=== PATIENT | female | born 1930 | race Caucasian/White ===

== ENCOUNTER 2018-09-14 11:27 | Inpatient (IN) | payer MEDICARE ==
[~2018-09-14] VITALS: Ht 157.5 cm; Wt 52.2 kg
[2018-09-14] MEDS ORDERED: diphenhydrAMINE 25 MG TAB (BENADRYL) PO PRN (12:00)
[2018-09-14] MEDS ORDERED: ACETAMINOPHEN 500 MG TAB (TYLENOL) PO PRN (12:00)
--- NOTE | 2018-09-14 12:55 | NUR ---
JANICE LI admitted to room 231, with an admitting diagnosis of METABOLIC ENCEPHALOPATHY, on 09/14/18 from [facility] via [facility]HICLE, accompanied by FAMILY. JANICE LI introduced to surroundings, call light, bed controls, phone, TV, temperature control, lights, meal times, smoking policy, visitor policy, side rail policy, bathrooms and showers. Patient Rights given to patient in the handbook. ADRIAJOSEPHVERONICAJANICE verbalizes understanding that [facility] is not responsible for the loss or damage to any personal effects or valuables that are kept in the patient's possession during their hospitalization. The following Patient Care Plans were discussed with the PATIENT/FAMILY: Discharge Planning, IMPAIRED MOBILITY, HIGH RISK: IMPAIRED SKIN INTEGRITY, HIGH RISK: INJURY, ANXIETY, FEAR, ALTERED CEREBRAL TISSUE PERFUSION, ALTERED HEALTH MAINTENANCE, ALTERED THOUGHT PROCESS, and KNOWLEDGE DEFICIT. ADRIAJOSEPHVERONICAJANICE verbalizes understanding of Interdisciplinary Patient Education. Patient received Patient Rights Booklet, which includes Privacy Act Statement and Data Collection Information Summary.
--- NOTE | 2018-09-14 13:50 | NUR ---
Dr. Campoverde notified Dr. Pederson of Wound Care consult.
[2018-09-14] MEDS ORDERED: CIPR-226 PO (13:52)
[2018-09-14] MEDS ORDERED: ALLO100T PO (13:52)
[2018-09-14] MEDS ORDERED: CALC1TAB94 PO (13:52)
[2018-09-14] MEDS ORDERED: METO-370 PO (13:52)
[2018-09-14] MEDS ORDERED: LACT10SO5 PO (13:52)
[2018-09-14] MEDS ORDERED: VIT1CAPS5 PO (13:52)
[2018-09-14] MEDS ORDERED: MUPI22OI2 TOP (13:52)
[2018-09-14] MEDS ORDERED: DIPH1TAB25 PO (13:52)
[2018-09-14] MEDS ORDERED: PANT40TA3 PO (13:52)
[2018-09-14] MEDS ORDERED: TORS5TAB5 PO (13:52)
[2018-09-14] MEDS ORDERED: POTA10CA43 PO (13:52)
[2018-09-14] MEDS ORDERED: AMLO10TA7 PO (13:52)
[2018-09-14] MEDS ORDERED: HYDR-3812 PO (13:52)
[2018-09-14] MEDS ORDERED: LIPA1CAP67 PO ×2 (13:52)
[2018-09-14] MEDS ORDERED: HYDR30CR71 RC (13:52)
--- NOTE | 2018-09-14 13:54 | PM&R H&P / Post Admit Assess ---
History of Present Illness HPI/Chief Complaint Chief complaint: Hepatic encephalopathy with debility. HPI: This is an 87yoWF of [address] [employer] Nelson in [place] and Dr. Hernandez Gastroenterology at [facility], and Dr. Garcia hematology at [facility] who has a PMH of liver cirrhosis, unknown source since she is a nondrinker lifetime and does not take any excess amount of Tylenol that was diagnosed with liver cirrhosis with portal hypertension two years ago, presents after altered mental status hospital stay at [facility] for confusion, stroke workup was negative and found to have elevated ammonia level at 83. Lactulose was initiated which cleared the confusion significantly, but due to the frail status and thin and chronically ill status that she is she needed inpatient rehab to maintain good Lactulose maintenance for clearance of elevated ammonia. At this current time Pt denies any pain but overall her strength is very poor and needs intensive therapy. Son is at the bedside. 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 Source: patient, family, RN/MD, old records Exam Limitations: no limitations Date Seen 09/14/18 Time Seen by a Provider: 13:40 Attending Physician Radha Oliva Benjamen H MD Referring Physician Date of Admission Sep 14, 2018 at 12:55 Home Medications & Allergies Home Medications Reviewed patient Home Medication Reconciliation performed by pharmacy medication reconciliations installation and repair technician and/or nursing. Patients Allergies have been reviewed. Allergies Allergies Coded Allergies Penicillins (Verified Allergy, Unknown, Diarrhea, 09/14/18) Sulfa (Sulfonamide Antibiotics) (Verified Allergy, Unknown, Diarrhea, 09/14/18) tobramycin (Verified Allergy, Unknown, Facial swelling, 09/14/18) Past Cguluer-Kijhey-Eklyur Hx Past Med/Social Hx: Reviewed Nursing Past Med/Soc Hx, Reviewed and Corrections made Patient Social History Marrital Status: single Employed/Student: retired Alcohol Use: Denies Use Smoking Status: Never a Smoker Recent Foreign Travel: No Contact w/other who traveled: No Recent Infectious Disease Expo: No Past Medical History Genitourinary: Renal Failure Gastrointestinal: Liver Disease/Jaundice, Cirrhosis GI bleed Musculoskeletal: Arthritis right flank post herpetic neuralgia Review of Systems Constitutional: see HPI, dizziness, malaise, weakness EENTM: no symptoms reported Respiratory: no symptoms reported Cardiovascular: no symptoms reported Gastrointestinal: diarrhea Genitourinary: no symptoms reported Musculoskeletal: joint pain Skin: no symptoms reported Psychiatric/Neurological: No Symptoms Reported All Other Systems Reviewed Negative Unless Noted: Yes Physical Exam Exam Vital Signs Vital Signs Date Time Temp Pulse Resp B/P (MAP) Pulse Ox O2 Delivery O2 Flow Rate FiO2 09/15/18 05:05 98.7 70 16 104/61 (75) 98 Room Air Capillary Refill : General Appearance: No Apparent Distress, WD/WN, Chronically ill, Cachetic, Thin HEENT: PERRL/EOMI, Normal ENT Inspection, Pharynx Normal, Moist Mucous Membranes, Other (severe HO-CHUNK) Neck: Full Range of Motion, Normal Inspection, Non Tender, Supple Respiratory: Chest Non Tender, Lungs Clear, Normal Breath Sounds, No Accessory Muscle Use, No Respiratory Distress Cardiovascular: Regular Rate, Rhythm, No Edema, No Gallop, No JVD, No Murmur Gastrointestinal: Normal Bowel Sounds, No Organomegaly, No Pulsatile Mass, Non Tender, Soft Back: Normal Inspection, No CVA Tenderness, No Vertebral Tenderness Extremity: Normal Capillary Refill, Normal Inspection, Normal Range of Motion, Non Tender, No Calf Tenderness, No Pedal Edema Neurologic/Psychiatric: Alert, Oriented x3, No Motor/Sensory Deficits ( weakness generalized), Normal 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 Assessment/Plan Assessment and Plan Assess & Plan/Chief Complaint Assessment: Hepatic encephalopathy now with normal ammonia 24 today after dosing Lactulose TID for 5 BM's per day CRI Pancytopenia Anemia of renal disease Leukopenia chronic Advanced age GI Bleed in past Fall risk DNR Right flank post herpetic neuralgia Plan: Home meds Lactulose TID to attain 5 BM's Intensive therapies to return to independent living Prognosis guarded (1) Hepatic encephalopathy (2) Cirrhosis of liver with ascites (3) Portal vein thrombosis (4) Anemia (5) Neutropenia (6) Thrombocytopenia (7) B12 deficiency (8) Post herpetic neuralgia (9) Splenic sequestration (10) Renal insufficiency (11) Increased ammonia level (12) History of GI bleed (13) Advanced age (14) DNR (do not resuscitate) (15) Frailty Post Admission Physician Asses Date seen by provider: Sep 14, 2018 Time seen by provider: 13:40 The preadmission screen agrees with the post admission assessment that the patient is a good candidate for inpatient rehabilitation. The patient will have a comprehensive program of inpatient rehabilitation with a goal of maximizing level of functional independence prior to discharge home with family. The patient will have PT/OT ninety minutes per day, each discipline, five days a week for gait, strengthening, conditioning, balance, ADLs, any patient/family/caregiver training as necessary. Speech therapy to do cognitive assessment and treat as indicated. Rehabilitation nursing to assist with bowel, bladder, skin, wound care, medication administration, pain management. Oil Lease Broker to assist with discharge planning, community reentry. SCD's for DVT prophylaxis. She appears to be well motivated to participate in three hours of therapy a day. She should be able to tolerate three hours of therapy a day from a medical standpoint. She should benefit from the three hours of therapy a day. She has a reasonable discharge plan, reasonable discharge rehabilitation goals and a supportive family. She has various comorbidities that need to be closely monitored with medications and treatments adjusted on a daily basis as needed. These include: Barriers to discharge for this patient who had been independent prior to this are for her to be modified independent to supervision for ADLs and mobility skills prior to discharge home with [family], so as to lessen the burden of the caregivers. Risks for this patient include: 1. Fall 2. Fracture 3. DVT 4. Pulmonary embolism 5. Wound infection 6. Skin breakdown 7. Contractures 8. Poorly controlled pain 9. Urinary retention 10. UTI 11. Respiratory infection 12. Aspiration Estimated Length of Stay: 7 days Prognosis: Rehab prognosis appears good for goal of discharge home with family modified independent to supervision for ADLs and mobility skills. General: Alert, Oriented X3, Cooperative, No Acute Distress HEENT: Atraumatic, PERRLA, Other (HO-CHUNK severe) Neck: Supple, No JVD, No Thyromegaly, +2 Carotid Pulse No Bruit, No LAD Lungs: Clear to Auscultation, Normal Air Movement Heart: Regular Rate, Normal S1, Normal S2, No Murmurs Abdomen: Normal Bowel Sounds, Soft, No Tenderness, No Hepatosplenomegaly, No Masses Extremities: No Clubbing, No Cyanosis, No Edema, Normal Pulses, No Tenderness/ Swelling Skin: No Rashes, No Breakdown, No Significant Lesion Neuro: Normal Gait (with walker), Normal Speech, Strength at 5/5 X4 Ext ( weakness), Normal Tone, Sensation Intact, Cranial Nerves 3-12 NL, Reflexes 2+ Psych/Mental Status: Mental Status NL, Mood NL RDAHA OLIVA DO Sep 14, 2018 13:54
--- NOTE | 2018-09-14 13:55 | NUR ---
UPDATED MED REC TO THE LIST OF MEDICATIONS ORDERED ON DISCHARGE FROM [facility]. NOTE THE FOLLOWING CHANGES WERE MADE AT [facility]: START TAKING: CIPRO LACTULOSE STOP TAKING: NITROFURANTOIN PRED FORTE I WILL UPDATE THE MED REC BACK TO THE HOME MED LIST AT A LATER DATE FOR PROPER DISCHARGE ORDERS. Addendum: 09/15/18 at 1011 by KAUSHIK PARRISH [facility] REMOVED THE TWO NEW MEDICATIONS STARTED AT [facility]: CIPRO AND LACTULOSE. ADDED THE MACROBID BACK THAT WAS DISCONTINUED. I DID NOT ADD BACK THE PREDNISOLONE DROPS THEY HAVE NOT BEEN FILLED SINCE OCTOBER ANYWAY. MED REC IS BACK TO HOME MEDS PRIOR TO ADMISSION AND DISCHARGE FROM [facility].
[2018-09-14] MEDS: LACTULOSE SYRUP 10GM/15ML (ENULOSE) 30ML UDC PO SCH ×2 (13:57→20:30)
--- NOTE | 2018-09-14 14:20 | Physical Therapy Evaluation ---
PT Evaluation-General Medical Diagnosis Admission Date Sep 14, 2018 at 12:55 Medical Diagnosis: acute metabolic encephalopathy Onset Date: Sep 14, 2018 Therapy Diagnosis Therapy Diagnosis: weakness; abnormal gait Precautions Precautions/Isolations: Standard Precautions Weight Bear Status Right Lower Extremity: Right Full Weight Bearing Left Lower Extremity: Left Full Weight Bearing Referral Physician: Nirali Reason for Referral: Evaluation/Treatment Medical History Pertinent Medical History: Diverticulitis, Fractures (pelvic), HTN, Neuropathy , OA Additional Medical History cirrhosis liver, Chronic kidney disease stage 3, mitral valve prolapse, osteopenia, osteoporosis Current History pt presented to ER at [facility] on 09/12/2018 with altered mental status and was found to have elevated ammonia level. She was treated medically and then transferred to this facility for continued medical care as well as skilled therapy services. Reviewed History: Yes Social History Home: Single Level Current Living Status: Alone (supportive family nearby) Entry Into Home: Stairs With Railing PT Steps Into Home: 4 PT Steps Inside Home: 0 Prior/Core FIM Prior Level of Function Therapy Code Descriptions/Definitions Functional [place] Measure: 0=Not Assessed/NA 4=Minimal Assistance 1=Total Assistance 5=Supervision or Setup 2=Maximal Assistance 6=Modified [place] 3=Moderate Assistance 7=Complete [place] Therapy Quality Codes: 6 Independent with activity with or without an assistive device 5 Patient requires set up or clean up by helper. Patient completes activity by themselves 4 Supervision or touching assist (CGA). [place] provide cues , steadying assist 3 The helper provides less than half the effort to complete the activity 2 The helper provides more than half the effort to complete the activity 1 Dependent. The helper does all the effort to complete an activity 7 Patient refused to complete or attempt activity 9 The patient did not perform the activity before the current illness or injury 88 Not attempted due to Medical conditions or safety concerns Functional Abilities and Goals: Independent: Patient completed the activities by him/herself, with or without an assistive device, with no assistance from a helper. Needed Some Help: Patient needed partial assistance from another person to complete activities. Dependent: A helper completed the activities for the patient. Unknown: Not Applicable: Bed Mobility: 7 Transfers (B,C,W/C) (FIM): 7 Gait: 6 Stairs: 5 (household) Indoor Mobility (Ambulation): Independent Stairs: Independent Prior Devices Use: Walker Pt does not drive but was able to ride with family to the grocery and walk around the store pushing a cart. PT Evaluation-Current Subjective Agrees to PT. Reports she is having loose stools that come frequently due to medication. Reports feeling tired post treatment. Pain Numeric Pain Scale: 0-No Pain Location: No Pain Reported Pt/Family Goals Return home with [facility] . Objective Patient Orientation: Person, Place, Time, Situation Problem Solving: Fair ROM/Strength ROM Lower Extremities WNL Strenght Lower Extremities strength is grossly 4-/5 throughout with decreased functinal activity tolerance. Integumentary/Posture Integumentary Refer to nursing notes for full assessment. Bowel Incontinence: Yes Bladder Incontinence: No Posture symmetrical; slightly rounded shoulders but normal for age. Neuromuscular (Tone, Coordination, Reflexes) intact and functional Sensory Vision: Wears Glasses (still impaired with glasses) Hearing: Hearing Aid/Aides Hand Dominance: Right Sensation Right Lower Extremit: Intact Sensation Left Lower Extremity: Intact Transfers Therapy Code Descriptions/Definitions Functional [place] Measure: 0=Not Assessed/NA 4=Minimal Assistance 1=Total Assistance 5=Supervision or Setup 2=Maximal Assistance 6=Modified [place] 3=Moderate Assistance 7=Complete [place] Therapy Quality Codes: 6 Independent with activity with or without an assistive device 5 Patient requires set up or clean up by helper. Patient completes activity by themselves 4 Supervision or touching assist (CGA). [place] provide cues , steadying assist 3 The helper provides less than half the effort to complete the activity 2 The helper provides more than half the effort to complete the activity 1 Dependent. The helper does all the effort to complete an activity 7 Patient refused to complete or attempt activity 9 The patient did not perform the activity before the current illness or injury 88 Not attempted due to Medical conditions or safety concerns Transfers (B, C, W/C) (FIM): 4 Roll Left to Right (QC): 4 Supine to/from Sit: 4 (light assist to guide legs) Sit to/from Stand: 4 (CGA with skilled cues for hand placement) Sit to Lying (QC): 4 Lying to Sitting/Side of Bed(Q: 4 Sit to Stand (QC): 4 Chair/Xia-se-Zxwen Xfer(QC): 4 Car Transfer (QC): 3 Cues for sequencing and safety provided. Tends to pull up from the walker rather than push up from the chair. Gait Does the Patient Walk?: Yes Mode of Locomotion: Walk Anticipated Mode of Locomotion: Walk Gait (FIM): 2 Distance (FIM): 0=636-89 ft Walk 10 feet (QC): 4 Walk 50 ft with 2 Turns(QC): 4 Walk 150 ft (QC): 88 Walking 10ft/uneven surface-QC: 4 Distance: 75 ft x 4 reps Gait Level of Assist: 4 (CGA with 1 LOB episode that required assist to recover ) Gait Assistive Device: FWW Comments/Gait Description slow but steady gait noted. Wheelchair Training Does the Pt Use a Wheelchair?: No Stairs Stairs (FIM): 2 #of Steps: 1 Level of Assist: 4 1 Step (curb) (QC): 4 4 Steps (QC): 88 Assistive Device: Walker 12 Steps (QC): 88 Balance Sitting Static: Good Sitting Dynamic: Good Standing Static: Fair Standing Dynamic: Fair Picking up an Object (QC): 88 (unsafe to attempt) Treatment Gait and functional transfer training paired with safety education; toilet transfer x 2 and stood at the sink to wash hands x 2. Family education on safety and expectations of ARU with pt present and participating. Assessment/Needs pt presents post acute hospital stay with a decline in functional strength and balance that impairs her ability to transfer or walk without assist and with increased fall risk. She will benefit from skilled PT to address these deficits to allow her to return home and care for herself. Rehab Potential: Good PT Short Term Goals Short Term Goals Time Frame: Sep 21, 2018 Transfers (B,C,W/C) (FIM): 5 Gait (FIM): 4 PT [facility] Goals Elevator Constructor Hydraulic Goals PT [facility] Goals Time Frame: Sep 30, 2018 Transfers (B,C,W/C) (FIM): 7 Sit to Lying (QC): 6 Lying-Sitting on Side/Bed(QC): 6 Sit to Stand (QC): 6 Roll Left to Right (QC): 6 Chair/Xfv-iy-Ihokf Xfer(QC): 6 Car Transfer (QC): 6 Does the Patient Walk: Yes Gait (FIM): 6 Gait distance (FIM): 3=150 ft Walk 10 feet (QC): 6 Walk 10ft-Uneven Surface(QC): 6 Walk 50ft with 2 Turns (QC): 6 Walk 150 ft (QC): 6 Gait Assistive Device: FWW Does the Pt use WC or Scooter?: No Stairs (FIM): 5 (household) # of Steps: 4 1 Step (curb) (QC): 6 4 Steps (QC): 6 12 Steps (QC): 88 Picking up an Object (QC): 4 PT Plan Problem List Problem List: Activity Tolerance, Functional Strength, Safety, Balance, Gait, Transfer, Bed Mobility Treatment/Plan Treatment Plan: Continue Plan of Care Treatment Plan: Bed Mobility, Education, Functional Activity Shaista, Functional Strength, Group Therapy, Gait, Safety, Therapeutic Exercise, Transfers Treatment Duration: Sep 30, 2018 Frequency: At least 5 of 7 days/Wk (IRF) Estimated Hrs Per Day: 1.5 hours per day Patient and/or Family Agrees t: Yes Safety Risks/Education Patient Education: Transfer Techniques, Safety Issues Teaching Recipient: Patient, Family Teaching Methods: Demonstration, Discussion Response to Teaching: Reinforcement Needed Discharge Recommendations Therapy D/C Recommendations: Physical Therapy Home Care Time/GCodes Time In: 1445 Time Out: 1600 Total Billed Treatment Time: 75 Total Billed Treatment visit EVM 15 FA 60 ELIZABETH CROW PT Sep 14, 2018 14:20
--- NOTE | 2018-09-14 14:55 | ST Cognitive Linguistic Eval ---
Speech Evaluation-General Medical Diagnosis acute metabolic encephalopathy Onset Date: Sep 14, 2018 Therapy Diagnosis Therapy Diagnosis: Cognitive-communication Precautions Precautions: Fall Precautions/Isolations: Standard Precautions Referral Referring Physician: Dr. Campoverde Medical History Pertinent Medical History: Diverticulitis, Fractures (pelvic), HTN, Neuropathy , OA Reviewed History: Yes Social History Current Living Status: Alone Speech PLF-Current Status Prior Level of Function Patient lived at home alone with family support. She was independent for her daily needs. Subjective Patient was very pleasant and attentive during the cognitive evaluation. Language Eval: Auditory Comprehends Simple Yes/No Ques: Functional Indent/Objects Multiple [place]: Functional Ident/Pics in Multiple Jones: Functional Follows 1-Step Commands: Functional Follows Complex Directions: Functional Follows General Conversations: Functional Language Eval: Verbal Language Completes Spontaneous Greeting: Functional Produces Auto, Serial Info: Functional Imitates Simple Words/Phrases: Functional Word Finding: Functional Requests Basic Needs: Functional States Basic Personal Info: Functional Expresses Complex Ideas: Functional Objective Cognitive Domain Attention: WNL Memory: WNL Problem Solving: Functional Executive Functions: WNL Visuospatial Skills: Mild Clock Drawing Severity Rating: WNL Objective Formal/Standardized Tests Dylan Cognitive Assessment (MOCA) Results Visuospatial/Executive: 5/5, Namin/3, Memory: Immediate 5/5, Delayed with cues 4/5, Attention: 6/6, Language: 2/2, Abstraction: 2/2, Orientation: 6/6 Oral Motor/Speech Production Within Functional Limits Impression The patient is a very pleasant 87 year old female who was admitted to the ARU for strengthening in order to return to her prior level of functioning. She was given the MOCA in her room with the patient's results WFL for all areas tested. She does not require skilled ST services at this time. Communication/Social Cognition Comprehension: 7 Expression: 7 Social Interaction: 7 Problem Solvin Memory: 7 Speech Patient Assess Expression of Ideas/Wants: Expression (4) Understanding Verbal Content: Understands (4) Brief Interview-Mental Status: Yes Repetition of Three Words: Three (3) Temporal Orientation: Year: Correct (3) Temporal Orientation: Month: Accurate within 5 days(2) Temporal Orientation: Day: Correct (1) Recall : Wear to say "Sock": Yes, no cue required (2) Recall : Color: Yes, no cue required (2) Recall : Bed: Yes,after cueing (1) Memory/Recall Ability: Current season, That he or she is in a hsp/hsp unit Speech-Plan Patient/Family Goals Patient/Family Goals: The patient plans to return home post rehab. Treatment Plan Speech Therapy Treatment Plan: Discontinue ST The patient does not require skilled ST services at this time. Treatment Duration: Sep 14, 2018 Frequency: 1 time per week Estimated Hrs Per Day: .25 hour per day Rehab Potential: Good Barriers to Learning: None identified Pt/Family Agrees to Plan: Yes Safety Risks/Education Teaching Recipient: Patient Teaching Methods: Discussion Response to Teaching: Verbalize Understanding Education Topics Provided: Safety within her room. Utilization of the call light as needed. Time Speech Therapy Time In: 14:30 Speech Therapy Time Out: 14:45 Total Billed Time: 15 Billed Treatment Time 1, CHATO Bailey Sep 14, 2018 14:55
--- NOTE | 2018-09-14 15:22 | Occupational Therapy Eval ---
OT Evaluation-General/PLF Medical Diagnosis Admission Date Sep 14, 2018 at 12:55 Medical Diagnosis: acute metabolic encephalopathy Onset Date: Sep 14, 2018 Therapy Diagnosis Therapy Diagnosis: decreased self care skills Precautions Precautions/Isolations: Standard Precautions Referral Physician: Nirali Medical History Pertinent Medical History: Diverticulitis, Fractures (pelvic), HTN, Neuropathy , OA Additional Medical History cirrhosis liver, Chronic kidney disease stage 3, mitral valve prolapse, osteopenia, osteoporosis Current History pt presented to ER at [facility] on 09/12/2018 with altered mental status and was found to have elevated ammonia level. She was treated medically and then transferred to this facility for continued medical care as well as skilled therapy services. Reviewed History: Yes Social History Home: Single Level Current Living Status: Alone Entry Into Home: Stairs With Railing Steps Into Home: 3 ADL-Prior Level of Function Therapy Code Descriptions/Definitions Functional [place] Measure: 0=Not Assessed/NA 4=Minimal Assistance 1=Total Assistance 5=Supervision or Setup 2=Maximal Assistance 6=Modified [place] 3=Moderate Assistance 7=Complete [place] Therapy Quality Codes: 6 Independent with activity with or without an assistive device 5 Patient requires set up or clean up by helper. Patient completes activity by themselves 4 Supervision or touching assist (CGA). [place] provide cues , steadying assist 3 The helper provides less than half the effort to complete the activity 2 The helper provides more than half the effort to complete the activity 1 Dependent. The helper does all the effort to complete an activity 7 Patient refused to complete or attempt activity 9 The patient did not perform the activity before the current illness or injury 88 Not attempted due to Medical conditions or safety concerns Functional Abilities and Goals: Independent: Patient completed the activities by him/herself, with or without an assistive device, with no assistance from a helper. Needed Some Help: Patient needed partial assistance from another person to complete activities. Dependent: A helper completed the activities for the patient. Unknown: Not Applicable: ADL PLOF Comments Pt reports being independent with self care and mobility. Pt does the cooking and cleaning. Uses FWW in the house. Son checks on her daily Self Care: Independent DME/Equipment: Shower Drive Self: No OT Current Status Subjective Pt arrives from outside hospital, agrees to therapy. Pt reports back and neck pain, but does not rate. Mental Status/Objective Patient Orientation: Person, Place Current Glasses/Contacts: No (Pt reports decreased vision secondary to macular degeneration. Pt also states she had a cataract removed, but feels like vision is worse since then) Hearing Aids: Yes Dentures/Partials: Yes Hand Dominance: Right Upper Extremity ROM Mildly decreased shoulder ROM Upper Extremity Coordination Intact Upper Extremity Sensation Pt reports "nerve pain" in right UE and flank secondary to previous shingles Upper Extremity Strength decreased bilateral UE ADL-Treatment ADL-Current Pt transferred to toilet x2 during session with minimal assistance for safety. Pt able to complete toileting hygiene, but requires CGA for balance during clothing management. Pt completed sponge bath while seated. Upper body bathing completed with SBA. Requires minimal assistance for lower body bathing. Pt does not have clothes here, states family will bring some. Changed gown with set up. Pt demonstrated ability to doff/don socks with SBA. Pt combed hair with set up. Meal tray arrived. Pt requires some assist to open containers, but is then able to feed herself without assist. Pt sitting in chair with needs met after session. Eating (FIM): 5 Eating (QC): 5 Grooming (FIM): 5 Bathing (FIM): 4 Shower/Bathe Self (QC): 3 On/Off Footwear (QC): 4 Toileting (FIM): 4 Toileting Hygiene (QC): 3 Toilet/Commode Transfer (FIM): 4 Toilet Transfer (QC): 3 Education OT Patient Education: Rehab process Teaching Recipient: Patient Teaching Methods: Discussion Response to Teaching: Verbalize Understanding OT Short Term Goals Short Term Goals Time Frame: Sep 21, 2018 Bathing(FIM): 5 Lower Body Dressing(FIM): 5 Toileting(FIM): 5 Toilet/Commode Transfer(FIM): 5 Additional Short Term Goals: 1-Demonstrate ADL Tasks, 2-Verbalize Understanding , 3-ImproveStrength/Shaista 1=Demonstrate adherence to instructed precautions during ADL tasks. 2=Patient will verbalize/demonstrate understanding of assistive devices/ modifications for ADL. 3=Patient will improve strength/tolerance for activity to enable patient to perform ADL's. 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 2=Patient will verbalize/demonstrate understanding of assistive devices/ modifications for ADL. 3=Patient will improve strength/tolerance for activity to enable patient to perform ADL's. Goals established to promote increased functional performance and allow safe discharge plan. OT Education/Plan Problem List/Assessment Assessment: Decreased Activ Tolerance, Decreased UE Strength, Dependent Transfers, Impaired I ADL's, Impaired Self-Care Skills Pt to benefit from skilled OT intervention for ADL training, transfers, strengthening, and safety education to increase level of performance and allow safe discharge plan Discharge Recommendations Plan/Recommendations: Continue POC Treatment Plan/Plan of Care Treatment,Training & Education: Yes Patient would benefit from OT for education, treatment and training to promote independence in ADL's, mobility, safety and/or upper extremity function for ADL' s. Plan of Care: ADL Retraining, Functional Mobility, Group Exercise/Act as Ind, UE Funct Exercise/Act Treatment Duration: Oct 05, 2018 Frequency: At least 5 of 7 days/Wk (IRF) Estimated Hrs Per Day: 1.5 hours per day Agreement: Yes Rehab Potential: Good Time/GCodes Start Time: 12:55 Stop Time: 14:30 Total Time Billed (hr/min): 95 Billed Treatment Time 1 visit, EVL(30minutes), ADLx4(65minutes) STACI GUADALUPE OT Sep 14, 2018 15:22
[2018-09-14] MEDS ORDERED: NON-FORMULARY MEDICATION 1 EA EA (Hydrocodone/Acetaminophen (Hydrocodone-Acetamin 5-325 mg PO PRN (16:45)
[2018-09-14] MEDS ORDERED: LIPASE/AMYLASE/PROTEASE (PANCRELIPASE) 5,000 UNITS CAP PO SCH (17:15)
[2018-09-14 17:45] VITALS: BP 131/72
--- NOTE | 2018-09-14 17:50 | NUR ---
Dr. Pederson here to see patient.
--- NOTE | 2018-09-14 17:56 | Wound Care Assessment ---
Wound Care Assessment Date Seen by Provider: Sep 14, 2018 Time Seen by Provider: 17:53 Chief Complaint Perianal excoriation. HPI The patient is an 87 year old female with hepatic encephalopathy on lactulose to reduce ammonia levels with a chemical dermatitis from stool to the perianal area. Barrier cream ordered. Exam Vital Signs Date Time Temp Pulse Resp B/P (MAP) Pulse Ox O2 Delivery O2 Flow Rate FiO2 09/14/18 17:45 97.4 78 18 131/72 (91) 97 Room Air Capillary Refill : MIR NEAL MD Sep 14, 2018 17:56
[2018-09-14] MEDS: CALCIUM CARB + VIT D 600 MG (CALCARB + D) TAB PO SCH (18:02)
[2018-09-14] MEDS: HYDROcodone/APAP 5 MG/325 MG (LORTAB) TAB PO PRN (18:03)
[2018-09-14] MEDS: CIPROFLOXACIN 500 MG (CIPRO) TABLET PO SCH (20:30)
[2018-09-14] MEDS ORDERED: NON-FORMULARY MEDICATION 1 EA EA (Calcium Carbonate/Vitamin D3 (Calcium 600 + Vit D 400 Ta PO SCH (21:00)
[2018-09-14] MEDS ORDERED: NON-FORMULARY MEDICATION 1 EA EA (Ciprofloxacin HCl (Cipro) 250 MG) PO SCH (21:00)
[2018-09-14] MEDS ORDERED: PRESERVISION AREDS SOFTGEL (BAUSH & LOMB) PO SCH (21:00)
[2018-09-15 05:05] VITALS: BP 104/61
[2018-09-15 05:48] LABS: BASOPHILS % (AUTO) 1 % (0-10); EOSINOPHILS # (AUTO) 0.1 10^3/uL (0.0-0.3); EOSINOPHILS % (AUTO) 6 % (0-10); HEMATOCRIT 29 % (35-52); HEMOGLOBIN 9.5 G/DL (11.5-16.0); LYMPHOCYTES # (AUTO) 0.4 X 10^3 (1.0-4.0); LYMPHOCYTES % (AUTO) 29 % (12-44); MEAN CORPUSCULAR HEMOGLOBIN 30 PG (25-34); MEAN CORPUSCULAR HGB CONC 33 G/DL (32-36); MEAN CORPUSCULAR VOLUME 93 FL (80-99); MEAN PLATELET VOLUME 10.3 FL (7.4-10.4); MONOCYTES # (AUTO) 0.1 X 10^3 (0.0-1.0); MONOCYTES % (AUTO) 8 % (0-12); NEUTROPHILS # (AUTO) 0.8 X 10^3 (1.8-7.8); NEUTROPHILS % (AUTO) 56 % (42-75); RED CELL DISTRIBUTION WIDTH 16.2 % (10.0-14.5)
[2018-09-15 06:14] LABS: ALBUMIN 3.2 GM/DL (3.2-4.5); BILIRUBIN,TOTAL 1.8 MG/DL (0.1-1.0); CALCIUM 8.5 MG/DL (8.5-10.1); CREATININE SERUM 1.47 MG/DL (0.60-1.30); POTASSIUM 2.9 MMOL/L (3.6-5.0)
[2018-09-15 06:17] LABS: PLATELET COUNT 32 10^3/uL (130-400); WHITE BLOOD COUNT 1.4 10^3/uL (4.3-11.0)
[2018-09-15] MEDS: PANTOPRAZOLE 40 MG (PROTONIX) TAB PO SCH (07:05)
[2018-09-15] MEDS: KCL 10 MEQ TAB (MICRO K) PO SCH (07:05)
[2018-09-15] MEDS: LIPASE/AMYLASE/PROTEASE (PANCRELIPASE) 5,000 UNITS CAP PO SCH ×3 (07:06→18:01)
[2018-09-15] MEDS: CALCIUM CARB + VIT D 600 MG (CALCARB + D) TAB PO SCH ×2 (07:10→19:55)
--- NOTE | 2018-09-15 08:39 | PM&R Progress Note ---
Subjective HPI/CC On Admission Date Seen by Provider: Sep 15, 2018 Time Seen by Provider: 08:45 Chief complaint: Hepatic encephalopathy with debility. HPI: This is an 87yo[address] of [address] [facility] in [place] and Dr. Hernandez Gastroenterology at [facility], and Dr. Garcia hematology at [facility] who has a PMH of liver cirrhosis, unknown source since she is a nondrinker lifetime and does not take any excess amount of Tylenol that was diagnosed with liver cirrhosis with portal hypertension two years ago, presents after altered mental status hospital stay at [facility] for confusion, stroke workup was negative and found to have elevated ammonia level at 83. Lactulose was initiated which cleared the confusion significantly, but due to the frail status and thin and chronically ill status that she is she needed inpatient rehab to maintain good Lactulose maintenance for clearance of elevated ammonia. At this current time Pt denies any pain but overall her strength is very poor and needs intensive therapy. Son is at the bedside. 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 Objective Exam Vital Signs Vital Signs Date Time Temp Pulse Resp B/P (MAP) Pulse Ox O2 Delivery O2 Flow Rate FiO2 09/15/18 09:00 Room Air 09/15/18 05:05 98.7 70 16 104/61 (75) 98 Capillary Refill : General Appearance: No Apparent Distress, WD/WN, Chronically ill, Cachetic, Thin, Other (pale, chronically ill) HEENT: PERRL/EOMI, Normal ENT Inspection, Pharynx Normal, Other (UMATILLA TRIBE) Neck: Full Range of Motion, Normal Inspection, Non Tender, Supple Respiratory: Chest Non Tender, Lungs Clear, Normal Breath Sounds, No Accessory Muscle Use, No Respiratory Distress Cardiovascular: Regular Rate, Rhythm, No Edema, No Gallop, No JVD, No Murmur, Normal Peripheral Pulses Gastrointestinal: Normal Bowel Sounds, Non Tender, Soft Back: Normal Inspection, No CVA Tenderness, No Vertebral Tenderness Extremity: Normal Capillary Refill, Normal Inspection, Normal Range of Motion, Non Tender, No Calf Tenderness Neurologic/Psychiatric: Alert, Oriented x3, No Motor/Sensory Deficits, Normal Mood/Affect, electronic integrated systems mechanic II-XII Norm as Tested Skin: Normal Color, Warm/Dry Lymphatic: No Adenopathy Results/Procedures Lab Laboratory Tests 09/15/18 05:40 Patient resulted labs reviewed. Assessment/Plan Assessment and Plan Assess & Plan/Chief Complaint Assessment: Hepatic encephalopathy now with normal ammonia 24 today after dosing Lactulose TID for 5 BM's per day CRI Pancytopenia Anemia of renal disease Leukopenia chronic Advanced age GI Bleed in past Fall risk DNR Right flank post herpetic neuralgia Plan: Home meds Lactulose TID to attain 5 BM's Intensive therapies to return to independent living Prognosis guarded Reviewed Hematology note from [facility] (1) Hepatic encephalopathy (2) Portal vein thrombosis (3) Anemia (4) Neutropenia (5) Post herpetic neuralgia (6) Renal insufficiency (7) Thrombocytopenia (8) Splenic sequestration (9) DNR (do not resuscitate) (10) Frailty (11) B12 deficiency (12) Advanced age (13) History of GI bleed (14) Increased ammonia level (15) Cirrhosis of liver with ascites Clinical Quality Measures DVT/VTE Risk/Contraindication: Risk Factor Score Per Nursin RFS Level Per Nursing on Admit: 2=Moderate YOLANDA OLIVA DO Sep 15, 2018 08:39
[2018-09-15] MEDS ORDERED: NON-FORMULARY MEDICATION 1 EA EA (Torsemide 10 MG) PO SCH (09:00)
[2018-09-15] MEDS ORDERED: NON-FORMULARY MEDICATION 1 EA EA (Allopurinol 100 MG) PO SCH (09:00)
[2018-09-15] MEDS ORDERED: NON-FORMULARY MEDICATION 1 EA EA (Potassium Chloride 10 MEQ) PO SCH (09:00)
[2018-09-15] MEDS ORDERED: NON-FORMULARY MEDICATION 1 EA EA (Amlodipine Besylate 10 MG) PO SCH (09:00)
[2018-09-15] MEDS ORDERED: NITR100C10 PO (10:08)
--- NOTE | 2018-09-15 10:13 | Physical Therapy Daily Note ---
PT Daily Note-Current Subjective Patient in recliner pre tx, agrees to PT, has 8/10 pain in legs and knees, nurse notified. Appearance Patient in recliner post tx with nurse call, phone, tray, all needs met. Mental Status Patient Orientation: Person, Place, Situation Transfers Therapy Code Descriptions/Definitions Functional [place] Measure: 0=Not Assessed/NA 4=Minimal Assistance 1=Total Assistance 5=Supervision or Setup 2=Maximal Assistance 6=Modified [place] 3=Moderate Assistance 7=Complete [place] Therapy Quality Codes: 6 Independent with activity with or without an assistive device 5 Patient requires set up or clean up by helper. Patient completes activity by themselves 4 Supervision or touching assist (CGA). [place] provide cues , steadying assist 3 The helper provides less than half the effort to complete the activity 2 The helper provides more than half the effort to complete the activity 1 Dependent. The helper does all the effort to complete an activity 7 Patient refused to complete or attempt activity 9 The patient did not perform the activity before the current illness or injury 88 Not attempted due to Medical conditions or safety concerns Transfers (B, C, W/C) (FIM): 4 Sit to/from Stand: 4 Bed to/from Chair: 4 Weight Bearing Right Lower Extremity: Right Full Weight Bearing Left Lower Extremity: Left Full Weight Bearing Gait Training Gait (FIM): 4 Distance: 100'x2 Gait Level of Assist: 4 Gait Persons Needed: 1 Gait Assistive Device: FWW CGA, slow but steady ambulation Exercises Standing: Hip Abduction, Heel/toe raises, Marching, Mini squats Standing Reps: 20 LAQ alternating for 5 min NuStep Minutes: 15 NuStep Workload: 4 Treatments transfers, ambulation, functional strengthening Assessment Current Status: Fair Progress improving endurance and ambulation PT Short Term Goals Short Term Goals Time Frame: Sep 21, 2018 Transfers (B,C,W/C) (FIM): 5 Gait (FIM): 4 PT Mcfp Goals Mcfp Goals PT Mcfp Goals Time Frame: Sep 30, 2018 Transfers (B,C,W/C) (FIM): 7 Sit to Lying (QC): 6 Lying-Sitting on Side/Bed(QC): 6 Sit to Stand (QC): 6 Roll Left to Right (QC): 6 Chair/Sia-qh-Umtiq Xfer(QC): 6 Car Transfer (QC): 6 Does the Patient Walk: Yes Gait (FIM): 6 Gait distance (FIM): 3=150 ft Walk 10 feet (QC): 6 Walk 10ft-Uneven Surface(QC): 6 Walk 50ft with 2 Turns (QC): 6 Walk 150 ft (QC): 6 Gait Assistive Device: FWW Does the Pt use WC or Scooter?: No Stairs (FIM): 5 (household) # of Steps: 4 1 Step (curb) (QC): 6 4 Steps (QC): 6 12 Steps (QC): 88 Picking up an Object (QC): 4 PT Plan Problem List Problem List: Activity Tolerance, Functional Strength, Safety, Balance, Gait, Transfer, Bed Mobility, ROM Treatment/Plan Treatment Plan: Continue Plan of Care Treatment Plan: Bed Mobility, Education, Functional Activity Shaista, Functional Strength, Group Therapy, Gait, Safety, Therapeutic Exercise, Transfers Treatment Duration: Sep 30, 2018 Frequency: At least 5 of 7 days/Wk (IRF) Estimated Hrs Per Day: 1.5 hours per day Patient and/or Family Agrees t: Yes Safety Risks/Education Patient Education: Gait Training, Transfer Techniques, Correct Positioning, Safety Issues Teaching Recipient: Patient Teaching Methods: Demonstration, Discussion Response to Teaching: Reinforcement Needed Time/GCodes Time In: 0915 Time Out: 1015 Total Billed Treatment Time: 60 Total Billed Treatment 1 visit GT 20' FA 15' EX 25' ABBEY TUCKER PT Sep 15, 2018 10:13
[2018-09-15] MEDS: CIPROFLOXACIN 500 MG (CIPRO) TABLET PO SCH ×2 (10:15→20:07)
[2018-09-15] MEDS: TORSEMIDE 20 MG (DEMADEX) TAB PO SCH (10:16)
[2018-09-15] MEDS: amLODIPine 10 MG (NORVASC) TAB PO SCH (10:17)
[2018-09-15] MEDS: LACTULOSE SYRUP 10GM/15ML (ENULOSE) 30ML UDC PO SCH ×3 (10:17→21:13)
[2018-09-15] MEDS: meTOproloL SUCCINATE 50 MG (TOPROL XL) TAB PO SCH (10:17)
[2018-09-15] MEDS: ALLOPURINOL 100 MG (ZYLOPRIM) TAB PO SCH (10:18)
--- NOTE | 2018-09-15 13:14 | Physical Therapy Daily Note ---
PT Daily Note-Current Subjective Agreeable to PT. No complaints. Transfers Therapy Code Descriptions/Definitions Functional [place] Measure: 0=Not Assessed/NA 4=Minimal Assistance 1=Total Assistance 5=Supervision or Setup 2=Maximal Assistance 6=Modified [place] 3=Moderate Assistance 7=Complete [place] Therapy Quality Codes: 6 Independent with activity with or without an assistive device 5 Patient requires set up or clean up by helper. Patient completes activity by themselves 4 Supervision or touching assist (CGA). [place] provide cues , steadying assist 3 The helper provides less than half the effort to complete the activity 2 The helper provides more than half the effort to complete the activity 1 Dependent. The helper does all the effort to complete an activity 7 Patient refused to complete or attempt activity 9 The patient did not perform the activity before the current illness or injury 88 Not attempted due to Medical conditions or safety concerns Weight Bearing Right Lower Extremity: Right Full Weight Bearing Left Lower Extremity: Left Full Weight Bearing Treatments Pt is CGA with sit to stand transfers from all surface chairs with cues for hand placement and sequencing 50% of the time; she often forgets to reach back for the chair. Toileted with SBA for toilet transfers and pt able to complete victoria care. CGA as pt stood at the sink to wash her hands. Pt practiced sit to stand transfers x 5 with focus on hand placement. Up/down 4 steps, taking the steps one at a time but able to step up with the left and right and same for going down. Seated B LE ther ex x 12 ea for AP, heel raises, LAQ, hip flex and hip abd. Pt with OT post treatment. Assessment Current Status: Good Progress Needs cues for sequencing with transfers. Pleasant and cooperative and able to learn new tasks. PT Short Term Goals Short Term Goals Time Frame: Sep 21, 2018 Transfers (B,C,W/C) (FIM): 5 Gait (FIM): 4 PT Fdc Goals Fdc Goals PT Fdc Goals Time Frame: Sep 30, 2018 Transfers (B,C,W/C) (FIM): 7 Sit to Lying (QC): 6 Lying-Sitting on Side/Bed(QC): 6 Sit to Stand (QC): 6 Roll Left to Right (QC): 6 Chair/Awl-pj-Zpqjb Xfer(QC): 6 Car Transfer (QC): 6 Does the Patient Walk: Yes Gait (FIM): 6 Gait distance (FIM): 3=150 ft Walk 10 feet (QC): 6 Walk 10ft-Uneven Surface(QC): 6 Walk 50ft with 2 Turns (QC): 6 Walk 150 ft (QC): 6 Gait Assistive Device: FWW Does the Pt use WC or Scooter?: No Stairs (FIM): 5 (household) # of Steps: 4 1 Step (curb) (QC): 6 4 Steps (QC): 6 12 Steps (QC): 88 Picking up an Object (QC): 4 PT Plan Problem List Problem List: Activity Tolerance, Functional Strength, Safety Treatment/Plan Treatment Plan: Continue Plan of Care Treatment Plan: Bed Mobility, Education, Functional Activity Shaista, Functional Strength, Group Therapy, Gait, Safety, Therapeutic Exercise, Transfers Treatment Duration: Sep 30, 2018 Frequency: At least 5 of 7 days/Wk (IRF) Estimated Hrs Per Day: 1.5 hours per day Patient and/or Family Agrees t: Yes Safety Risks/Education Patient Education: Transfer Techniques Teaching Recipient: Patient Teaching Methods: Demonstration, Discussion Response to Teaching: Reinforcement Needed Discharge Recommendations Therapy D/C Recommendations: Physical Therapy Home Care Time/GCodes Time In: 1230 Time Out: 1300 Total Billed Treatment Time: 30 Total Billed Treatment visit FA 20 EX 10 ELIZABETH CROW PT Sep 15, 2018 13:14
--- NOTE | 2018-09-15 13:21 | NUR ---
RED HAT LINUX ADMINISTRATOR met with patient and family to complete initial assessment. Patient had requested assistance with toileting; therefore, RED HAT LINUX ADMINISTRATOR located therapist to assist. Family reports patient resides alone in a single level home in [place], [place]. The home has 3 steps at the entrance with railing. Patient admitted to ARU from [facility] with debility and metabolic encephalopathy post fall. Prior to admission patient was independent with use of walker. Patient identifies son Keven of [place] as primary contact at [phone] and [id number] Kyung at [phone]. Insurance verified as Medicare and [employer] [place] with silver [employer] prescription coverage. Patient's preferred pharmacy is [facility] [place], [place]. Patient requests power of criminal attorney/ advanced directive documents. RED HAT LINUX ADMINISTRATOR provided documents and will obtain a notary following completion. RED HAT LINUX ADMINISTRATOR reviewed typical rehab length of stay and weekly team conferences with patient, she expressed no concerns. RED HAT LINUX ADMINISTRATOR will follow for appropriate discharge needs.
--- NOTE | 2018-09-15 14:45 | Occupational Ther Daily Note ---
OT Current Status-Daily Note Subjective Pt. reports pain in right shoulder whenever it is touched. No pain level reported however. Appearance Pt. ambulating with nursing to bathroom when OT entered. Agrees to work with OT. Mental Status/Objective Patient Orientation: Person, Place Therapy Code Descriptions/Definitions Functional [place] Measure: 0=Not Assessed/NA 4=Minimal Assistance 1=Total Assistance 5=Supervision or Setup 2=Maximal Assistance 6=Modified [place] 3=Moderate Assistance 7=Complete [place] ADL-Treatment Therapy Code Descriptions/Definitions Functional [place] Measure: 0=Not Assessed/NA 4=Minimal Assistance 1=Total Assistance 5=Supervision or Setup 2=Maximal Assistance 6=Modified [place] 3=Moderate Assistance 7=Complete [place] Therapy Quality Codes: 6 Independent with activity with or without an assistive device 5 Patient requires set up or clean up by helper. Patient completes activity by themselves 4 Supervision or touching assist (CGA). [place] provide cues , steadying assist 3 The helper provides less than half the effort to complete the activity 2 The helper provides more than half the effort to complete the activity 1 Dependent. The helper does all the effort to complete an activity 7 Patient refused to complete or attempt activity 9 The patient did not perform the activity before the current illness or injury 88 Not attempted due to Medical conditions or safety concerns Grooming (FIM): 4 (Min assist to brush hair.) Bathing (FIM): 4 (SBA with max cues to wash all parts. Min assist to wash hair and back. Min assist to wash and dry rear victoria area.) Shower/Bathe Self (QC): 4 Upper Body (FIM): 5 Upper Body Dressing (QC): 4 Lower Body Dressing (FIM): 4 (CGA in stance.) Lower Body Dressing (QC): 4 On/Off Footwear (QC): 4 Toileting (FIM): 5 (SBA and cues for safety.) Toileting Hygiene (QC): 4 Transfers (B, C, W/C) (FIM): 4 Toilet/Commode Transfer (FIM): 4 Toilet Transfer (QC): 4 Shower Transfer(FIM): 4 Other Treatment After ADLs, pt. ambulated to therapy gym. Began with armbike at min resistance and slow pace to increase overall endurance. Pt. states that it bothers her right shoulder, as she had shingles 2 years ago and has residual nerve pain. OT modified the treatment and pt. worked on simple peg task for fine motor strengthening. All needs met back in room. Education OT Patient Education: Correct positioning, Exercise program, Modified ADL techniques, Progress toward Goal/Update tx plan, Purpose of tx/functional activities, Reviewed precautions, Rehab process, Transfer techniques Teaching Recipient: Patient Teaching Methods: Demonstration, Discussion Response to Teaching: Verbalize Understanding, Return Demonstration OT Short Term Goals Short Term Goals Time Frame: Sep 21, 2018 Bathing(FIM): 5 Lower Body Dressing(FIM): 5 Toileting(FIM): 5 Transfers (B,C,W/C) (FIM): 5 Toilet/Commode Transfer(FIM): 5 Additional Short Term Goals: 1-Demonstrate ADL Tasks, 2-Verbalize Understanding , 3-ImproveStrength/Shaista 1=Demonstrate adherence to instructed precautions during ADL tasks. 2=Patient will verbalize/demonstrate understanding of assistive devices/ modifications for ADL. 3=Patient will improve strength/tolerance for activity to enable patient to perform ADL's. OT Group Home Goals Group Home Goals Time Frame: Oct 05, 2018 Eating (FIM): 6 Eating (QC): 6 Groomin Oral Hygiene (QC): 6 Bathing(FIM): 6 Shower/Bathe Self (QC): 6 Upper Body Dressing(FIM): 6 Upper Body Dressing (QC): 6 Lower Body Dressing(FIM): 6 Lower Body Dressing (QC): 6 On/Off Footwear (QC): 6 Toileting(FIM): 6 Toileting Hygiene (QC): 6 Toilet/Commode Transfer(FIM): 6 Toilet/Commode Transfer (QC): 6 Shower Transfer(FIM): 6 Additional Goals: 1-Demonstrate ADL Tasks, 2-Verbalize Understanding, 3- ImproveStrength/Shaista 1=Demonstrate adherence to instructed precautions during ADL tasks. 2=Patient will verbalize/demonstrate understanding of assistive devices/ modifications for ADL. 3=Patient will improve strength/tolerance for activity to enable patient to perform ADL's. OT Education/Plan Problem List/Assessment Assessment: Decreased Activ Tolerance, Decreased UE Strength, Dependent Transfers, Impaired Funct Balance, Impaired I ADL's, Impaired Self-Care Skills, Restricted Funct UE ROM Pt to benefit from skilled OT intervention for ADL training, transfers, strengthening, and safety education to increase level of performance and allow safe discharge plan Discharge Recommendations Plan/Recommendations: Continue POC Therapy D/C Recommendations: Home w/ Family Support, Occupational Therapy Home Care, Scheduled Assistance Treatment Plan/Plan of Care Treatment,Training & Education: Yes Patient would benefit from OT for education, treatment and training to promote independence in ADL's, mobility, safety and/or upper extremity function for ADL' s. Plan of Care: ADL Retraining, Functional Mobility, Group Exercise/Act as Ind, UE Funct Exercise/Act Treatment Duration: Oct 05, 2018 Frequency: At least 5 of 7 days/Wk (IRF) Estimated Hrs Per Day: 1.5 hours per day Agreement: Yes Rehab Potential: Good Time/GCodes Start Time: 08:15 Stop Time: 09:15 Total Time Billed (hr/min): 60 Billed Treatment Time 1, ADL x 4 AUSTIN NAVARRO OT Sep 15, 2018 14:45
--- NOTE | 2018-09-15 14:50 | Occupational Ther Daily Note ---
OT Current Status-Daily Note Subjective No pain reported. Appearance Pt. up in chair in therapy gym. Daughter in law with her. Very pleasant. Mental Status/Objective Patient Orientation: Person, Place Therapy Code Descriptions/Definitions Functional [place] Measure: 0=Not Assessed/NA 4=Minimal Assistance 1=Total Assistance 5=Supervision or Setup 2=Maximal Assistance 6=Modified [place] 3=Moderate Assistance 7=Complete [place] ADL-Treatment Therapy Code Descriptions/Definitions Functional [place] Measure: 0=Not Assessed/NA 4=Minimal Assistance 1=Total Assistance 5=Supervision or Setup 2=Maximal Assistance 6=Modified [place] 3=Moderate Assistance 7=Complete [place] Therapy Quality Codes: 6 Independent with activity with or without an assistive device 5 Patient requires set up or clean up by helper. Patient completes activity by themselves 4 Supervision or touching assist (CGA). [place] provide cues , steadying assist 3 The helper provides less than half the effort to complete the activity 2 The helper provides more than half the effort to complete the activity 1 Dependent. The helper does all the effort to complete an activity 7 Patient refused to complete or attempt activity 9 The patient did not perform the activity before the current illness or injury 88 Not attempted due to Medical conditions or safety concerns Transfers (B, C, W/C) (FIM): 5 (SBA to ambulate with walker.) Pt., OT, daughter in law talk in depth about kitchen safety, completing laundry , and performing daily tasks. Went to kitchen area and pt. practiced retrieving items from lower cabinets. Pt. and daughter educated about how to simplify tasks, including using items more than one time, putting items that are frequently used in easy places, and taking things more easy at first when getting home. Pt. states that she mops on her hands and knees and bends over to get items out of cabinets. Pt. shown a safer way to complete tasks, and pt. educated on the importance of not falling or getting in a hurry. Spoke about how she does laundry at home, and safer methods to complete this task. Pt. verbalizes understanding. All needs met. Education OT Patient Education: Correct positioning, Modified ADL techniques, Progress toward Goal/Update tx plan, Purpose of tx/functional activities, Reviewed precautions, Rehab process, Transfer techniques Teaching Recipient: Patient Teaching Methods: Demonstration, Discussion Response to Teaching: Verbalize Understanding, Return Demonstration OT Short Term Goals Short Term Goals Time Frame: Sep 21, 2018 Bathing(FIM): 5 Lower Body Dressing(FIM): 5 Toileting(FIM): 5 Transfers (B,C,W/C) (FIM): 5 Toilet/Commode Transfer(FIM): 5 Additional Short Term Goals: 1-Demonstrate ADL Tasks, 2-Verbalize Understanding , 3-ImproveStrength/Shaista 1=Demonstrate adherence to instructed precautions during ADL tasks. 2=Patient will verbalize/demonstrate understanding of assistive devices/ modifications for ADL. 3=Patient will improve strength/tolerance for activity to enable patient to perform ADL's. OT Custodial Goals Custodial Goals Time Frame: Oct 05, 2018 Eating (FIM): 6 Eating (QC): 6 Groomin Oral Hygiene (QC): 6 Bathing(FIM): 6 Shower/Bathe Self (QC): 6 Upper Body Dressing(FIM): 6 Upper Body Dressing (QC): 6 Lower Body Dressing(FIM): 6 Lower Body Dressing (QC): 6 On/Off Footwear (QC): 6 Toileting(FIM): 6 Toileting Hygiene (QC): 6 Toilet/Commode Transfer(FIM): 6 Toilet/Commode Transfer (QC): 6 Shower Transfer(FIM): 6 Additional Goals: 1-Demonstrate ADL Tasks, 2-Verbalize Understanding, 3- ImproveStrength/Shaista 1=Demonstrate adherence to instructed precautions during ADL tasks. 2=Patient will verbalize/demonstrate understanding of assistive devices/ modifications for ADL. 3=Patient will improve strength/tolerance for activity to enable patient to perform ADL's. OT Education/Plan Problem List/Assessment Assessment: Decreased Activ Tolerance, Impaired I ADL's, Impaired Self-Care Skills Pt to benefit from skilled OT intervention for ADL training, transfers, strengthening, and safety education to increase level of performance and allow safe discharge plan Discharge Recommendations Plan/Recommendations: Continue POC Therapy D/C Recommendations: Home w/ Family Support, Occupational Therapy Home Care Treatment Plan/Plan of Care Treatment,Training & Education: Yes Patient would benefit from OT for education, treatment and training to promote independence in ADL's, mobility, safety and/or upper extremity function for ADL' s. Plan of Care: ADL Retraining, Functional Mobility, Group Exercise/Act as Ind, UE Funct Exercise/Act Treatment Duration: Oct 05, 2018 Frequency: At least 5 of 7 days/Wk (IRF) Estimated Hrs Per Day: 1.5 hours per day Agreement: Yes Rehab Potential: Good Time/GCodes Start Time: 13:00 Stop Time: 13:30 Total Time Billed (hr/min): 30 Billed Treatment Time 1, ADL x 2 AUSTIN NAVARRO OT Sep 15, 2018 14:50
--- NOTE | 2018-09-15 15:16 | NUR ---
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 Pt shared about her mother who lived to be 102 years old and has been the pt's role model for hard work and perseverance. Pt engaged in life review and said her parents never told her they loved her. She became tearful and said, "but those are words you need to hear." Pt shared she now tells her friends and family she loves them, without reservation. Pt states she has completed advanced directives several years ago, and her documents may be available through the [facility] in [place], or her son
[2018-09-15 18:00] VITALS: BP 146/68
[2018-09-15] MEDS: CALCIUM CARBONATE 500 MG (TUMS) TAB.CHEW PO PRN ×2 (18:01→18:04)
[2018-09-15] MEDS: HYDROcodone/APAP 5 MG/325 MG (LORTAB) TAB PO PRN (20:08)
[2018-09-16 05:46] VITALS: BP 127/61
[2018-09-16] MEDS: CALCIUM CARB + VIT D 600 MG (CALCARB + D) TAB PO SCH ×2 (05:53→17:04)
[2018-09-16] MEDS: KCL 10 MEQ TAB (MICRO K) PO SCH (05:53)
[2018-09-16] MEDS: LIPASE/AMYLASE/PROTEASE (PANCRELIPASE) 5,000 UNITS CAP PO SCH ×3 (05:54→17:04)
[2018-09-16] MEDS: PANTOPRAZOLE 40 MG (PROTONIX) TAB PO SCH (05:54)
--- NOTE | 2018-09-16 08:42 | PM&R Progress Note ---
Subjective HPI/CC On Admission Date Seen by Provider: Sep 16, 2018 Time Seen by Provider: 08:45 Chief complaint: Hepatic encephalopathy with debility. HPI: This is an [id number] of [address] David Nelson in [place] and Dr. Hernandez Gastroenterology at [facility], and Dr. Garcia hematology at [facility] who has a PMH of liver cirrhosis, unknown source since she is a nondrinker lifetime and does not take any excess amount of Tylenol that was diagnosed with liver cirrhosis with portal hypertension two years ago, presents after altered mental status hospital stay at [facility] for confusion, stroke workup was negative and found to have elevated ammonia level at 83. Lactulose was initiated which cleared the confusion significantly, but due to the frail status and thin and chronically ill status that she is she needed inpatient rehab to maintain good Lactulose maintenance for clearance of elevated ammonia. At this current time Pt denies any pain but overall her strength is very poor and needs intensive therapy. Son is at the bedside. 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 Subjective/Events-last exam Patient doing well Lactulose producing 4-5 bowel movements that are loose per day to decrease ammonia level Denies any pain except for the right flank shoulder from postherpetic neuralgia Overall prognosis very poor given advanced age and end-stage liver disease Review of Systems General: Fatigue Musculoskeletal: arm pain Objective Exam Vital Signs Vital Signs Date Time Temp Pulse Resp B/P (MAP) Pulse Ox O2 Delivery O2 Flow Rate FiO2 09/16/18 09:00 Room Air 09/16/18 05:46 98.2 70 18 127/61 (83) 98 Capillary Refill : General Appearance: No Apparent Distress, WD/WN, Chronically ill, Cachetic, Thin, Other (pale, chronically ill) HEENT: PERRL/EOMI, Normal ENT Inspection, Pharynx Normal, Other ([place]) Neck: Full Range of Motion, Normal Inspection, Non Tender, Supple Respiratory: Chest Non Tender, Lungs Clear, Normal Breath Sounds, No Accessory Muscle Use, No Respiratory Distress Cardiovascular: Regular Rate, Rhythm, No Edema, No Gallop, No JVD, No Murmur, Normal Peripheral Pulses Gastrointestinal: Normal Bowel Sounds, Non Tender, Soft Back: Normal Inspection, No CVA Tenderness, No Vertebral Tenderness Extremity: Normal Capillary Refill, Normal Inspection, Normal Range of Motion, Non Tender, No Calf Tenderness Neurologic/Psychiatric: Alert, Oriented x3, No Motor/Sensory Deficits, Normal Mood/Affect, 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 Assessment/Plan Assessment and Plan Assess & Plan/Chief Complaint Assessment: Hepatic encephalopathy now with normal ammonia 24 after dosing Lactulose TID for 5 BM's per day CRI Pancytopenia Anemia of renal disease Leukopenia chronic Advanced age GI Bleed in past Fall risk DNR Right flank post herpetic neuralgia Plan: Home meds Lactulose TID to attain 5 BM's Intensive therapies to return to independent living Prognosis guarded Reviewed Hematology note from [facility] Pain management of post herpetic neuralgia (1) Hepatic encephalopathy (2) Portal vein thrombosis (3) Anemia (4) Neutropenia (5) Post herpetic neuralgia (6) Renal insufficiency (7) Thrombocytopenia (8) Splenic sequestration (9) DNR (do not resuscitate) (10) Frailty (11) B12 deficiency (12) Advanced age (13) History of GI bleed (14) Increased ammonia level (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
--- NOTE | 2018-09-16 08:42 | Individualized Plan of Care ---
Individualized Plan of Care Rehab Nursing IPOC Order Admission Date Sep 14, 2018 at 12:55 Current Orders Orders Admission Order(Inpt,Obs,Sdc) (09/14/18 11:50) Scientist/Engineer-Inpt Rehab Con (09/14/18 11:50) Rehab Nursing Orders-Ipoc (09/14/18 11:50) Physical Therapy Rehab Orders (09/14/18 11:50) Occupational Therapy Rehab Ord (09/14/18 11:50) Speech Therapy Rehab Orders (09/14/18 11:50) Intake & Output 06,14,22 (09/14/18 11:50) Precautions (Aru) (09/14/18 11:50) Weekly Weight (Lbs) WEEK (09/14/18 11:50) Rehab-Intensity Of Therapy (09/14/18 11:50) Initiate Admission Nursing Pro .admission (09/14/18 11:50) Advance Directives Consult (09/14/18 11:50) Calcium Carbonate Chew Tablet (Antacid C (09/14/18 12:00) Diphenhydramine Tablet (Benadryl Tablet) (09/14/18 12:00) Acetaminophen Tablet (Tylenol Tablet) (09/14/18 12:00) Cbc With Automated Diff (09/15/18 06:00) Comprehensive Metabolic Panel (09/15/18 06:00) Ammonia (09/15/18 05:00) Lactulose Oral Solution (Enulose Oral So (09/14/18 13:00) Admission Arrival Bed Request (09/14/18 12:58) General/Regular (09/14/18 Lunch) Follow-Up Appointment (09/14/18 13:00) Consult Wound Care Physician (09/14/18 13:48) Patient Visit (09/14/18 ) Speech Sound Lang Comp (09/14/18 ) Patient Visit (09/14/18 ) Pt Eval Moderate Complexity (09/14/18 ) Functional Activities, Ea 15 (09/14/18 ) Metoprolol Succinate (Xl) Tab (Toprol Xl (09/15/18 09:00) Pantoprazole Tablet (Protonix Tablet) (09/15/18 07:00) Vit A/C/E/Zinc/Co (Non-Form) (Preservisi (09/14/18 21:00) (Nf) Allopurinol (09/15/18 09:00) (Nf) Amlodipine Besylate (09/15/18 09:00) (Nf) Calcium Carbonate/Vitamin D3 (Calci (09/14/18 21:00) (Nf) Ciprofloxacin Hcl (Cipro) (09/14/18 21:00) (Nf) Hydrocodone/Acetaminophen (Hydrocod (09/14/18 16:45) (Nf) Lipase/Protease/Amylase (Creon Dr 3 (09/14/18 16:45) (Nf) Lipase/Protease/Amylase (Creon Dr 3 (09/15/18 06:00) (Nf) Potassium Chloride (09/15/18 09:00) (Nf) Torsemide (09/15/18 09:00) Code/Resuscitation (09/14/18 16:43) Allopurinol Tablet (Zyloprim Tablet) (09/15/18 09:00) Amlodipine Tablet (Norvasc Tablet) (09/15/18 09:00) Calcium Carbonate W/Vitamin D3 (Calcarb (09/14/18 17:00) Torsemide Tablet (Demadex Tablet) (09/15/18 09:00) Potassium Chloride (Tablet) (Klor Con Ta (09/15/18 07:00) Ciprofloxacin Tablet (Cipro Tablet) (09/14/18 21:00) Hydrocodone/Apap 5/325 Tablet (Lortab 5 (09/14/18 17:15) Lipase/Amylase/Protease Caps (Pancrelipa (09/14/18 17:15) Lipase/Amylase/Protease Caps (Pancrelipa (09/15/18 07:00) Ambulate 08,12,20 (09/14/18 17:15) Sequential Compression Device 08,20 (09/14/18 17:15) Dvt/Vte Risk - Notifiy Physici 08 (09/14/18 17:15) Advanced Wound Care Dressing O TID PRN (09/14/18 17:50) Patient Visit (09/15/18 ) Gait Training, Ea 15 Min (09/15/18 ) Functional Activities, Ea 15 (09/15/18 ) Exercise Therap, Ea 15 Min (09/15/18 ) Patient Visit (09/15/18 ) Exercise Therap, Ea 15 Min (09/15/18 ) Functional Activities, Ea 15 (09/15/18 ) Rehab Nursing Orders: Ongoing Assess. of Function Status, Bladder Management, Bladder Training, Bowel Management, Disease Management & Educaiton, Fluid/ Electrolyte/Nutrition Mgmt, Management of Risks & Complications, Patient/Family Support, Safety Management Intensity of Therapy to be met Patient to be seen: Min.3h per day/5 of 7d PT IPOC Problem List: Activity Tolerance, Functional Strength, Safety Treatment Plan: Continue Plan of Care Bed Mobility, Education, Functional Activity Shaista, Functional Strength, Group Therapy, Gait, Safety, Therapeutic Exercise, Transfers Treatment Duration: Sep 30, 2018 Frequency: At least 5 of 7 days/Wk (IRF) Estimated Hrs Per Day: 1.5 hours per day OT IPOC Problems: Decreased Activ Tolerance, Impaired I ADL's, Impaired Self-Care Skills OT Treatment, Training and Edu: Yes OT Problems Pt to benefit from skilled OT intervention for ADL training, transfers, strengthening, and safety education to increase level of performance and allow safe discharge plan Plan of Care: ADL Retraining, Functional Mobility, Group Exercise/Act as Ind, UE Funct Exercise/Act Treatment Duration: Oct 05, 2018 Frequency: At least 5 of 7 days/Wk (IRF) Estimated Hrs Per Day: 1.[address] IPOC Speech Therapy Treatment Plan: Discontinue ST Treatment Duration: Sep 14, 2018 Frequency: 1 time per week Estimated Hrs Per Day: .25 hour per day Scientist/Engineer/Case Mgmt Scientist/Engineer/Case Managemen: Discharge Planning Dietitian/Lozenge Maker Helper Dietitian/Lozenge Maker Helper to monitor nutritional status and make changes and/or recommendations as needed and work with speech pathology on dietary upgrades as the occur. Physician IPOC Medical Issues being managed closely and that require the 24 hour availability of a physician: Monitoring for recurrent hepatic encephalopathy and dosing of lactulose to prevent elevated ammonia level Medical Issues: Bowel/Bladder Function (Need 5 loose bowel movements per day), Falls Precautions, Fluid/Electrolyte/Nutrition Balance, Pain Management ( Postherpetic neuralgia) Brief Synthesis of Preadmission Screen, Post-Admission Evaluation, and Therapy Evaluations: Physical therapy and occupational therapy will work to return patient independently thing with ADLs and fall prevention Medical Prognosis: Good Anticipated Length of Stay: 7 days YOLANDA OLIVA DO Sep 16, 2018 08:42
[2018-09-16] MEDS: CIPROFLOXACIN 500 MG (CIPRO) TABLET PO SCH ×2 (09:13→20:23)
[2018-09-16] MEDS: meTOproloL SUCCINATE 50 MG (TOPROL XL) TAB PO SCH (09:13)
[2018-09-16] MEDS: LACTULOSE SYRUP 10GM/15ML (ENULOSE) 30ML UDC PO SCH ×3 (09:13→20:23)
[2018-09-16] MEDS: ALLOPURINOL 100 MG (ZYLOPRIM) TAB PO SCH (09:13)
[2018-09-16] MEDS: amLODIPine 10 MG (NORVASC) TAB PO SCH (09:13)
[2018-09-16] MEDS: TORSEMIDE 20 MG (DEMADEX) TAB PO SCH (09:13)
--- NOTE | 2018-09-16 09:52 | Occupational Ther Daily Note ---
OT Current Status-Daily Note Subjective Pt sitting in chair, agrees to therapy. Mental Status/Objective Therapy Code Descriptions/Definitions Functional [place] Measure: 0=Not Assessed/NA 4=Minimal Assistance 1=Total Assistance 5=Supervision or Setup 2=Maximal Assistance 6=Modified [place] 3=Moderate Assistance 7=Complete [place] ADL-Treatment Pt sit to stand with supervision. Gait to restroom with FWW. Transfer to toilet with SBA. Pt able to complete toileting hygiene and clothing management with SBA. Pt declined shower, but would like to sponge bathe and dress. Sponge bath completed seated in chair. Upper body bathing completed with SBA. Pt able to wash lower body with SBA. Stood with supervision while washing buttocks. Pt donned shirt with set up. Don Depends and pants with SBA for balance during pant hike. Pt donned socks with set up. Stood at sink to complete grooming tasks. Pt completed oral care and combed hair with set up. Therapy Code Descriptions/Definitions Functional [place] Measure: 0=Not Assessed/NA 4=Minimal Assistance 1=Total Assistance 5=Supervision or Setup 2=Maximal Assistance 6=Modified [place] 3=Moderate Assistance 7=Complete [place] Therapy Quality Codes: 6 Independent with activity with or without an assistive device 5 Patient requires set up or clean up by helper. Patient completes activity by themselves 4 Supervision or touching assist (CGA). [place] provide cues , steadying assist 3 The helper provides less than half the effort to complete the activity 2 The helper provides more than half the effort to complete the activity 1 Dependent. The helper does all the effort to complete an activity 7 Patient refused to complete or attempt activity 9 The patient did not perform the activity before the current illness or injury 88 Not attempted due to Medical conditions or safety concerns Grooming (FIM): 5 Oral Hygiene (QC): 5 Bathing (FIM): 5 Shower/Bathe Self (QC): 4 Upper Body (FIM): 5 Upper Body Dressing (QC): 5 Lower Body Dressing (FIM): 5 Lower Body Dressing (QC): 4 On/Off Footwear (QC): 5 Toileting (FIM): 5 Toileting Hygiene (QC): 4 Toilet/Commode Transfer (FIM): 5 Other Treatment Pt completed gait to therapy gym with FWW. Pt completed tabletop peg activity with bilateral UE to increase reaching, activity tolerance, andfine motor coordination/manipulation skills.Pt able to complete task without assistance. Pt returned to room, sitting in chair with needs met after session. OT Short Term Goals Short Term Goals Time Frame: Sep 21, 2018 Bathing(FIM): 5 Lower Body Dressing(FIM): 5 Toileting(FIM): 5 Transfers (B,C,W/C) (FIM): 5 Toilet/Commode Transfer(FIM): 5 Additional Short Term Goals: 1-Demonstrate ADL Tasks, 2-Verbalize Understanding , 3-ImproveStrength/Shaista 1=Demonstrate adherence to instructed precautions during ADL tasks. 2=Patient will verbalize/demonstrate understanding of assistive devices/ modifications for ADL. 3=Patient will improve strength/tolerance for activity to enable patient to perform ADL's. OT [facility] Goals Pinball Machine Repairer Goals Time Frame: Oct 05, 2018 Eating (FIM): 6 Eating (QC): 6 Groomin Oral Hygiene (QC): 6 Bathing(FIM): 6 Shower/Bathe Self (QC): 6 Upper Body Dressing(FIM): 6 Upper Body Dressing (QC): 6 Lower Body Dressing(FIM): 6 Lower Body Dressing (QC): 6 On/Off Footwear (QC): 6 Toileting(FIM): 6 Toileting Hygiene (QC): 6 Toilet/Commode Transfer(FIM): 6 Toilet/Commode Transfer (QC): 6 Shower Transfer(FIM): 6 Additional Goals: 1-Demonstrate ADL Tasks, 2-Verbalize Understanding, 3- ImproveStrength/Shaista 1=Demonstrate adherence to instructed precautions during ADL tasks. 2=Patient will verbalize/demonstrate understanding of assistive devices/ modifications for ADL. 3=Patient will improve strength/tolerance for activity to enable patient to perform ADL's. OT Education/Plan Problem List/Assessment Pt to benefit from skilled OT intervention for ADL training, transfers, strengthening, and safety education to increase level of performance and allow safe discharge plan Discharge Recommendations Plan/Recommendations: Continue POC Treatment Plan/Plan of Care Patient would benefit from OT for education, treatment and training to promote independence in ADL's, mobility, safety and/or upper extremity function for ADL' s. Plan of Care: ADL Retraining, Functional Mobility, Group Exercise/Act as Ind, UE Funct Exercise/Act Treatment Duration: Oct 05, 2018 Frequency: At least 5 of 7 days/Wk (IRF) Estimated Hrs Per Day: 1.5 hours per day Agreement: Yes Rehab Potential: Good Time/GCodes Start Time: 08:00 Stop Time: 09:00 Total Time Billed (hr/min): 1000 Billed Treatment Time 1 visit, ADLx3(40minutes), FA(20minutes) STACI GUADALUPE OT Sep 16, 2018 09:52
--- NOTE | 2018-09-16 12:07 | Physical Therapy Daily Note ---
PT Daily Note-Current Subjective Pt sitting in recliner upon arrival. Pt agrees to PT. Mental Status Patient Orientation: Person, Place, Time, Situation Transfers Therapy Code Descriptions/Definitions Functional [place] Measure: 0=Not Assessed/NA 4=Minimal Assistance 1=Total Assistance 5=Supervision or Setup 2=Maximal Assistance 6=Modified [place] 3=Moderate Assistance 7=Complete [place] Therapy Quality Codes: 6 Independent with activity with or without an assistive device 5 Patient requires set up or clean up by helper. Patient completes activity by themselves 4 Supervision or touching assist (CGA). [place] provide cues , steadying assist 3 The helper provides less than half the effort to complete the activity 2 The helper provides more than half the effort to complete the activity 1 Dependent. The helper does all the effort to complete an activity 7 Patient refused to complete or attempt activity 9 The patient did not perform the activity before the current illness or injury 88 Not attempted due to Medical conditions or safety concerns Scootin Sit to/from Stand: 4 Sit to Lying (QC): 5 Sit to Stand (QC): 4 Weight Bearing Right Lower Extremity: Right Full Weight Bearing Left Lower Extremity: Left Full Weight Bearing Gait Training Does the Patient Walk?: Yes Distance (FIM): 3=150 ft (225') Distance: 225' Walk 10 feet (QC): 5 Walk 50 ft with 2 Turns(QC): 5 Walk 150 ft (QC): 5 Gait Level of Assist: 5 Gait Persons Needed: 1 Gait Assistive Device: FWW Exercises Seated Therapy Exercises: Ankle pumps, Long arc quads, Hip flexion, Kicking activity, Hip abd/add Seated Reps: 20 NuStep Minutes: 15 NuStep Workload: 4 Treatments Pt transfers from recliner to standing and ambulates in hallway. Pt uses NuStep for 15m at WL 4 then rest before completing Seated Ex in chair. Pt ambulates again in hallway before returning to room to rest. DRYWALL TAPER assists pt with ordering lunch and pt has all needs met. Assessment Current Status: Good Progress Pt is very motivated and enjoyable during tx. PT Short Term Goals Short Term Goals Time Frame: Sep 21, 2018 Transfers (B,C,W/C) (FIM): 5 Gait (FIM): 4 PT [facility]irm[facility] Attendant Goals Jail Goals PT Jail Goals Time Frame: Sep 30, 2018 Transfers (B,C,W/C) (FIM): 7 Sit to Lying (QC): 6 Lying-Sitting on Side/Bed(QC): 6 Sit to Stand (QC): 6 Roll Left to Right (QC): 6 Chair/Lmi-ml-Wkjlx Xfer(QC): 6 Car Transfer (QC): 6 Does the Patient Walk: Yes Gait (FIM): 6 Gait distance (FIM): 3=150 ft Walk 10 feet (QC): 6 Walk 10ft-Uneven Surface(QC): 6 Walk 50ft with 2 Turns (QC): 6 Walk 150 ft (QC): 6 Gait Assistive Device: FWW Does the Pt use WC or Scooter?: No Stairs (FIM): 5 (household) # of Steps: 4 1 Step (curb) (QC): 6 4 Steps (QC): 6 12 Steps (QC): 88 Picking up an Object (QC): 4 PT Plan Problem List Problem List: Activity Tolerance, Functional Strength, Safety, Balance, Gait, Transfer Treatment/Plan Treatment Plan: Continue Plan of Care Treatment Plan: Bed Mobility, Education, Functional Activity Shaista, Functional Strength, Group Therapy, Gait, Safety, Therapeutic Exercise, Transfers Treatment Duration: Sep 30, 2018 Frequency: At least 5 of 7 days/Wk (IRF) Estimated Hrs Per Day: 1.5 hours per day Patient and/or Family Agrees t: Yes Safety Risks/Education Patient Education: Gait Training, Transfer Techniques, Correct Positioning, Safety Issues Teaching Recipient: Patient Teaching Methods: Discussion Response to Teaching: Verbalize Understanding Time/GCodes Time In: 915 Time Out: 1015 Total Billed Treatment Time: 60 Total Billed Treatment 1, GT (20m), EX x2 (25m) & FA (15m) G Codes Necessary: DANNIELLE Llanos PTA Sep 16, 2018 12:07
--- NOTE | 2018-09-16 13:20 | NUR ---
DIRECTIONAL DRILL OPERATOR facilitated Maria Guadalupe, Commercial Loan Closer to complete notarization of power of daycare worker/AD documents.
--- NOTE | 2018-09-16 15:40 | Therapy Group Daily Note ---
Therapy Daily Group Note Patient Education Topic Other List Below (ARU Expectations & Memory) Exercises LE Seated Exercise, UE Exercise Session Ratio (pt:therapist): 4:1 Goal of Session: Education on ARU Expectations, Memory Strategies, UE/LE Strengthing Goal Met for this Session: Yes Pt Benefit of Group: Contributions to Others, F/U Use of Strategies @Home, Increased Functional Strength, Improved Cognition, Recognition of Peers, Socialization Other/Notes Pt ambulated to OT/PT group in [facility] area. Group consisted of introductions (name, place, best restaurant), socialization, UE/LE seated exercises and educational topics (memory strategies/ARU description). Pt introduced self appropriately and actively listened to peers. Completes UE & LE exercises correctly. Pt was able to verbalize memory strategies and acknowledge understanding of educational topics. After therapy, pt laying Supine in bed. All needs met in room. Start Time: 13:00 Stop Time: 14:30 Total Billed Treatment Time: 90 Total Billed Treatment 1, DANNIELLE WOOD GEAR NICKER Sep 16, 2018 15:39
--- NOTE | 2018-09-16 16:04 | NUR ---
Follow up to facilitate life review and reflection. Pt is Buddhist and involved in her evangelical community at [employer] in [place]. The daughter in law was present and offered kind, inviting presence to pt's desire to share her wishes to be cremated, and ashes sprinkled on her 's grave. Pt also wishes for her body to be dedicated to science.
[2018-09-16 17:57] VITALS: BP 123/59
[2018-09-16] MEDS: HYDROcodone/APAP 5 MG/325 MG (LORTAB) TAB PO PRN (20:23)
[2018-09-17 05:31] VITALS: BP 112/61
[2018-09-17] MEDS: KCL 10 MEQ TAB (MICRO K) PO SCH (06:13)
[2018-09-17] MEDS: CALCIUM CARB + VIT D 600 MG (CALCARB + D) TAB PO SCH ×2 (06:13→17:16)
[2018-09-17] MEDS: PANTOPRAZOLE 40 MG (PROTONIX) TAB PO SCH (06:13)
[2018-09-17] MEDS: LIPASE/AMYLASE/PROTEASE (PANCRELIPASE) 5,000 UNITS CAP PO SCH ×3 (06:13→17:16)
[2018-09-17 08:00] VITALS: BP 116/64
[2018-09-17] MEDS: ALLOPURINOL 100 MG (ZYLOPRIM) TAB PO SCH (08:46)
[2018-09-17] MEDS: CIPROFLOXACIN 500 MG (CIPRO) TABLET PO SCH (08:47)
[2018-09-17] MEDS: amLODIPine 10 MG (NORVASC) TAB PO SCH (08:47)
[2018-09-17] MEDS: TORSEMIDE 20 MG (DEMADEX) TAB PO SCH (08:47)
[2018-09-17] MEDS: meTOproloL SUCCINATE 50 MG (TOPROL XL) TAB PO SCH (08:47)
[2018-09-17] MEDS: LACTULOSE SYRUP 10GM/15ML (ENULOSE) 30ML UDC PO SCH ×3 (08:49→20:05)
--- NOTE | 2018-09-17 09:00 | NUR ---
HAS SEVERE RIGHT ARM PAIN WHEN TOUCHED DUE TO NEURALGIA. REFUSES PAIN MED - STATES TAKES THEM AT HS ONLY. CONTINUES TO HAVE GOOD RESULTS WITH LACTULOSE.
--- NOTE | 2018-09-17 10:01 | Physical Therapy Daily Note ---
PT Daily Note-Current Subjective Patient is very agreeable to participate with PT. No c/o. Mental Status Patient Orientation: Person, Time, Situation Transfers Therapy Code Descriptions/Definitions Functional [place] Measure: 0=Not Assessed/NA 4=Minimal Assistance 1=Total Assistance 5=Supervision or Setup 2=Maximal Assistance 6=Modified [place] 3=Moderate Assistance 7=Complete [place] Therapy Quality Codes: 6 Independent with activity with or without an assistive device 5 Patient requires set up or clean up by helper. Patient completes activity by themselves 4 Supervision or touching assist (CGA). [place] provide cues , steadying assist 3 The helper provides less than half the effort to complete the activity 2 The helper provides more than half the effort to complete the activity 1 Dependent. The helper does all the effort to complete an activity 7 Patient refused to complete or attempt activity 9 The patient did not perform the activity before the current illness or injury 88 Not attempted due to Medical conditions or safety concerns Transfers (B, C, W/C) (FIM): 5 Scootin Sit to/from Stand: 5 Sit to Stand (QC): 5 Car Transfer (QC): 6 Weight Bearing Right Lower Extremity: Right Full Weight Bearing Left Lower Extremity: Left Full Weight Bearing Gait Training Does the Patient Walk?: Yes Gait (FIM): 5 Distance (FIM): 3=150 ft Distance: 300' x 1/150' x 1 Walk 10 feet (QC): 5 Walk 50 ft with 2 Turns(QC): 5 Walk 150 ft (QC): 5 Gait Level of Assist: 5 Gait Assistive Device: FWW safe and functional gait sequence Exercises NuStep Minutes: 10 NuStep Workload: 4 (to increase strength and mobility) Assessment Patient tolerated treatment well and returned to room with needs met. PT to increase activity as tolerated by patient. PT Short Term Goals Short Term Goals Time Frame: Sep 21, 2018 Transfers (B,C,W/C) (FIM): 5 Gait (FIM): 4 PT Chcf Goals Chcf Goals PT Silver Solution Mixer Goals Time Frame: Sep 30, 2018 Transfers (B,C,W/C) (FIM): 7 Sit to Lying (QC): 6 Lying-Sitting on Side/Bed(QC): 6 Sit to Stand (QC): 6 Roll Left to Right (QC): 6 Chair/Dbs-ls-Pkuch Xfer(QC): 6 Car Transfer (QC): 6 Does the Patient Walk: Yes Gait (FIM): 6 Gait distance (FIM): 3=150 ft Walk 10 feet (QC): 6 Walk 10ft-Uneven Surface(QC): 6 Walk 50ft with 2 Turns (QC): 6 Walk 150 ft (QC): 6 Gait Assistive Device: FWW Does the Pt use WC or Scooter?: No Stairs (FIM): 5 (household) # of Steps: 4 1 Step (curb) (QC): 6 4 Steps (QC): 6 12 Steps (QC): 88 Picking up an Object (QC): 4 PT Plan Treatment/Plan Treatment Plan: Continue Plan of Care Treatment Plan: Bed Mobility, Education, Functional Activity Shaista, Functional Strength, Group Therapy, Gait, Safety, Therapeutic Exercise, Transfers Treatment Duration: Sep 30, 2018 Frequency: At least 5 of 7 days/Wk (IRF) Estimated Hrs Per Day: 1.5 hours per day Patient and/or Family Agrees t: Yes Time/GCodes Time In: 933 Time Out: 956 Total Billed Treatment Time: 23 Total Billed Treatment 1 visit EX 10 min GT 13 min EDMAR SANTOS PT Sep 17, 2018 10:00
--- NOTE | 2018-09-17 12:46 | PM&R Progress Note ---
Subjective HPI/CC On Admission Date Seen by Provider: Sep 17, 2018 Time Seen by Provider: 11:30 Chief complaint: Hepatic encephalopathy with debility. HPI: This is an 87[address] [place] Nelosn in [place] and Dr. Hernandez Gastroenterology at [facility], and Dr. Garcia hematology at [facility] [place] who has a PMH of liver cirrhosis, unknown source since she is a nondrinker lifetime and does not take any excess amount of Tylenol that was diagnosed with liver cirrhosis with portal hypertension two years ago, presents after altered mental status hospital stay at [facility] for confusion, stroke workup was negative and found to have elevated ammonia level at 83. Lactulose was initiated which cleared the confusion significantly, but due to the frail status and thin and chronically ill status that she is she needed inpatient rehab to maintain good Lactulose maintenance for clearance of elevated ammonia. At this current time Pt denies any pain but overall her strength is very poor and needs intensive therapy. Son is at the bedside. 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 Subjective/Events-last exam Patient doing well and participating with therapies in order to go home Lactulose producing 4-5 bowel movements that are loose per day to decrease ammonia level and will need to train her to do that in order to return home Denies any pain except for the right flank shoulder from postherpetic neuralgia of which she is very sensitive to it Overall prognosis very poor given advanced age and end-stage liver disease Fall risk prevention Review of Systems General: Fatigue Objective Exam Vital Signs Vital Signs Date Time Temp Pulse Resp B/P (MAP) Pulse Ox O2 Delivery O2 Flow Rate FiO2 09/17/18 16:11 98.9 64 14 115/57 (76) 99 Room Air Capillary Refill : General Appearance: No Apparent Distress, WD/WN, Chronically ill, Cachetic, Thin, Other (pale, chronically ill) HEENT: PERRL/EOMI, Normal ENT Inspection, Pharynx Normal, Other ([place]) Neck: Full Range of Motion, Normal Inspection, Non Tender, Supple Respiratory: Chest Non Tender, Lungs Clear, Normal Breath Sounds, No Accessory Muscle Use, No Respiratory Distress Cardiovascular: Regular Rate, Rhythm, No Edema, No Gallop, No JVD, No Murmur, Normal Peripheral Pulses Gastrointestinal: Normal Bowel Sounds, Non Tender, Soft Back: Normal Inspection, No CVA Tenderness, No Vertebral Tenderness Extremity: Normal Capillary Refill, Normal Inspection, Normal Range of Motion, Non Tender, No Calf Tenderness Neurologic/Psychiatric: Alert, Oriented x3, No Motor/Sensory Deficits, Normal Mood/Affect, fluxer II-XII Norm as Tested Skin: Normal Color, Warm/Dry Lymphatic: No Adenopathy Results/Procedures Lab Patient resulted labs reviewed. Assessment/Plan Assessment and Plan Assess & Plan/Chief Complaint Assessment: Hepatic encephalopathy now with normal ammonia 24 after dosing Lactulose TID for 5 BM's per day CRI Pancytopenia Anemia of renal disease Leukopenia chronic Advanced age GI Bleed in past Fall risk DNR Right flank post herpetic neuralgia Plan: Home meds Lactulose TID to attain 5 BM's and will need nurse to train on this requirement in order to return home Intensive therapies to return to independent living Prognosis guarded Reviewed Hematology note from [facility] Pain management of post herpetic neuralgia (1) Hepatic encephalopathy (2) Portal vein thrombosis (3) Anemia (4) Neutropenia (5) Post herpetic neuralgia (6) Renal insufficiency (7) Thrombocytopenia (8) Splenic sequestration (9) DNR (do not resuscitate) (10) Frailty (11) B12 deficiency (12) Advanced age (13) History of GI bleed (14) Increased ammonia level (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
[2018-09-17 16:11] VITALS: BP 115/57
[2018-09-17] MEDS: HYDROcodone/APAP 5 MG/325 MG (LORTAB) TAB PO PRN (20:05)
[2018-09-18 05:30] VITALS: BP 131/66
[2018-09-18] MEDS: LIPASE/AMYLASE/PROTEASE (PANCRELIPASE) 5,000 UNITS CAP PO SCH ×3 (06:50→17:16)
[2018-09-18] MEDS: PANTOPRAZOLE 40 MG (PROTONIX) TAB PO SCH (06:54)
[2018-09-18] MEDS: KCL 10 MEQ TAB (MICRO K) PO SCH (06:54)
[2018-09-18] MEDS: CALCIUM CARB + VIT D 600 MG (CALCARB + D) TAB PO SCH ×2 (06:54→17:16)
[2018-09-18 08:00] VITALS: BP 117/62
[2018-09-18] MEDS: meTOproloL SUCCINATE 50 MG (TOPROL XL) TAB PO SCH (08:40)
[2018-09-18] MEDS: ALLOPURINOL 100 MG (ZYLOPRIM) TAB PO SCH (08:40)
[2018-09-18] MEDS: amLODIPine 10 MG (NORVASC) TAB PO SCH (08:40)
[2018-09-18] MEDS: TORSEMIDE 20 MG (DEMADEX) TAB PO SCH (08:40)
[2018-09-18] MEDS: LACTULOSE SYRUP 10GM/15ML (ENULOSE) 30ML UDC PO SCH ×3 (08:42→20:34)
[2018-09-18] MEDS: ZINC OXIDE 16% OINT (BUTT PASTE) 113 GM TUBE TOP PRN ×2 (10:44→18:08)
--- NOTE | 2018-09-18 13:00 | NUR ---
MULTIPLE FAMILY MEMBERS VISITING. PATIENT PLEASANT AND COOPERATIVE. NO COMPLAINTS.
--- NOTE | 2018-09-18 13:25 | PM&R Progress Note ---
Subjective HPI/CC On Admission Date Seen by Provider: Sep 18, 2018 Time Seen by Provider: 11:20 Chief complaint: Hepatic encephalopathy with debility. HPI: This is an 87yoWF of [address] David Nelson in [place] and Dr. Hernandez Gastroenterology at [facility], and Dr. Garcia hematology at [facility] who has a PMH of liver cirrhosis, unknown source since she is a nondrinker lifetime and does not take any excess amount of Tylenol that was diagnosed with liver cirrhosis with portal hypertension two years ago, presents after altered mental status hospital stay at [facility] for confusion, stroke workup was negative and found to have elevated ammonia level at 83. Lactulose was initiated which cleared the confusion significantly, but due to the frail status and thin and chronically ill status that she is she needed inpatient rehab to maintain good Lactulose maintenance for clearance of elevated ammonia. At this current time Pt denies any pain but overall her strength is very poor and needs intensive therapy. Son is at the bedside. 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 Subjective/Events-last exam Patient having a nice visit with her family Lactulose producing 4-5 bowel movements that are loose per day to decrease ammonia level and will need to train her to do that in order to return home Denies any pain except for the right flank shoulder from postherpetic neuralgia of which she is very sensitive to it Overall prognosis very poor given advanced age and end-stage liver disease Fall risk prevention Eating and drinking well Reports she slept well last night Review of Systems General: Fatigue Objective Exam Vital Signs Vital Signs Date Time Temp Pulse Resp B/P (MAP) Pulse Ox O2 Delivery O2 Flow Rate FiO2 09/18/18 09:00 Room Air 09/18/18 05:30 98.9 75 16 131/66 (87) 98 Capillary Refill : General Appearance: No Apparent Distress, WD/WN, Chronically ill, Cachetic, Thin, Other (pale, chronically ill) HEENT: PERRL/EOMI, Normal ENT Inspection, Pharynx Normal, Other ([place]) Neck: Full Range of Motion, Normal Inspection, Non Tender, Supple Respiratory: Chest Non Tender, Lungs Clear, Normal Breath Sounds, No Accessory Muscle Use, No Respiratory Distress Cardiovascular: Regular Rate, Rhythm, No Edema, No Gallop, No JVD, No Murmur, Normal Peripheral Pulses Gastrointestinal: Normal Bowel Sounds, Non Tender, Soft Back: Normal Inspection, No CVA Tenderness, No Vertebral Tenderness Extremity: Normal Capillary Refill, Normal Inspection, Normal Range of Motion, Non Tender, No Calf Tenderness Neurologic/Psychiatric: Alert, Oriented x3, No Motor/Sensory Deficits, Normal Mood/Affect, gusset ripper II-XII Norm as Tested Skin: Normal Color, Warm/Dry Lymphatic: No Adenopathy Results/Procedures Lab Patient resulted labs reviewed. Assessment/Plan Assessment and Plan Assess & Plan/Chief Complaint Assessment: Hepatic encephalopathy now with normal ammonia 24 after dosing Lactulose TID for 5 BM's per day CRI Pancytopenia Anemia of renal disease Leukopenia chronic Advanced age GI Bleed in past Fall risk DNR Right flank post herpetic neuralgia Plan: Home meds Lactulose TID to attain 5 BM's and will need nurse to train on this requirement in order to return home Intensive therapies to return to independent living Prognosis guarded Reviewed Hematology note from [facility] Pain management of post herpetic neuralgia (1) Hepatic encephalopathy (2) Portal vein thrombosis (3) Anemia (4) Neutropenia (5) Post herpetic neuralgia (6) Renal insufficiency (7) Thrombocytopenia (8) Splenic sequestration (9) DNR (do not resuscitate) (10) Frailty (11) B12 deficiency (12) Advanced age (13) History of GI bleed (14) Increased ammonia level (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
[2018-09-18 17:40] VITALS: BP 111/59
[2018-09-18] MEDS: HYDROcodone/APAP 5 MG/325 MG (LORTAB) TAB PO PRN (20:31)
[2018-09-19 05:03] VITALS: BP 105/55
[2018-09-19] MEDS: PANTOPRAZOLE 40 MG (PROTONIX) TAB PO SCH (06:37)
[2018-09-19] MEDS: KCL 10 MEQ TAB (MICRO K) PO SCH (06:37)
[2018-09-19] MEDS: CALCIUM CARB + VIT D 600 MG (CALCARB + D) TAB PO SCH ×2 (06:37→17:50)
[2018-09-19] MEDS: LIPASE/AMYLASE/PROTEASE (PANCRELIPASE) 5,000 UNITS CAP PO SCH ×3 (06:38→17:51)
--- NOTE | 2018-09-19 08:25 | PM&R Progress Note ---
Subjective HPI/CC On Admission Date Seen by Provider: Sep 19, 2018 Time Seen by Provider: 08:15 Chief complaint: Hepatic encephalopathy with debility. HPI: This is an 87yoWF of Dr David Nelson in [place] and Dr. Hernandez Gastroenterology at [facility], and Dr. Garcia hematology at [facility] who has a PMH of liver cirrhosis, unknown source since she is a nondrinker lifetime and does not take any excess amount of Tylenol that was diagnosed with liver cirrhosis with portal hypertension two years ago, presents after altered mental status hospital stay at [facility] for confusion, stroke workup was negative and found to have elevated ammonia level at 83. Lactulose was initiated which cleared the confusion significantly, but due to the frail status and thin and chronically ill status that she is she needed inpatient rehab to maintain good Lactulose maintenance for clearance of elevated ammonia. At this current time Pt denies any pain but overall her strength is very poor and needs intensive therapy. Son is at the bedside. 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 Subjective/Events-last exam Patient had a nice visit with her family yesterday Lactulose producing 4-5 bowel movements that are loose per day to decrease ammonia level and will need to train her to do that in order to return home Denies any pain except for the right flank shoulder from postherpetic neuralgia of which she is very sensitive to it Overall prognosis very poor given advanced age and end-stage liver disease Son was concerned about lab results but there is no treatment for any of her abnormalities and I reviewed Hematology note in-depth confirming that Fall risk prevention Eating and drinking well Reports she slept well last night Review of Systems General: Fatigue Objective Exam Vital Signs Vital Signs Date Time Temp Pulse Resp B/P (MAP) Pulse Ox O2 Delivery O2 Flow Rate FiO2 09/19/18 05:03 99.3 68 16 105/55 (72) 97 Room Air Capillary Refill : General Appearance: No Apparent Distress, WD/WN, Chronically ill, Cachetic, Thin, Other (pale, chronically ill) HEENT: PERRL/EOMI, Normal ENT Inspection, Pharynx Normal, Other (BEAVER) Neck: Full Range of Motion, Normal Inspection, Non Tender, Supple Respiratory: Chest Non Tender, Lungs Clear, Normal Breath Sounds, No Accessory Muscle Use, No Respiratory Distress Cardiovascular: Regular Rate, Rhythm, No Edema, No Gallop, No JVD, No Murmur, Normal Peripheral Pulses Gastrointestinal: Normal Bowel Sounds, Non Tender, Soft Back: Normal Inspection, No CVA Tenderness, No Vertebral Tenderness Extremity: Normal Capillary Refill, Normal Inspection, Normal Range of Motion, Non Tender, No Calf Tenderness Neurologic/Psychiatric: Alert, Oriented x3, No Motor/Sensory Deficits, Normal Mood/Affect, saddle tree stitcher II-XII Norm as Tested Skin: Normal Color, Warm/Dry Lymphatic: No Adenopathy Results/Procedures Lab Patient resulted labs reviewed. Assessment/Plan Assessment and Plan Assess & Plan/Chief Complaint Assessment: Hepatic encephalopathy now with normal ammonia 24 after dosing Lactulose TID for 5 BM's per day CRI Pancytopenia Anemia of renal disease Leukopenia chronic Advanced age GI Bleed in past Fall risk DNR Right flank post herpetic neuralgia Plan: Home meds Lactulose TID to attain 5 BM's and will need nurse to train on this requirement in order to return home Intensive therapies to return to independent living Prognosis guarded Reviewed Hematology note from [facility] Pain management of post herpetic neuralgia Check labs prn (1) Hepatic encephalopathy (2) Portal vein thrombosis (3) Anemia (4) Neutropenia (5) Post herpetic neuralgia (6) Renal insufficiency (7) Thrombocytopenia (8) Splenic sequestration (9) DNR (do not resuscitate) (10) Frailty (11) B12 deficiency (12) Advanced age (13) History of GI bleed (14) Increased ammonia level (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
[2018-09-19] MEDS: ZINC OXIDE 16% OINT (BUTT PASTE) 113 GM TUBE TOP PRN (09:30)
[2018-09-19 09:45] VITALS: BP 120/55
[2018-09-19] MEDS: LACTULOSE SYRUP 10GM/15ML (ENULOSE) 30ML UDC PO SCH ×3 (09:48→20:36)
[2018-09-19] MEDS: ALLOPURINOL 100 MG (ZYLOPRIM) TAB PO SCH (09:48)
[2018-09-19] MEDS: TORSEMIDE 20 MG (DEMADEX) TAB PO SCH (09:48)
[2018-09-19] MEDS: amLODIPine 10 MG (NORVASC) TAB PO SCH (09:50)
[2018-09-19] MEDS: meTOproloL SUCCINATE 50 MG (TOPROL XL) TAB PO SCH (09:50)
--- NOTE | 2018-09-19 11:54 | Occupational Ther Daily Note ---
OT Current Status-Daily Note Subjective No pain noted. Appearance Pt. in bed asleep. Awakes easily and agrees to work with OT. Mental Status/Objective Patient Orientation: Person, Place, Time, Situation Therapy Code Descriptions/Definitions Functional [place] Measure: 0=Not Assessed/NA 4=Minimal Assistance 1=Total Assistance 5=Supervision or Setup 2=Maximal Assistance 6=Modified [place] 3=Moderate Assistance 7=Complete [place] ADL-Treatment Therapy Code Descriptions/Definitions Functional [place] Measure: 0=Not Assessed/NA 4=Minimal Assistance 1=Total Assistance 5=Supervision or Setup 2=Maximal Assistance 6=Modified [place] 3=Moderate Assistance 7=Complete [place] Therapy Quality Codes: 6 Independent with activity with or without an assistive device 5 Patient requires set up or clean up by helper. Patient completes activity by themselves 4 Supervision or touching assist (CGA). [place] provide cues , steadying assist 3 The helper provides less than half the effort to complete the activity 2 The helper provides more than half the effort to complete the activity 1 Dependent. The helper does all the effort to complete an activity 7 Patient refused to complete or attempt activity 9 The patient did not perform the activity before the current illness or injury 88 Not attempted due to Medical conditions or safety concerns Grooming (FIM): 5 (SBA at sink in stance to brush hair, teeth.) Oral Hygiene (QC): 4 Bathing (FIM): 5 (SBA in shower to wash all parts.) Shower/Bathe Self (QC): 4 Upper Body (FIM): 5 Upper Body Dressing (QC): 4 Lower Body Dressing (FIM): 5 Lower Body Dressing (QC): 4 On/Off Footwear (QC): 4 Transfers (B, C, W/C) (FIM): 5 (SBA with walker to ambulate to and from therapy gym.) Shower Transfer(FIM): 5 Other Treatment After ADLs in room, pt. ambulated to therapy gym. Tolerated 10 minutes on armbike at min resistance for increased overall endurance. Several small rest breaks noted. Ambulated back to room after this task. Tolerated treatment well. Education OT Patient Education: Correct positioning, Exercise program, Modified ADL techniques, Progress toward Goal/Update tx plan, Purpose of tx/functional activities, Reviewed precautions, Rehab process, Transfer techniques Teaching Recipient: Patient Teaching Methods: Demonstration, Discussion Response to Teaching: Verbalize Understanding, Return Demonstration OT Short Term Goals Short Term Goals Time Frame: Sep 21, 2018 Bathing(FIM): 5 Lower Body Dressing(FIM): 5 Toileting(FIM): 5 Transfers (B,C,W/C) (FIM): 5 Toilet/Commode Transfer(FIM): 5 Additional Short Term Goals: 1-Demonstrate ADL Tasks, 2-Verbalize Understanding , 3-ImproveStrength/Shaista 1=Demonstrate adherence to instructed precautions during ADL tasks. 2=Patient will verbalize/demonstrate understanding of assistive devices/ modifications for ADL. 3=Patient will improve strength/tolerance for activity to enable patient to perform ADL's. OT Shelter Goals Shelter Goals Time Frame: Oct 05, 2018 Eating (FIM): 6 Eating (QC): 6 Groomin Oral Hygiene (QC): 6 Bathing(FIM): 6 Shower/Bathe Self (QC): 6 Upper Body Dressing(FIM): 6 Upper Body Dressing (QC): 6 Lower Body Dressing(FIM): 6 Lower Body Dressing (QC): 6 On/Off Footwear (QC): 6 Toileting(FIM): 6 Toileting Hygiene (QC): 6 Toilet/Commode Transfer(FIM): 6 Toilet/Commode Transfer (QC): 6 Shower Transfer(FIM): 6 Additional Goals: 1-Demonstrate ADL Tasks, 2-Verbalize Understanding, 3- ImproveStrength/Shaista 1=Demonstrate adherence to instructed precautions during ADL tasks. 2=Patient will verbalize/demonstrate understanding of assistive devices/ modifications for ADL. 3=Patient will improve strength/tolerance for activity to enable patient to perform ADL's. OT Education/Plan Problem List/Assessment Assessment: Decreased Activ Tolerance, Impaired I ADL's Pt to benefit from skilled OT intervention for ADL training, transfers, strengthening, and safety education to increase level of performance and allow safe discharge plan Discharge Recommendations Plan/Recommendations: Continue POC Therapy D/C Recommendations: Home w/ Family Support Treatment Plan/Plan of Care Treatment,Training & Education: Yes Patient would benefit from OT for education, treatment and training to promote independence in ADL's, mobility, safety and/or upper extremity function for ADL' s. Plan of Care: ADL Retraining, Functional Mobility, Group Exercise/Act as Ind, UE Funct Exercise/Act Treatment Duration: Oct 05, 2018 Frequency: At least 5 of 7 days/Wk (IRF) Estimated Hrs Per Day: 1.5 hours per day Agreement: Yes Rehab Potential: Good Time/GCodes Start Time: 09:15 Stop Time: 10:15 Total Time Billed (hr/min): 60 Billed Treatment Time 1, ADL x 45minutes, Ex x 15minutes AUSTIN NAVARRO OT Sep 19, 2018 11:54
--- NOTE | 2018-09-19 12:27 | Physical Therapy Daily Note ---
PT Daily Note-Current Subjective Agrees to PT. No complaints. Mental Status Patient Orientation: Person, Place, Time, Situation Transfers Therapy Code Descriptions/Definitions Functional [place] Measure: 0=Not Assessed/NA 4=Minimal Assistance 1=Total Assistance 5=Supervision or Setup 2=Maximal Assistance 6=Modified [place] 3=Moderate Assistance 7=Complete [place] Therapy Quality Codes: 6 Independent with activity with or without an assistive device 5 Patient requires set up or clean up by helper. Patient completes activity by themselves 4 Supervision or touching assist (CGA). [place] provide cues , steadying assist 3 The helper provides less than half the effort to complete the activity 2 The helper provides more than half the effort to complete the activity 1 Dependent. The helper does all the effort to complete an activity 7 Patient refused to complete or attempt activity 9 The patient did not perform the activity before the current illness or injury 88 Not attempted due to Medical conditions or safety concerns Transfers (B, C, W/C) (FIM): 5 (SBA with all transfers for safety; correct placement of hands for transfer) Supine to/from Sit: 5 Sit to/from Stand: 5 Weight Bearing Right Lower Extremity: Right Full Weight Bearing Left Lower Extremity: Left Full Weight Bearing Gait Training Does the Patient Walk?: Yes Gait (FIM): 5 Distance (FIM): 3=150 ft Distance: 200 ft x 2; 75 ft x 2 Gait Assistive Device: FWW safe and steady gait without safety concerns Stair Training Stair Training: Handrails/: 2 handrails Stairs (FIM): 2 #of Steps: 8 Stairs: Pattern: Reciprocal up/down 8 steps with SBA; safe and steady Exercises Seated Therapy Exercises: Ankle pumps, Long arc quads, Hip flexion Seated Reps: 15 Standing: Hamstring curls, Heel/toe raises, Marching, Mini squats Standing Reps: 15 LE ther ex performed to increase functional strength to improve safety with gait and transfers. NuStep Minutes: 12 NuStep Workload: 2 Treatments Pt also toileted x 2 separate events during treatment; SBA with all tasks of toileting. Assessment Current Status: Good Progress Pt is making functional gains towards PT goals and progressing well. PT Short Term Goals Short Term Goals Time Frame: Sep 21, 2018 Transfers (B,C,W/C) (FIM): 5 (met) Gait (FIM): 4 (met) PT Mortgage Consultant Goals Mcc Goals PT Mortgage Consultant Goals Time Frame: Sep 30, 2018 Transfers (B,C,W/C) (FIM): 7 Sit to Lying (QC): 6 Lying-Sitting on Side/Bed(QC): 6 Sit to Stand (QC): 6 Roll Left to Right (QC): 6 Chair/Zpw-cl-Cwilz Xfer(QC): 6 Car Transfer (QC): 6 Does the Patient Walk: Yes Gait (FIM): 6 Gait distance (FIM): 3=150 ft Walk 10 feet (QC): 6 Walk 10ft-Uneven Surface(QC): 6 Walk 50ft with 2 Turns (QC): 6 Walk 150 ft (QC): 6 Gait Assistive Device: FWW Does the Pt use WC or Scooter?: No Stairs (FIM): 5 (household) # of Steps: 4 1 Step (curb) (QC): 6 4 Steps (QC): 6 12 Steps (QC): 88 Picking up an Object (QC): 4 PT Plan Problem List Problem List: Activity Tolerance, Functional Strength, Safety, Balance, Gait, Transfer, Bed Mobility Treatment/Plan Treatment Plan: Continue Plan of Care Treatment Plan: Bed Mobility, Education, Functional Activity Shaista, Functional Strength, Group Therapy, Gait, Safety, Therapeutic Exercise, Transfers Treatment Duration: Sep 30, 2018 Frequency: At least 5 of 7 days/Wk (IRF) Estimated Hrs Per Day: 1.5 hours per day Patient and/or Family Agrees t: Yes Safety Risks/Education Patient Education: Safety Issues Teaching Recipient: Patient Teaching Methods: Discussion Response to Teaching: Return Demonstration Discharge Recommendations Therapy D/C Recommendations: Physical Therapy Home Care Time/GCodes Time In: 1045 Time Out: 1145 Total Billed Treatment Time: 60 Total Billed Treatment visit EX 30 GT 30 ELIZABETH CROW PT Sep 19, 2018 12:27
--- NOTE | 2018-09-19 13:36 | NUR ---
Pancrease not given, as pt states that her son ordered her lunch from room service, but, that it never showed up. RN called [employer], & they state that they don't see where it was ordered. Son is going to run to [employer] & get pt a sub sandwich, which she has been wanting, pt is in group tx now, will give the Pancrease when pt eats lunch.
--- NOTE | 2018-09-19 14:45 | Therapy Group Daily Note ---
Therapy Daily Group Note Patient Education Topic Home Safety, Fall Prevention Exercises LE Seated Exercise, UE Exercise Session Ratio (pt:therapist): 3:1 Goal of Session: Home Safety Strategies, UE/LE Strengthing, Other (list) (fall prevention ) home safety and fall prevention techniques as well as ideas for home exercise Goal Met for this Session: Yes Pt Benefit of Group: F/U Use of Strategies @Home, Increased Functional Safety, Increased Functional Strength, Socialization Other/Notes Pt. participated in group PT OT session this date. Pt. came and went via w/c and assist. Pts. were educated regarding home safety and fall prevention and contributed to the discussion. Pt. did seated U&L extremity exercises utilizing canned veggies (1lb) as well as demonstration at counter with chair behind for safety. Start Time: 13:00 Stop Time: 14:15 Total Billed Treatment Time: 75 Total Billed Treatment 1,GRP ROMERO NIÑO HEEL SPLITTER Sep 19, 2018 14:45
[2018-09-19 18:00] VITALS: BP 129/65
--- NOTE | 2018-09-19 19:24 | NUR ---
Lyssa Tran, pts nurse notified of pts temp
[2018-09-19] MEDS: HYDROcodone/APAP 5 MG/325 MG (LORTAB) TAB PO PRN (19:41)
[2018-09-20 05:09] VITALS: BP 103/57
[2018-09-20] MEDS: LIPASE/AMYLASE/PROTEASE (PANCRELIPASE) 5,000 UNITS CAP PO SCH ×3 (06:26→17:31)
[2018-09-20] MEDS: KCL 10 MEQ TAB (MICRO K) PO SCH ×2 (06:26→17:31)
[2018-09-20] MEDS: PANTOPRAZOLE 40 MG (PROTONIX) TAB PO SCH (06:26)
[2018-09-20] MEDS: CALCIUM CARB + VIT D 600 MG (CALCARB + D) TAB PO SCH ×2 (06:26→17:30)
[2018-09-20 07:07] LABS: BASOPHILS % (AUTO) 1 % (0-10); EOSINOPHILS # (AUTO) 0.1 10^3/uL (0.0-0.3); EOSINOPHILS % (AUTO) 4 % (0-10); HEMATOCRIT 27 % (35-52); HEMOGLOBIN 8.6 G/DL (11.5-16.0); LYMPHOCYTES # (AUTO) 0.4 X 10^3 (1.0-4.0); LYMPHOCYTES % (AUTO) 27 % (12-44); MEAN CORPUSCULAR HEMOGLOBIN 30 PG (25-34); MEAN CORPUSCULAR HGB CONC 32 G/DL (32-36); MEAN CORPUSCULAR VOLUME 93 FL (80-99); MEAN PLATELET VOLUME 10.8 FL (7.4-10.4); MONOCYTES # (AUTO) 0.1 X 10^3 (0.0-1.0); MONOCYTES % (AUTO) 7 % (0-12); NEUTROPHILS # (AUTO) 0.9 X 10^3 (1.8-7.8); NEUTROPHILS % (AUTO) 61 % (42-75); RED CELL DISTRIBUTION WIDTH 16.1 % (10.0-14.5); WHITE BLOOD COUNT 1.5 10^3/uL (4.3-11.0)
[2018-09-20 07:09] LABS: PLATELET COUNT 33 10^3/uL (130-400)
[2018-09-20 07:30] LABS: ALBUMIN 3.1 GM/DL (3.2-4.5); BILIRUBIN,TOTAL 1.1 MG/DL (0.1-1.0); CALCIUM 7.6 MG/DL (8.5-10.1); CREATININE SERUM 1.84 MG/DL (0.60-1.30); POTASSIUM 3.1 MMOL/L (3.6-5.0); TOTAL PROTEIN 4.8 GM/DL (6.4-8.2)
--- NOTE | 2018-09-20 09:13 | PM&R Progress Note ---
Subjective HPI/CC On Admission Date Seen by Provider: Sep 20, 2018 Time Seen by Provider: 09:00 Chief complaint: Hepatic encephalopathy with debility. HPI: This is an 87yoWF of [address] David Nelson in [place] and Dr. Hernandez Gastroenterology at [facility], and Dr. Garcia hematology at [facility] who has a PMH of liver cirrhosis, unknown source since she is a nondrinker lifetime and does not take any excess amount of Tylenol that was diagnosed with liver cirrhosis with portal hypertension two years ago, presents after altered mental status hospital stay at [facility] for confusion, stroke workup was negative and found to have elevated ammonia level at 83. Lactulose was initiated which cleared the confusion significantly, but due to the frail status and thin and chronically ill status that she is she needed inpatient rehab to maintain good Lactulose maintenance for clearance of elevated ammonia. At this current time Pt denies any pain but overall her strength is very poor and needs intensive therapy. Son is at the bedside. 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 Subjective/Events-last exam Patient has son at bedside and accompanying her in the gym Lactulose producing 4-5 bowel movements that are loose per day to decrease ammonia level and will need to train her to do that in order to return home Denies any pain except for the right flank shoulder from postherpetic neuralgia of which she is very sensitive to it and no further treatment can be done Overall prognosis very poor given advanced age and end-stage liver disease Son was concerned about lab results but there is no treatment for any of her abnormalities and I reviewed Hematology note in-depth confirming that and repeated labs today and all stable Fall risk prevention Eating and drinking well Reports she slept well last night Wants biscuits and gravy Review of Systems General: Fatigue Objective Exam Vital Signs Vital Signs Date Time Temp Pulse Resp B/P (MAP) Pulse Ox O2 Delivery O2 Flow Rate FiO2 09/20/18 05:09 99.2 69 16 103/57 (72) 97 Room Air Capillary Refill : General Appearance: No Apparent Distress, WD/WN, Chronically ill, Cachetic, Thin, Other (pale, chronically ill) HEENT: PERRL/EOMI, Normal ENT Inspection, Pharynx Normal, Other ([place]) Neck: Full Range of Motion, Normal Inspection, Non Tender, Supple Respiratory: Chest Non Tender, Lungs Clear, Normal Breath Sounds, No Accessory Muscle Use, No Respiratory Distress Cardiovascular: Regular Rate, Rhythm, No Edema, No Gallop, No JVD, No Murmur, Normal Peripheral Pulses Gastrointestinal: Normal Bowel Sounds, Non Tender, Soft Back: Normal Inspection, No CVA Tenderness, No Vertebral Tenderness Extremity: Normal Capillary Refill, Normal Inspection, Normal Range of Motion, Non Tender, No Calf Tenderness Neurologic/Psychiatric: Alert, Oriented x3, No Motor/Sensory Deficits, Normal Mood/Affect, control officer II-XII Norm as Tested Skin: Normal Color, Warm/Dry Lymphatic: No Adenopathy Results/Procedures Lab Laboratory Tests 09/20/18 07:00 Patient resulted labs reviewed. Assessment/Plan Assessment and Plan Assess & Plan/Chief Complaint Assessment: Hepatic encephalopathy now with normal ammonia 24 after dosing Lactulose TID for 5 BM's per day CRI Pancytopenia Anemia of renal disease Leukopenia chronic Advanced age GI Bleed in past Fall risk DNR Right flank post herpetic neuralgia Plan: Home meds Lactulose TID to attain 5 BM's and will need nurse to train on this requirement in order to return home Intensive therapies to return to independent living Prognosis guarded Reviewed Hematology note from [facility] Pain management of post herpetic neuralgia Check labs prn (1) Hepatic encephalopathy (2) Portal vein thrombosis (3) Anemia (4) Neutropenia (5) Post herpetic neuralgia (6) Renal insufficiency (7) Thrombocytopenia (8) Splenic sequestration (9) DNR (do not resuscitate) (10) Frailty (11) B12 deficiency (12) Advanced age (13) History of GI bleed (14) Increased ammonia level (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
[2018-09-20] MEDS: LACTULOSE SYRUP 10GM/15ML (ENULOSE) 30ML UDC PO SCH ×3 (09:32→21:32)
[2018-09-20] MEDS: ALLOPURINOL 100 MG (ZYLOPRIM) TAB PO SCH (09:33)
[2018-09-20] MEDS: TORSEMIDE 20 MG (DEMADEX) TAB PO SCH (09:33)
[2018-09-20] MEDS: ZINC OXIDE 16% OINT (BUTT PASTE) 113 GM TUBE TOP PRN (09:50)
--- NOTE | 2018-09-20 09:55 | Occupational Ther Daily Note ---
OT Current Status-Daily Note Subjective Pt in bed, agrees to therapy. Pt states she did not sleep well last night and is tired today. Mental Status/Objective Therapy Code Descriptions/Definitions Functional [place] Measure: 0=Not Assessed/NA 4=Minimal Assistance 1=Total Assistance 5=Supervision or Setup 2=Maximal Assistance 6=Modified [place] 3=Moderate Assistance 7=Complete [place] ADL-Treatment Pt states she had a shower yesterday, declined shower today. Completed sponge bath while seated in chair. Upper body bathing completed with SBA. Don pullover shirt with set up. Lower body bathing completed with SBA. Pt donned pants after set up. Good balance during standing for pant hike. Gait to restroom with FWW. Toilet transfer completed with SBA. Pt able to complete toileting hygiene and clothing management with SBA. Stood at sink to wash hands with modified independence. Pt completed grooming tasks while standing at sink. Brushed dentures and combed hair with modified independence. Seated rest break taken after ADLs. Therapy Code Descriptions/Definitions Functional [place] Measure: 0=Not Assessed/NA 4=Minimal Assistance 1=Total Assistance 5=Supervision or Setup 2=Maximal Assistance 6=Modified [place] 3=Moderate Assistance 7=Complete [place] Therapy Quality Codes: 6 Independent with activity with or without an assistive device 5 Patient requires set up or clean up by helper. Patient completes activity by themselves 4 Supervision or touching assist (CGA). [place] provide cues , steadying assist 3 The helper provides less than half the effort to complete the activity 2 The helper provides more than half the effort to complete the activity 1 Dependent. The helper does all the effort to complete an activity 7 Patient refused to complete or attempt activity 9 The patient did not perform the activity before the current illness or injury 88 Not attempted due to Medical conditions or safety concerns Grooming (FIM): 6 Oral Hygiene (QC): 6 Bathing (FIM): 5 Upper Body (FIM): 5 Upper Body Dressing (QC): 5 Lower Body Dressing (FIM): 5 Lower Body Dressing (QC): 5 Toileting (FIM): 5 Toileting Hygiene (QC): 4 Toilet/Commode Transfer (FIM): 5 Toilet Transfer (QC): 4 Other Treatment Gait to therapy gym with FWW, no LOB noted. Arm bike x12 minutes to increase overall activity tolerance needed for functional task completion. Pt able to complete task with minimal resistance and slow pace. One rest break taken during activity. Pt completed therapy putty activity with bilateral hands to increase strength and manipulation skills. Pt able to remove small beads from putty with increased time. Fine motor task with nuts and bolts using bilateral UE to increase coordination and UE activity tolerance. Pt able to complete task without assistance. Occasional rest breaks. Pt returned to room, transferred to bed with modified independence. Pt resting in bed with needs met and son present after session. OT Short Term Goals Short Term Goals Time Frame: Sep 21, 2018 Bathing(FIM): 5 Lower Body Dressing(FIM): 5 Toileting(FIM): 5 Transfers (B,C,W/C) (FIM): 5 (met) Toilet/Commode Transfer(FIM): 5 Additional Short Term Goals: 1-Demonstrate ADL Tasks, 2-Verbalize Understanding , 3-ImproveStrength/Shaista 1=Demonstrate adherence to instructed precautions during ADL tasks. 2=Patient will verbalize/demonstrate understanding of assistive devices/ modifications for ADL. 3=Patient will improve strength/tolerance for activity to enable patient to perform ADL's. OT Risk Management Consultant Goals Group Home Goals Time Frame: Oct 05, 2018 Eating (FIM): 6 Eating (QC): 6 Groomin Oral Hygiene (QC): 6 Bathing(FIM): 6 Shower/Bathe Self (QC): 6 Upper Body Dressing(FIM): 6 Upper Body Dressing (QC): 6 Lower Body Dressing(FIM): 6 Lower Body Dressing (QC): 6 On/Off Footwear (QC): 6 Toileting(FIM): 6 Toileting Hygiene (QC): 6 Toilet/Commode Transfer(FIM): 6 Toilet/Commode Transfer (QC): 6 Shower Transfer(FIM): 6 Additional Goals: 1-Demonstrate ADL Tasks, 2-Verbalize Understanding, 3- ImproveStrength/Shaista 1=Demonstrate adherence to instructed precautions during ADL tasks. 2=Patient will verbalize/demonstrate understanding of assistive devices/ modifications for ADL. 3=Patient will improve strength/tolerance for activity to enable patient to perform ADL's. OT Education/Plan Discharge Recommendations Plan/Recommendations: Continue POC Treatment Plan/Plan of Care Patient would benefit from OT for education, treatment and training to promote independence in ADL's, mobility, safety and/or upper extremity function for ADL' s. Plan of Care: ADL Retraining, Functional Mobility, Group Exercise/Act as Ind, UE Funct Exercise/Act Treatment Duration: Oct 05, 2018 Frequency: At least 5 of 7 days/Wk (IRF) Estimated Hrs Per Day: 1.5 hours per day Agreement: Yes Rehab Potential: Good Time/GCodes Start Time: 08:15 Stop Time: 09:45 Total Time Billed (hr/min): 90 Billed Treatment Time 1 visit, ADLx3(50minutes), EXx3(40minutes) STACI GUADALUPE OT Sep 20, 2018 09:55
[2018-09-20] MEDS: amLODIPine 10 MG (NORVASC) TAB PO SCH (09:57)
[2018-09-20] MEDS: meTOproloL SUCCINATE 50 MG (TOPROL XL) TAB PO SCH (09:57)
--- NOTE | 2018-09-20 10:57 | Physical Therapy Daily Note ---
PT Daily Note-Current Subjective Patient in bed pre tx, agrees to PT, has no complaints of pain at rest. Appearance Patient BTB post tx with nurse call, phone, tray, family in the room. Mental Status Patient Orientation: Person, Place, Situation Transfers Therapy Code Descriptions/Definitions Functional [place] Measure: 0=Not Assessed/NA 4=Minimal Assistance 1=Total Assistance 5=Supervision or Setup 2=Maximal Assistance 6=Modified [place] 3=Moderate Assistance 7=Complete [place] Therapy Quality Codes: 6 Independent with activity with or without an assistive device 5 Patient requires set up or clean up by helper. Patient completes activity by themselves 4 Supervision or touching assist (CGA). [place] provide cues , steadying assist 3 The helper provides less than half the effort to complete the activity 2 The helper provides more than half the effort to complete the activity 1 Dependent. The helper does all the effort to complete an activity 7 Patient refused to complete or attempt activity 9 The patient did not perform the activity before the current illness or injury 88 Not attempted due to Medical conditions or safety concerns Transfers (B, C, W/C) (FIM): 6 Scootin Rollin Supine to/from Sit: 6 Sit to/from Stand: 6 Bed to/from Chair: 6 No unsteadiness or LOB during transfers. Patient has to use the rest room and does so with mod I. Weight Bearing Right Lower Extremity: Right Full Weight Bearing Left Lower Extremity: Left Full Weight Bearing Gait Training Gait (FIM): 6 Distance: 200', 150' Gait Level of Assist: 6 Gait Assistive Device: FWW No unsteadiness or LOB. Exercises Standing: Hip Abduction, Hamstring curls, Heel/toe raises, Marching, Mini squats Standing Reps: 15 LAQ alternating for 5 min with 2# ankle weights on each leg. NuStep Minutes: 15 NuStep Workload: 4 Treatments bed mobility and transfers, ambulation, functional strengthening Assessment Current Status: Fair Progress good balance and stability during ambulation PT Short Term Goals Short Term Goals Time Frame: Sep 21, 2018 Transfers (B,C,W/C) (FIM): 5 (met) Gait (FIM): 4 (met) PT Manager [place] Goals [facility] Goals PT Manager Garden Goals Time Frame: Sep 30, 2018 Transfers (B,C,W/C) (FIM): 7 Sit to Lying (QC): 6 Lying-Sitting on Side/Bed(QC): 6 Sit to Stand (QC): 6 Roll Left to Right (QC): 6 Chair/Vor-te-Rsbex Xfer(QC): 6 Car Transfer (QC): 6 Does the Patient Walk: Yes Gait (FIM): 6 Gait distance (FIM): 3=150 ft Walk 10 feet (QC): 6 Walk 10ft-Uneven Surface(QC): 6 Walk 50ft with 2 Turns (QC): 6 Walk 150 ft (QC): 6 Gait Assistive Device: FWW Does the Pt use WC or Scooter?: No Stairs (FIM): 5 (household) # of Steps: 4 1 Step (curb) (QC): 6 4 Steps (QC): 6 12 Steps (QC): 88 Picking up an Object (QC): 4 PT Plan Problem List Problem List: Activity Tolerance, Functional Strength, Safety, Balance, Gait, Transfer Treatment/Plan Treatment Plan: Continue Plan of Care Treatment Plan: Bed Mobility, Education, Functional Activity Shaista, Functional Strength, Group Therapy, Gait, Safety, Therapeutic Exercise, Transfers Treatment Duration: Sep 30, 2018 Frequency: At least 5 of 7 days/Wk (IRF) Estimated Hrs Per Day: 1.5 hours per day Patient and/or Family Agrees t: Yes Safety Risks/Education Patient Education: Gait Training, Transfer Techniques, Correct Positioning, Safety Issues Teaching Recipient: Patient Teaching Methods: Demonstration, Discussion Response to Teaching: Reinforcement Needed Time/GCodes Time In: 1000 Time Out: 1100 Total Billed Treatment Time: 60 Total Billed Treatment 1 visit GT 15' FA 15' EX 30' ABBEY TUCKER PT Sep 20, 2018 10:57
--- NOTE | 2018-09-20 11:15 | NUR ---
Pt's son states that he is very pleased w the progress pt is making, & would like for pt to be able to do everything she can for herself as much as possible before she is discharged.
--- NOTE | 2018-09-20 14:31 | Physical Therapy Daily Note ---
PT Daily Note-Current Subjective Pt. agreed to treatment and was in chair upon arrival. Pt. did not complain of any pain. Pain Location: No Pain Reported Transfers Therapy Code Descriptions/Definitions Functional [place] Measure: 0=Not Assessed/NA 4=Minimal Assistance 1=Total Assistance 5=Supervision or Setup 2=Maximal Assistance 6=Modified [place] 3=Moderate Assistance 7=Complete [place] Therapy Quality Codes: 6 Independent with activity with or without an assistive device 5 Patient requires set up or clean up by helper. Patient completes activity by themselves 4 Supervision or touching assist (CGA). [place] provide cues , steadying assist 3 The helper provides less than half the effort to complete the activity 2 The helper provides more than half the effort to complete the activity 1 Dependent. The helper does all the effort to complete an activity 7 Patient refused to complete or attempt activity 9 The patient did not perform the activity before the current illness or injury 88 Not attempted due to Medical conditions or safety concerns Transfers (B, C, W/C) (FIM): 4 Scootin Supine to/from Sit: 5 Sit to/from Stand: 5 Sit to Lying (QC): 5 Sit to Stand (QC): 4 Bed to/from Chair: 5 Pt. was min assist from sit to stand and SBA during gait. Weight Bearing Right Lower Extremity: Right Full Weight Bearing Left Lower Extremity: Left Full Weight Bearing Gait Training Does the Patient Walk?: Yes Gait (FIM): 5 Distance (FIM): 3=150 ft Distance: 150 ft Gait Level of Assist: 5 Gait Persons Needed: 1 Gait Assistive Device: FWW Pt. was SBA during gait. Pt. needed cueing on how to get back to her room. Wheelchair Training Does the Pt Use a Wheelchair?: No Stair Training Stair Training: Handrails/: 2 handrails Stairs (FIM): 5 #of Steps: 4 4 Steps (QC): 5 Stairs: Pattern: Reciprocal Level of Assist: 5 Pt. was SBA while ascending and descending 4 steps x2. Exercises Seated Therapy Exercises: Ankle pumps, Kicking activity Seated Reps: 15 (with 2# wts bilateral ankle) NuStep Minutes: 10 NuStep Workload: 4 (to increase strength and functional mobility) Assessment Pt. responded to treatment good. Pt. had a slight trunk flexion during gait using FWW. Pt. will continue to benefit from therapy services. Patient returned to bed after treatment with 4 rails up and all need met. PT Short Term Goals Short Term Goals Time Frame: Sep 21, 2018 Transfers (B,C,W/C) (FIM): 5 (met) Gait (FIM): 4 (met) PT [facility] Goals [facility] Goals PT [facility] Goals Time Frame: Sep 30, 2018 Transfers (B,C,W/C) (FIM): 7 Sit to Lying (QC): 6 Lying-Sitting on Side/Bed(QC): 6 Sit to Stand (QC): 6 Rollin Roll Left to Right (QC): 6 Chair/Yau-al-Unmse Xfer(QC): 6 Car Transfer (QC): 6 Does the Patient Walk: Yes Gait (FIM): 6 Gait distance (FIM): 3=150 ft Walk 10 feet (QC): 6 Walk 10ft-Uneven Surface(QC): 6 Walk 50ft with 2 Turns (QC): 6 Walk 150 ft (QC): 6 Gait Assistive Device: FWW Does the Pt use WC or Scooter?: No Stairs (FIM): 5 (household) # of Steps: 4 1 Step (curb) (QC): 6 4 Steps (QC): 6 12 Steps (QC): 88 Picking up an Object (QC): 4 PT Plan Treatment/Plan Treatment Plan: Continue Plan of Care Treatment Plan: Bed Mobility, Education, Functional Activity Shaista, Functional Strength, Group Therapy, Gait, Safety, Therapeutic Exercise, Transfers Treatment Duration: Sep 30, 2018 Frequency: At least 5 of 7 days/Wk (IRF) Estimated Hrs Per Day: 1.5 hours per day Patient and/or Family Agrees t: Yes Time/GCodes Time In: 1355 Time Out: 1425 Total Billed Treatment Time: 30 Total Billed Treatment 1 visit EX 15 min FA 15 min EDMAR SANTOS PT Sep 20, 2018 14:31
[2018-09-20 18:01] VITALS: BP 126/56
[2018-09-20] MEDS: HYDROcodone/APAP 5 MG/325 MG (LORTAB) TAB PO PRN (20:36)
[2018-09-21 05:03] VITALS: BP 104/60
[2018-09-21] MEDS: CALCIUM CARB + VIT D 600 MG (CALCARB + D) TAB PO SCH ×2 (05:52→18:09)
[2018-09-21] MEDS: PANTOPRAZOLE 40 MG (PROTONIX) TAB PO SCH (05:52)
[2018-09-21] MEDS: KCL 10 MEQ TAB (MICRO K) PO SCH ×2 (05:52→18:09)
[2018-09-21] MEDS: LIPASE/AMYLASE/PROTEASE (PANCRELIPASE) 5,000 UNITS CAP PO SCH ×3 (05:53→18:09)
--- NOTE | 2018-09-21 08:14 | PM&R Progress Note ---
Subjective HPI/CC On Admission Date Seen by Provider: Sep 21, 2018 Time Seen by Provider: 08:15 Chief complaint: Hepatic encephalopathy with debility. HPI: This is an 87[address] of [address] David Nelson in [place] and Dr. Hernandez Gastroenterology at [facility], and Dr. Garcia hematology at [facility] who has a PMH of liver cirrhosis, unknown source since she is a nondrinker lifetime and does not take any excess amount of Tylenol that was diagnosed with liver cirrhosis with portal hypertension two years ago, presents after altered mental status hospital stay at [facility] for confusion, stroke workup was negative and found to have elevated ammonia level at 83. Lactulose was initiated which cleared the confusion significantly, but due to the frail status and thin and chronically ill status that she is she needed inpatient rehab to maintain good Lactulose maintenance for clearance of elevated ammonia. At this current time Pt denies any pain but overall her strength is very poor and needs intensive therapy. Son is at the bedside. 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 Subjective/Events-last exam Pt doing much better today Ammonia level is stable due to lactulose maintenance Pt participating in all therapies DC planned for Wednesday Hopefully her son will be able to contribute to checking in on her because there is some apprehension about going home and she's too functional for skilled care and she does not wish to go to assisted living Objective Exam Vital Signs Vital Signs Date Time Temp Pulse Resp B/P (MAP) Pulse Ox O2 Delivery O2 Flow Rate FiO2 09/21/18 17:07 99.2 73 18 126/67 (86) 99 Room Air Capillary Refill : General Appearance: No Apparent Distress, WD/WN, Chronically ill, Cachetic, Thin, Other (pale, chronically ill) HEENT: PERRL/EOMI, Normal ENT Inspection, Pharynx Normal, Other ([place] Neck: Full Range of Motion, Normal Inspection, Non Tender, Supple Respiratory: Chest Non Tender, Lungs Clear, Normal Breath Sounds, No Accessory Muscle Use, No Respiratory Distress Cardiovascular: Regular Rate, Rhythm, No Edema, No Gallop, No JVD, No Murmur, Normal Peripheral Pulses Gastrointestinal: Normal Bowel Sounds, Non Tender, Soft Back: Normal Inspection, No CVA Tenderness, No Vertebral Tenderness Extremity: Normal Capillary Refill, Normal Inspection, Normal Range of Motion, Non Tender, No Calf Tenderness Neurologic/Psychiatric: Alert, Oriented x3, No Motor/Sensory Deficits, Normal Mood/Affect, cellar pumper II-XII Norm as Tested Skin: Normal Color, Warm/Dry Lymphatic: No Adenopathy Results/Procedures Lab Patient resulted labs reviewed. Assessment/Plan Assessment and Plan Assess & Plan/Chief Complaint Assessment: Hepatic encephalopathy now with normal ammonia 24 after dosing Lactulose TID for 5 BM's per day CRI Pancytopenia Anemia of renal disease Leukopenia chronic Advanced age GI Bleed in past Fall risk DNR Right flank post herpetic neuralgia Plan: Home meds Lactulose TID to attain 5 BM's and will need nurse to train on this requirement in order to return home Intensive therapies to return to independent living Prognosis guarded Reviewed Hematology note from [facility] Pain management of post herpetic neuralgia Check labs prn DC Wednesday (1) Hepatic encephalopathy (2) Portal vein thrombosis (3) Anemia (4) Neutropenia (5) Post herpetic neuralgia (6) Renal insufficiency (7) Thrombocytopenia (8) Splenic sequestration (9) DNR (do not resuscitate) (10) Frailty (11) B12 deficiency (12) Advanced age (13) History of GI bleed (14) Increased ammonia level (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
--- NOTE | 2018-09-21 09:13 | Physical Therapy Daily Note ---
PT Daily Note-Current Subjective Pt. was in bed upon arrival. Pt. agreed to therapy treatment. Pt. reported pain in R UE but did not rate it on the scale. Pain Location: Right Location Body Site: Shoulder Pain Description: Chronic Mental Status Patient Orientation: Normal For Age Transfers Therapy Code Descriptions/Definitions Functional [place] Measure: 0=Not Assessed/NA 4=Minimal Assistance 1=Total Assistance 5=Supervision or Setup 2=Maximal Assistance 6=Modified [place] 3=Moderate Assistance 7=Complete [place] Therapy Quality Codes: 6 Independent with activity with or without an assistive device 5 Patient requires set up or clean up by helper. Patient completes activity by themselves 4 Supervision or touching assist (CGA). [place] provide cues , steadying assist 3 The helper provides less than half the effort to complete the activity 2 The helper provides more than half the effort to complete the activity 1 Dependent. The helper does all the effort to complete an activity 7 Patient refused to complete or attempt activity 9 The patient did not perform the activity before the current illness or injury 88 Not attempted due to Medical conditions or safety concerns Transfers (B, C, W/C) (FIM): 6 Scootin Supine to/from Sit: 6 Sit to/from Stand: 6 Sit to Lying (QC): 6 Sit to Stand (QC): 6 Weight Bearing Right Lower Extremity: Right Full Weight Bearing Left Lower Extremity: Left Full Weight Bearing Gait Training Does the Patient Walk?: Yes Distance (FIM): 3=150 ft Distance: >500 ft Gait Level of Assist: 6 Gait Persons Needed: 1 Gait Assistive Device: FWW Wheelchair Training Does the Pt Use a Wheelchair?: No Stair Training Stair Training: Handrails/: 2 handrails Stairs (FIM): 6 #of Steps: 16 4 Steps (QC): 6 12 Steps (QC): 6 Stairs: Pattern: Reciprocal Level of Assist: 6 Balance Picking up an Object (QC): 6 Exercises NuStep Minutes: 15 NuStep Workload: 4 Treatments Pt. responded to treatment good. Pt. walked to therapy room mod I. Pt. rode Nustep x 15 min with work load on 4. Pt. then ambulated stairs x 4. Pt. ambulated to main floor of hospital to see the kitchen and gift shop. Pt. then ambulated back to room and was put back into bed with needs met.Pt. will continue to benefit from therapy services. Assessment Current Status: Good Progress PT Short Term Goals Short Term Goals Time Frame: Sep 21, 2018 Transfers (B,C,W/C) (FIM): 5 (met) Gait (FIM): 4 (met) PT Quarry Extraction Worker Goals [facility] Goals PT Quarry Extraction Worker Goals Time Frame: Sep 30, 2018 Transfers (B,C,W/C) (FIM): 7 Sit to Lying (QC): 6 Lying-Sitting on Side/Bed(QC): 6 Sit to Stand (QC): 6 Rollin Roll Left to Right (QC): 6 Chair/Xnm-ej-Adpxa Xfer(QC): 6 Car Transfer (QC): 6 Does the Patient Walk: Yes Gait (FIM): 6 Gait distance (FIM): 3=150 ft Walk 10 feet (QC): 6 Walk 10ft-Uneven Surface(QC): 6 Walk 50ft with 2 Turns (QC): 6 Walk 150 ft (QC): 6 Gait Assistive Device: FWW Does the Pt use WC or Scooter?: No Stairs (FIM): 5 (household) # of Steps: 4 1 Step (curb) (QC): 6 4 Steps (QC): 6 12 Steps (QC): 88 Picking up an Object (QC): 4 PT Plan Treatment/Plan Treatment Plan: Continue Plan of Care Treatment Plan: Bed Mobility, Education, Functional Activity Shaista, Functional Strength, Group Therapy, Gait, Safety, Therapeutic Exercise, Transfers Treatment Duration: Sep 30, 2018 Frequency: At least 5 of 7 days/Wk (IRF) Estimated Hrs Per Day: 1.5 hours per day Patient and/or Family Agrees t: Yes Time/GCodes Time In: 800 Time Out: 900 Total Billed Treatment Time: 60 Total Billed Treatment 1, Ex, FA, GT x2 LEIGH ANNKALYANDANNIELLE INTRUSION ANALYST Sep 21, 2018 09:13
[2018-09-21] MEDS: LACTULOSE SYRUP 10GM/15ML (ENULOSE) 30ML UDC PO SCH ×3 (09:44→20:31)
[2018-09-21] MEDS: meTOproloL SUCCINATE 50 MG (TOPROL XL) TAB PO SCH (09:44)
[2018-09-21] MEDS: TORSEMIDE 20 MG (DEMADEX) TAB PO SCH (09:45)
[2018-09-21] MEDS: amLODIPine 10 MG (NORVASC) TAB PO SCH (09:45)
[2018-09-21] MEDS: ALLOPURINOL 100 MG (ZYLOPRIM) TAB PO SCH (09:45)
--- NOTE | 2018-09-21 11:23 | Occupational Ther Daily Note ---
OT Current Status-Daily Note Subjective Pt agreeable to therapy this morning. Mental Status/Objective Therapy Code Descriptions/Definitions Functional [place] Measure: 0=Not Assessed/NA 4=Minimal Assistance 1=Total Assistance 5=Supervision or Setup 2=Maximal Assistance 6=Modified [place] 3=Moderate Assistance 7=Complete [place] ADL-Treatment Pt would like to shower this morning. Supine to sit with modified independence. Sit to stand with modified independence. Gait to restroom with FWW, no LOB noted. Pt transferred to toilet x2 during session with modified independence using grab bar for safety. Pt able to complete toileting hygiene and clothing management with modified independence. Transfer to walk in shower with supervision for safety. Pt able to complete bathing using hand held shower. Pt able to wash/dry with set up. Pt declined to wash hair in shower, would like to wash hair in sink. Don pullover shirt with set up. Pt donned Depends and pants with set up. Stood with good balance during pant hike. Pt donned socks with set up. Pt washed hair while standing at sink with SBA. Grooming tasks completed standing at sink. Pt completed oral care and brushed hair with modified independence. Transfer back to recliner with modified independence. Therapy Code Descriptions/Definitions Functional [place] Measure: 0=Not Assessed/NA 4=Minimal Assistance 1=Total Assistance 5=Supervision or Setup 2=Maximal Assistance 6=Modified [place] 3=Moderate Assistance 7=Complete [place] Therapy Quality Codes: 6 Independent with activity with or without an assistive device 5 Patient requires set up or clean up by helper. Patient completes activity by themselves 4 Supervision or touching assist (CGA). [place] provide cues , steadying assist 3 The helper provides less than half the effort to complete the activity 2 The helper provides more than half the effort to complete the activity 1 Dependent. The helper does all the effort to complete an activity 7 Patient refused to complete or attempt activity 9 The patient did not perform the activity before the current illness or injury 88 Not attempted due to Medical conditions or safety concerns Grooming (FIM): 6 Oral Hygiene (QC): 6 Bathing (FIM): 5 Shower/Bathe Self (QC): 5 Upper Body (FIM): 5 Upper Body Dressing (QC): 5 Lower Body Dressing (FIM): 5 Lower Body Dressing (QC): 5 On/Off Footwear (QC): 5 Toileting (FIM): 6 Toileting Hygiene (QC): 6 Toilet/Commode Transfer (FIM): 6 Toilet Transfer (QC): 6 Other Treatment Pt completed bilateral UE exercises to increase strength needed for ADLs and transfers. Pt performed three exercises x15 reps with dowel fabian. Rest breaks between exercises. Pt requests to return to bed after session. Sit to supine with modified independence. Pt resting in bed with needs met after session. OT Short Term Goals Short Term Goals Time Frame: Sep 21, 2018 Bathing(FIM): 5 Lower Body Dressing(FIM): 5 Toileting(FIM): 5 Transfers (B,C,W/C) (FIM): 5 (met) Toilet/Commode Transfer(FIM): 5 Additional Short Term Goals: 1-Demonstrate ADL Tasks, 2-Verbalize Understanding , 3-ImproveStrength/Shaista 1=Demonstrate adherence to instructed precautions during ADL tasks. 2=Patient will verbalize/demonstrate understanding of assistive devices/ modifications for ADL. 3=Patient will improve strength/tolerance for activity to enable patient to perform ADL's. OT Group Home Goals Art Historian Goals Time Frame: Oct 05, 2018 Eating (FIM): 6 Eating (QC): 6 Groomin Oral Hygiene (QC): 6 Bathing(FIM): 6 Shower/Bathe Self (QC): 6 Upper Body Dressing(FIM): 6 Upper Body Dressing (QC): 6 Lower Body Dressing(FIM): 6 Lower Body Dressing (QC): 6 On/Off Footwear (QC): 6 Toileting(FIM): 6 Toileting Hygiene (QC): 6 Toilet/Commode Transfer(FIM): 6 Toilet/Commode Transfer (QC): 6 Shower Transfer(FIM): 6 Additional Goals: 1-Demonstrate ADL Tasks, 2-Verbalize Understanding, 3- ImproveStrength/Shaista 1=Demonstrate adherence to instructed precautions during ADL tasks. 2=Patient will verbalize/demonstrate understanding of assistive devices/ modifications for ADL. 3=Patient will improve strength/tolerance for activity to enable patient to perform ADL's. OT Education/Plan Discharge Recommendations Plan/Recommendations: Continue POC Treatment Plan/Plan of Care Patient would benefit from OT for education, treatment and training to promote independence in ADL's, mobility, safety and/or upper extremity function for ADL' s. Plan of Care: ADL Retraining, Functional Mobility, Group Exercise/Act as Ind, UE Funct Exercise/Act Treatment Duration: Oct 05, 2018 Frequency: At least 5 of 7 days/Wk (IRF) Estimated Hrs Per Day: 1.5 hours per day Agreement: Yes Rehab Potential: Good Time/GCodes Start Time: 09:15 Stop Time: 10:15 Total Time Billed (hr/min): 60 Billed Treatment Time 1 visit, ADLx3(50minutes), EX(10minutes) STACI GUADALUPE OT Sep 21, 2018 11:23
--- NOTE | 2018-09-21 13:05 | Occupational Ther Daily Note ---
OT Current Status-Daily Note Subjective Pt in bed, agrees to therapy. Mental Status/Objective Therapy Code Descriptions/Definitions Functional [place] Measure: 0=Not Assessed/NA 4=Minimal Assistance 1=Total Assistance 5=Supervision or Setup 2=Maximal Assistance 6=Modified [place] 3=Moderate Assistance 7=Complete [place] ADL-Treatment Pt completed toilet transfer and toileting with modified independence. Stood at sink to wash hands with modified independence. Therapy Code Descriptions/Definitions Functional [place] Measure: 0=Not Assessed/NA 4=Minimal Assistance 1=Total Assistance 5=Supervision or Setup 2=Maximal Assistance 6=Modified [place] 3=Moderate Assistance 7=Complete [place] Therapy Quality Codes: 6 Independent with activity with or without an assistive device 5 Patient requires set up or clean up by helper. Patient completes activity by themselves 4 Supervision or touching assist (CGA). [place] provide cues , steadying assist 3 The helper provides less than half the effort to complete the activity 2 The helper provides more than half the effort to complete the activity 1 Dependent. The helper does all the effort to complete an activity 7 Patient refused to complete or attempt activity 9 The patient did not perform the activity before the current illness or injury 88 Not attempted due to Medical conditions or safety concerns Other Treatment Gait to therapy gym with FWW, no LOB noted. Pt completed arm bike activity [id number] to increase overall strength and activity tolerance needed for functional task completion. Pt completed task with minimal resistance and slow pace. No rest breaks needed. Pt completed tabletop peg activity with bilateral UE to increase UE activity tolerance and fine motor coordination/manipulation skills. Pt returned to room after session. In bed with needs met. OT Short Term Goals Short Term Goals Time Frame: Sep 21, 2018 Bathing(FIM): 5 Lower Body Dressing(FIM): 5 Toileting(FIM): 5 Transfers (B,C,W/C) (FIM): 5 (met) Toilet/Commode Transfer(FIM): 5 Additional Short Term Goals: 1-Demonstrate ADL Tasks, 2-Verbalize Understanding , 3-ImproveStrength/Shaista 1=Demonstrate adherence to instructed precautions during ADL tasks. 2=Patient will verbalize/demonstrate understanding of assistive devices/ modifications for ADL. 3=Patient will improve strength/tolerance for activity to enable patient to perform ADL's. OT Manager Play Goals Nursing Home Goals Time Frame: Oct 05, 2018 Eating (FIM): 6 Eating (QC): 6 Groomin Oral Hygiene (QC): 6 Bathing(FIM): 6 Shower/Bathe Self (QC): 6 Upper Body Dressing(FIM): 6 Upper Body Dressing (QC): 6 Lower Body Dressing(FIM): 6 Lower Body Dressing (QC): 6 On/Off Footwear (QC): 6 Toileting(FIM): 6 Toileting Hygiene (QC): 6 Toilet/Commode Transfer(FIM): 6 Toilet/Commode Transfer (QC): 6 Shower Transfer(FIM): 6 Additional Goals: 1-Demonstrate ADL Tasks, 2-Verbalize Understanding, 3- ImproveStrength/Shaista 1=Demonstrate adherence to instructed precautions during ADL tasks. 2=Patient will verbalize/demonstrate understanding of assistive devices/ modifications for ADL. 3=Patient will improve strength/tolerance for activity to enable patient to perform ADL's. OT Education/Plan Discharge Recommendations Plan/Recommendations: Continue POC Treatment Plan/Plan of Care Patient would benefit from OT for education, treatment and training to promote independence in ADL's, mobility, safety and/or upper extremity function for ADL' s. Plan of Care: ADL Retraining, Functional Mobility, Group Exercise/Act as Ind, UE Funct Exercise/Act Treatment Duration: Oct 05, 2018 Frequency: At least 5 of 7 days/Wk (IRF) Estimated Hrs Per Day: 1.5 hours per day Agreement: Yes Rehab Potential: Good Time/GCodes Start Time: 11:30 Stop Time: 12:00 Total Time Billed (hr/min): 30 Billed Treatment Time 1 visit, EXx2(30minutes) STACI GUADALUPE OT Sep 21, 2018 13:04
--- NOTE | 2018-09-21 14:27 | Physical Therapy Daily Note ---
PT Daily Note-Current Subjective Pt laying Supine in bed upon arrival. Pt agrees to PT. Pain Numeric Pain Scale: 5-Moderate Pain Location: Right Location Body Site: Shoulder Pain Description: Ache Mental Status Patient Orientation: Person, Place, Situation Transfers Therapy Code Descriptions/Definitions Functional [place] Measure: 0=Not Assessed/NA 4=Minimal Assistance 1=Total Assistance 5=Supervision or Setup 2=Maximal Assistance 6=Modified [place] 3=Moderate Assistance 7=Complete [place] Therapy Quality Codes: 6 Independent with activity with or without an assistive device 5 Patient requires set up or clean up by helper. Patient completes activity by themselves 4 Supervision or touching assist (CGA). [place] provide cues , steadying assist 3 The helper provides less than half the effort to complete the activity 2 The helper provides more than half the effort to complete the activity 1 Dependent. The helper does all the effort to complete an activity 7 Patient refused to complete or attempt activity 9 The patient did not perform the activity before the current illness or injury 88 Not attempted due to Medical conditions or safety concerns Scootin Supine to/from Sit: 6 Sit to/from Stand: 6 Sit to Lying (QC): 6 Sit to Stand (QC): 6 Weight Bearing Right Lower Extremity: Right Full Weight Bearing Left Lower Extremity: Left Full Weight Bearing Gait Training Does the Patient Walk?: Yes Distance (FIM): 1=up to 49 ft Distance: 40' Walk 10 feet (QC): 6 Gait Assistive Device: FWW Exercises Supine Ex: Ankle pumps, Quad Set, Glut sets, Straight leg raise, Hip abd/add Supine Reps: 15 Treatments Pt uses restroom then returns to Supine in bed to complete EX. Pt changes brief & pants in restroom. Pt resting in bed at end of tx with all needs met. Assessment Current Status: Good Progress PT Short Term Goals Short Term Goals Time Frame: Sep 21, 2018 Transfers (B,C,W/C) (FIM): 5 (met) Gait (FIM): 4 (met) PT Halfway Goals Manager Home Improvement Goals PT Manager Home Improvement Goals Time Frame: Sep 30, 2018 Transfers (B,C,W/C) (FIM): 7 Sit to Lying (QC): 6 Lying-Sitting on Side/Bed(QC): 6 Sit to Stand (QC): 6 Rollin Roll Left to Right (QC): 6 Chair/Din-xc-Eczpt Xfer(QC): 6 Car Transfer (QC): 6 Does the Patient Walk: Yes Gait (FIM): 6 Gait distance (FIM): 3=150 ft Walk 10 feet (QC): 6 Walk 10ft-Uneven Surface(QC): 6 Walk 50ft with 2 Turns (QC): 6 Walk 150 ft (QC): 6 Gait Assistive Device: FWW Does the Pt use WC or Scooter?: No Stairs (FIM): 5 (household) # of Steps: 4 1 Step (curb) (QC): 6 4 Steps (QC): 6 12 Steps (QC): 88 Picking up an Object (QC): 4 PT Plan Treatment/Plan Treatment Plan: Continue Plan of Care Treatment Plan: Bed Mobility, Education, Functional Activity [place], Functional Strength, Group Therapy, Gait, Safety, Therapeutic Exercise, Transfers Treatment Duration: Sep 30, 2018 Frequency: At least 5 of 7 days/Wk (IRF) Estimated Hrs Per Day: 1.5 hours per day Patient and/or Family Agrees t: Yes Time/GCodes Time In: 1330 Time Out: 1400 Total Billed Treatment Time: 30 Total Billed Treatment 1, FA (15m) & EX (15m) G Codes Necessary: No DANNIELLE BELTRÁN RN ICU Sep 21, 2018 14:27
[2018-09-21 17:07] VITALS: BP 126/67
[2018-09-21] MEDS: HYDROcodone/APAP 5 MG/325 MG (LORTAB) TAB PO PRN (20:39)
[2018-09-22 05:07] VITALS: BP 120/64
[2018-09-22] MEDS: PANTOPRAZOLE 40 MG (PROTONIX) TAB PO SCH (06:32)
[2018-09-22] MEDS: KCL 10 MEQ TAB (MICRO K) PO SCH ×2 (06:32→17:49)
[2018-09-22] MEDS: LIPASE/AMYLASE/PROTEASE (PANCRELIPASE) 5,000 UNITS CAP PO SCH ×3 (06:33→17:49)
[2018-09-22] MEDS: CALCIUM CARB + VIT D 600 MG (CALCARB + D) TAB PO SCH ×2 (06:33→17:49)
[2018-09-22] MEDS: HYDROcodone/APAP 5 MG/325 MG (LORTAB) TAB PO PRN ×2 (07:59→20:44)
[2018-09-22] MEDS: amLODIPine 10 MG (NORVASC) TAB PO SCH (07:59)
[2018-09-22] MEDS: TORSEMIDE 20 MG (DEMADEX) TAB PO SCH (08:00)
[2018-09-22] MEDS: meTOproloL SUCCINATE 50 MG (TOPROL XL) TAB PO SCH (08:00)
[2018-09-22] MEDS: LACTULOSE SYRUP 10GM/15ML (ENULOSE) 30ML UDC PO SCH ×3 (08:00→20:44)
[2018-09-22] MEDS: ALLOPURINOL 100 MG (ZYLOPRIM) TAB PO SCH (08:00)
[2018-09-22] MEDS: ZINC OXIDE 16% OINT (BUTT PASTE) 113 GM TUBE TOP PRN (08:03)
[2018-09-22 08:04] VITALS: BP 128/60
--- NOTE | 2018-09-22 08:56 | PM&R Progress Note ---
Subjective HPI/CC On Admission Date Seen by Provider: Sep 22, 2018 Time Seen by Provider: 08:45 Chief complaint: Hepatic encephalopathy with debility. HPI: This is an 87[address] of [address] [place] in [place] and Dr. Hernandez Gastroenterology at [facility], and Dr. Garcia hematology at [facility] who has a PMH of liver cirrhosis, unknown source since she is a nondrinker lifetime and does not take any excess amount of Tylenol that was diagnosed with liver cirrhosis with portal hypertension two years ago, presents after altered mental status hospital stay at [facility] for confusion, stroke workup was negative and found to have elevated ammonia level at 83. Lactulose was initiated which cleared the confusion significantly, but due to the frail status and thin and chronically ill status that she is she needed inpatient rehab to maintain good Lactulose maintenance for clearance of elevated ammonia. At this current time Pt denies any pain but overall her strength is very poor and needs intensive therapy. Son is at the bedside. 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 Subjective/Events-last exam Pt doesn't want to participate in therapy today Lactulose maintained and will need to maintain TID dosing at home Talked to patient about a correction at [place] and she doesn't want that either DC still planned for Wednesday Patient with end stage liver disease so if declines will need hospice Review of Systems General: Fatigue Objective Exam Vital Signs Vital Signs Date Time Temp Pulse Resp B/P (MAP) Pulse Ox O2 Delivery O2 Flow Rate FiO2 09/22/18 09:43 Room Air 09/22/18 08:04 75 128/60 (82) 09/22/18 05:07 98.4 18 100 Capillary Refill : General Appearance: No Apparent Distress, WD/WN, Chronically ill, Cachetic, Thin, Other (pale, chronically ill) HEENT: PERRL/EOMI, Normal ENT Inspection, Pharynx Normal, Other ([place]) Neck: Full Range of Motion, Normal Inspection, Non Tender, Supple Respiratory: Chest Non Tender, Lungs Clear, Normal Breath Sounds, No Accessory Muscle Use, No Respiratory Distress Cardiovascular: Regular Rate, Rhythm, No Edema, No Gallop, No JVD, No Murmur, Normal Peripheral Pulses Gastrointestinal: Normal Bowel Sounds, Non Tender, Soft Back: Normal Inspection, No CVA Tenderness, No Vertebral Tenderness Extremity: Normal Capillary Refill, Normal Inspection, Normal Range of Motion, Non Tender, No Calf Tenderness Neurologic/Psychiatric: Alert, Oriented x3, No Motor/Sensory Deficits, Normal Mood/Affect, cloth painter II-XII Norm as Tested Skin: Normal Color, Warm/Dry Lymphatic: No Adenopathy Results/Procedures Lab Patient resulted labs reviewed. Assessment/Plan Assessment and Plan Assess & Plan/Chief Complaint Assessment: Hepatic encephalopathy now with normal ammonia with Lactulose TID CRI stable Pancytopenia Hematology consult reviewed Anemia of renal disease Leukopenia chronic Advanced age GI Bleed in past Fall risk DNR Right flank post herpetic neuralgia Plan: Home meds Lactulose TID to attain 5 BM's and will need nurse to train on this requirement in order to return home Intensive therapies to return to independent living Prognosis guarded Reviewed Hematology note from [facility] Pain management of post herpetic neuralgia Check labs prn DC Wednesday to home or NH (1) Hepatic encephalopathy (2) Portal vein thrombosis (3) Anemia (4) Neutropenia (5) Post herpetic neuralgia (6) Renal insufficiency (7) Thrombocytopenia (8) Splenic sequestration (9) DNR (do not resuscitate) (10) Frailty (11) B12 deficiency (12) Advanced age (13) History of GI bleed (14) Increased ammonia level (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
--- NOTE | 2018-09-22 10:52 | NUR ---
Follow up visit with pt's son, 2 neighbors and nephew. They shared the pt verbalized angrily that she is 'getting kicked out' of the hospital, and said she will 'just ' when she gets home. In my conversations with the pt she became tearful while sharing her fears of falling, since she "lost time" and cannot recall what happened before her hospital admission. In previous visits, the pt tearfully shared fears of being alone and repeating the incident; states she did not anticipate it, and this has contributed to anxiety. The family said they would appreciate continued skimmer reverberatory support.
--- NOTE | 2018-09-22 10:57 | Occupational Ther Daily Note ---
OT Current Status-Daily Note Subjective Pt alert, lying in bed. Pt agrees to therapy. No c/o pain. Pt stated that she started the day off with a lot of pain, pain meds were given, pt reported decreased pain after meds. Mental Status/Objective Patient Orientation: Person, Place, Time, Situation Therapy Code Descriptions/Definitions Functional [place] Measure: 0=Not Assessed/NA 4=Minimal Assistance 1=Total Assistance 5=Supervision or Setup 2=Maximal Assistance 6=Modified [place] 3=Moderate Assistance 7=Complete [place] ADL-Treatment Pt required encouragement to take shower. Using FWW, pt able to retrieve clothes from closet and transport to bathroom. Pt then transferred into/out of shower using grabbars and shower bench. Completed own bathing using shower bench, grabbars and hand held shower. Dressed self in sitting and hiked pants by self. Stood at sink to complete grooming by self, FWW within reach though pt used sink to stabilize self. Requested to use toilet. Transferred to/from toilet using grabbar and FWW. Completed own toileting. [facility]. Pt demonstrates that ability to set self up with eating and using regular utensils to eat. Therapy Code Descriptions/Definitions Functional [place] Measure: 0=Not Assessed/NA 4=Minimal Assistance 1=Total Assistance 5=Supervision or Setup 2=Maximal Assistance 6=Modified [place] 3=Moderate Assistance 7=Complete [place] Therapy Quality Codes: 6 Independent with activity with or without an assistive device 5 Patient requires set up or clean up by helper. Patient completes activity by themselves 4 Supervision or touching assist (CGA). [place] provide cues , steadying assist 3 The helper provides less than half the effort to complete the activity 2 The helper provides more than half the effort to complete the activity 1 Dependent. The helper does all the effort to complete an activity 7 Patient refused to complete or attempt activity 9 The patient did not perform the activity before the current illness or injury 88 Not attempted due to Medical conditions or safety concerns Eating (FIM): 6 Eating (QC): 6 Grooming (FIM): 7 Oral Hygiene (QC): 6 Bathing (FIM): 6 Bathing Location: L Arm, R Arm, L Upper Leg, R Upper Leg, L Lower Leg ( including foot), R Lower Leg (including foot), Chest, Abdomen, Buttocks, Perineal Area Shower/Bathe Self (QC): 6 Upper Body (FIM): 6 Upper Body Dressing (QC): 6 Lower Body Dressing (FIM): 6 Lower Body Dressing (QC): 6 On/Off Footwear (QC): 6 Toileting (FIM): 6 Toileting Hygiene (QC): 6 Transfers (B, C, W/C) (FIM): 6 Toilet/Commode Transfer (FIM): 6 Toilet Transfer (QC): 6 Shower Transfer(FIM): 6 Other Treatment Co-treat with PT for skilled services due to increased pain and decreased activity tolerance. PT worked on transfers, stairs, LE strengthening and mobility. OT worked on functional transfers and UE strengthening. Pt able to complete resistive UE strengthening for 15 min. Demonstrated independence with bed mobility. After therapy, PT took over care of pt. All needs met in room. OT Short Term Goals Short Term Goals Time Frame: Sep 21, 2018 Bathing(FIM): 5 Lower Body Dressing(FIM): 5 Toileting(FIM): 5 Transfers (B,C,W/C) (FIM): 5 (met) Toilet/Commode Transfer(FIM): 5 Additional Short Term Goals: 1-Demonstrate ADL Tasks, 2-Verbalize Understanding , 3-ImproveStrength/[place] 1=Demonstrate adherence to instructed precautions during ADL tasks. 2=Patient will verbalize/demonstrate understanding of assistive devices/ modifications for ADL. 3=Patient will improve strength/tolerance for activity to enable patient to perform ADL's. OT Any Commodity Buyer Goals [facility] Goals Time Frame: Oct 05, 2018 Eating (FIM): 6 (met-09/22/2018) Eating (QC): 6 (met-09/22/2018) Groomin (met-09/22/2018) Oral Hygiene (QC): 6 (met-09/22/2018) Bathing(FIM): 6 (met-09/22/2018) Shower/Bathe Self (QC): 6 (met-09/22/2018) Upper Body Dressing(FIM): 6 (met-09/22/2018) Upper Body Dressing (QC): 6 (met-09/22/2018) Lower Body Dressing(FIM): 6 (met-09/22/2018) Lower Body Dressing (QC): 6 (met-09/22/2018) On/Off Footwear (QC): 6 (met-09/22/2018) Toileting(FIM): 6 (met-09/22/2018) Toileting Hygiene (QC): 6 (met-09/22/2018) Toilet/Commode Transfer(FIM): 6 (met-09/22/2018) Toilet/Commode Transfer (QC): 6 (met-09/22/2018) Shower Transfer(FIM): 6 (met-09/22/2018) Additional Goals: 1-Demonstrate ADL Tasks, 2-Verbalize Understanding, 3- ImproveStrength/[place] 1=Demonstrate adherence to instructed precautions during ADL tasks. 2=Patient will verbalize/demonstrate understanding of assistive devices/ modifications for ADL. 3=Patient will improve strength/tolerance for activity to enable patient to perform ADL's. OT Education/Plan Problem List/Assessment Assessment: Decreased Activ Tolerance, Impaired Self-Care Skills Discharge Recommendations Plan/Recommendations: Continue POC Treatment Plan/Plan of Care Patient would benefit from OT for education, treatment and training to promote independence in ADL's, mobility, safety and/or upper extremity function for ADL' s. Plan of Care: ADL Retraining, Functional Mobility, Group Exercise/Act as Ind, UE Funct Exercise/Act Treatment Duration: Oct 05, 2018 Frequency: At least 5 of 7 days/Wk (IRF) Estimated Hrs Per Day: 1.5 hours per day Agreement: Yes Rehab Potential: Good Time/GCodes Start Time: 10:10 Stop Time: 11:10 Total Time Billed (hr/min): 60 Billed Treatment Time 1 visit-ADL 2 (35 min) FA 1 (10 min) EX 1 (15 min) co-treat with PT 25 min [id number], individual 35 min [id number] ELIZABETH GARCÍA Sep 22, 2018 10:57
--- NOTE | 2018-09-22 12:02 | Physical Therapy Daily Note ---
PT Daily Note-Current Subjective Pt is attempted earlier in AM, although pt not self due to pain. Pt received pain med and much better upon 2nd attempt. Pt with OT upon arrival. Pt agrees to PT & OT co-treat. Pain Location: No Pain Reported Mental Status Patient Orientation: Person, Place, Time, Situation Transfers Therapy Code Descriptions/Definitions Functional [place] Measure: 0=Not Assessed/NA 4=Minimal Assistance 1=Total Assistance 5=Supervision or Setup 2=Maximal Assistance 6=Modified [place] 3=Moderate Assistance 7=Complete [place] Therapy Quality Codes: 6 Independent with activity with or without an assistive device 5 Patient requires set up or clean up by helper. Patient completes activity by themselves 4 Supervision or touching assist (CGA). [place] provide cues , steadying assist 3 The helper provides less than half the effort to complete the activity 2 The helper provides more than half the effort to complete the activity 1 Dependent. The helper does all the effort to complete an activity 7 Patient refused to complete or attempt activity 9 The patient did not perform the activity before the current illness or injury 88 Not attempted due to Medical conditions or safety concerns Transfers (B, C, W/C) (FIM): 6 Scootin Rollin Roll Left to Right (QC): 6 Supine to/from Sit: 6 Sit to/from Stand: 6 Sit to Lying (QC): 6 Sit to Stand (QC): 6 Chair/Qus-qv-Dqbzx Xfer(QC): 6 Bed to/from Chair: 6 Car Transfer (QC): 6 Weight Bearing Right Lower Extremity: Right Full Weight Bearing Left Lower Extremity: Left Full Weight Bearing Gait Training Does the Patient Walk?: Yes Gait (FIM): 6 Distance (FIM): 3=150 ft Distance: 300' Walk 10 feet (QC): 6 Walk 50 ft with 2 Turns(QC): 6 Walk 150 ft (QC): 6 Walking 10ft/uneven surface-QC: 6 Gait Level of Assist: 6 Gait Persons Needed: 1 Gait Assistive Device: FWW Wheelchair Training Does the Pt Use a Wheelchair?: No Stair Training Stair Training: Handrails/: 2 handrails Stairs (FIM): 6 #of Steps: 16 1 Step (curb) (QC): 6 4 Steps (QC): 6 12 Steps (QC): 6 Stairs: Pattern: Reciprocal Level of Assist: 6 Balance Picking up an Object (QC): 88 Special Test Comments Pt does not attempt due to dizziness. Pt has family to assist and will use a residential counselor when needed. Exercises Supine Ex: Bridging, Ankle pumps, Quad Set, Glut sets, Short Arc Quads, Straight leg raise, Hip abd/add Supine Reps: 10 NuStep Minutes: 15 NuStep Workload: 5 Treatments Pt uses NuStep for 15m at WL 5 followed by Supine Ex on mat. Pt completes bed mobility as well as ambulates 4 sets of 4 steps & walking across varying surface. Pt completes car transfer and ambulates in hallway before returning to room to rest at EOB and order lunch. Pt has all needs met. PT worked on transfers, stairs, LE strengthening and mobility. OT worked on functional transfers and UE strengthening. Assessment Current Status: Excellent Progress Pt is nervous about going home but receives reassurance from STRIPPING SHOVEL OILER, Nurse & family of the good progress made and independence that pt has all ready received. PT Short Term Goals Short Term Goals Time Frame: Sep 21, 2018 Transfers (B,C,W/C) (FIM): 5 (met) Gait (FIM): 4 (met) PT Care Home Goals Care Home Goals PT Care Home Goals Time Frame: Sep 30, 2018 Transfers (B,C,W/C) (FIM): 7 Sit to Lying (QC): 6 Lying-Sitting on Side/Bed(QC): 6 Sit to Stand (QC): 6 Rollin Roll Left to Right (QC): 6 Chair/Ivz-iu-Elbrs Xfer(QC): 6 Car Transfer (QC): 6 Does the Patient Walk: Yes Gait (FIM): 6 Gait distance (FIM): 3=150 ft Walk 10 feet (QC): 6 Walk 10ft-Uneven Surface(QC): 6 Walk 50ft with 2 Turns (QC): 6 Walk 150 ft (QC): 6 Gait Assistive Device: FWW Does the Pt use WC or Scooter?: No Stairs (FIM): 5 (household) # of Steps: 4 1 Step (curb) (QC): 6 4 Steps (QC): 6 12 Steps (QC): 88 Picking up an Object (QC): 4 PT Plan Treatment/Plan Treatment Plan: Continue Plan of Care Treatment Plan: Bed Mobility, Education, Functional Activity [place], Functional Strength, Group Therapy, Gait, Safety, Therapeutic Exercise, Transfers Treatment Duration: Sep 30, 2018 Frequency: At least 5 of 7 days/Wk (IRF) Estimated Hrs Per Day: 1.5 hours per day Patient and/or Family Agrees t: Yes Time/GCodes Time In: 1045 Time Out: 1145 Total Billed Treatment Time: 60 Total Billed Treatment 1, GT (10m), FA x2 (30m) & Ex (20m) Co-treat OT [id number] (25m) G Codes Necessary: DANNIELLE Llanos STRIPPING SHOVEL OILER Sep 22, 2018 12:02
--- NOTE | 2018-09-22 14:27 | Occupational Ther Daily Note ---
OT Current Status-Daily Note Subjective Pt alert, lying in bed. Family present in room. Pt agrees to therapy. No c/o pain. Mental Status/Objective Patient Orientation: Person, Place, Time, Situation Therapy Code Descriptions/Definitions Functional [place] Measure: 0=Not Assessed/NA 4=Minimal Assistance 1=Total Assistance 5=Supervision or Setup 2=Maximal Assistance 6=Modified [place] 3=Moderate Assistance 7=Complete [place] ADL-Treatment Therapy Code Descriptions/Definitions Functional [place] Measure: 0=Not Assessed/NA 4=Minimal Assistance 1=Total Assistance 5=Supervision or Setup 2=Maximal Assistance 6=Modified [place] 3=Moderate Assistance 7=Complete [place] Therapy Quality Codes: 6 Independent with activity with or without an assistive device 5 Patient requires set up or clean up by helper. Patient completes activity by themselves 4 Supervision or touching assist (CGA). [place] provide cues , steadying assist 3 The helper provides less than half the effort to complete the activity 2 The helper provides more than half the effort to complete the activity 1 Dependent. The helper does all the effort to complete an activity 7 Patient refused to complete or attempt activity 9 The patient did not perform the activity before the current illness or injury 88 Not attempted due to Medical conditions or safety concerns Other Treatment Co-treat for skilled instruction due to low activity tolerance. PT worked on transfers and ambulation. OT worked on IADLs and functional transfers. Pt was able to use counter for ambulation to retrieve eggs from refrigerator and mix up cake. Supervision for safety, no LOB noted. Pt able to complete kitchen activity without difficulty. After therapy, pt requested to use bathroom instructed to use call light to alert nrsg when finished. All needs met in room. OT Short Term Goals Short Term Goals Time Frame: Sep 21, 2018 Bathing(FIM): 5 Lower Body Dressing(FIM): 5 Toileting(FIM): 5 Transfers (B,C,W/C) (FIM): 5 (met) Toilet/Commode Transfer(FIM): 5 Additional Short Term Goals: 1-Demonstrate ADL Tasks, 2-Verbalize Understanding , 3-ImproveStrength/[place] 1=Demonstrate adherence to instructed precautions during ADL tasks. 2=Patient will verbalize/demonstrate understanding of assistive devices/ modifications for ADL. 3=Patient will improve strength/tolerance for activity to enable patient to perform ADL's. OT Alf Goals Cover Marker Goals Time Frame: Oct 05, 2018 Eating (FIM): 6 (09/22/2018) Eating (QC): 6 (09/22/2018) Groomin (09/22/2018) Oral Hygiene (QC): 6 (09/22/2018) Bathing(FIM): 6 (09/22/2018) Shower/Bathe Self (QC): 6 (09/22/2018) Upper Body Dressing(FIM): 6 (09/22/2018) Upper Body Dressing (QC): 6 (09/22/2018) Lower Body Dressing(FIM): 6 (09/22/2018) Lower Body Dressing (QC): 6 (09/22/2018) On/Off Footwear (QC): 6 (09/22/2018) Toileting(FIM): 6 (09/22/2018) Toileting Hygiene (QC): 6 (09/22/2018) Toilet/Commode Transfer(FIM): 6 (09/22/2018) Toilet/Commode Transfer (QC): 6 (09/22/2018) Shower Transfer(FIM): 6 (09/22/2018) Additional Goals: 1-Demonstrate ADL Tasks, 2-Verbalize Understanding, 3- ImproveStrength/[place] 1=Demonstrate adherence to instructed precautions during ADL tasks. 2=Patient will verbalize/demonstrate understanding of assistive devices/ modifications for ADL. 3=Patient will improve strength/tolerance for activity to enable patient to perform ADL's. OT Education/Plan Discharge Recommendations Plan/Recommendations: Continue POC Treatment Plan/Plan of Care Patient would benefit from OT for education, treatment and training to promote independence in ADL's, mobility, safety and/or upper extremity function for ADL' s. Plan of Care: ADL Retraining, Functional Mobility, Group Exercise/Act as Ind, UE Funct Exercise/Act Treatment Duration: Oct 05, 2018 Frequency: At least 5 of 7 days/Wk (IRF) Estimated Hrs Per Day: 1.5 hours per day Agreement: Yes Rehab Potential: Good Time/GCodes Start Time: 13:00 Stop Time: 13:30 Total Time Billed (hr/min): 30 Billed Treatment Time 1 visit-FA 2 (30 min) co-treat with PT 30 min ELIZABETH GARCÍA Sep 22, 2018 14:27
--- NOTE | 2018-09-22 14:39 | Physical Therapy Daily Note ---
PT Daily Note-Current Subjective Pt. was on EOB upon arrival. Pt. visiting with family in room. Pt. agreed to co treat with OT and PT. Pt. had no complaints of pain. Mental Status Patient Orientation: Normal For Age Transfers Therapy Code Descriptions/Definitions Functional Haslet Measure: 0=Not Assessed/NA 4=Minimal Assistance 1=Total Assistance 5=Supervision or Setup 2=Maximal Assistance 6=Modified Haslet 3=Moderate Assistance 7=Complete Haslet Therapy Quality Codes: 6 Independent with activity with or without an assistive device 5 Patient requires set up or clean up by helper. Patient completes activity by themselves 4 Supervision or touching assist (CGA). Michael provide cues , steadying assist 3 The helper provides less than half the effort to complete the activity 2 The helper provides more than half the effort to complete the activity 1 Dependent. The helper does all the effort to complete an activity 7 Patient refused to complete or attempt activity 9 The patient did not perform the activity before the current illness or injury 88 Not attempted due to Medical conditions or safety concerns Scootin Rollin Roll Left to Right (QC): 6 Supine to/from Sit: 6 Sit to/from Stand: 6 Sit to Lying (QC): 6 Sit to Stand (QC): 6 Weight Bearing Right Lower Extremity: Right Full Weight Bearing Left Lower Extremity: Left Full Weight Bearing Gait Training Does the Patient Walk?: Yes Distance (FIM): 3=150 ft Distance: 150' Gait Level of Assist: 6 Gait Persons Needed: 1 Gait Assistive Device: FWW Wheelchair Training Does the Pt Use a Wheelchair?: No Treatments Co-treat for skilled instruction due to low activity tolerance. PT worked on transfers and ambulation. OT worked on ADLs and functional transfers. Pt was able to use counter for ambulation to retrieve eggs from refrigerator and mix up cake. Supervision for safety, no LOB noted. Pt able to complete kitchen activity without difficulty. After therapy, pt requested to use bathroom instructed to use call light to alert nrsg when finished. All needs met in room. Assessment Pt. responded to treatment well. Pt. enjoyed baking as this was a task she frequently does at home. PT Short Term Goals Short Term Goals Time Frame: Sep 21, 2018 Transfers (B,C,W/C) (FIM): 5 (met) Gait (FIM): 4 (met) PT Nursing Home Goals Nursing Home Goals PT Market Maker Goals Time Frame: Sep 30, 2018 Transfers (B,C,W/C) (FIM): 7 Sit to Lying (QC): 6 Lying-Sitting on Side/Bed(QC): 6 Sit to Stand (QC): 6 Rollin Roll Left to Right (QC): 6 Chair/Rid-pn-Laluf Xfer(QC): 6 Car Transfer (QC): 6 Does the Patient Walk: Yes Gait (FIM): 6 Gait distance (FIM): 3=150 ft Walk 10 feet (QC): 6 Walk 10ft-Uneven Surface(QC): 6 Walk 50ft with 2 Turns (QC): 6 Walk 150 ft (QC): 6 Gait Assistive Device: FWW Does the Pt use WC or Scooter?: No Stairs (FIM): 5 (household) # of Steps: 4 1 Step (curb) (QC): 6 4 Steps (QC): 6 12 Steps (QC): 88 Picking up an Object (QC): 4 PT Plan Treatment/Plan Treatment Plan: Continue Plan of Care Treatment Plan: Bed Mobility, Education, Functional Activity Shaista, Functional Strength, Group Therapy, Gait, Safety, Therapeutic Exercise, Transfers Treatment Duration: Sep 30, 2018 Frequency: At least 5 of 7 days/Wk (IRF) Estimated Hrs Per Day: 1.5 hours per day Patient and/or Family Agrees t: Yes Time/GCodes Time In: 1300 Time Out: 1330 Total Billed Treatment Time: 30 Total Billed Treatment 1, FA x2 Co treat with OT x 30 min. G Codes Necessary: No DANNIELLE BELTRÁN CORPORATE STRATEGIST Sep 22, 2018 14:39
[2018-09-22 17:53] VITALS: BP 143/63
--- NOTE | 2018-09-22 20:48 | NUR ---
445p-CARBON DIOXIDE OPERATOR met with patient to review team conference summary, as patient was resting yesterday following meeting. CARBON DIOXIDE OPERATOR received report from RN today that patient was extremely apprehensive this morning regarding discharging home, as she is concerned about medical stability. Upon further reassurance from RN, family and staff, patient now expresses comfort with returning home tomorrow. CARBON DIOXIDE OPERATOR reviewed option of home health services for medication management, labs and PT evaluation, patient is agreeable to the services as she has utilized them in the past. Patient verbalizes main concern as medication management and regimen. Following detailed discussion, CARBON DIOXIDE OPERATOR will recheck to patient's son to inquire about med set up and potential for new pills sorter as well as large present instructions for dosing times. If medication can be arranged appropriately, patient has no concerns with returning home. CARBON DIOXIDE OPERATOR will address these concerns with patient's son.
[2018-09-23 05:04] VITALS: BP 112/63
[2018-09-23] MEDS: KCL 10 MEQ TAB (MICRO K) PO SCH (06:26)
[2018-09-23] MEDS: CALCIUM CARB + VIT D 600 MG (CALCARB + D) TAB PO SCH (06:26)
[2018-09-23] MEDS: LIPASE/AMYLASE/PROTEASE (PANCRELIPASE) 5,000 UNITS CAP PO SCH (06:26)
[2018-09-23] MEDS: PANTOPRAZOLE 40 MG (PROTONIX) TAB PO SCH (06:26)
[2018-09-23] MEDS: HYDROcodone/APAP 5 MG/325 MG (LORTAB) TAB PO PRN (06:26)
--- NOTE | 2018-09-23 08:08 | Therapy Team Discharge Summary ---
Therapy Discharge Summary Discharge Recommendations Date of Discharge Therapy D/C Recommendations: Physical Therapy Home Care Physical Therapy Patient came to rehab with acute metabolic encephalopathy. Upon evaluation patient performs bed mobility and transfers with CGA, car transfer with min assist, ambulated 75' with a rolling walker with CGA, and went up and down 1 step using a rolling walker with CGA. Patient has been performing bed mobility and transfer training, balance and endurance training, functional strengthening , stair training, gait training, and education. Patient has made good progress and has met all of her nursing home goals. Now, patient performs bed mobility and transfers with mod I, car transfer mod I, ambulated 300' with a rolling walker with mod I (including 50' with at least 2 turns of 90 degrees and 10' over an uneven surface), and can go up and down 16 steps using 2 handrails with mod I. Patient is discharging from this facility today and will be discharged from PT at this time. Occupational Therapy Decreased Activ Tolerance, Impaired Self-Care Skills PT Care Home Goals Senior Marketing Manager Goals PT Senior Marketing Manager Goals Time Frame: Sep 30, 2018 Transfers (B,C,W/C) (FIM): 7 Roll Left to Right (QC): 6 Sit to Lying (QC): 6 Lying-Sitting on Side/Bed(QC): 6 Sit to Stand (QC): 6 Chair/Adf-ce-Spxqp Xfer(QC): 6 Car Transfer (QC): 6 Does the Patient Walk: Yes Gait (FIM): 6 Gait distance (FIM): 3=150 ft Walk 10 feet (QC): 6 Walk 10ft-Uneven Surface(QC): 6 Walk 50ft with 2 Turns (QC): 6 Walk 150 ft (QC): 6 Gait Assistive Device: FWW Does the Pt use WC or Scooter?: No Stairs (FIM): 5 (household) # of Steps: 4 1 Step (curb) (QC): 6 4 Steps (QC): 6 12 Steps (QC): 88 Picking up an Object (QC): 4 OT Senior Marketing Manager Goals Senior Marketing Manager Goals Time Frame: Oct 05, 2018 Eating (FIM): 6 (met-09/22/2018) Eating (QC): 6 (met-09/22/2018) Oral Hygiene (QC): 6 (met-09/22/2018) Grooming(FIM): 6 (met-09/22/2018) Bathing(FIM): 6 (09/22/2018) Shower/Bathe Self (QC): 6 (09/22/2018) Upper Body Dressing(FIM): 6 (09/22/2018) Upper Body Dressing (QC): 6 (09/22/2018) Lower Body Dressing(FIM): 6 (09/22/2018) Lower Body Dressing (QC): 6 (09/22/2018) On/Off Footwear (QC): 6 (09/22/2018) Toileting(FIM): 6 (09/22/2018) Toileting Hygiene (QC): 6 (09/22/2018) Toilet/Commode Transfer(FIM): 6 (09/22/2018) Toilet/Commode Transfer (QC): 6 (09/22/2018) Shower Transfer(FIM): 6 (09/22/2018) Additional Goals: 1-Demonstrate ADL Tasks, 2-Verbalize Understanding, 3- ImproveStrength/Shaista 1=Demonstrate adherence to instructed precautions during ADL tasks. 2=Patient will verbalize/demonstrate understanding of assistive devices/ modifications for ADL. 3=Patient will improve strength/tolerance for activity to enable patient to perform ADL's. ABBEY TUCKER PT Sep 23, 2018 08:08
[2018-09-23] MEDS: LACTULOSE SYRUP 10GM/15ML (ENULOSE) 30ML UDC PO SCH (08:12)
[2018-09-23 08:13] VITALS: BP 149/69
[2018-09-23] MEDS: amLODIPine 10 MG (NORVASC) TAB PO SCH (08:13)
[2018-09-23] MEDS: ALLOPURINOL 100 MG (ZYLOPRIM) TAB PO SCH (08:13)
[2018-09-23] MEDS: meTOproloL SUCCINATE 50 MG (TOPROL XL) TAB PO SCH (08:13)
[2018-09-23] MEDS: TORSEMIDE 20 MG (DEMADEX) TAB PO SCH (08:13)
[2018-09-23] MEDS ORDERED: LACT20SO2 PO (08:58)
[2018-09-23] MEDS ORDERED: HYDR-3812 PO (08:58)
[2018-09-23] MEDS ORDERED: ZINC28PA TOP (08:58)
--- NOTE | 2018-09-23 09:07 | Discharge Summary ---
Diagnosis/Chief Complaint Date of Admission Sep 14, 2018 at 12:55 Date of Discharge Discharge Date: Sep 23, 2018 Discharge Diagnosis Assessment: Hepatic encephalopathy now with normal ammonia with Lactulose TID CRI stable Pancytopenia Hematology consult reviewed Anemia of renal disease Leukopenia chronic Advanced age GI Bleed in past Fall risk DNR Right flank post herpetic neuralgia Plan: Home meds Lactulose TID to attain 5 BM's and will need nurse to train on this requirement in order to return home Intensive therapies to return to independent living Prognosis guarded Reviewed Hematology note from [facility] Pain management of post herpetic neuralgia Check labs prn DC today home with HH Discharge Summary Discharge Physical Examination Allergies: Coded Allergies: Penicillins (Verified Allergy, Unknown, Diarrhea, 09/14/18) Sulfa (Sulfonamide Antibiotics) (Verified Allergy, Unknown, Diarrhea, 09/14) lactose (Verified Allergy, Unknown, 09/20/18) loose stools tobramycin (Verified Allergy, Unknown, Facial swelling, 09/14/18) Vitals & I&Os Vital Signs Date Time Temp Pulse Resp B/P (MAP) Pulse Ox O2 Delivery O2 Flow Rate FiO2 09/23/18 09:00 Room Air 09/23/18 08:13 80 149/69 (95) 09/23/18 05:04 99.2 18 98 Hospital Course Was the Problem List Reviewed?: Yes Hospital course: patient had a standard and lengthy hospital course in IR[facility] after transferring from [facility] after new onset hepatic encephalopathy. Patient was maintained on Lactulose and ammonia remained wnl. Patient was very weak and debilitated once arriving to the unit but participated in therapy which improved ambulation and independent ADL's with toileting and fall risk prevention. Leukopenia remained stable and I reviewed Hematology consultation from [facility] with recs of conservative management. Pain meds were maintained for the right flank post-herpetic neuralgia as she takes at home. orders were placed and Dr Nelson office was updated on the plan to Estela ACOSTA since PCp was out of the office. He will see the patient next week and will obtain repeat labs at his discretion. 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 Labs (last 24 hrs) Laboratory Tests 09/15/18 05:40: White Blood Count 1.4*L, Red Blood Count 3.12L, Hemoglobin 9.5L, Hematocrit 29L , Mean Corpuscular Volume 93, Mean Corpuscular Hemoglobin 30, Mean Corpuscular Hemoglobin Concent 33, Red Cell Distribution Width 16.2H, Platelet Count 32*L, Mean Platelet Volume 10.3, Neutrophils (%) (Auto) 56, Lymphocytes (%) (Auto) 29 , Monocytes (%) (Auto) 8, Eosinophils (%) (Auto) 6, Basophils (%) (Auto) 1, Neutrophils # (Auto) 0.8L, Lymphocytes # (Auto) 0.4L, Monocytes # (Auto) 0.1, Eosinophils # (Auto) 0.1, Basophils # (Auto) 0.0, Sodium Level 143, Potassium Level 2.9L, Chloride Level 109H, Carbon Dioxide Level 23, Anion Gap 11, Blood Urea Nitrogen 26H, Creatinine 1.47H, Estimat Glomerular Filtration Rate 34, BUN/ Creatinine Ratio 18, Glucose Level 90, Calcium Level 8.5, Corrected Calcium 9.1 , Total Bilirubin 1.8H, Aspartate Amino Transf (AST/SGOT) 35H, Alanine Aminotransferase (ALT/SGPT) 20, Alkaline Phosphatase 93, Ammonia 24, Total Protein 5.0L, Albumin 3.2 09/20/18 07:00: White Blood Count 1.5L, Red Blood Count 2.86L, Hemoglobin 8.6L, Hematocrit 27L, Mean Corpuscular Volume 93, Mean Corpuscular Hemoglobin 30, Mean Corpuscular Hemoglobin Concent 32, Red Cell Distribution Width 16.1H, Platelet Count 33*L, Mean Platelet Volume 10.8H, Neutrophils (%) (Auto) 61, Lymphocytes (%) (Auto) 27 , Monocytes (%) (Auto) 7, Eosinophils (%) (Auto) 4, Basophils (%) (Auto) 1, Neutrophils # (Auto) 0.9L, Lymphocytes # (Auto) 0.4L, Monocytes # (Auto) 0.1, Eosinophils # (Auto) 0.1, Basophils # (Auto) 0.0, Sodium Level 142, Potassium Level 3.1L, Chloride Level 110H, Carbon Dioxide Level 20L, Anion Gap 12, Blood Urea Nitrogen 22H, Creatinine 1.84H, Estimat Glomerular Filtration Rate 26, BUN/ Creatinine Ratio 12, Glucose Level 141H, Calcium Level 7.6L, Corrected Calcium 8.3L, Total Bilirubin 1.1H, Aspartate Amino Transf (AST/SGOT) 29, Alanine Aminotransferase (ALT/SGPT) 25, Alkaline Phosphatase 95, Total Protein 4.8L, Albumin 3.1L Pending Labs Laboratory Tests 09/15/18 05:40: White Blood Count 1.4, Red Blood Count 3.12, Hemoglobin 9.5, Hematocrit 29, Mean Corpuscular Volume 93, Mean Corpuscular Hemoglobin 30, Mean Corpuscular Hemoglobin Concent 33, Red Cell Distribution Width 16.2, Platelet Count 32, Mean Platelet Volume 10.3, Neutrophils (%) (Auto) 56, Lymphocytes (%) (Auto) 29 , Monocytes (%) (Auto) 8, Eosinophils (%) (Auto) 6, Basophils (%) (Auto) 1, Neutrophils # (Auto) 0.8, Lymphocytes # (Auto) 0.4, Monocytes # (Auto) 0.1, Eosinophils # (Auto) 0.1, Basophils # (Auto) 0.0, Sodium Level 143, Potassium Level 2.9, Chloride Level 109, Carbon Dioxide Level 23, Anion Gap 11, Blood Urea Nitrogen 26, Creatinine 1.47, Estimat Glomerular Filtration Rate 34, BUN/ Creatinine Ratio 18, Glucose Level 90, Calcium Level 8.5, Corrected Calcium 9.1 , Total Bilirubin 1.8, Aspartate Amino Transf (AST/SGOT) 35, Alanine Aminotransferase (ALT/SGPT) 20, Alkaline Phosphatase 93, Ammonia 24, Total Protein 5.0, Albumin 3.2 09/20/18 07:00: White Blood Count 1.5, Red Blood Count 2.86, Hemoglobin 8.6, Hematocrit 27, Mean Corpuscular Volume 93, Mean Corpuscular Hemoglobin 30, Mean Corpuscular Hemoglobin Concent 32, Red Cell Distribution Width 16.1, Platelet Count 33, Mean Platelet Volume 10.8, Neutrophils (%) (Auto) 61, Lymphocytes (%) (Auto) 27 , Monocytes (%) (Auto) 7, Eosinophils (%) (Auto) 4, Basophils (%) (Auto) 1, Neutrophils # (Auto) 0.9, Lymphocytes # (Auto) 0.4, Monocytes # (Auto) 0.1, Eosinophils # (Auto) 0.1, Basophils # (Auto) 0.0, Sodium Level 142, Potassium Level 3.1, Chloride Level 110, Carbon Dioxide Level 20, Anion Gap 12, Blood Urea Nitrogen 22, Creatinine 1.84, Estimat Glomerular Filtration Rate 26, BUN/ Creatinine Ratio 12, Glucose Level 141, Calcium Level 7.6, Corrected Calcium 8.3 , Total Bilirubin 1.1, Aspartate Amino Transf (AST/SGOT) 29, Alanine Aminotransferase (ALT/SGPT) 25, Alkaline Phosphatase 95, Total Protein 4.8, Albumin 3.1 Discharge Home Medications: Active Scripts Active Boudreauxs (Zinc Oxide) 28 Gm Oint 0 Gm TOP NEEDED PRN Lactulose 20 Gm/30 Ml Solution 10 Gm PO TID Hydrocodone-Acetamin 5-325 mg (Hydrocodone/Acetaminophen) 1 Each Tablet 1 Tab PO Q4H PRN Reported Torsemide 5 Mg Tablet 10 Mg PO DAILY Potassium Chloride 10 Meq Capsule.er 10 Meq PO DAILY Pantoprazole Sodium 40 Mg Tablet.dr 40 Mg PO DAILY Preservision Areds Softgel (Vit A/C/E/Zinc/Co) 1 Cap Capsule 1 Cap PO BID Metoprolol Succinate 50 Mg Tab.er.24h 50 Mg PO DAILY Creon 36,000 Units Capsule (Lipase/Protease/Amylase) 1 Each Capsule. 1 Cap PO WITH SNACKS Creon Dr 36,000 Units Capsule (Lipase/Protease/Amylase) 1 Each Capsule.dr 2 Cap PO AC Calcium 600 + Vit D 400 Tablet (Calcium Carbonate/Vitamin D3) 1 Each Tablet 1 Tab PO BID Amlodipine Besylate 10 Mg Tablet 10 Mg PO DAILY Allopurinol 100 Mg Tablet 100 Mg PO DAILY Instructions to patient/family Please see electronic discharge instructions given to patient. 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
--- NOTE | 2018-09-23 09:07 | D/C HH Face to Face Order ---
D/C Face to Face Orders Instructions for Patient Home health service per patient preference Patient Instructions/FollowUp: Dr David Nelson Physician to follow Patient: Dr David Nelson Discharge Diet for Home: No Restrictions Patient Problems: End stage liver disease Hepatic encephalopathy Leukopenia Goals for Patient: Return to independent living Patient Data-Allergies,Ht & Wt Patient Allergies: Coded Allergies: Penicillins (Verified Allergy, Unknown, Diarrhea, 09/14/18) Sulfa (Sulfonamide Antibiotics) (Verified Allergy, Unknown, Diarrhea, 09/14) lactose (Verified Allergy, Unknown, 09/20/18) loose stools tobramycin (Verified Allergy, Unknown, Facial swelling, 09/14/18) Height (Feet): 5 Height (Inches): 2.00 Weight (Pounds): 115 Weight (Ounces): 0.0 Home Health Need/Face to Face Date of Face to Face: Sep 23, 2018 Clinical Findings: Generalized weakness and fatigue, Muscle weakness, Unsteady gait I have seen Pt [id number]: Yes Discharged To: Home Diagnosis/Conditions: End stage liver disease Hepatic encephalopathy Leukopenia Patient is Homebound due to: [place] fall risk due to instabilty, Muscle weakness Homebound Status Due to the above stated illness, injury or surgical procedure (medical condition or diagnosis) and associated clinical findings, the patient is homebound because of his/her inability to leave home except with aid of a supportive device and/or person AND leaving the home requires a considerable and taxing effort or is medically contraindicated. Pt req the following assistanc: Walker Home Health Nursing Orders Home Health Services Order: Nursing Services, Political Worker-Evaluate & Treat, Physical Therapy-Evaluate & Treat Certify Stmt I certify that this patient is under my care and that I, a nurse practitioner or a physician; a surgical supply assistant working with me, had a face to face encounter that - meets the physician face to face encounter requirements with this patient as dated. YOLANDA OLIVA DO Sep 23, 2018 09:07
--- NOTE | 2018-09-23 10:06 | Therapy Team Discharge Summary ---
Therapy Discharge Summary Discharge Recommendations Date of Discharge Therapy D/C Recommendations: Physical Therapy Home Care Occupational Therapy Pt admitted to ARU following acute hospitalization for acute metabolic encephalopathy. On admission pt required min assist for transfers, bathing, and dressing and SBA for eating and grooming. Skilled OT intervention focused on ADL training, transfers, strengthening, and safety. Pt made good progress with therapy and by discharge is completing grooming independently, and all other basic ADLs and transfers with modified independence. Pt met all OT LTG. Plan is for pt to d/c home this date. D/C ARU OT at this time. Decreased Activ Tolerance, Impaired Self-Care Skills PT Slide Machine Tender Goals Slide Machine Tender Goals PT Detention Goals Time Frame: Sep 30, 2018 Transfers (B,C,W/C) (FIM): 7 Roll Left to Right (QC): 6 Sit to Lying (QC): 6 Lying-Sitting on Side/Bed(QC): 6 Sit to Stand (QC): 6 Chair/Pcb-xf-Gkieu Xfer(QC): 6 Car Transfer (QC): 6 Does the Patient Walk: Yes Gait (FIM): 6 Gait distance (FIM): 3=150 ft Walk 10 feet (QC): 6 Walk 10ft-Uneven Surface(QC): 6 Walk 50ft with 2 Turns (QC): 6 Walk 150 ft (QC): 6 Gait Assistive Device: FWW Does the Pt use WC or Scooter?: No Stairs (FIM): 5 (household) # of Steps: 4 1 Step (curb) (QC): 6 4 Steps (QC): 6 12 Steps (QC): 88 Picking up an Object (QC): 4 OT Detention Goals Slide Machine Tender Goals Time Frame: Oct 05, 2018 Eating (FIM): 6 (met-09/22/2018) Eating (QC): 6 (met-09/22/2018) Oral Hygiene (QC): 6 (met-09/22/2018) Grooming(FIM): 6 (met-09/22/2018) Bathing(FIM): 6 (met-09/22/2018) Shower/Bathe Self (QC): 6 (met-09/22/2018) Upper Body Dressing(FIM): 6 (met-09/22/2018) Upper Body Dressing (QC): 6 (met-09/22/2018) Lower Body Dressing(FIM): 6 (met-09/22/2018) Lower Body Dressing (QC): 6 (-09/22/2018) On/Off Footwear (QC): 6 (-09/22/2018) Toileting(FIM): 6 (-09/22/2018) Toileting Hygiene (QC): 6 (-09/22/2018) Toilet/Commode Transfer(FIM): 6 (09/22/2018) Toilet/Commode Transfer (QC): 6 (09/22/2018) Shower Transfer(FIM): 6 (09/22/2018) Additional Goals: 1-Demonstrate ADL Tasks, 2-Verbalize Understanding, 3- ImproveStrength/Shaista 1=Demonstrate adherence to instructed precautions during ADL tasks. 2=Patient will verbalize/demonstrate understanding of assistive devices/ modifications for ADL. 3=Patient will improve strength/tolerance for activity to enable patient to perform ADL's. STACI GUADALUPE OT Sep 23, 2018 10:06
--- NOTE | 2018-09-23 10:21 | NUR ---
BURNER HAND met with patient and son to review options of home health providers. Son reports patient previously utilized [facility], patient is agreeable to utilize this provider again. BURNER HAND sent referral to [facility] department and notified [facility] insurance coordinator. Patient is eager to discharge today. BURNER HAND reviewed ideas for simplistic medication management once returning home. Son intends to accommodate needs. Neither expressed concerns with discharge plan today. BURNER HAND reviewed IMM, patient willingly signed. Please see discharge summary for further information.
== END 2018-09-23 10:45 | disposition home health service (06) | DRG 441 ==
PROVIDERS: ADMIT Internal Medicine; ATTEND Internal Medicine
DX: K72.90 Hepatic failure, unspecified without coma (principal); K74.60 Unspecified cirrhosis of liver; R18.8 Other ascites; K76.6 Portal hypertension; I81 Portal vein thrombosis; L27.8 Dermatitis due to other substances taken internally; N18.9 Chronic kidney disease, unspecified; D61.818 Other pancytopenia; Z66 Do not resuscitate; B02.29 Other postherpetic nervous system involvement; D63.1 Anemia in chronic kidney disease; E53.8 Deficiency of other specified B group vitamins
CPT/HCPCS: 36415; 80053; 82140; 85025

== ENCOUNTER 2018-11-13 16:36 | Inpatient (IN) | payer MEDICARE ==
[~2018-11-13] VITALS: Ht 157.5 cm; Wt 50.8 kg
[~2018-11-13 16:36] MED LIST: ALLO100T PO; AMLO10TA7 PO; CALC1TAB94 PO; CIPR-226 PO; DIPH1TAB25 PO; HYDR-3812 PO; HYDR30CR71 RC; LACT10SO5 PO; LACT20SO2 PO; LIPA1CAP67 PO; METO-370 PO; MUPI22OI2 TOP; NITR100C10 PO; PANT40TA3 PO; POTA10CA43 PO; TORS5TAB5 PO; VIT1CAPS5 PO; ZINC28PA TOP
[2018-11-14 12:30] VITALS: BP 122/77
--- NOTE | 2018-11-14 12:36 | NUR ---
Admitted to room 223, with an admitting diagnosis of debility, on 11-14-2018 from Lucia miner , accompanied by .JANICE LI introduced to surroundings, call light, bed controls, phone, TV, temperature control, lights, meal times, smoking policy, visitor policy, side rail policy, bathrooms and showers. Patient Rights given to patient in the handbook. JANICE LI verbalizes understanding that [facility] is not responsible for the loss or damage to any personal effects or valuables that are kept in the patients posession during their hospitalization. The following Patient Care Plans were discussed with the : Discharge Planning, ,, potential for injury r/t fall and . JANICE LI verbalizes understanding of Interdisciplinary Patient Education. Patient and/or family were informed about the Rapid Response Team and its purpose. Patient received Patient Rights Booklet, which includes Privacy Act Statement and Data Collection Information Summary.
--- OUTSIDE RECORDS SUMMARY | 2018-11-14 12:59 | XMS REPORT | Continuity of Care Document ---
Author Organization Unknown Address Unknown Allergies Active Description Code Type Severity Reaction Onset Reported/Identified Relationship to Patient Clinical Status Yes No Allergy Information Available [id number] Drug Allergy Unknown N/A 09/14/2018 Yes Penicillins [id number] Drug Allergy Unknown Diarrhea 09/14/2018 Yes Sulfa (Sulfonamide Antibiotics) [id number] Drug Allergy Unknown Diarrhea 09/14/2018 Yes tobramycin [id number] Drug Allergy Unknown Facial swelling 09/14/2018 Yes lactose [id number] Drug Allergy Unknown N/A 09/20/2018 Medications There is no data. 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 09/15/2018 YOLANDA OLIVA DO Ot D61.818 OTHER PANCYTOPENIA 09/15/2018 YOLANDA OLIVA DO Ot D63.1 ANEMIA IN CHRONIC KIDNEY DISEASE 09/15/2018 YOLANDA OLIVA DO Ot E53.8 DEFICIENCY OF OTHER SPECIFIED B GROUP 09/15/2018 YOLANDA OLIVA DO Ot I81 PORTAL VEIN THROMBOSIS 09/15/2018 YOLANDA OLIVA DO Ot K72.90 HEPATIC FAILURE, UNSPECIFIED WITHOUT COM 09/15/2018 YOLANDA OLIVA DO Ot K74.60 UNSPECIFIED CIRRHOSIS OF LIVER 09/15/2018 YOLANDA OLIVA DO Ot K76.6 PORTAL HYPERTENSION 09/15/2018 YOLANDA OLIVA DO Ot L27.8 DERMATITIS DUE TO OTHER SUBSTANCES TAKEN 09/15/2018 YOLANDA OLIVA DO Ot N18.9 CHRONIC KIDNEY DISEASE, UNSPECIFIED 09/15/2018 YOLANDA OLIVA DO Ot Z66 DO NOT RESUSCITATE 09/15/2018 YOLANDA OLIVA DO Ot 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 09/15/2018 YOLANDA OLIVA DO Ot D61.818 OTHER PANCYTOPENIA 09/15/2018 OLIVA DO, YOLANDA Ot D63.1 ANEMIA IN CHRONIC KIDNEY DISEASE 09/15/2018 OLIVA DO, YOLANDA Ot E53.8 DEFICIENCY OF OTHER SPECIFIED B GROUP 09/15/2018 OLIVA DO, YOLANDA Ot I81 PORTAL VEIN THROMBOSIS 09/15/2018 OLIVA DO, YOLANDA Ot K72.90 HEPATIC FAILURE, UNSPECIFIED WITHOUT COM 09/15/2018 OLIVA DO, YOLANDA Ot K74.60 UNSPECIFIED CIRRHOSIS OF LIVER 09/15/2018 OLIVA DO, YOLANDA Ot K76.6 PORTAL HYPERTENSION 09/15/2018 OLIVA DO, YOLANDA Ot L27.8 DERMATITIS DUE TO OTHER SUBSTANCES TAKEN 09/15/2018 OLIVA DO, YOLANDA Ot N18.9 CHRONIC KIDNEY DISEASE, UNSPECIFIED 09/15/2018 OLIVA DO, YOLANDA Ot Z66 DO NOT RESUSCITATE 09/15/2018 OLIVA DO, YOLANDA Ot 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 09/15/2018 OLIVA DO, YOLANDA Ot D61.818 OTHER PANCYTOPENIA 09/15/2018 OLIVA DO, YOLANDA Ot D63.1 ANEMIA IN CHRONIC KIDNEY DISEASE 09/15/2018 OLIVA DO, YOLANDA Ot E53.8 DEFICIENCY OF OTHER SPECIFIED B GROUP 09/15/2018 OLIVA DO, YOLANDA Ot I81 PORTAL VEIN THROMBOSIS 09/15/2018 OLIVA DO YOLANDA Ot K72.90 HEPATIC FAILURE, UNSPECIFIED WITHOUT COM 09/15/2018 OLIVA DO YOLANDA Ot K74.60 UNSPECIFIED CIRRHOSIS OF LIVER 09/15/2018 OLIVA DO, YOLANDA Ot K76.6 PORTAL HYPERTENSION 09/15/2018 OLIVA DO, YOLANDA Ot L27.8 DERMATITIS DUE TO OTHER SUBSTANCES TAKEN 09/15/2018 OLIVA DO, YOLANDA Ot N18.9 CHRONIC KIDNEY DISEASE, UNSPECIFIED 09/15/2018 OLIVA DO, YOLANDA Ot Z66 DO NOT RESUSCITATE 09/15/2018 OLIVA DO, YOLANDA Ot 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 09/15/2018 OLIVA DO, YOLANDA Ot D61.818 OTHER PANCYTOPENIA 09/15/2018 OLIVA DO, YOLANDA Ot D63.1 ANEMIA IN CHRONIC KIDNEY DISEASE 09/15/2018 OLIVA DO, YOLANDA Ot E53.8 DEFICIENCY OF OTHER SPECIFIED B GROUP 09/15/2018 OLIVA DO, YOLANDA Ot I81 PORTAL VEIN THROMBOSIS 09/15/2018 OLIVA DO, YOLANDA Ot K72.90 HEPATIC FAILURE, UNSPECIFIED WITHOUT COM 09/15/2018 OLIVA DO, YOLANDA Ot K74.60 UNSPECIFIED CIRRHOSIS OF LIVER 09/15/2018 OLIVA DO, YOLANDA Ot K76.6 PORTAL HYPERTENSION 09/15/2018 OLIVA DO, YOLANDA Ot L27.8 DERMATITIS DUE TO OTHER SUBSTANCES TAKEN 09/15/2018 OLIVA DO, YOLANDA Ot N18.9 CHRONIC KIDNEY DISEASE, UNSPECIFIED 09/15/2018 OLIVA DO, YOLANDA Ot Z66 DO NOT RESUSCITATE 09/16/2018 OLIVA DO, YOLANDA Ot 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 09/16/2018 OLIVA DO, YOLANDA Ot D61.818 OTHER PANCYTOPENIA 09/16/2018 OLIVA DO, YOLANDA Ot D63.1 ANEMIA IN CHRONIC KIDNEY DISEASE 09/16/2018 OLIVA DO, YOLANDA Ot E53.8 DEFICIENCY OF OTHER SPECIFIED B GROUP 09/16/2018 OLIVA DO, YOLANDA Ot I81 PORTAL VEIN THROMBOSIS 09/16/2018 OLIVA DO, YOLANDA Ot K72.90 HEPATIC FAILURE, UNSPECIFIED WITHOUT COM 09/16/2018 OLIVA DO, YOLANDA Ot K74.60 UNSPECIFIED CIRRHOSIS OF LIVER 09/16/2018 OLIVA DO, YOLANDA Ot K76.6 PORTAL HYPERTENSION 09/16/2018 OLIVA DO, YOLANDA Ot L27.8 DERMATITIS DUE TO OTHER SUBSTANCES TAKEN 09/16/2018 OLIVA DO, YOLANDA Ot N18.9 CHRONIC KIDNEY DISEASE, UNSPECIFIED 09/16/2018 OLIVA DO, YOLANDA Ot Z66 DO NOT RESUSCITATE 09/19/2018 OLIVA DO, YOLANDA Ot 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 09/19/2018 OLIVA DO, YOLANDA Ot D61.818 OTHER PANCYTOPENIA 09/19/2018 OLIVA DO, YOLANDA Ot D63.1 ANEMIA IN CHRONIC KIDNEY DISEASE 09/19/2018 OLIVA DO, YOLANDA Ot E53.8 DEFICIENCY OF OTHER SPECIFIED B GROUP 09/19/2018 OLIVA DO, YOLANDA Ot I81 PORTAL VEIN THROMBOSIS 09/19/2018 OLIVA DO, YOLANDA Ot K72.90 HEPATIC FAILURE, UNSPECIFIED WITHOUT COM 09/19/2018 OLIVA DO, YOLANDA Ot K74.60 UNSPECIFIED CIRRHOSIS OF LIVER 09/19/2018 OLIVA DO, YOLANDA Ot K76.6 PORTAL HYPERTENSION 09/19/2018 OLIVA DO, YOLANDA Ot L27.8 DERMATITIS DUE TO OTHER SUBSTANCES TAKEN 09/19/2018 OLIVA DO, YOLANDA Ot N18.9 CHRONIC KIDNEY DISEASE, UNSPECIFIED 09/19/2018 OLIVA DO, YOLANDA Ot Z66 DO NOT RESUSCITATE 09/19/2018 OLIVA DO, YOLANDA Ot 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 09/19/2018 OLIVA DO, YOLANDA Ot D61.818 OTHER PANCYTOPENIA 09/19/2018 OLIVA DO, YOLANDA Ot D63.1 ANEMIA IN CHRONIC KIDNEY DISEASE 09/19/2018 OLIVA DO, YOLANDA Ot E53.8 DEFICIENCY OF OTHER SPECIFIED B GROUP 09/19/2018 OLIVA DO, YOLANDA Ot I81 PORTAL VEIN THROMBOSIS 09/19/2018 OLIVA DO, YOLANDA Ot K72.90 HEPATIC FAILURE, UNSPECIFIED WITHOUT COM 09/19/2018 OLIVA DO, YOLANDA Ot K74.60 UNSPECIFIED CIRRHOSIS OF LIVER 09/19/2018 OLIVA DO, YOLANDA Ot K76.6 PORTAL HYPERTENSION 09/19/2018 OLIVA DO, YOLANDA Ot L27.8 DERMATITIS DUE TO OTHER SUBSTANCES TAKEN 09/19/2018 OLIVA DO, YOLANDA Ot N18.9 CHRONIC KIDNEY DISEASE, UNSPECIFIED 09/19/2018 OLIVA DO, YOLANDA Ot Z66 DO NOT RESUSCITATE 09/20/2018 OLIVA DO, YOLANDA Ot 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 09/20/2018 OLIVA DO, YOLANDA Ot D61.818 OTHER PANCYTOPENIA 09/20/2018 OLIVA DO, YOLANDA Ot D63.1 ANEMIA IN CHRONIC KIDNEY DISEASE 09/20/2018 OLIVA DO, YOLANDA Ot E53.8 DEFICIENCY OF OTHER SPECIFIED B GROUP 09/20/2018 OLIVA DO, YOLANDA Ot I81 PORTAL VEIN THROMBOSIS 09/20/2018 OLIVA DO, YOLANDA Ot K72.90 HEPATIC FAILURE, UNSPECIFIED WITHOUT COM 09/20/2018 OLIVA DO, YOLANDA Ot K74.60 UNSPECIFIED CIRRHOSIS OF LIVER 09/20/2018 OLIVA DO, YOLANDA Ot K76.6 PORTAL HYPERTENSION 09/20/2018 OLIVA DO, YOLANDA Ot L27.8 DERMATITIS DUE TO OTHER SUBSTANCES TAKEN 09/20/2018 OLIVA DO, YOLANDA Ot N18.9 CHRONIC KIDNEY DISEASE, UNSPECIFIED 09/20/2018 OLIVA DO, YOLANDA Ot Z66 DO NOT RESUSCITATE 09/20/2018 OLIVA DO, YOLANDA Ot 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 09/20/2018 OLIVA DO, YOLANDA Ot D61.818 OTHER PANCYTOPENIA 09/20/2018 OLIVA DO, YOLANDA Ot D63.1 ANEMIA IN CHRONIC KIDNEY DISEASE 09/20/2018 OLIVA DO, YOLANDA Ot E53.8 DEFICIENCY OF OTHER SPECIFIED B GROUP 09/20/2018 OLIVA DO, YOLANDA Ot I81 PORTAL VEIN THROMBOSIS 09/20/2018 OLIVA DO, YOLANDA Ot K72.90 HEPATIC FAILURE, UNSPECIFIED WITHOUT COM 09/20/2018 OLIVA DO, YOLANDA Ot K74.60 UNSPECIFIED CIRRHOSIS OF LIVER 09/20/2018 OLIVA DO, YOLANDA Ot K76.6 PORTAL HYPERTENSION 09/20/2018 OLIVA DO, YOLANDA Ot L27.8 DERMATITIS DUE TO OTHER SUBSTANCES TAKEN 09/20/2018 OLIVA DO, YOLANDA Ot N18.9 CHRONIC KIDNEY DISEASE, UNSPECIFIED 09/20/2018 OLIVA DO, YOLANDA Ot Z66 DO NOT RESUSCITATE 09/20/2018 OLIVA DO, YOLANDA Ot 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 09/20/2018 OLIVA DO, YOLANDA Ot D61.818 OTHER PANCYTOPENIA 09/20/2018 OLIVA DO, YOLANDA Ot D63.1 ANEMIA IN CHRONIC KIDNEY DISEASE 09/20/2018 OLIVA DO, YOLANDA Ot E53.8 DEFICIENCY OF OTHER SPECIFIED B GROUP 09/20/2018 OLIVA DO, YOLANDA Ot I81 PORTAL VEIN THROMBOSIS 09/20/2018 OLIVA DO, YOLANDA Ot K72.90 HEPATIC FAILURE, UNSPECIFIED WITHOUT COM 09/20/2018 OLIVA DO, YOLANDA Ot K74.60 UNSPECIFIED CIRRHOSIS OF LIVER 09/20/2018 OLIVA DO, YOLANDA Ot K76.6 PORTAL HYPERTENSION 09/20/2018 OLIVA DO, YOLANDA Ot L27.8 DERMATITIS DUE TO OTHER SUBSTANCES TAKEN 09/20/2018 OLIVA DO, YOLANDA Ot N18.9 CHRONIC KIDNEY DISEASE, UNSPECIFIED 09/20/2018 OLIVA DO, YOLANDA Ot Z66 DO NOT RESUSCITATE 09/21/2018 OLIVA DO, YOLANDA Ot 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 09/21/2018 OLIVA DO, YOLANDA Ot D61.818 OTHER PANCYTOPENIA 09/21/2018 OLIVA DO, YOLANDA Ot D63.1 ANEMIA IN CHRONIC KIDNEY DISEASE 09/21/2018 OLIVA DO, YOLANDA Ot E53.8 DEFICIENCY OF OTHER SPECIFIED B GROUP 09/21/2018 OLIVA DO, YOLANDA Ot I81 PORTAL VEIN THROMBOSIS 09/21/2018 OLIVA DO, YOLANDA Ot K72.90 HEPATIC FAILURE, UNSPECIFIED WITHOUT COM 09/21/2018 OLIVA DO, YOLANDA Ot K74.60 UNSPECIFIED CIRRHOSIS OF LIVER 09/21/2018 OLIVA DO, YOLANDA Ot K76.6 PORTAL HYPERTENSION 09/21/2018 OLIVA DO, YOLANDA Ot L27.8 DERMATITIS DUE TO OTHER SUBSTANCES TAKEN 09/21/2018 OLIVA DO, YOLANDA Ot N18.9 CHRONIC KIDNEY DISEASE, UNSPECIFIED 09/21/2018 OLIVA DO, YOLANDA Ot Z66 DO NOT RESUSCITATE 09/23/2018 OLIVA DO, YOLANDA Ot 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 09/23/2018 OLIVA DO, YOLANDA Ot D61.818 OTHER PANCYTOPENIA 09/23/2018 OLIVA DO, YOLANDA Ot D63.1 ANEMIA IN CHRONIC KIDNEY DISEASE 09/23/2018 OLIVA DO, YOLANDA Ot E53.8 DEFICIENCY OF OTHER SPECIFIED B GROUP 09/23/2018 OLIVA DO, YOLANDA Ot I81 PORTAL VEIN THROMBOSIS 09/23/2018 OLIVA DO, YOLANDA Ot K72.90 HEPATIC FAILURE, UNSPECIFIED WITHOUT COM 09/23/2018 OLIVA DO, YOLANDA Ot K74.60 UNSPECIFIED CIRRHOSIS OF LIVER 09/23/2018 OLIVA DO, YOLANDA Ot K76.6 PORTAL HYPERTENSION 09/23/2018 OLIVA DO, YOLANDA Ot L27.8 DERMATITIS DUE TO OTHER SUBSTANCES TAKEN 09/23/2018 OLIVA DO, YOLANDA Ot N18.9 CHRONIC KIDNEY DISEASE, UNSPECIFIED 09/23/2018 OLIVA DO, YOLANDA Ot R18.8 OTHER ASCITES 09/23/2018 OLIVA DO, YOLANDA Ot Z66 DO NOT RESUSCITATE Procedures There is no data. Results Test Result Range Comprehensive metabolic panel - 09/15/18 05:40 Serum or plasma sodium measurement (moles/volume) 143 mmol/L 135-145 Serum or plasma potassium measurement (moles/volume) 2.9 mmol/L 3.6-5.0 Serum or plasma chloride measurement (moles/volume) 109 mmol/L 98-107 Carbon dioxide 23 mmol/L 21-32 Serum or plasma anion gap determination (moles/volume) 11 mmol/L 5-14 Serum or plasma urea nitrogen measurement (mass/volume) 26 mg/dL 7-18 Serum or plasma creatinine measurement (mass/volume) 1.47 mg/dL 0.60-1.30 Serum or plasma urea nitrogen/creatinine mass ratio 18 NRG Serum or plasma creatinine measurement with calculation of estimated glomerular filtration rate 34 NRG Serum or plasma glucose measurement (mass/volume) 90 mg/dL 70-105 Serum or plasma calcium measurement (mass/volume) 8.5 mg/dL 8.5-10.1 Serum or plasma total bilirubin measurement (mass/volume) 1.8 mg/dL 0.1-1.0 Serum or plasma alkaline phosphatase measurement (enzymatic activity/volume) 93 U/L 40-136 Serum or plasma aspartate aminotransferase measurement (enzymatic activity/volume) 35 U/L 5-34 Serum or plasma alanine aminotransferase measurement (enzymatic activity/volume) 20 U/L 0-55 Serum or plasma protein measurement (mass/volume) 5.0 g/dL 6.4-8.2 Serum or plasma albumin measurement (mass/volume) 3.2 g/dL 3.2-4.5 CALCIUM CORRECTED 9.1 mg/dL 8.5-10.1 Ammonia - 09/15/18 05:40 Ammonia 24 umol/L 11-32 Complete blood count (CBC) with automated white blood cell (WBC) differential - 09/15/18 05:40 Blood leukocytes automated count (number/volume) 1.4 10*3/uL 4.3-11.0 Blood erythrocytes automated count (number/volume) 3.12 10*6/uL 4.35-5.85 Venous blood hemoglobin measurement (mass/volume) 9.5 g/dL 11.5-16.0 Blood hematocrit (volume fraction) 29 % 35-52 Automated erythrocyte mean corpuscular volume 93 [foz_us] 80-99 Automated erythrocyte mean corpuscular hemoglobin (mass per erythrocyte) 30 pg 25-34 Automated erythrocyte mean corpuscular hemoglobin concentration measurement (mass/volume) 33 g/dL 32-36 Automated erythrocyte distribution width ratio 16.2 % 10.0- 14.5 Automated blood platelet count (count/volume) 32 10*3/uL 130- 400 Automated blood platelet mean volume measurement 10.3 [foz_us] 7.4-10.4 Automated blood neutrophils/100 leukocytes 56 % 42-75 Automated blood lymphocytes/100 leukocytes 29 % 12-44 Blood monocytes/100 leukocytes 8 % 0-12 Automated blood eosinophils/100 leukocytes 6 % 0-10 Automated blood basophils/100 leukocytes 1 % 0-10 Blood neutrophils automated count (number/volume) 0.8 10*3 1.8-7.8 Blood lymphocytes automated count (number/volume) 0.4 10*3 1.0-4.0 Blood monocytes automated count (number/volume) 0.1 10*3 0.0- 1.0 Automated eosinophil count 0.1 10*3/uL 0.0-0.3 Automated blood basophil count (count/volume) 0.0 10*3/uL 0.0-0.1 Complete blood count (CBC) with automated white blood cell (WBC) differential - 09/20/18 07:00 Blood leukocytes automated count (number/volume) 1.5 10*3/uL 4.3-11.0 Blood erythrocytes automated count (number/volume) 2.86 10*6/uL 4.35-5.85 Venous blood hemoglobin measurement (mass/volume) 8.6 g/dL 11.5-16.0 Blood hematocrit (volume fraction) 27 % 35-52 Automated erythrocyte mean corpuscular volume 93 [foz_us] 80-99 Automated erythrocyte mean corpuscular hemoglobin (mass per erythrocyte) 30 pg 25-34 Automated erythrocyte mean corpuscular hemoglobin concentration measurement (mass/volume) 32 g/dL 32-36 Automated erythrocyte distribution width ratio 16.1 % 10.0- 14.5 Automated blood platelet count (count/volume) 33 10*3/uL 130- 400 Automated blood platelet mean volume measurement 10.8 [foz_us] 7.4-10.4 Automated blood neutrophils/100 leukocytes 61 % 42-75 Automated blood lymphocytes/100 leukocytes 27 % 12-44 Blood monocytes/100 leukocytes 7 % 0-12 Automated blood eosinophils/100 leukocytes 4 % 0-10 Automated blood basophils/100 leukocytes 1 % 0-10 Blood neutrophils automated count (number/volume) 0.9 10*3 1.8-7.8 Blood lymphocytes automated count (number/volume) 0.4 10*3 1.0-4.0 Blood monocytes automated count (number/volume) 0.1 10*3 0.0- 1.0 Automated eosinophil count 0.1 10*3/uL 0.0-0.3 Automated blood basophil count (count/volume) 0.0 10*3/uL 0.0-0.1 Comprehensive metabolic panel - 09/20/18 07:00 Serum or plasma sodium measurement (moles/volume) 142 mmol/L 135-145 Serum or plasma potassium measurement (moles/volume) 3.1 mmol/L 3.6-5.0 Serum or plasma chloride measurement (moles/volume) 110 mmol/L 98-107 Carbon dioxide 20 mmol/L 21-32 Serum or plasma anion gap determination (moles/volume) 12 mmol/L 5-14 Serum or plasma urea nitrogen measurement (mass/volume) 22 mg/dL 7-18 Serum or plasma creatinine measurement (mass/volume) 1.84 mg/dL 0.60-1.30 Serum or plasma urea nitrogen/creatinine mass ratio 12 NRG Serum or plasma creatinine measurement with calculation of estimated glomerular filtration rate 26 NRG Serum or plasma glucose measurement (mass/volume) 141 mg/dL 70-105 Serum or plasma calcium measurement (mass/volume) 7.6 mg/dL 8.5-10.1 Serum or plasma total bilirubin measurement (mass/volume) 1.1 mg/dL 0.1-1.0 Serum or plasma alkaline phosphatase measurement (enzymatic activity/volume) 95 U/L 40-136 Serum or plasma aspartate aminotransferase measurement (enzymatic activity/volume) 29 U/L 5-34 Serum or plasma alanine aminotransferase measurement (enzymatic activity/volume) 25 U/L 0-55 Serum or plasma protein measurement (mass/volume) 4.8 g/dL 6.4-8.2 Serum or plasma albumin measurement (mass/volume) 3.1 g/dL 3.2-4.5 CALCIUM CORRECTED 8.3 mg/dL 8.5-10.1 Encounters ACCT No. Visit Date/Time Discharge Status Pt. Type Provider Facility Loc./Unit Complaint [id number] 09/14/2018 12:55:00 09/23/2018 10:45:00 DIS Inpatient YOLANDA OLIVA DO Via [facility] METABOLLIC ENCEPHALOPATHY [id number] 11/14/2018 12:52:00 ACT Inpatient YOLANDA OLIVA DO [facility] INTRACTABLE BACK PAIN
--- NOTE | 2018-11-14 13:17 | PM&R H&P / Post Admit Assess ---
History of Present Illness HPI/Chief Complaint CC: Severe back pain with debility from L3 compression fractures s/p kyphoplasty 11/13/18 HPI: This is an 88yoWF clinic patient of Dr Nelson in [place] who is known to [place] and [facility] due to recent admit for debility following new onset hepatic encephalopathy requiring admission to [facility] in [place] and requiring a stay in IRF prior to returning home with family very involved in her care who presents today after DC from [facility] after admitted on 11/09/18 following severe back pain after bending over and suffering an L3 compression fracture. Du e to her other severe co-morbidities which include liver cirrhosis end stage along with leukopenia and thrombocytopenia (s/p bone marrow in the past by Hematology without source found) surgery was avoided so she was placed on pain meds and PT ordered but she continued to have such severe back pain she required a kyphoplasty which was performed yesterday without complications. Lactulose is ordered along with Rifaximin to minimize ammonia level to prevent confusion from hepatic encephalopathy. She has chronic upper back pain from remote history of herpes zoster and xrays revealed multiple old compression fractures of the spine. PLOF was independent with use of walker and ADL's were supervised by family members. She will return home with her family at DC from IRF. Source: patient, family Exam Limitations: no limitations Date Seen 11/14/18 Time Seen by a Provider: 13:20 Attending Physician Radha Campoverde Benjamen H MD Referring Physician Date of Admission November 14, 2018 at 12:52 Home Medications & Allergies Home Medications Reviewed patient Home Medication Reconciliation performed by pharmacy medication reconciliations fire technician and/or nursing. Patients Allergies have been reviewed. Allergies Allergies Coded Allergies Penicillins (Verified Allergy, Unknown, Diarrhea, 09/14/18) Sulfa (Sulfonamide Antibiotics) (Verified Allergy, Unknown, Diarrhea, 09/14/18) lactose (Verified Allergy, Unknown, 09/20/18) loose stools tobramycin (Verified Allergy, Unknown, Facial swelling, 09/14/18) Past Lwszxou-Hyvxsi-Qcasfl Hx Past Med/Social Hx: Reviewed Nursing Past Med/Soc Hx, Reviewed and Corrections made Patient Social History Marrital Status: Employed/Student: retired Alcohol Use: Denies Use Recreational Drug Use: No Smoking Status: Never a Smoker Physical Abuse Screen: No Sexual Abuse: No Recent Foreign Travel: No Contact w/other who traveled: No Recent Hopitalizations: Yes ([facility]- Hepatic Encephalopathy) Recent Infectious Disease Expo: No Immunizations Up To Date Pediatric: Yes Date of Pneumonia Vaccine: Jun 21, 2000 Date of Influenza Vaccine: Apr 04, 2018 Seasonal Allergies Seasonal Allergies: No Past Medical History Surgeries: Orthopedic Cardiac: Hypertension post herpetic neuralgia Genitourinary: Renal Failure Gastrointestinal: Gastroesophageal Reflux, Liver Disease/Jaundice, Cirrhosis GI bleed Musculoskeletal: Arthritis, Chronic Back Pain right flank post herpetic neuralgia History of Blood Disorders: Yes (Thrombocytopenia ) Family History CVA 19 FATHER FH: breast cancer G8 SISTER Review of Systems Constitutional: see HPI, malaise, weakness EENTM: no symptoms reported Respiratory: no symptoms reported Cardiovascular: no symptoms reported Gastrointestinal: no symptoms reported Genitourinary: no symptoms reported Musculoskeletal: back pain Skin: no symptoms reported Psychiatric/Neurological: Anxiety All Other Systems Reviewed Negative Unless Noted: Yes Physical Exam Exam Vital Signs Vital Signs Date Time Temp Pulse Resp B/P (MAP) Pulse Ox O2 Delivery O2 Flow Rate FiO2 11/14/18 17:07 97.5 66 18 130/64 (86) 100 Room Air Capillary Refill : General Appearance: No Apparent Distress, WD/WN, Chronically ill, Thin HEENT: PERRL/EOMI, Normal ENT Inspection, Pharynx Normal, Moist Mucous Membranes Neck: Full Range of Motion, Normal Inspection, Non Tender, Supple Respiratory: Chest Non Tender, Lungs Clear, Normal Breath Sounds, No Accessory Muscle Use, No Respiratory Distress Cardiovascular: Regular Rate, Rhythm, No Gallop, No JVD, Systolic Murmur Gastrointestinal: Normal Bowel Sounds, No Organomegaly, No Pulsatile Mass, Non Tender, Soft Back: Normal Inspection, No CVA Tenderness, Decreased Range of Motion, Muscle Spasm, Vertebral Tenderness Extremity: Normal Capillary Refill, Normal Inspection, Normal Range of Motion, Non Tender, No Calf Tenderness, Pedal Edema Neurologic/Psychiatric: Alert, Oriented x3, No Motor/Sensory Deficits (decreased ROM lower legs from back pain), Normal Mood/Affect, clinical services director II-XII Norm as Tested, Other (subtle poor recall) Skin: Normal Color, Warm/Dry Lymphatic: No Adenopathy Results Results/Procedures Labs Patient resulted labs reviewed. Assessment/Plan Assessment and Plan Assess & Plan/Chief Complaint Assessment: Severe back pain from L3 compression fracture s/p kyphoplasty POD # 1 h/o hepatic encephalopathy now on Rifaximin and Lactulose CRI stable Pancytopenia Hematology consult reviewed previous bone marrow procedure without answer to source Anemia of renal disease Leukopenia chronic Advanced age GI Bleed in past Fall risk DNR Right flank post herpetic neuralgia Multiple spine compression fractures in the past on scans Plan: Home meds Lactulose QID to attain 4 BM's and will need nurse to train on this requirement in order to return home Intensive therapies to return to independent living Prognosis guarded Reviewed Kyphoplasty note from [facility] Pain management of post herpetic neuralgia and compression fracture Check labs prn DC home at completion of IRF protocols (1) Compression fracture of L3 vertebra (2) S/P kyphoplasty (3) Portal vein thrombosis (4) Hepatic encephalopathy (5) Anemia (6) Neutropenia (7) Post herpetic neuralgia (8) Renal insufficiency (9) Thrombocytopenia (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 The patient will have a comprehensive program of inpatient rehabilitation with a goal of maximizing level of functional independence prior to discharge home with family. The patient will have PT/OT ninety minutes per day, each discipline, five days a week for gait, strengthening, conditioning, balance, ADLs, any patient/family/caregiver training as necessary. Speech therapy to do cognitive assessment and treat as indicated. Rehabilitation nursing to assist with bowel, bladder, skin, wound care, medication administration, pain management. Tire Design Engineer to assist with discharge planning, community reentry. SCD's for DVT prophylaxis. She appears to be well motivated to participate in three hours of therapy a day. She should be able to tolerate three hours of therapy a day from a medical standpoint. She should benefit from the three hours of therapy a day. She has a reasonable discharge plan, reasonable discharge rehabilitation goals and a supportive family. She has various comorbidities that need to be closely monitored with medications and treatments adjusted on a daily basis as needed. These include: see list Barriers to discharge for this patient who had been independent prior to this are for her to be modified independent to supervision for ADLs and mobility skills prior to discharge home with family, so as to lessen the burden of the caregivers. Risks for this patient include: 1. Fall 2. Fracture 3. DVT 4. Pulmonary embolism 5. Wound infection 6. Skin breakdown 7. Contractures 8. Poorly controlled pain 9. Urinary retention 10. UTI 11. Respiratory infection 12. Aspiration Estimated Length of Stay: 10 days Prognosis: Rehab prognosis appears good for goal of discharge home with family modified independent to supervision for ADLs and mobility skills. RADHA CAMPOVERDE DO November 14, 2018 13:17
--- NOTE | 2018-11-14 14:04 | Physical Therapy Evaluation ---
PT Evaluation-General Medical Diagnosis Admission Date November 14, 2018 at 12:52 Medical Diagnosis: kyphoplasty Onset Date: November 13, 2018 Therapy Diagnosis Therapy Diagnosis: impaired mobility, strength, endurance, balance Height/Weight Height (Feet): 5 Height (Inches): 2.00 Weight (Pounds): 115 Weight (Ounces): 0.0 Referral Physician: Radha Campoverde DO Reason for Referral: Evaluation/Treatment Medical History Pertinent Medical History: Diverticulitis, Fractures, HTN, Neuropathy, OA Additional Medical History Past Medical History Genitourinary: Renal Failure Gastrointestinal: Liver Disease/Jaundice, Cirrhosis GI bleed Musculoskeletal: Arthritis, Chronic Back Pain right flank post herpetic neuralgia History of Blood Disorders: Yes (Thrombocytopenia ) Reviewed History: Yes Social History Home: Single Level Current Living Status: Alone Entry Into Home: Stairs With Railing PT Steps Into Home: 3 Prior/Core FIM Prior Level of Function Therapy Code Descriptions/Definitions Functional [place] Measure: 0=Not Assessed/NA 4=Minimal Assistance 1=Total Assistance 5=Supervision or Setup 2=Maximal Assistance 6=Modified [place] 3=Moderate Assistance 7=Complete [place] Therapy Quality Codes: 6 Independent with activity with or without an assistive device 5 Patient requires set up or clean up by helper. Patient completes activity by themselves 4 Supervision or touching assist (CGA). Mary D provide cues , steadying assist 3 The helper provides less than half the effort to complete the activity 2 The helper provides more than half the effort to complete the activity 1 Dependent. The helper does all the effort to complete an activity 7 Patient refused to complete or attempt activity 9 The patient did not perform the activity before the current illness or injury 88 Not attempted due to Medical conditions or safety concerns Functional Abilities and Goals: Independent: Patient completed the activities by him/herself, with or without an assistive device, with no assistance from a helper. Needed Some Help: Patient needed partial assistance from another person to complete activities. Dependent: A helper completed the activities for the patient. Unknown: Not Applicable: Bed Mobility: 6 Transfers (B,C,W/C) (FIM): 6 Gait: 6 Stairs: 6 Indoor Mobility (Ambulation): Independent Stairs: Independent Patient was using a rolling walker previously. PT Evaluation-Current Subjective Patient in wheelchair pre tx, agrees to PT, has10/10 pain in back, nurse notified. Will be co-treating with OT due to debility, impaired balance, and the need to coodinate UE and LE activity at the same time. Pt/Family Goals to be independent at home Objective Patient Orientation: Person, Confused, Place, Situation Patient seems oriented to person, place, situation but will often say things out of the blue that do not make sense. ROM/Strength ROM Lower Extremities WNL except patient is lacking about 10 degrees of knee extension bilaterally Strenght Lower Extremities Unable to test effectively because patient has pain when people touch her legs or grab them. She does have full AROM against gravity so she at least has 3/5 gross bilaterally. Integumentary/Posture Integumentary Patient has significant swelling on her inner thighs. Neuromuscular (Tone, Coordination, Reflexes) NT Sensory Hearing: Impaired Sensation Right Lower Extremit: Intact Sensation Left Lower Extremity: Intact Sensation Lower Extremities Not able to test light touch sensation because patient doesn't like her legs touched but she says she has no numbness or tingling in her legs. Transfers Therapy Code Descriptions/Definitions Functional [place] Measure: 0=Not Assessed/NA 4=Minimal Assistance 1=Total Assistance 5=Supervision or Setup 2=Maximal Assistance 6=Modified [place] 3=Moderate Assistance 7=Complete [place] Therapy Quality Codes: 6 Independent with activity with or without an assistive device 5 Patient requires set up or clean up by helper. Patient completes activity by themselves 4 Supervision or touching assist (CGA). Mary D provide cues , steadying assist 3 The helper provides less than half the effort to complete the activity 2 The helper provides more than half the effort to complete the activity 1 Dependent. The helper does all the effort to complete an activity 7 Patient refused to complete or attempt activity 9 The patient did not perform the activity before the current illness or injury 88 Not attempted due to Medical conditions or safety concerns Transfers (B, C, W/C) (FIM): 4 Scootin Rollin Supine to/from Sit: 4 Sit to/from Stand: 4 Sit to Lying (QC): 3 Sit to Stand (QC): 4 Chair/Chc-rm-Nerqt Xfer(QC): 4 Car Transfer (QC): 2 Patient performs bed mobility with SBA, supine <-> sit with min assist, sit <-> stand with CGA, transfers with CGA, car transfer mod assist. Patient often needs cues for hand placement when doing sit <-> stand. Gait Does the Patient Walk?: Yes Mode of Locomotion: Walk Anticipated Mode of Locomotion: Walk Gait (FIM): 4 Walk 10 feet (QC): 4 Walk 50 ft with 2 Turns(QC): 4 Walk 150 ft (QC): 4 Walking 10ft/uneven surface-QC: 4 Distance: 150', 80'x2 Gait Level of Assist: 4 Gait Persons Needed: 1 Gait Assistive Device: FWW Comments/Gait Description Patient can ambulate 150' with a rolling walker with CGA (including 50' with at least 2 turns of 90 degrees and 10' over an uneven surface). Patient has antalgic gait, slow, occasional moments of unsteadiness but no LOB. Wheelchair Training Does the Pt Use a Wheelchair?: No Stairs Stairs (FIM): 1 #of Steps: 1 Level of Assist: 4 1 Step (curb) (QC): 4 Assistive Device: Walker Patient can go up and down 1 step using a rolling walker with CGA. She needs cues for safety and step placement. Balance Sitting Static: Normal Sitting Dynamic: Normal Standing Static: Good Standing Dynamic: Fair Treatment don/doff brace, OT activities (dressing, bathing, grooming, UE activity) Assessment/Needs Patient has impaired mobility, strength, endurance, balance. She needs her LSO on when out of bed. Patient has some unsteadiness with ambulation. Patient in recliner post tx with nurse call, phone, tray, all needs met. Legs elevated and on pillow. Rehab Potential: Fair PT Short Term Goals Short Term Goals Time Frame: Nov 21, 2018 Transfers (B,C,W/C) (FIM): 4 (CGA) Gait (FIM): 4 Gait Distance Comment: 200' Gait Level of Assist: 4 Gait Assistive Device: FWW PT Intermediate Goals Intermediate Goals PT Fitness Specialist Goals Time Frame: Dec 05, 2018 Transfers (B,C,W/C) (FIM): 5 Sit to Lying (QC): 6 Lying-Sitting on Side/Bed(QC): 6 Sit to Stand (QC): 4 Rollin Roll Left to Right (QC): 6 Chair/Ysa-cw-Iuovf Xfer(QC): 4 Car Transfer (QC): 4 Gait (FIM): 5 Distance: 250' Walk 10 feet (QC): 4 Walk 10ft-Uneven Surface(QC): 4 Walk 50ft with 2 Turns (QC): 4 Walk 150 ft (QC): 4 Gait Level of Assist: 5 Gait Assistive Device: FWW Stairs (FIM): 2 # of Steps: 4 1 Step (curb) (QC): 4 4 Steps (QC): 4 Stairs Level Of Assist: 5 PT Plan Problem List Problem List: Activity Tolerance, Functional Strength, Safety, Balance, Gait, Transfer, Bed Mobility, ROM Treatment/Plan Treatment Plan: Continue Plan of Care Treatment Plan: Bed Mobility, Education, Functional Activity Shaista, Functional Strength, Group Therapy, Gait, Safety, Therapeutic Exercise, Transfers Treatment Duration: Dec 05, 2018 Frequency: At least 5 of 7 days/Wk (IRF) Estimated Hrs Per Day: 1.5 hours per day Patient and/or Family Agrees t: Yes Safety Risks/Education Patient Education: Gait Training, Transfer Techniques, Steps, Reviewed Precautions, Correct Positioning, Reviewed Don/Doff Brace, Safety Issues Teaching Recipient: Patient Teaching Methods: Demonstration, Discussion Response to Teaching: Reinforcement Needed Discharge Recommendations Plan Patient will perform bed mobility and transfer training, balance and endurance training, functional strengthening, stair training, gait training, and education, to improve functional mobility and independence at home. Therapy D/C Recommendations: Home w/ Family Support, [facility] (TCU/[facility]) Time/GCodes Time In: 1220 Time Out: 1400 Total Billed Treatment Time: 90 Total Billed Treatment 1 visit EVM 10' GT 15' FA 65' PT performed eval from 7184-6716. OT performed eval from [id number]. Co-treated from [id number]. PT performed eval, ambulation, bed mobility, transfers, brace training, LE ROM. OT performed eval, UE activity, dressing, grooming, bathing, UE positioning and safety during mobility. ABBEY TUCKER PT November 14, 2018 14:04
--- NOTE | 2018-11-14 14:25 | Occupational Therapy Eval ---
OT Evaluation-General/PLF Medical Diagnosis Admission Date November 14, 2018 at 12:52 Medical Diagnosis: kyphoplasty Onset Date: November 13, 2018 Therapy Diagnosis Therapy Diagnosis: Weakness Height/Weight Height (Feet): 5 Height (Inches): 2.00 Weight (Pounds): 115 Weight (Ounces): 0.0 Weight Bear Status Weight Bearing Restriction: Weight Bearing/Tolerated Back precautions, back brace on when up. Referral Physician: Radha Campoverde DO Referral Reason: Activity Tolerance, Self Care, Evaluation/Treatment, Strengthening/ROM Medical History Pertinent Medical History: Diverticulitis, Fractures, HTN, Neuropathy, OA Reviewed History: Yes Social History Home: Single Level Current Living Status: Alone Entry Into Home: Stairs With Railing Steps Into Home: 3 ADL-Prior Level of Function Therapy Code Descriptions/Definitions Functional [place] Measure: 0=Not Assessed/NA 4=Minimal Assistance 1=Total Assistance 5=Supervision or Setup 2=Maximal Assistance 6=Modified [place] 3=Moderate Assistance 7=Complete [place] Therapy Quality Codes: 6 Independent with activity with or without an assistive device 5 Patient requires set up or clean up by helper. Patient completes activity by themselves 4 Supervision or touching assist (CGA). Canmer provide cues , steadying assist 3 The helper provides less than half the effort to complete the activity 2 The helper provides more than half the effort to complete the activity 1 Dependent. The helper does all the effort to complete an activity 7 Patient refused to complete or attempt activity 9 The patient did not perform the activity before the current illness or injury 88 Not attempted due to Medical conditions or safety concerns Functional Abilities and Goals: Independent: Patient completed the activities by him/herself, with or without an assistive device, with no assistance from a helper. Needed Some Help: Patient needed partial assistance from another person to complete activities. Dependent: A helper completed the activities for the patient. Unknown: Not Applicable: ADL PLOF Comments Pt. states that previous to this current hospitalization, she was independent with daily tasks. Self Care: Independent Functional Cognition: Independent DME/Equipment: Bedside Commode, Shower DME/Equipment Comments Pt. has walker. Family lives close and is supportive. They check on pt. OT Current Status Subjective Pt. reports 10/10 pain. Nursing notified. Appearance Pt. alert and smiling upon admission. Agrees to work with OT. Mental Status/Objective Patient Orientation: Person Pt. increasingly becomes somewhat agitated during evaluation due to pain. Current Upper Extremity ROM WFL ADL-Treatment Bathing (FIM): 5 (SBA to wash all parts seated in chair.) Shower/Bathe Self (QC): 4 Upper Body Dressing (FIM): 3 (Pt. has difficulty doffing/donning back brace. ) Upper Body Dressing (QC): 3 Lower Body Dressing (FIM): 4 (CGA in stance.) Lower Body Dressing (QC): 4 On/Off Footwear (QC): 5 (Pt. is able to doff/don slipper socks by bringing feet up to her while seated in chair.) Transfers (B, C, W/C) (FIM): 4 (CGA in stance with ambulation.) Pt. admitted to rehab after kyphoplasty via private vehicle. Due to reported pain upon admission, it was felt that pt. would benefit from co-treatment from PT/OT. Pt. also reports that she is tired and requests, not to "do therapy today." Pt. is encouraged and does agree to work with both OT/PT. OT assessed ADL skills while PT assessed ambulation and mobility. Pt. is somewhat self limiting about what she is able to do. Pt. is encouraged throughout treatment. Please see PT note for distance ambulated. OT assisted with ordering meal after treatment. Pt. in reclining chair with all needs met after session. Education OT Patient Education: Correct positioning, Modified ADL techniques, Progress toward Goal/Update tx plan, Purpose of tx/functional activities, Reviewed precautions, Rehab process, Transfer techniques Teaching Recipient: Patient Teaching Methods: Demonstration, Discussion Response to Teaching: Verbalize Understanding, Return Demonstration OT Short Term Goals Short Term Goals Transfers (B,C,W/C) (FIM): 4 (CGA) 1=Demonstrate adherence to instructed precautions during ADL tasks. 2=Patient will verbalize/demonstrate understanding of assistive devices/modifications for ADL. 3=Patient will improve strength/tolerance for activity to enable patient to perform ADL's. OT Educational Aide Goals Educational Aide Goals Time Frame: Nov 28, 2018 Eating (FIM): 6 Eating (QC): 6 Groomin Oral Hygiene (QC): 6 Bathing(FIM): 5 Shower/Bathe Self (QC): 5 Upper Body Dressing(FIM): 6 Upper Body Dressing (QC): 6 Lower Body Dressing(FIM): 6 Lower Body Dressing (QC): 6 On/Off Footwear (QC): 6 Toileting(FIM): 6 Toileting Hygiene (QC): 6 Transfers (B,C,W/C) (FIM): 6 Toilet/Commode Transfer(FIM): 6 Toilet/Commode Transfer (QC): 6 Shower Transfer(FIM): 5 Additional Goals: 1-Demonstrate ADL Tasks, 2-Verbalize Understanding, 3- ImproveStrength/Shaista 1=Demonstrate adherence to instructed precautions during ADL tasks. 2=Patient will verbalize/demonstrate understanding of assistive devices/modifications for ADL. 3=Patient will improve strength/tolerance for activity to enable patient to perform ADL's. OT Education/Plan Problem List/Assessment Assessment: Decreased Activ Tolerance, Decreased UE Strength, Impaired I ADL's, Impaired Self-Care Skills Discharge Recommendations Plan/Recommendations: Continue POC Therapy D/C Recommendations: Home w/ Family Support, Occupational Therapy Home Care Comment To be determined. Treatment Plan/Plan of Care Treatment,Training & Education: Yes Patient would benefit from OT for education, treatment and training to promote independence in ADL's, mobility, safety and/or upper extremity function for ADL's. Plan of Care: ADL Retraining, Functional Mobility, Group Exercise/Act as Ind, UE Funct Exercise/Act Treatment Duration: Nov 28, 2018 Frequency: At least 5 of 7 days/Wk (IRF) Estimated Hrs Per Day: 1.5 hours per day Agreement: Yes Rehab Potential: Good Time/GCodes Start Time: 12:30 Stop Time: 14:00 Total Time Billed (hr/min): 90 Billed Treatment Time 3644-0201 1, EVM x 10 minutes [id number] ADL x 50minutes, ADL x 30minutes AUSTIN NAVARRO OT November 14, 2018 14:25
[2018-11-14] MEDS: HYDROcodone/APAP 5 MG/325 MG (LORTAB) TAB PO PRN (14:45)
[2018-11-14] MEDS ORDERED: LIPASE/AMYLASE/PROTEASE (PANCRELIPASE) 5,000 UNITS CAP PO PRN (15:00)
[2018-11-14] MEDS ORDERED: LACTULOSE SYRUP 10GM/15ML (ENULOSE) 30ML UDC PO SCH (17:00)
[2018-11-14] MEDS: LIPASE/AMYLASE/PROTEASE (PANCRELIPASE) 5,000 UNITS CAP PO SCH (17:00)
[2018-11-14 17:07] VITALS: BP 130/64
[2018-11-14] MEDS: LACTULOSE SYRUP 10GM/15ML (ENULOSE) 30ML UDC PO SCH ×2 (17:19→20:50)
--- NOTE | 2018-11-14 18:00 | NUR ---
HAS NEUROPATHY PAIN IN RIGHT ARM POST SHINGLES AND ARM IS VERY TENDER.
--- NOTE | 2018-11-14 19:14 | NUR ---
bedside report received from IONA BRITO, assume care of pt
[2018-11-14] MEDS: MULTIVIT W/MINERALS TAB (THERAGRAN M) PO SCH (20:46)
[2018-11-14] MEDS: RIFAXIMIN 550 MG TABLET (XIFAXAN) PO SCH (20:46)
[2018-11-14] MEDS: CALCIUM CARB + VIT D 600 MG (CALCARB + D) TAB PO SCH (20:46)
--- NOTE | 2018-11-14 20:50 | NUR ---
pt wanting to refuse Enulose advised not given for laxative it is given to help lower ammonia level, pt did agree to take med, states had 3 stools today
--- NOTE | 2018-11-14 21:00 | NUR ---
assessments & interventions completed, see assessments & interventions up to bathroom with 1 person assist & walker
[2018-11-15 05:05] VITALS: BP 122/74
[2018-11-15] MEDS: LIPASE/AMYLASE/PROTEASE (PANCRELIPASE) 5,000 UNITS CAP PO SCH ×3 (06:49→17:42)
[2018-11-15] MEDS: HYDROcodone/APAP 5 MG/325 MG (LORTAB) TAB PO PRN ×3 (06:49→21:16)
--- NOTE | 2018-11-15 06:49 | NUR ---
c/o back pain level 9/10 on numeric scale Lortab 5/325 1 tab po given, had stools x2 since midnight
[2018-11-15] MEDS: KCL 10 MEQ TAB (MICRO K) PO SCH (06:51)
--- NOTE | 2018-11-15 07:26 | NUR ---
bedside report given to INNA BRITO
[2018-11-15 07:52] LABS: HEMOGLOBIN 9.9 G/DL (11.5-16.0); MEAN PLATELET VOLUME 9.7 FL (7.4-10.4); RED CELL DISTRIBUTION WIDTH 16.1 % (10.0-14.5); WHITE BLOOD COUNT 2.6 10^3/uL (4.3-11.0)
[2018-11-15 08:13] LABS: ALBUMIN 3.6 GM/DL (3.2-4.5); BILIRUBIN,TOTAL 1.4 MG/DL (0.1-1.0); CALCIUM 9.1 MG/DL (8.5-10.1); CREATININE SERUM 2.27 MG/DL (0.60-1.30); TOTAL PROTEIN 5.6 GM/DL (6.4-8.2)
[2018-11-15] MEDS: BUMETANIDE 1 MG (BUMEX) TAB PO SCH (08:49)
[2018-11-15] MEDS: CALCIUM CARB + VIT D 600 MG (CALCARB + D) TAB PO SCH ×2 (08:49→21:14)
[2018-11-15] MEDS: PANTOPRAZOLE 40 MG (PROTONIX) TAB PO SCH (08:50)
[2018-11-15] MEDS: meTOproloL SUCCINATE 50 MG (TOPROL XL) TAB PO SCH (08:50)
[2018-11-15] MEDS: MULTIVIT W/MINERALS TAB (THERAGRAN M) PO SCH ×2 (08:50→21:14)
[2018-11-15] MEDS: amLODIPine 10 MG (NORVASC) TAB PO SCH (08:50)
[2018-11-15] MEDS: RIFAXIMIN 550 MG TABLET (XIFAXAN) PO SCH ×2 (08:50→21:14)
[2018-11-15] MEDS: LACTULOSE SYRUP 10GM/15ML (ENULOSE) 30ML UDC PO SCH ×5 (08:50→21:13)
[2018-11-15] MEDS: ALLOPURINOL 100 MG (ZYLOPRIM) TAB PO SCH (08:51)
--- NOTE | 2018-11-15 08:58 | PM&R Progress Note ---
Subjective HPI/CC On Admission Date Seen by Provider: November 15, 2018 Time Seen by Provider: 09:00 CC: Severe back pain with debility from L3 compression fractures s/p kyphoplasty 11/13/18 HPI: This is an 88yoWF clinic patient of Dr Nelson in [place] who is known to or and IRF due to recent admit for debility following new onset hepatic encephalopathy requiring admission to [facility] in [place] and requiring a stay in IRF prior to returning home with family very involved in her care who presents today after DC from [facility] after admitted on 11/09/18 following severe back pain after bending over and suffering an L3 compression fracture. Due to her other severe co-morbidities which include liver cirrhosis end stage along with leukopenia and thrombocytopenia (s/p bone marrow in the past by Hematology without source found) surgery was avoided so she was placed on pain meds and PT ordered but she continued to have such severe back pain she required a kyphoplasty which was performed yesterday without complications. Lactulose is ordered along with Rifaximin to minimize ammonia level to prevent confusion from hepatic encephalopathy. She has chronic upper back pain from remote history of herpes zoster and xrays revealed multiple old compression fractures of the spine. PLOF was independent with use of walker and ADL's were supervised by family members. She will return home with her family at DC from IRF. Subjective/Events-last exam Having a good day today. Wound care consults for coccyx and heels. Brace will be taken when showering. Lactulose given TID her ammonia level is 51. Hgb is stable and creatinine is 2.2 all stable. Platelet count usually runs between 20 and 40,000. No bleeding problems. No hepatic encephalopathy. Denies any significant issues but the pain is at times difficult but pain medication helps. Conferred with RN. Reviewed therapy notes. Review of Systems General: Fatigue Musculoskeletal: back pain Objective Exam Vital Signs Vital Signs Date Time Temp Pulse Resp B/P (MAP) Pulse Ox O2 Delivery O2 Flow Rate FiO2 11/15/18 09:00 Room Air 11/15/18 05:05 98.7 72 18 122/74 (90) 97 Capillary Refill : General Appearance: No Apparent Distress, WD/WN, Chronically ill, Thin HEENT: PERRL/EOMI, Normal ENT Inspection, Pharynx Normal, Moist Mucous Membranes Neck: Full Range of Motion, Normal Inspection, Non Tender, Supple Respiratory: Chest Non Tender, Lungs Clear, Normal Breath Sounds, No Accessory Muscle Use, No Respiratory Distress Cardiovascular: Regular Rate, Rhythm, No Gallop, No JVD, Systolic Murmur Gastrointestinal: Normal Bowel Sounds, No Organomegaly, No Pulsatile Mass, Non Tender, Soft Back: Normal Inspection, No CVA Tenderness, Decreased Range of Motion, Muscle Spasm, Vertebral Tenderness Extremity: Normal Capillary Refill, Normal Inspection, Normal Range of Motion, Non Tender, No Calf Tenderness, Pedal Edema Neurologic/Psychiatric: Alert, Oriented x3, No Motor/Sensory Deficits (decreased ROM lower legs from back pain), Normal Mood/Affect, rehabilitation services manager II-XII Norm as Tested, Other (subtle poor recall) Skin: Normal Color, Warm/Dry Lymphatic: No Adenopathy Results/Procedures Lab Laboratory Tests 11/15/18 07:44 Patient resulted labs reviewed. FIM Transfers Therapy Code Descriptions/Definitions Functional Mora Measure: 0=Not Assessed/NA 4=Minimal Assistance 1=Total Assistance 5=Supervision or Setup 2=Maximal Assistance 6=Modified Mora 3=Moderate Assistance 7=Complete Mora Therapy Quality Codes: 6 Independent with activity with or without an assistive device 5 Patient requires set up or clean up by helper. Patient completes activity by themselves 4 Supervision or touching assist (CGA). [place] provide cues , steadying assist 3 The helper provides less than half the effort to complete the activity 2 The helper provides more than half the effort to complete the activity 1 Dependent. The helper does all the effort to complete an activity 7 Patient refused to complete or attempt activity 9 The patient did not perform the activity before the current illness or injury 88 Not attempted due to Medical conditions or safety concerns Transfers (B, C, W/C) (FIM): 4 (CGA in stance with ambulation.) Scootin Rollin Supine to/from Sit: 4 Sit to/from Stand: 4 Sit to Lying (QC): 3 Sit to Stand (QC): 4 Chair/Uii-xs-Grakq Xfer(QC): 4 Car Transfer (QC): 2 Gait Training Does the Patient Walk?: Yes Gait (FIM): 4 Walk 10 feet (QC): 4 Walk 50 ft with 2 Turns(QC): 4 Walk 150 ft (QC): 4 Walking 10ft/uneven surface-QC: 4 Gait Level of Assist: 4 Gait Persons Needed: 1 Gait Assistive Device: FWW Wheelchair Training Does the Pt Use a Wheelchair?: No Stair Training Stairs (FIM): 1 #of Steps: 1 1 Step (curb) (QC): 4 Level of Assist: 4 ADL-Treatment Bathin (SBA to wash all parts seated in chair.) Shower/Bathe Self (QC): 4 Upper Extremity Dressin (Pt. has difficulty doffing/donning back brace. ) Upper Body Dressing (QC): 3 Lower Extremity Dressin (CGA in stance.) Lower Body Dressing (QC): 4 On/Off Footwear (QC): 5 (Pt. is able to doff/don slipper socks by bringing feet up to her while seated in chair.) Assessment/Plan Assessment and Plan Assess & Plan/Chief Complaint Assessment: Severe back pain from L3 compression fracture s/p kyphoplasty POD # 2 h/o hepatic encephalopathy now on Rifaximin and Lactulose CRI stable Pancytopenia Hematology consult reviewed previous bone marrow procedure without answer to source Anemia of renal disease Leukopenia chronic Advanced age GI Bleed in past Fall risk DNR Right flank post herpetic neuralgia Multiple spine compression fractures in the past on scans Plan: Home meds Lactulose QID to attain 4 BM's and will need nurse to train on this requirement in order to return home Intensive therapies to return to independent living Prognosis guarded Reviewed Kyphoplasty note from [facility] Pain management of post herpetic neuralgia and compression fracture Check labs prn DC home at completion of IRF protocols (1) Compression fracture of L3 vertebra YOLANDA OLIVA DO November 15, 2018 08:58
--- NOTE | 2018-11-15 09:19 | Occupational Ther Daily Note ---
OT Current Status-Daily Note Subjective pt sitting in recliner chair upon OT arrival. pt complains of 10/10 pain when associated with light touch in right side of chest/ arm. pt stated this is a results from pervious shingles. pt stated no pain when not moving/ nothing touching her. Mental Status/Objective Patient Orientation: Person, Place, Time, Situation Therapy Code Descriptions/Definitions Functional [place] Measure: 0=Not Assessed/NA 4=Minimal Assistance 1=Total Assistance 5=Supervision or Setup 2=Maximal Assistance 6=Modified [place] 3=Moderate Assistance 7=Complete [place] Attachments: Oxygen ADL-Treatment Therapy Code Descriptions/Definitions Functional [place] Measure: 0=Not Assessed/NA 4=Minimal Assistance 1=Total Assistance 5=Supervision or Setup 2=Maximal Assistance 6=Modified [place] 3=Moderate Assistance 7=Complete [place] Therapy Quality Codes: 6 Independent with activity with or without an assistive device 5 Patient requires set up or clean up by helper. Patient completes activity by themselves 4 Supervision or touching assist (CGA). [place] provide cues , steadying assist 3 The helper provides less than half the effort to complete the activity 2 The helper provides more than half the effort to complete the activity 1 Dependent. The helper does all the effort to complete an activity 7 Patient refused to complete or attempt activity 9 The patient did not perform the activity before the current illness or injury 88 Not attempted due to Medical conditions or safety concerns Grooming (FIM): 4 (CGA while stanidng at sink to brush teeth. noted pt required set up of items secondary to decrease stregnth in Gary hands to open containers. ) Oral Hygiene (QC): 4 Bathing (FIM): 4 (pt required CGA while stnaidng. pt education on use of AE for LB bathing/ maintaining precautions. pt demo ability to use LHS correctly. ) Bathing Location: L Arm, R Arm, L Upper Leg, R Upper Leg, L Lower Leg (including foot), R Lower Leg (including foot), Chest, Abdomen, Buttocks, Perineal Area Shower/Bathe Self (QC): 4 Upper Body (FIM): 5 (pt education on UB dressing while maintaining back precuations. pt demo understanding. pt required TA for donning/ doffing brace ) Upper Body Dressing (QC): 4 Lower Body Dressing (FIM): 4 (pt education on donning/ donning LB clothing with use of AE (shuttleless loom weaver, sockaid, dressing stick) pt demo ability to doff Gary socks and requird assist with donning socks. pt attempt to use sock aid and requred TA with demo. pt then dem o ability to posistion LE in figure four positioning and demo to louie socks with CGA. pt required total assist to thread Gary LE in underpants. pt demo ability to pull up pants with CGA. ) Lower Body Dressing (QC): 3 On/Off Footwear (QC): 4 Toileting (FIM): 4 (CGA while standing to pull up/ down pants. noted pt required MAX cueing to demo how to pull doen pants iwth brace. pt demo correctly. ) Toileting Hygiene (QC): 4 Transfers (B, C, W/C) (FIM): 4 Toilet/Commode Transfer (FIM): 4 Toilet Transfer (QC): 4 CGA for functional transfers using RW for safety/ balance. pt education on how to perform ADLs while maintaining back precaution. pt will need reinforcement fo r AE to increase independence with ADLs Education OT Patient Education: Energy conservation, Modified ADL techniques, Progress toward Goal/Update tx plan, Purpose of tx/functional activities, Reviewed precautions, Safety issues, Transfer techniques, Use of adapted equipment Teaching Recipient: Patient, Family Teaching Methods: Demonstration, Discussion Response to Teaching: Verbalize Understanding, Return Demonstration, Reinforcement Needed OT Short Term Goals Short Term Goals Transfers (B,C,W/C) (FIM): 4 (CGA) 1=Demonstrate adherence to instructed precautions during ADL tasks. 2=Patient will verbalize/demonstrate understanding of assistive devices/modifications for ADL. 3=Patient will improve strength/tolerance for activity to enable patient to perform ADL's. OT Usp Goals Assistant Scientist Goals Time Frame: Nov 28, 2018 Eating (FIM): 6 Eating (QC): 6 Groomin Oral Hygiene (QC): 6 Bathing(FIM): 5 Shower/Bathe Self (QC): 5 Upper Body Dressing(FIM): 6 Upper Body Dressing (QC): 6 Lower Body Dressing(FIM): 6 Lower Body Dressing (QC): 6 On/Off Footwear (QC): 6 Toileting(FIM): 6 Toileting Hygiene (QC): 6 Transfers (B,C,W/C) (FIM): 6 Toilet/Commode Transfer(FIM): 6 Toilet/Commode Transfer (QC): 6 Shower Transfer(FIM): 5 Additional Goals: 1-Demonstrate ADL Tasks, 2-Verbalize Understanding, 3- ImproveStrength/Shaista 1=Demonstrate adherence to instructed precautions during ADL tasks. 2=Patient will verbalize/demonstrate understanding of assistive devices/modifications for ADL. 3=Patient will improve strength/tolerance for activity to enable patient to perform ADL's. OT Education/Plan Problem List/Assessment Assessment: Decreased Activ Tolerance, Decreased Safety Aware, Impaired Funct Balance, Impaired I ADL's, Impaired Self-Care Skills Discharge Recommendations Plan/Recommendations: Continue POC Treatment Plan/Plan of Care Treatment,Training & Education: Yes Patient would benefit from OT for education, treatment and training to promote independence in ADL's, mobility, safety and/or upper extremity function for ADL's. Plan of Care: ADL Retraining, Functional Mobility, Group Exercise/Act as Ind, UE Funct Exercise/Act Treatment Duration: Nov 28, 2018 Frequency: At least 5 of 7 days/Wk (IRF) Estimated Hrs Per Day: 1.5 hours per day Agreement: Yes Rehab Potential: Good Time/GCodes Start Time: 08:00 Stop Time: 09:00 Billed Treatment Time ADL 60 minutes, 4 units LISETTE MANUEL OT November 15, 2018 09:19
--- NOTE | 2018-11-15 09:22 | NUR ---
APPAREL SALES LEADER met with patient and family to complete initial assessment. Patient known to APPAREL SALES LEADER as she completed an ARU stay in September 2018 due to debility and metabolic encephalopathy post fall. Patient was alert and oriented x2. Patient resides alone in a single level home in [place], [place]. The home has 3 steps at the entrance with railing. This admission, patient admitted to ARU from [facility] with intractable back pain post fall and recent kyphoplasty. Prior to admission patient was independent with use of walker. Patient identifies sonKeven of [place] as primary contact at [phone] and [id number] [place] at [phone]. Insurance verified as Medicare and [employer] [place] with [employer] prescription coverage. Patient's preferred pharmacy is [facility] [place], [place]. Patient completed POA/AD at previous admission, appointing sonKeven as POA. APPAREL SALES LEADER provided documents and will obtain a notary following completion. APPAREL SALES LEADER reviewed typical rehab length of stay and weekly team conferences with patient, she expressed no concerns. If home health is warranted at discharge, patient previously utilized [facility] and would like to maintain this provider. APPAREL SALES LEADER will follow for appropriate discharge needs.
--- NOTE | 2018-11-15 10:09 | ST Cognitive Linguistic Eval ---
Speech Evaluation-General Medical Diagnosis kyphoplasty Onset Date: November 13, 2018 Therapy Diagnosis Therapy Diagnosis: Cognitive-Communication Precautions Precautions/Isolations: Fall Prevention, Standard Precautions Referral Referring Physician: Dr. Campoverde Medical History Pertinent Medical History: Diverticulitis, Fractures, HTN, Neuropathy, OA Reviewed History: Yes Social History Current Living Status: Alone Speech PLF-Current Status Prior Level of Function The patient lives at home alone with family near by. The patient was independent for her daily needs. Subjective The patient was pleasant and attentive with the evaluation process. Language Eval: Auditory Comprehends Simple Yes/No Ques: Functional Indent/Objects Multiple Jones: Functional Ident/Pics in Multiple Jones: Functional Follows 1-Step Commands: Functional Follows Complex Directions: Functional Follows General Conversations: Functional Language Eval: Verbal Language Completes Spontaneous Greeting: Functional Produces Auto, Serial Info: Functional Imitates Simple Words/Phrases: Functional Word Finding: Functional Requests Basic Needs: Functional States Basic Personal Info: Functional Expresses Complex Ideas: Functional Objective Cognitive Domain Attention: WNL Memory: WNL Problem Solving: Functional Executive Functions: WNL Visuospatial Skills: WNL Composite Severity Rating: WNL Clock Drawing Severity Rating: WNL Objective Formal/Standardized Tests [facility] Mental Status ([facility]) Results The patient passed the [facility] at 28/30 within normal range. No ST concerns at this time. Oral Motor/Speech Production Within Functional Limits Impression The patient is a pleasant 88 year old female who was admitted to the ARU s/p spinal fracture. The patient was referred for a cognitive communication evaluation. The SLUMS was completed with the patient is within normal range for communicating her needs and sequencing. The patient does not require skilled ST at this time. Communication/Social Cognition Comprehension: 7 Expression: 7 Social Interaction: 7 Problem Solvin Memory: 7 Speech Patient Assess Expression of Ideas/Wants: Expression (4) Understanding Verbal Content: Understands (4) Brief Interview-Mental Status: Yes Repetition of Three Words: Three (3) Temporal Orientation: Year: Correct (3) Temporal Orientation: Month: Accurate within 5 days(2) Temporal Orientation: Day: Correct (1) Recall : Wear to say "Sock": Yes, no cue required (2) Recall : Color: Yes, no cue required (2) Recall : Bed: Yes,after cueing (1) Memory/Recall Ability: Current season, Location of own room, That he or she is in a hsp/hsp unit Speech-Plan Patient/Family Goals Patient/Family Goals: The patient plans on returning home where she lives alone post rehab. She has excellent family support. Treatment Plan Speech Therapy Treatment Plan: Discontinue ST The patient will not be receiving skilled ST at this time. Treatment Duration: November 15, 2018 Frequency: 1 time per week Estimated Hrs Per Day: .25 hour per day Rehab Potential: Good Barriers to Learning: None identified Pt/Family Agrees to Plan: Yes Safety Risks/Education Teaching Recipient: Patient Teaching Methods: Discussion Response to Teaching: Verbalize Understanding Education Topics Provided: Safety within her room and utilization of the call light as needed Time Speech Therapy Time In: 09:00 Speech Therapy Time Out: 09:15 Total Billed Time: 15 Billed Treatment Time 1, CHATO Bailey November 15, 2018 10:09
--- NOTE | 2018-11-15 11:05 | Physical Therapy Daily Note ---
PT Daily Note-Current Subjective Pt. agrees to Rx. Family present and very encouraging to pt. Pt. states her pain is at 2/10 mid back Pain Numeric Pain Scale: 2 Location: Medial Location Body Site: Back Pain Description: Ache Mental Status Patient Orientation: Normal For Age Transfers Therapy Code Descriptions/Definitions Functional [place] Measure: 0=Not Assessed/NA 4=Minimal Assistance 1=Total Assistance 5=Supervision or Setup 2=Maximal Assistance 6=Modified [place] 3=Moderate Assistance 7=Complete [place] Therapy Quality Codes: 6 Independent with activity with or without an assistive device 5 Patient requires set up or clean up by helper. Patient completes activity by themselves 4 Supervision or touching assist (CGA). [place] provide cues , steadying assist 3 The helper provides less than half the effort to complete the activity 2 The helper provides more than half the effort to complete the activity 1 Dependent. The helper does all the effort to complete an activity 7 Patient refused to complete or attempt activity 9 The patient did not perform the activity before the current illness or injury 88 Not attempted due to Medical conditions or safety concerns Transfers (B, C, W/C) (FIM): 6 Scootin Rollin Supine to/from Sit: 6 Sit to/from Stand: 6 Gait Training Does the Patient Walk?: Yes Gait (FIM): 5 Distance (FIM): 3=150 ft (160x3) Gait Level of Assist: 5 Gait Persons Needed: 1 Gait Assistive Device: FWW slight kyphosis, brace insitu Exercises Supine Ex: Ankle pumps, Quad Set, Rolling, Glut sets, Heel Slides, Short Arc Quads, Scooting, Hip abd/add Supine Reps: 15 Seated Therapy Exercises: Ankle pumps, Sit to stand, Long arc quads, Hip abd/add Seated Reps: 15 Assessment Current Status: Good Progress PT Short Term Goals Short Term Goals Time Frame: Nov 21, 2018 Transfers (B,C,W/C) (FIM): 4 (CGA) Gait (FIM): 4 Gait Distance Comment: 200' Gait Level of Assist: 4 Gait Assistive Device: FWW PT Chcf Goals Chcf Goals PT Chcf Goals Time Frame: Dec 05, 2018 Transfers (B,C,W/C) (FIM): 5 Sit to Lying (QC): 6 Lying-Sitting on Side/Bed(QC): 6 Sit to Stand (QC): 4 Rollin Roll Left to Right (QC): 6 Chair/Pir-oo-Kbwaa Xfer(QC): 4 Car Transfer (QC): 4 Gait (FIM): 5 Distance: 250' Walk 10 feet (QC): 4 Walk 10ft-Uneven Surface(QC): 4 Walk 50ft with 2 Turns (QC): 4 Walk 150 ft (QC): 4 Gait Level of Assist: 5 Gait Assistive Device: FWW Stairs (FIM): 2 # of Steps: 4 1 Step (curb) (QC): 4 4 Steps (QC): 4 Stairs Level Of Assist: 5 PT Plan Treatment/Plan Treatment Plan: Continue Plan of Care Treatment Plan: Bed Mobility, Education, Functional Activity Shaista, Functional Strength, Group Therapy, Gait, Safety, Therapeutic Exercise, Transfers Treatment Duration: Dec 05, 2018 Frequency: At least 5 of 7 days/Wk (IRF) Estimated Hrs Per Day: 1.5 hours per day Patient and/or Family Agrees t: Yes Safety Risks/Education Patient Education: Gait Training, Transfer Techniques, Correct Positioning, Disease Process, Safety Issues Teaching Recipient: Patient Teaching Methods: Demonstration, Discussion Response to Teaching: Verbalize Understanding, Return Demonstration, Reinforcement Needed Time/GCodes Time In: 1000 Time Out: 1100 Total Billed Treatment Time: 60 Total Billed Treatment 1,GT25m,FA15m,EX20m G Codes Necessary: ROMERO Robledo PIN TICKET MACHINE OPERATOR November 15, 2018 11:05
--- NOTE | 2018-11-15 11:52 | Occupational Ther Daily Note ---
OT Current Status-Daily Note Subjective pt sitting in recliner chair upon OT arrival. pt agreed to OT TX session with focus on increasing independence with toileting and energy conservation techniques. Mental Status/Objective Therapy Code Descriptions/Definitions Functional [place] Measure: 0=Not Assessed/NA 4=Minimal Assistance 1=Total Assistance 5=Supervision or Setup 2=Maximal Assistance 6=Modified [place] 3=Moderate Assistance 7=Complete [place] ADL-Treatment Therapy Code Descriptions/Definitions Functional [place] Measure: 0=Not Assessed/NA 4=Minimal Assistance 1=Total Assistance 5=Supervision or Setup 2=Maximal Assistance 6=Modified [place] 3=Moderate Assistance 7=Complete [place] Therapy Quality Codes: 6 Independent with activity with or without an assistive device 5 Patient requires set up or clean up by helper. Patient completes activity by themselves 4 Supervision or touching assist (CGA). [place] provide cues , steadying assist 3 The helper provides less than half the effort to complete the activity 2 The helper provides more than half the effort to complete the activity 1 Dependent. The helper does all the effort to complete an activity 7 Patient refused to complete or attempt activity 9 The patient did not perform the activity before the current illness or injury 88 Not attempted due to Medical conditions or safety concerns Eating (FIM): 6 Eating (QC): 6 Toileting Hygiene (QC): 4 (pt demo ability to perform 3/3 toileting task with intermitted CGA for safety/ balance. ) Transfers (B, C, W/C) (FIM): 4 (intermitted CGA for safety/ balance ) Toilet/Commode Transfer (FIM): 4 Toilet Transfer (QC): 4 Other Treatment post toileting. pt ambulated to TX gym approx 75 ft with intermitted CGA using RW for safety/ balance. pt education on energy conservation techniques/ pursed lip breathing. pt perform UBE 5 min forward and 5 minutes backward with min resistance. pt stated "I like this, it feels good for my arms and back." pt then ambulated back to room approx 75 ft with SBA and demo ability to eat lunch MOD I secondary to dentures. call light and phone within reach, all needs met. OT Short Term Goals Short Term Goals Transfers (B,C,W/C) (FIM): 4 (CGA) 1=Demonstrate adherence to instructed precautions during ADL tasks. 2=Patient will verbalize/demonstrate understanding of assistive devices/modifications for ADL. 3=Patient will improve strength/tolerance for activity to enable patient to perform ADL's. OT Bobbin Marker Goals Bobbin Marker Goals Time Frame: Nov 28, 2018 Eating (FIM): 6 (MET 11/15/18) Eating (QC): 6 (MET 11/15/18) Groomin Oral Hygiene (QC): 6 Bathing(FIM): 5 Shower/Bathe Self (QC): 5 Upper Body Dressing(FIM): 6 Upper Body Dressing (QC): 6 Lower Body Dressing(FIM): 6 Lower Body Dressing (QC): 6 On/Off Footwear (QC): 6 Toileting(FIM): 6 Toileting Hygiene (QC): 6 Transfers (B,C,W/C) (FIM): 6 Toilet/Commode Transfer(FIM): 6 Toilet/Commode Transfer (QC): 6 Shower Transfer(FIM): 5 Additional Goals: 1-Demonstrate ADL Tasks, 2-Verbalize Understanding, 3-Im proveStrength/Shaista 1=Demonstrate adherence to instructed precautions during ADL tasks. 2=Patient will verbalize/demonstrate understanding of assistive devices/modifications for ADL. 3=Patient will improve strength/tolerance for activity to enable patient to perform ADL's. OT Education/Plan Problem List/Assessment Assessment: Decreased Activ Tolerance, Decreased Safety Aware, Impaired Funct Balance, Impaired I ADL's, Impaired Self-Care Skills Discharge Recommendations Plan/Recommendations: Continue POC Treatment Plan/Plan of Care Treatment,Training & Education: Yes Patient would benefit from OT for education, treatment and training to promote independence in ADL's, mobility, safety and/or upper extremity function for ADL's. Plan of Care: ADL Retraining, Functional Mobility, Group Exercise/Act as Ind, UE Funct Exercise/Act Treatment Duration: Nov 28, 2018 Frequency: At least 5 of 7 days/Wk (IRF) Estimated Hrs Per Day: 1.5 hours per day Agreement: Yes Rehab Potential: Good Time/GCodes Start Time: 11:10 Stop Time: 11:40 Billed Treatment Time ADL 15 minutes, 1 unit FA 15 minutes, 1 unit LISETTE MANUEL OT November 15, 2018 11:52
[2018-11-15] MEDS ORDERED: BUME0.5T3 PO (14:01)
[2018-11-15] MEDS ORDERED: HYDR-3812 PO (14:01)
[2018-11-15] MEDS ORDERED: SPIR50TA4 PO (14:01)
--- NOTE | 2018-11-15 14:03 | Physical Therapy Daily Note ---
PT Daily Note-Current Subjective Pt. in bed and states she is settled in and just wants to do bed exercise. Pain Numeric Pain Scale: 5-Moderate Pain Location: Right Location Body Site: Back Pain Description: Stabbing Comment: states she feels like she broke her back all over again this moring getting Mental Status Patient Orientation: Person, Place, Time, Situation Transfers Therapy Code Descriptions/Definitions Functional [place] Measure: 0=Not Assessed/NA 4=Minimal Assistance 1=Total Assistance 5=Supervision or Setup 2=Maximal Assistance 6=Modified [place] 3=Moderate Assistance 7=Complete [place] Therapy Quality Codes: 6 Independent with activity with or without an assistive device 5 Patient requires set up or clean up by helper. Patient completes activity by themselves 4 Supervision or touching assist (CGA). [place] provide cues , steadying assist 3 The helper provides less than half the effort to complete the activity 2 The helper provides more than half the effort to complete the activity 1 Dependent. The helper does all the effort to complete an activity 7 Patient refused to complete or attempt activity 9 The patient did not perform the activity before the current illness or injury 88 Not attempted due to Medical conditions or safety concerns in out bed with good log roll technique, no c/o pain CGA to SBA Gait Training Does the Patient Walk?: Yes Gait Assistive Device: FWW 25 ft x 2 FWW SBA to CGA Treatments toileted with assist only to reach for bath clothe, washed hands at sink SBA Assessment Current Status: Good Progress PT Short Term Goals Short Term Goals Time Frame: Nov 21, 2018 Transfers (B,C,W/C) (FIM): 4 (CGA) Gait (FIM): 4 Gait Distance Comment: 200' Gait Level of Assist: 4 Gait Assistive Device: FWW PT Ignition Mechanic Goals Ignition Mechanic Goals PT Fdc Goals Time Frame: Dec 05, 2018 Transfers (B,C,W/C) (FIM): 5 Sit to Lying (QC): 6 Lying-Sitting on Side/Bed(QC): 6 Sit to Stand (QC): 4 Rollin Roll Left to Right (QC): 6 Chair/Pox-zr-Zkykc Xfer(QC): 4 Car Transfer (QC): 4 Gait (FIM): 5 Distance: 250' Walk 10 feet (QC): 4 Walk 10ft-Uneven Surface(QC): 4 Walk 50ft with 2 Turns (QC): 4 Walk 150 ft (QC): 4 Gait Level of Assist: 5 Gait Assistive Device: FWW Stairs (FIM): 2 # of Steps: 4 1 Step (curb) (QC): 4 4 Steps (QC): 4 Stairs Level Of Assist: 5 PT Plan Treatment/Plan Treatment Plan: Continue Plan of Care Treatment Plan: Bed Mobility, Education, Functional Activity Shaista, Functional Strength, Group Therapy, Gait, Safety, Therapeutic Exercise, Transfers Treatment Duration: Dec 05, 2018 Frequency: At least 5 of 7 days/Wk (IRF) Estimated Hrs Per Day: 1.5 hours per day Patient and/or Family Agrees t: Yes Time/GCodes Time In: 1335 Time Out: 1405 Total Billed Treatment Time: 30 Total Billed Treatment 1,EX15,FA15 G Codes Necessary: ROMERO Robledo PLANT HR MANAGER November 15, 2018 14:03
--- NOTE | 2018-11-15 14:03 | NUR ---
UPDATED MED REC TO THE LIST OF MEDICATIONS THE PATIENT WAS TAKING PRIOR TO DISCHARGE FROM [facility]. NOTE THE FOLLOWING CHANGES WERE MADE WHEN SHE DISCHARGED FROM [facility] TO [facility]IA [facility] THAT ARE NOT CURRENTLY REFLECTED ON THE HOME MED REC: START TAKING: XIFAXAN 550MG BID STOP TAKING: SPIRONOLACTONE 50MG DAILY IT WAS NOTED TO CHANGE HOW YOU TAKE AMLODIPINE 10MG DAILY. HOWEVER THE AMLODIPINE WAS JUST ON THE LIST TWICE AT [facility] AND ONE WAS REMOVED SO NOTHING CHANGED.
[2018-11-15 16:26] VITALS: BP 108/65
--- NOTE | 2018-11-15 21:16 | NUR ---
lactulose non admin per orders. patient has had 4 bms today. LORTAB 5 FOR PAIN C/O 10/28. PATIENT REPOSITIONED TO OFFLOAD PRESSURE ON BUTTOCKS AND HEALS. ALCARE TO HEELS. DR AMSON HERE WITH NO NEW ORDERS. STATES PATIENT DOESN'T NEED ALYVN PLACED. PATIENT IS A/O AND PLEASANT. CONT TO [facility]
--- NOTE | 2018-11-15 21:38 | Wound Care Assessment ---
Wound Care Assessment Date Seen by Provider: November 15, 2018 Time Seen by Provider: 21:10 Chief Complaint History of sacral excoriation. HPI the patient is a pleasant 88 year old female with a history of MASD and excoriation of the sacral area during previous hospitalization in August of this year. This has resolved, her motility and bladder/bowel control is better, and her mobility is improving. I have been asked to review her status, in an abundance of caution, and find no evidence of on-going pressure injury. I see no call for extraordinary measures, and would support routine nursing precautions in regards to skin care. History of cirrhosis, hepatic encephalopathy, L3 compression fracture, Hx of Zoster. Smoking Status: Never a Smoker Recreational Drug Use: No Alcohol Use: Denies Use Review of Systems Pulmonary: No Dyspnea Cardiovascular: No: Chest Pain Exam Vital Signs Date Time Temp Pulse Resp B/P (MAP) Pulse Ox O2 Delivery O2 Flow Rate FiO2 11/15/18 16:26 96.6 73 14 108/65 (79) 98 Room Air Capillary Refill : HEENT: normal ENT inspection Respiratory: no respiratory distress Skin: other (No sign of sacral or heel injury.) Results Laboratory Tests 11/15/18 07:44: White Blood Count 2.6L, Red Blood Count 3.22L, Hemoglobin 9.9L, Hematocrit 30L, Mean Corpuscular Volume 94, Mean Corpuscular Hemoglobin 31, Mean Corpuscular Hemoglobin Concent 33, Red Cell Distribution Width 16.1H, Platelet Count 46L, Mean Platelet Volume 9.7, Sodium Level 139, Potassium Level 4.0, Chloride Level 104, Carbon Dioxide Level 25, Anion Gap 10, Blood Urea Nitrogen 31H, Creatinine 2.27H, Estimat Glomerular Filtration Rate 20, BUN/Creatinine Ratio 14, Glucose Level 115H, Calcium Level 9.1, Corrected Calcium 9.4, Total Bilirubin 1.4H, Aspartate Amino Transf (AST/SGOT) 20, Alanine Aminotransferase (ALT/SGPT) 14, Alkaline Phosphatase 147H, Ammonia 51H, Total Protein 5.6L, Albumin 3.6 Assessment/Plan/Dx 1. Decreased mobility. 2. History of urinary incontinence. Plan: Standard precautions should be adequate as her mobility improves. MIR NEAL MD November 15, 2018 21:38
--- NOTE | 2018-11-15 23:38 | NUR ---
PATIENT UP TO BR, MIN ASSIST SUPINE TO EDGE OF BED. BACK BRACE APPLIED BY STAFF, GAIT BELT FOR SAFETY, FWW. pATIENT AMBULATED TO BR WITH EVEN, STEADY GAIT AND CONTACT GUARD . PATIENT MANEUVERED CLOTHING AND HYGIENE. MIN ASSIST TO STAND FROM TOILET. BACK TO BED. PATIENT IS ALERT AND ORIENTED. PATIENT EXPRESSED SADNESS OF EXTENT OF RECENT HOSPITALIZATIONS. PRESENCE PROVIDED. PATIENT C/O NECK TIGHTNESS. RN ADMINISTERED GENTLY MASSAGE TO LOOSEN STIFFEN MUSCLES. PATIENT STATED SHE FELT MUCH BETTER. DENIES ANY FURTHER C/O . PATIENT CONT TO BE TURNED SIDE TO SIDE AND HEEL PRESSURE OFFLOADED. INCISION WITH NO DRAINAGE NTOED AT THIS TIME. CONT TO MONITOR.
[2018-11-16 04:25] VITALS: BP 106/49
[2018-11-16] MEDS: HYDROcodone/APAP 5 MG/325 MG (LORTAB) TAB PO PRN ×2 (06:43→20:51)
[2018-11-16] MEDS: KCL 10 MEQ TAB (MICRO K) PO SCH (06:45)
[2018-11-16] MEDS: LIPASE/AMYLASE/PROTEASE (PANCRELIPASE) 5,000 UNITS CAP PO SCH ×3 (06:45→17:50)
--- NOTE | 2018-11-16 08:53 | Individualized Plan of Care ---
Individualized Plan of Care Rehab Nursing IPOC Order Admission Date November 14, 2018 at 12:52 Current Orders Orders Admission Order(Inpt,Obs,Sdc) (11/12/18 15:18) Vital Signs: Per Unit Policy ( 08,16,00 (11/12/18 15:18) I&C Tech-Inpt Rehab Con (11/12/18 15:18) Rehab Nursing Orders-Ipoc (11/12/18 15:18) Physical Therapy Rehab Orders (11/12/18 15:18) Occupational Therapy Rehab Ord (11/12/18 15:18) Speech Therapy Rehab Orders (11/12/18 15:18) Intake & Output 06,14,22 (11/12/18 15:18) Precautions (Aru) (11/12/18 15:18) Weekly Weight (Lbs) WEEK (11/12/18 15:18) Rehab-Intensity Of Therapy (11/12/18 15:18) Code/Resuscitation (11/12/18 15:18) Initiate Admission Nursing Pro .admission (11/12/18 15:18) Admission Order(Inpt,Obs,Sdc) (11/14/18 12:50) General/Regular (11/14/18 Lunch) Cbc No Diff (11/15/18 07:00) Ammonia (11/15/18 07:00) Comprehensive Metabolic Panel (11/15/18 07:00) Lactulose Oral Solution (Enulose Oral So (11/14/18 17:00) Lactulose Oral Solution (Enulose Oral So (11/14/18 17:00) Patient Visit (11/14/18 ) Pt Eval Moderate Complexity (11/14/18 ) Gait Training, Ea 15 Min (11/14/18 ) Functional Activities, Ea 15 (11/14/18 ) Hydrocodone/Apap 5/325 Tablet (Lortab 5 (11/14/18 14:30) Potassium Chloride (Tablet) (Klor Con Ta (11/15/18 07:00) Allopurinol Tablet (Zyloprim Tablet) (11/15/18 09:00) Bumetanide Tablet (Bumex Tablet) (11/15/18 09:00) Calcium Carbonate W/Vitamin D3 (Calcarb (11/14/18 21:00) Amlodipine Tablet (Norvasc Tablet) (11/15/18 09:00) Lipase/Amylase/Protease Caps (Pancrelipa (11/14/18 17:00) Lipase/Amylase/Protease Caps (Pancrelipa (11/14/18 15:00) Metoprolol Succinate (Xl) Tab (Toprol Xl (11/15/18 09:00) Pantoprazole Tablet (Protonix Tablet) (11/15/18 09:00) Rifaximin Tablet (Xifaxan Tablet) (11/14/18 21:00) Therapeutic Multivitamin Tab (Vitamins, (11/14/18 21:00) Ambulate 08,12,20 (11/14/18 15:51) Sequential Compression Device 08,20 (11/14/18 15:51) Dvt/Vte Risk - Notifiy Physici 08 (11/14/18 15:51) Patient Visit (11/15/18 ) Speech Sound Lang Comp (11/15/18 ) Consult Wound Care Physician (11/15/18 13:34) Patient Visit (11/15/18 ) Gait Training, Ea 15 Min (11/15/18 ) Exercise Therap, Ea 15 Min (11/15/18 ) Functional Activities, Ea 15 (11/15/18 ) Advanced Wound Care Dressing O DAILY (11/15/18 21:28) Patient Visit (11/16/18 ) Gait Training, Ea 15 Min (11/16/18 ) Exercise Therap, Ea 15 Min (11/16/18 ) Functional Activities, Ea 15 (11/16/18 ) Therapeutic, Group (11/16/18 ) Rehab Nursing Orders: Ongoing Assess. of Function Status, Bladder Management, Bladder Scan, Bladder Training, Bowel Management, Bowel Training, Disease Management & Educaiton, DVT Prophylaxis, Fall Prevention, Fluid/Electro lyte/Nutrition Mgmt, Management of Risks & Complications, Management of Skin Intergrity, Nutrition Management, Pain Management, Patient/Family Support, Safety Management Intensity of Therapy to be met Patient to be seen: Min.3h per day/5 of 7d PT IPOC Problem List: Activity Tolerance, Functional Strength, Safety, Balance, Gait, Transfer, Bed Mobility, ROM Treatment Plan: Continue Plan of Care Bed Mobility, Education, Functional Activity Shaista, Functional Strength, Group Therapy, Gait, Safety, Therapeutic Exercise, Transfers Treatment Duration: Dec 05, 2018 Frequency: At least 5 of 7 days/Wk (IRF) Estimated Hrs Per Day: 1.5 hours per day OT IPOC Problems: Decreased Activ Tolerance, Decreased Safety Aware, Impaired Funct Balance, Impaired I ADL's, Impaired Self-Care Skills OT Treatment, Training and Edu: Yes Plan of Care: ADL Retraining, Functional Mobility, Group Exercise/Act as Ind, UE Funct Exercise/Act Treatment Duration: Nov 28, 2018 Frequency: At least 5 of 7 days/Wk (IRF) Estimated Hrs Per Day: 1.[address] IPOC Speech Therapy Treatment Plan: Discontinue ST Treatment Duration: November 15, 2018 Frequency: 1 time per week Estimated Hrs Per Day: .25 hour per day I&C Tech/Case Mgmt I&C Tech/Case Managemen: Discharge Planning Dietitian/Machine Setup Operator Dietitian/Machine Setup Operator to monitor nutritional status and make changes and/or recommendations as needed and work with speech pathology on dietary upgrades as the occur. Physician IPOC Medical Issues being managed closely and that require the 24 hour availability of a physician: End stage cirrhosis and pancytopenia will require close monitoring for hepatic encephalopathy and bleeding risks Medical Issues: Bowel/Bladder Function, DVT Prophylaxis, Falls Precautions, Fluid/Electrolyte/Nutrition Balance, Pain Management Brief Synthesis of Preadmission Screen, Post-Admission Evaluation, and Therapy Evaluations: PT will focus on ambulation with pain and use of walker and focus on fall prevention in order to safely return home OT will assist ADL independence Medical Prognosis: Good Anticipated Length of Stay: 7 days YOLANDA OLIVA DO November 16, 2018 08:53
--- NOTE | 2018-11-16 08:53 | PM&R Progress Note ---
Subjective HPI/CC On Admission Date Seen by Provider: November 16, 2018 Time Seen by Provider: 08:45 CC: Severe back pain with debility from L3 compression fractures s/p kyphoplasty 11/13/18 HPI: This is an 88yoWF clinic patient of Dr Nelson in [place] who is known to [place] and [place] due to recent admit for debility following new onset hepatic encephalopathy requiring admission to [facility] in [place] and requiring a stay in IRF prior to returning home with family very involved in her care who presents today after DC from [facility] after admitted on 11/09/18 following severe back pain after bending over and suffering an L3 compression fracture. Due to her other severe co-morbidities which include liver cirrhosis end stage along with leukopenia and thrombocytopenia (s/p bone marrow in the past by Hematology without source found) surgery was avoided so she was placed on pain meds and PT ordered but she continued to have such severe back pain she required a kyphoplasty which was performed yesterday without complications. Lactulose is ordered along with Rifaximin to minimize ammonia level to prevent confusion from hepatic encephalopathy. She has chronic upper back pain from remote history of herpes zoster and xrays revealed multiple old compression fractures of the spine. PLOF was independent with use of walker and ADL's were supervised by family members. She will return home with her family at DC from IRF. Subjective/Events-last exam Hydrocodone use is minimal Standby assist maintained Manages her own back brace Doesn't have the financial resources for admission to assisted living but she would actually meet that criteria for that assistance DC set for 11/24/18 Disposition pending Lactulose taken and bowels move anywhere from 3-4 times a day to decrease ammonia level to prevent hepatic encephalopathy Denies any significant issues but the pain is at times difficult but pain medication helps. Conferred with RN. Reviewed therapy notes. Review of Systems General: Fatigue Musculoskeletal: back pain Objective Exam Vital Signs Vital Signs Date Time Temp Pulse Resp B/P (MAP) Pulse Ox O2 Delivery O2 Flow Rate FiO2 11/16/18 17:12 99.0 72 18 125/62 (83) 98 Room Air Capillary Refill : General Appearance: No Apparent Distress, WD/WN, Chronically ill, Thin HEENT: PERRL/EOMI, Normal ENT Inspection, Pharynx Normal, Moist Mucous Membranes Neck: Full Range of Motion, Normal Inspection, Non Tender, Supple Respiratory: Chest Non Tender, Lungs Clear, Normal Breath Sounds, No Accessory Muscle Use, No Respiratory Distress Cardiovascular: Regular Rate, Rhythm, No Gallop, No JVD, Systolic Murmur Gastrointestinal: Normal Bowel Sounds, No Organomegaly, No Pulsatile Mass, Non Tender, Soft Back: Normal Inspection, No CVA Tenderness, Decreased Range of Motion, Muscle Spasm, Vertebral Tenderness Extremity: Normal Capillary Refill, Normal Inspection, Normal Range of Motion, Non Tender, No Calf Tenderness, Pedal Edema Neurologic/Psychiatric: Alert, Oriented x3, No Motor/Sensory Deficits (decreased ROM lower legs from back pain), Normal Mood/Affect, apparel cutter II-XII Norm as Tested, Other (subtle poor recall) Skin: Normal Color, Warm/Dry Lymphatic: No Adenopathy Results/Procedures Lab Patient resulted labs reviewed. FIM Transfers Therapy Code Descriptions/Definitions Functional [place] Measure: 0=Not Assessed/NA 4=Minimal Assistance 1=Total Assistance 5=Supervision or Setup 2=Maximal Assistance 6=Modified [place] 3=Moderate Assistance 7=Complete [place] Therapy Quality Codes: 6 Independent with activity with or without an assistive device 5 Patient requires set up or clean up by helper. Patient completes activity by themselves 4 Supervision or touching assist (CGA). [place] provide cues , steadying assist 3 The helper provides less than half the effort to complete the activity 2 The helper provides more than half the effort to complete the activity 1 Dependent. The helper does all the effort to complete an activity 7 Patient refused to complete or attempt activity 9 The patient did not perform the activity before the current illness or injury 88 Not attempted due to Medical conditions or safety concerns Transfers (B, C, W/C) (FIM): 4 (intermitted CGA for safety/ balance ) Scootin Rollin Supine to/from Sit: 6 Sit to/from Stand: 6 Sit to Lying (QC): 3 Sit to Stand (QC): 4 Chair/Pjn-vc-Vqdqd Xfer(QC): 4 Car Transfer (QC): 2 Gait Training Does the Patient Walk?: Yes Gait (FIM): 5 Distance (FIM): 3=150 ft (160x3) Walk 10 feet (QC): 4 Walk 50 ft with 2 Turns(QC): 4 Walk 150 ft (QC): 4 Walking 10ft/uneven surface-QC: 4 Gait Level of Assist: 5 Gait Persons Needed: 1 Gait Assistive Device: FWW Wheelchair Training Does the Pt Use a Wheelchair?: No Stair Training Stairs (FIM): 1 #of Steps: 1 1 Step (curb) (QC): 4 Level of Assist: 4 Mental Status/Objective Comprehension: 7 Expression: 7 Social Interaction: 7 Problem Solvin Memory: 7 ADL-Treatment Feedin Eating (QC): 6 Groomin (CGA while stanidng at sink to brush teeth. noted pt required set up of items secondary to decrease stregnth in Gary hands to open containers. ) Oral Hygiene (QC): 4 Bathin (pt required CGA while stnaidng. pt education on use of AE for LB bathing/ maintaining precautions. pt demo ability to use LHS correctly. ) Bathing Location: L Arm, R Arm, L Upper Leg, R Upper Leg, L Lower Leg (including foot), R Lower Leg (including foot), Chest, Abdomen, Buttocks, Perineal Area Shower/Bathe Self (QC): 4 Upper Extremity Dressin (pt education on UB dressing while maintaining back precuations. pt demo understanding. pt required TA for donning/ doffing brace ) Upper Body Dressing (QC): 4 Lower Extremity Dressin (pt education on donning/ donning LB clothing with use of AE (boatbuilder apprentice wood, sockaid, dressing stick) pt demo ability to doff [place] socks and requird assist with donning socks. pt attempt to use sock aid and requred TA with demo. pt then dem o ability to posistion LE in figure four positioning and demo to louie socks with CGA. pt required total assist to thread [place] LE in underpants. pt demo ability to pull up pants with CGA. ) Lower Body Dressing (QC): 3 On/Off Footwear (QC): 4 Toiletin (CGA while standing to pull up/ down pants. noted pt required MAX cueing to demo how to pull doen pants iwth brace. pt demo correctly. ) Toileting Hygiene (QC): 4 (pt demo ability to perform 3/3 toileting task with intermitted CGA for safety/ balance. ) Toilet/Commode Transfer: 4 Toilet Transfer (QC): 4 Assessment/Plan Assessment and Plan Assess & Plan/Chief Complaint Assessment: Severe back pain from L3 compression fracture s/p kyphoplasty POD # 3 h/o hepatic encephalopathy now on Rifaximin and Lactulose CRI stable Pancytopenia Hematology consult reviewed previous bone marrow procedure without answer to source Anemia of renal disease Leukopenia chronic Advanced age GI Bleed in past Fall risk DNR Right flank post herpetic neuralgia Multiple spine compression fractures in the past on scans Plan: Home meds Lactulose QID to attain 4 BM's and will need nurse to train on this requirement in order to return home Intensive therapies to return to independent living Prognosis guarded Reviewed Kyphoplasty note from [facility] Pain management of post herpetic neuralgia and compression fracture Check labs prn DC home at completion of IRF protocols (1) Compression fracture of L3 vertebra (2) Portal vein thrombosis (3) Hepatic encephalopathy (4) Anemia (5) Back pain (6) Neutropenia (7) Post herpetic neuralgia (8) Renal insufficiency (9) Thrombocytopenia (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
[2018-11-16] MEDS: BUMETANIDE 1 MG (BUMEX) TAB PO SCH (09:08)
[2018-11-16] MEDS: LACTULOSE SYRUP 10GM/15ML (ENULOSE) 30ML UDC PO SCH ×4 (09:08→20:45)
[2018-11-16] MEDS: CALCIUM CARB + VIT D 600 MG (CALCARB + D) TAB PO SCH ×2 (09:08→20:43)
[2018-11-16] MEDS: PANTOPRAZOLE 40 MG (PROTONIX) TAB PO SCH (09:11)
[2018-11-16] MEDS: RIFAXIMIN 550 MG TABLET (XIFAXAN) PO SCH ×2 (09:11→20:44)
[2018-11-16] MEDS: MULTIVIT W/MINERALS TAB (THERAGRAN M) PO SCH ×2 (09:11→20:43)
[2018-11-16] MEDS: ALLOPURINOL 100 MG (ZYLOPRIM) TAB PO SCH (09:11)
[2018-11-16] MEDS: meTOproloL SUCCINATE 50 MG (TOPROL XL) TAB PO SCH (09:11)
[2018-11-16] MEDS: amLODIPine 10 MG (NORVASC) TAB PO SCH (09:17)
--- NOTE | 2018-11-16 10:22 | Occupational Ther Daily Note ---
OT Current Status-Daily Note Subjective pt agreed to OT TX session with focus on increasing independence with ADLs. functional transfers, and donning/ doff of back brace. Mental Status/Objective Patient Orientation: Normal For Age Therapy Code Descriptions/Definitions Functional [place] Measure: 0=Not Assessed/NA 4=Minimal Assistance 1=Total Assistance 5=Supervision or Setup 2=Maximal Assistance 6=Modified [place] 3=Moderate Assistance 7=Complete [place] ADL-Treatment Therapy Code Descriptions/Definitions Functional [place] Measure: 0=Not Assessed/NA 4=Minimal Assistance 1=Total Assistance 5=Supervision or Setup 2=Maximal Assistance 6=Modified [place] 3=Moderate Assistance 7=Complete [place] Therapy Quality Codes: 6 Independent with activity with or without an assistive device 5 Patient requires set up or clean up by helper. Patient completes activity by themselves 4 Supervision or touching assist (CGA). [place] provide cues , steadying assist 3 The helper provides less than half the effort to complete the activity 2 The helper provides more than half the effort to complete the activity 1 Dependent. The helper does all the effort to complete an activity 7 Patient refused to complete or attempt activity 9 The patient did not perform the activity before the current illness or injury 88 Not attempted due to Medical conditions or safety concerns Eating (FIM): 6 (dentures) Eating (QC): 6 Grooming (FIM): 6 (standing at sink. use of finish saw operator when item dropped on floor to mainain back precautions. ) Oral Hygiene (QC): 6 Bathing (FIM): 5 (VC for back precation while in shower. pt demo good use of AE (LHS) while in shower. ) Bathing Location: L Arm, R Arm, L Upper Leg, R Upper Leg, L Lower Leg (including foot), R Lower Leg (including foot), Chest, Abdomen, Buttocks, Perineal Area Shower/Bathe Self (QC): 4 Upper Body (FIM): 5 (VC for precautions. ) Upper Body Dressing (QC): 5 Lower Body Dressing (FIM): 5 (SBA for safety/ balance. pt dmeo baility to louie Gary socks, underpants, and pants. ) Lower Body Dressing (QC): 4 On/Off Footwear (QC): 5 Toileting (FIM): 5 (SBA fro safety/ balance. ) Toileting Hygiene (QC): 5 Transfers (B, C, W/C) (FIM): 5 (use of RW. superivison for safety/ balance. ) Toilet/Commode Transfer (FIM): 5 Toilet Transfer (QC): 5 Shower Transfer(FIM): 5 pt stated ángela precautions correctly. pt required MIN VC reminders of precautions during ADLs. pt demo ability to louie. doff back brace 3 times with SBA required VC for proper positioning. Education OT Patient Education: Correct positioning, Instructions don/doff splint/brace, Modified ADL techniques, Progress toward Goal/Update tx plan, Purpose of tx/functional activities, Reviewed precautions, Safety issues, Transfer techniques, Use of adapted equipment Teaching Recipient: Patient Teaching Methods: Demonstration, Discussion Response to Teaching: Verbalize Understanding, Return Demonstration OT Short Term Goals Short Term Goals Transfers (B,C,W/C) (FIM): 4 (CGA) 1=Demonstrate adherence to instructed precautions during ADL tasks. 2=Patient will verbalize/demonstrate understanding of assistive devices/modifications for ADL. 3=Patient will improve strength/tolerance for activity to enable patient to perform ADL's. OT Land Appraiser Goals Land Appraiser Goals Time Frame: Nov 28, 2018 Eating (FIM): 6 (MET 11/15/18) Eating (QC): 6 (MET 11/15/18) Groomin (MET 11/16/18) Oral Hygiene (QC): 6 (MET 11/16/18) Bathing(FIM): 5 (MET 11/16/18) Shower/Bathe Self (QC): 5 Upper Body Dressing(FIM): 6 Upper Body Dressing (QC): 6 Lower Body Dressing(FIM): 6 Lower Body Dressing (QC): 6 On/Off Footwear (QC): 6 Toileting(FIM): 6 Toileting Hygiene (QC): 6 Transfers (B,C,W/C) (FIM): 6 Toilet/Commode Transfer(FIM): 6 Toilet/Commode Transfer (QC): 6 Shower Transfer(FIM): 5 Additional Goals: 1-Demonstrate ADL Tasks, 2-Verbalize Understanding, 3- ImproveStrength/Shaista 1=Demonstrate adherence to instructed precautions during ADL tasks. 2=Patient will verbalize/demonstrate understanding of assistive devices/modifications for ADL. 3=Patient will improve strength/tolerance for activity to enable patient to perform ADL's. OT Education/Plan Problem List/Assessment Assessment: Decreased Activ Tolerance, Impaired Funct Balance, Impaired I ADL's Discharge Recommendations Plan/Recommendations: Continue POC Target Placement home Treatment Plan/Plan of Care Treatment,Training & Education: Yes Patient would benefit from OT for education, treatment and training to promote independence in ADL's, mobility, safety and/or upper extremity function for ADL's. Plan of Care: ADL Retraining, Functional Mobility, Group Exercise/Act as Ind, UE Funct Exercise/Act Treatment Duration: Nov 28, 2018 Frequency: At least 5 of 7 days/Wk (IRF) Estimated Hrs Per Day: 1.5 hours per day Agreement: Yes Rehab Potential: Good Time/GCodes Start Time: 08:00 Stop Time: 09:00 Billed Treatment Time ADL 60 minutes, 4 units LISETTE MANUEL OT November 16, 2018 10:22
--- NOTE | 2018-11-16 11:03 | Physical Therapy Daily Note ---
PT Daily Note-Current Subjective Pt. agrees to Rx. States she "just wants to live here from now on" Pt. says she might be open to help at home but she cant afford it. States she is not open to living any where but home but does have some worries and reservations about being home alone. States her family has a special needs adult child to care for and they cant really help her. Pain Location: No Pain Reported Mental Status Patient Orientation: Person, Place, Time, Situation Attachments: Other-See Comments (back brace) Transfers Therapy Code Descriptions/Definitions Functional [place] Measure: 0=Not Assessed/NA 4=Minimal Assistance 1=Total Assistance 5=Supervision or Setup 2=Maximal Assistance 6=Modified [place] 3=Moderate Assistance 7=Complete [place] Therapy Quality Codes: 6 Independent with activity with or without an assistive device 5 Patient requires set up or clean up by helper. Patient completes activity by themselves 4 Supervision or touching assist (CGA). [place] provide cues , steadying assist 3 The helper provides less than half the effort to complete the activity 2 The helper provides more than half the effort to complete the activity 1 Dependent. The helper does all the effort to complete an activity 7 Patient refused to complete or attempt activity 9 The patient did not perform the activity before the current illness or injury 88 Not attempted due to Medical conditions or safety concerns Transfers (B, C, W/C) (FIM): 5 Scootin Rollin Supine to/from Sit: 5 Sit to/from Stand: 6 instructed in log roll and slow movement Gait Training Does the Patient Walk?: Yes Gait (FIM): 5 Distance (FIM): 3=150 ft (170x3) Gait Level of Assist: 6 Gait Persons Needed: 1 Gait Assistive Device: FWW slow, no LOB Exercises Supine Ex: Ankle pumps, Quad Set, Rolling, Glut sets, Heel Slides, Short Arc Quads, Scooting, Straight leg raise, Hip abd/add Supine Reps: 15 Seated Therapy Exercises: Ankle pumps, Sit to stand, Long arc quads, Hip flexion, Hip abd/add Seated Reps: 15 Standing: Hip Abduction, Hamstring curls, Heel/toe raises, Marching, Mini squats, Sit to Stand Standing Reps: 15 Assessment Current Status: Good Progress PT Short Term Goals Short Term Goals Time Frame: Nov 21, 2018 Transfers (B,C,W/C) (FIM): 4 (CGA) Gait (FIM): 4 Gait Distance Comment: 200' Gait Level of Assist: 4 Gait Assistive Device: FWW PT Highway Truck Driver Goals Assisted Goals PT Assisted Goals Time Frame: Dec 05, 2018 Transfers (B,C,W/C) (FIM): 5 Sit to Lying (QC): 6 Lying-Sitting on Side/Bed(QC): 6 Sit to Stand (QC): 4 Rollin Roll Left to Right (QC): 6 Chair/Fbd-pa-Qojyd Xfer(QC): 4 Car Transfer (QC): 4 Gait (FIM): 5 Distance: 250' Walk 10 feet (QC): 4 Walk 10ft-Uneven Surface(QC): 4 Walk 50ft with 2 Turns (QC): 4 Walk 150 ft (QC): 4 Gait Level of Assist: 5 Gait Assistive Device: FWW Stairs (FIM): 2 # of Steps: 4 1 Step (curb) (QC): 4 4 Steps (QC): 4 Stairs Level Of Assist: 5 PT Plan Treatment/Plan Treatment Plan: Continue Plan of Care Treatment Plan: Bed Mobility, Education, Functional Activity Shaista, Functional Strength, Group Therapy, Gait, Safety, Therapeutic Exercise, Transfers Treatment Duration: Dec 05, 2018 Frequency: At least 5 of 7 days/Wk (IRF) Estimated Hrs Per Day: 1.5 hours per day Patient and/or Family Agrees t: Yes Safety Risks/Education Patient Education: Gait Training, Transfer Techniques, Correct Positioning, Disease Process, Safety Issues Teaching Recipient: Patient Teaching Methods: Demonstration, Discussion Response to Teaching: Verbalize Understanding, Return Demonstration, Reinforcement Needed Time/GCodes Time In: 1005 Time Out: 1105 Total Billed Treatment Time: 60 Total Billed Treatment 1,GT25m,EX20m,FA15m G Codes Necessary: ROMERO Robledo MOTOR EXPRESS CLERK November 16, 2018 11:03
--- NOTE | 2018-11-16 15:06 | Therapy Group Daily Note ---
Therapy Daily Group Note Patient Education Topic Fall Prevention, Other List Below (balance) Exercises LE Seated Exercise, Sit to/from Stand, Other (core) Session Ratio (pt:therapist): 4:1 Goal of Session: Other (list) (balance and fall prevention strategies) Goal Met for this Session: Yes Pt Benefit of Group: Contributions to Others, Increased Functional Safety, Increased Functional Strength, Recognition of Peers, Socialization Other/Notes Pt. participated in group PT OT session. Pt. ambulated to from group with FWW SBA . Pts. shared names, place and their 1st car/driving experience. Focus of education this date : balance, possible causes for LOB, fall prevention as well as exercises to improve strength and balance. Pts. shared their personal experiences and strategies to improve safety at home. Seated exercises as stated above. Pt. to bed after Rx with SBA for all. In bed, olivo at hand Start Time: 13:00 Stop Time: 14:15 Total Billed Treatment Time: 75 Total Billed Treatment 1,GRP ROMERO NIÑO RADIOPHONE OPERATOR November 16, 2018 15:05
--- NOTE | 2018-11-16 15:25 | NUR ---
RECREATION MANAGER met with patient and family to review team conference summary. As patient is performing all activities with standby assistance; however, can make further gains towards mod I as she will be home alone, team has recommended discharge on 66. Due to history of falls, RECREATION MANAGER reviewed options of assisted living versus private duty caregiving services, family believes they'll be able to check on patient as frequently as needed to ensure her safety. Patient and family are agreeable to discharge date wish to resume [facility] health services, as recommended for PT OT and RN.
[2018-11-16 17:12] VITALS: BP 125/62
[2018-11-17] MEDS: HYDROcodone/APAP 5 MG/325 MG (LORTAB) TAB PO PRN ×3 (04:04→18:07)
[2018-11-17 05:10] VITALS: BP 110/72
[2018-11-17] MEDS: KCL 10 MEQ TAB (MICRO K) PO SCH (06:15)
[2018-11-17] MEDS: LIPASE/AMYLASE/PROTEASE (PANCRELIPASE) 5,000 UNITS CAP PO SCH ×3 (06:15→17:22)
--- NOTE | 2018-11-17 08:07 | PM&R Progress Note ---
Subjective HPI/CC On Admission Date Seen by Provider: November 17, 2018 Time Seen by Provider: 08:15 CC: Severe back pain with debility from L3 compression fractures s/p kyphoplasty 11/13/18 HPI: This is an 88yoWF clinic patient of Dr Nelson in [place] who is known to [place] and IRF due to recent admit for debility following new onset hepatic encephalopathy requiring admission to [facility] in [place] and requiring a stay in IRF prior to returning home with family very involved in her care who presents today after DC from [facility] after admitted on 11/09/18 following severe back pain after bending over and suffering an L3 compression fracture. Due to her other severe co-morbidities which include liver cirrhosis end stage along with leukopenia and thrombocytopenia (s/p bone marrow in the past by Hematology without source found) surgery was avoided so she was placed on pain meds and PT ordered but she continued to have such severe back pain she required a kyphoplasty which was performed yesterday without complications. Lactulose is ordered along with Rifaximin to minimize ammonia level to prevent confusion from hepatic encephalopathy. She has chronic upper back pain from remote history of herpes zoster and xrays revealed multiple old compression fractures of the spine. PLOF was independent with use of walker and ADL's were supervised by family members. She will return home with her family at DC from [facility]. Subjective/Events-last exam Had 5 bowel movements yesterday with the Lactulose and maintained on Rifaximin Pain meds are given on a sparingly basis Denies any significant problems Participating in therapy Definitely a fall risk but will try everything we can to prevent falls with the use of a walker Conferred with RN. Reviewed therapy notes. Review of Systems General: Fatigue Musculoskeletal: back pain Objective Exam Vital Signs Vital Signs Date Time Temp Pulse Resp B/P (MAP) Pulse Ox O2 Delivery O2 Flow Rate FiO2 11/17/18 20:24 Room Air 11/17/18 15:28 96.9 73 16 108/57 (74) 97 Capillary Refill : General Appearance: No Apparent Distress, WD/WN, Chronically ill, Thin HEENT: PERRL/EOMI, Normal ENT Inspection, Pharynx Normal, Moist Mucous Membranes Neck: Full Range of Motion, Normal Inspection, Non Tender, Supple Respiratory: Chest Non Tender, Lungs Clear, Normal Breath Sounds, No Accessory Muscle Use, No Respiratory Distress Cardiovascular: Regular Rate, Rhythm, No Gallop, No JVD, Systolic Murmur Gastrointestinal: Normal Bowel Sounds, No Organomegaly, No Pulsatile Mass, Non Tender, Soft Back: Normal Inspection, No CVA Tenderness, Decreased Range of Motion, Muscle Spasm, Vertebral Tenderness Extremity: Normal Capillary Refill, Normal Inspection, Normal Range of Motion, Non Tender, No Calf Tenderness, Pedal Edema Neurologic/Psychiatric: Alert, Oriented x3, No Motor/Sensory Deficits (decreased ROM lower legs from back pain), Normal Mood/Affect, manager endoscopy II-XII Norm a s Tested, Other (subtle poor recall) Skin: Normal Color, Warm/Dry Lymphatic: No Adenopathy Results/Procedures Lab Patient resulted labs reviewed. FIM Transfers Therapy Code Descriptions/Definitions Functional [place] Measure: 0=Not Assessed/NA 4=Minimal Assistance 1=Total Assistance 5=Supervision or Setup 2=Maximal Assistance 6=Modified [place] 3=Moderate Assistance 7=Complete [place] Therapy Quality Codes: 6 Independent with activity with or without an assistive device 5 Patient requires set up or clean up by helper. Patient completes activity by themselves 4 Supervision or touching assist (CGA). [place] provide cues , steadying assist 3 The helper provides less than half the effort to complete the activity 2 The helper provides more than half the effort to complete the activity 1 Dependent. The helper does all the effort to complete an activity 7 Patient refused to complete or attempt activity 9 The patient did not perform the activity before the current illness or injury 88 Not attempted due to Medical conditions or safety concerns Transfers (B, C, W/C) (FIM): 5 Scootin Rollin Supine to/from Sit: 5 Sit to/from Stand: 6 Sit to Lying (QC): 3 Sit to Stand (QC): 4 Chair/Hsk-hs-Gyuch Xfer(QC): 4 Car Transfer (QC): 2 Gait Training Does the Patient Walk?: Yes Gait (FIM): 5 Distance (FIM): 3=150 ft (170x3) Walk 10 feet (QC): 4 Walk 50 ft with 2 Turns(QC): 4 Walk 150 ft (QC): 4 Walking 10ft/uneven surface-QC: 4 Gait Level of Assist: 6 Gait Persons Needed: 1 Gait Assistive Device: FWW Wheelchair Training Does the Pt Use a Wheelchair?: No Stair Training Stairs (FIM): 1 #of Steps: 1 1 Step (curb) (QC): 4 Level of Assist: 4 Mental Status/Objective Comprehension: 7 Expression: 7 Social Interaction: 7 Problem Solvin Memory: 7 ADL-Treatment Feedin (dentures) Eating (QC): 6 Groomin (standing at sink. use of radial saw operator when item dropped on floor to mainain back precautions. ) Oral Hygiene (QC): 6 Bathin (VC for back precation while in shower. pt demo good use of AE (LHS) while in shower. ) Bathing Location: L Arm, R Arm, L Upper Leg, R Upper Leg, L Lower Leg (including foot), R Lower Leg (including foot), Chest, Abdomen, Buttocks, Perineal Area Shower/Bathe Self (QC): 4 Upper Extremity Dressin (VC for precautions. ) Upper Body Dressing (QC): 5 Lower Extremity Dressin (SBA for safety/ balance. pt dmeo baility to louie Gary socks, underpants, and pants. ) Lower Body Dressing (QC): 4 On/Off Footwear (QC): 5 Toiletin (SBA fro safety/ balance. ) Toileting Hygiene (QC): 5 Toilet/Commode Transfer: 5 Toilet Transfer (QC): 5 Shower: 5 Assessment/Plan Assessment and Plan Assess & Plan/Chief Complaint Assessment: Severe back pain from L3 compression fracture s/p kyphoplasty POD # 4 h/o hepatic encephalopathy now on Rifaximin and Lactulose CRI stable Pancytopenia Hematology consult reviewed previous bone marrow procedure without answer to source Anemia of renal disease Leukopenia chronic Advanced age GI Bleed in past Fall risk DNR Right flank post herpetic neuralgia Multiple spine compression fractures in the past on scans Plan: Home meds Lactulose QID to attain 4 BM's and will need nurse to train on this requirement in order to return home Intensive therapies to return to independent living Prognosis guarded Reviewed Kyphoplasty note from [facility] Pain management of post herpetic neuralgia and compression fracture Check labs prn DC home at completion of IRF protocols (1) Compression fracture of L3 vertebra (2) Portal vein thrombosis (3) Hepatic encephalopathy (4) Anemia (5) Back pain (6) Neutropenia (7) Post herpetic neuralgia (8) Renal insufficiency (9) Thrombocytopenia (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
[2018-11-17] MEDS: MULTIVIT W/MINERALS TAB (THERAGRAN M) PO SCH ×2 (08:33→20:22)
[2018-11-17] MEDS: BUMETANIDE 1 MG (BUMEX) TAB PO SCH (08:33)
[2018-11-17] MEDS: ALLOPURINOL 100 MG (ZYLOPRIM) TAB PO SCH (08:34)
[2018-11-17] MEDS: amLODIPine 10 MG (NORVASC) TAB PO SCH (08:34)
[2018-11-17] MEDS: PANTOPRAZOLE 40 MG (PROTONIX) TAB PO SCH (08:34)
[2018-11-17] MEDS: RIFAXIMIN 550 MG TABLET (XIFAXAN) PO SCH ×2 (08:34→20:22)
[2018-11-17] MEDS: CALCIUM CARB + VIT D 600 MG (CALCARB + D) TAB PO SCH ×2 (08:34→20:22)
[2018-11-17] MEDS: meTOproloL SUCCINATE 50 MG (TOPROL XL) TAB PO SCH (08:34)
[2018-11-17] MEDS: LACTULOSE SYRUP 10GM/15ML (ENULOSE) 30ML UDC PO SCH ×5 (08:35→20:22)
--- NOTE | 2018-11-17 10:00 | Occupational Ther Daily Note ---
OT Current Status-Daily Note Subjective pt sitting in recliner chair upon OT arrival. pt agreed to OT TX session with focus on increasing independence with ADLs, increase functional use of slitter helper, and overall activity tolerance for daily activities. Mental Status/Objective Patient Orientation: Normal For Age Therapy Code Descriptions/Definitions Functional [place] Measure: 0=Not Assessed/NA 4=Minimal Assistance 1=Total Assistance 5=Supervision or Setup 2=Maximal Assistance 6=Modified [place] 3=Moderate Assistance 7=Complete [place] ADL-Treatment Therapy Code Descriptions/Definitions Functional [place] Measure: 0=Not Assessed/NA 4=Minimal Assistance 1=Total Assistance 5=Supervision or Setup 2=Maximal Assistance 6=Modified [place] 3=Moderate Assistance 7=Complete [place] Therapy Quality Codes: 6 Independent with activity with or without an assistive device 5 Patient requires set up or clean up by helper. Patient completes activity by themselves 4 Supervision or touching assist (CGA). [place] provide cues , steadying assist 3 The helper provides less than half the effort to complete the activity 2 The helper provides more than half the effort to complete the activity 1 Dependent. The helper does all the effort to complete an activity 7 Patient refused to complete or attempt activity 9 The patient did not perform the activity before the current illness or injury 88 Not attempted due to Medical conditions or safety concerns Grooming (FIM): 6 (standing at sink MOD I for use of RW to maintian balance. safety conerns for back precuations. ) Oral Hygiene (QC): 6 Upper Body (FIM): 5 (set up of clothing. pt demo decrease safety/ balance while gathering cothing from closet. pt eduation of opening/ closing closet while using RW. pt demo with CGA fro safety/ balance) Upper Body Dressing (QC): 4 Lower Body Dressing (FIM): 5 (SBA fro safety/ balacne while stanidng to pull up/ down pants. ) Lower Body Dressing (QC): 4 On/Off Footwear (QC): 5 Toileting (FIM): 5 (SBA fro safety/ balacne) Toileting Hygiene (QC): 4 Transfers (B, C, W/C) (FIM): 5 (SBA while using RW for safety. baalcne. noted decrease safety when opening./ clothing doors ) Toilet/Commode Transfer (FIM): 5 Toilet Transfer (QC): 4 Other Treatment pt demo ability to perform functional mobility to TX gym 75 ft with Supervision for safety/ balance. noted decrease safety while opening/ closing door. pt education on proper positioning./ techniques while performing task. pt sahil UBE with MIN resistance for 15 minutes with no rest break to increase activity tolerance for daily activities. pt education on use of slitter helper to pick items from floor to maintain back precautions/ pt demo ability to ambulate 250ft picking items (16items) from floor using slitter helper and RW with SBA for safety/ balance. pt education on proper positioning. pt demo understanding. pt then demo ability to maintain static standing balance while performing tablet op activity to increase standing tolerance for daily activities. pt them ambulated back to room with SBA using RW. pt requested to use toileting. pt verbalized understand ing to use call light when finish. NSG aware pt was in bathroom. Education OT Patient Education: Energy conservation, Modified ADL techniques, Progress toward Goal/Update tx plan, Purpose of tx/functional activities, Reviewed precautions, Safety issues, Transfer techniques, Use of adapted equipment Teaching Recipient: Patient, Family Teaching Methods: Demonstration, Discussion Response to Teaching: Verbalize Understanding, Return Demonstration OT Short Term Goals Short Term Goals Transfers (B,C,W/C) (FIM): 4 (CGA) 1=Demonstrate adherence to instructed precautions during ADL tasks. 2=Patient will verbalize/demonstrate understanding of assistive devices/modifications for ADL. 3=Patient will improve strength/tolerance for activity to enable patient to perform ADL's. OT Usp Goals Parts Finisher Goals Time Frame: Nov 28, 2018 Eating (FIM): 6 (MET 11/15/18) Eating (QC): 6 (MET 11/15/18) Groomin (MET 11/16/18) Oral Hygiene (QC): 6 (MET 11/16/18) Bathing(FIM): 5 (MET 11/16/18) Shower/Bathe Self (QC): 5 Upper Body Dressing(FIM): 6 Upper Body Dressing (QC): 6 Lower Body Dressing(FIM): 6 Lower Body Dressing (QC): 6 On/Off Footwear (QC): 6 Toileting(FIM): 6 Toileting Hygiene (QC): 6 Transfers (B,C,W/C) (FIM): 6 Toilet/Commode Transfer(FIM): 6 Toilet/Commode Transfer (QC): 6 Shower Transfer(FIM): 5 Additional Goals: 1-Demonstrate ADL Tasks, 2-Verbalize Understanding, 3- ImproveStrength/Shaista 1=Demonstrate adherence to instructed precautions during ADL tasks. 2=Patient will verbalize/demonstrate understanding of assistive devices/modifications for ADL. 3=Patient will improve strength/tolerance for activity to enable patient to perform ADL's. OT Education/Plan Problem List/Assessment Assessment: Decreased Activ Tolerance, Decreased UE Strength, Impaired Funct Balance, Impaired I ADL's, Impaired Self-Care Skills Discharge Recommendations Plan/Recommendations: Continue POC Treatment Plan/Plan of Care Treatment,Training & Education: Yes Patient would benefit from OT for education, treatment and training to promote independence in ADL's, mobility, safety and/or upper extremity function for ADL's. Plan of Care: ADL Retraining, Functional Mobility, Group Exercise/Act as Ind, UE Funct Exercise/Act Treatment Duration: Nov 28, 2018 Frequency: At least 5 of 7 days/Wk (IRF) Estimated Hrs Per Day: 1.5 hours per day Agreement: Yes Rehab Potential: Good Time/GCodes Start Time: 08:00 Stop Time: 09:30 Billed Treatment Time ADL 45 minutes, 3 units FA 45 minutes, 3 units LISETTE MANUEL OT November 17, 2018 10:00
--- NOTE | 2018-11-17 13:35 | Physical Therapy Daily Note ---
PT Daily Note-Current Subjective Pt reports she is a little tired after OT session this am. Pt reports she has pain from previously having shingles, comes and goes, no certain rhyme or reason. States just touching the area kills her, complete upper right side chest, under breast and completely around right shoulder and back. Agreeable to PT session Pain Numeric Pain Scale: 0-No Pain Comment: increases if touched in areas where shingles were Appearance Pt sitting up in recliner awake and alert, upon arrival At end of session, per pt request, sitting up in recliner with call light, phone and bedside table within reach. Mental Status Patient Orientation: Person, Place, Time, Eyes Open, Situation Transfers Therapy Code Descriptions/Definitions Functional [place] Measure: 0=Not Assessed/NA 4=Minimal Assistance 1=Total Assistance 5=Supervision or Setup 2=Maximal Assistance 6=Modified [place] 3=Moderate Assistance 7=Complete [place] Therapy Quality Codes: 6 Independent with activity with or without an assistive device 5 Patient requires set up or clean up by helper. Patient completes activity by themselves 4 Supervision or touching assist (CGA). [place] provide cues , steadying assist 3 The helper provides less than half the effort to complete the activity 2 The helper provides more than half the effort to complete the activity 1 Dependent. The helper does all the effort to complete an activity 7 Patient refused to complete or attempt activity 9 The patient did not perform the activity before the current illness or injury 88 Not attempted due to Medical conditions or safety concerns Transfers (B, C, W/C) (FIM): 5 Sit to/from Stand: 5 Pt performing most sit to from stand transitions safety and with good hand placement. Occasionally requiring verb inst for hand placement not to leave on walker, although pt does demonstrate ability to stand without UE support Gait Training Does the Patient Walk?: Yes Gait (FIM): 5 Distance (FIM): 3=150 ft Distance: >600 Gait Level of Assist: 5 Gait Persons Needed: 1 Gait Assistive Device: FWW with fatigue x2 unsteady episodes with slight LOB to the left, self corrected. slow steady gait speed Stair Training Stair Training: Handrails/: 2 handrails #of Steps: 8 (fatigue) Stairs: Pattern: Reciprocal Level of Assist: 4 (CGA to begin, fatigue) Exercises Standing: Retro gait (without UE support fwd/retro x4 laps in // bars), Sit to Stand (without UE support x 10), Side steps (5 laps in // bars attempting without UE support), Stepping over objects (x25 each LE lateral stepping over bolster roll ), Weight shifts (standing on Airex attempting without UE support, min A, x1 minute) higher balance activities in // bars, challenging for pt attempting not to use UE's, min A required at times Treatments transfers, safety, gait, balance, strengthening, activity tolerance, functional mobility Assessment Current Status: Good Progress PT Short Term Goals Short Term Goals Time Frame: Nov 21, 2018 Transfers (B,C,W/C) (FIM): 4 (CGA) Gait (FIM): 4 Gait Distance Comment: 200' Gait Level of Assist: 4 Gait Assistive Device: FWW PT Senior Care Goals Senior Care Goals PT Coding Advisor Goals Time Frame: Dec 05, 2018 Transfers (B,C,W/C) (FIM): 5 Sit to Lying (QC): 6 Lying-Sitting on Side/Bed(QC): 6 Sit to Stand (QC): 4 Rollin Roll Left to Right (QC): 6 Chair/Isk-gz-Vpkgb Xfer(QC): 4 Car Transfer (QC): 4 Gait (FIM): 5 Distance: 250' Walk 10 feet (QC): 4 Walk 10ft-Uneven Surface(QC): 4 Walk 50ft with 2 Turns (QC): 4 Walk 150 ft (QC): 4 Gait Level of Assist: 5 Gait Assistive Device: FWW Stairs (FIM): 2 # of Steps: 4 1 Step (curb) (QC): 4 4 Steps (QC): 4 Stairs Level Of Assist: 5 PT Plan Treatment/Plan Treatment Plan: Continue Plan of Care Treatment Plan: Bed Mobility, Education, Functional Activity Shaista, Functional Strength, Group Therapy, Gait, Safety, Therapeutic Exercise, Transfers Treatment Duration: Dec 05, 2018 Frequency: At least 5 of 7 days/Wk (IRF) Estimated Hrs Per Day: 1.5 hours per day Patient and/or Family Agrees t: Yes Safety Risks/Education Patient Education: Gait Training, Transfer Techniques, Steps, Safety Issues Teaching Recipient: Patient Teaching Methods: Demonstration, Discussion Response to Teaching: Verbalize Understanding, Return Demonstration, Reinforcement Needed Time/GCodes Time In: 1000 Time Out: 1100 Total Billed Treatment Time: 60 Total Billed Treatment 1 visit, GT x 2 units, EX x 2 units CHARLA MUNOZ PTA November 17, 2018 13:35
--- NOTE | 2018-11-17 14:49 | Physical Therapy Daily Note ---
PT Daily Note-Current Subjective Pt is agreeable to PT. Transfers Therapy Code Descriptions/Definitions Functional [place] Measure: 0=Not Assessed/NA 4=Minimal Assistance 1=Total Assistance 5=Supervision or Setup 2=Maximal Assistance 6=Modified [place] 3=Moderate Assistance 7=Complete [place] Therapy Quality Codes: 6 Independent with activity with or without an assistive device 5 Patient requires set up or clean up by helper. Patient completes activity by themselves 4 Supervision or touching assist (CGA). [place] provide cues , steadying assist 3 The helper provides less than half the effort to complete the activity 2 The helper provides more than half the effort to complete the activity 1 Dependent. The helper does all the effort to complete an activity 7 Patient refused to complete or attempt activity 9 The patient did not perform the activity before the current illness or injury 88 Not attempted due to Medical conditions or safety concerns Treatments Pt was in bathroom at sink when PT entered. Pt ambulated in her room environme nt with FWW with SBA with skilled cues fo rsafety. Pt walked x 150 ft with FWW with SB-CGA. Sit to stand ther ex 2 x 5 with focus on full upright standing and correct sequencing and placement of hands. She then performed standing calf raises, mini squats and hamstring curls x 15 each. Pt walked x 150 ft back to her room with FWW with SB-CGA. Pt up in chair with needs met post treatment. Assessment Current Status: Good Progress No noted LOB episodes and did well with functional transfers and gait. PT Short Term Goals Short Term Goals Time Frame: Nov 21, 2018 Transfers (B,C,W/C) (FIM): 4 (CGA) Gait (FIM): 4 Gait Distance Comment: 200' Gait Level of Assist: 4 Gait Assistive Device: FWW PT Autism Teacher Goals Retirement Goals PT Autism Teacher Goals Time Frame: Dec 05, 2018 Transfers (B,C,W/C) (FIM): 5 Sit to Lying (QC): 6 Lying-Sitting on Side/Bed(QC): 6 Sit to Stand (QC): 4 Rollin Roll Left to Right (QC): 6 Chair/Jrj-wr-Goyfl Xfer(QC): 4 Car Transfer (QC): 4 Gait (FIM): 5 Distance: 250' Walk 10 feet (QC): 4 Walk 10ft-Uneven Surface(QC): 4 Walk 50ft with 2 Turns (QC): 4 Walk 150 ft (QC): 4 Gait Level of Assist: 5 Gait Assistive Device: FWW Stairs (FIM): 2 # of Steps: 4 1 Step (curb) (QC): 4 4 Steps (QC): 4 Stairs Level Of Assist: 5 PT Plan Problem List Problem List: Activity Tolerance Treatment/Plan Treatment Plan: Continue Plan of Care Treatment Plan: Bed Mobility, Education, Functional Activity Shaista, Functional Strength, Group Therapy, Gait, Safety, Therapeutic Exercise, Transfers Treatment Duration: Dec 05, 2018 Frequency: At least 5 of 7 days/Wk (IRF) Estimated Hrs Per Day: 1.5 hours per day Patient and/or Family Agrees t: Yes Safety Risks/Education Patient Education: Safety Issues Teaching Recipient: Patient Teaching Methods: Discussion Response to Teaching: Verbalize Understanding Time/GCodes Time In: 1330 Time Out: 1400 Total Billed Treatment Time: 30 Total Billed Treatment visit GT 15 EX 15 ELIZABETH CROW PT November 17, 2018 14:49
[2018-11-17 15:28] VITALS: BP 108/57
--- NOTE | 2018-11-18 01:15 | NUR ---
THIS RN TO ASSUME PATIENT CARE.
[2018-11-18] MEDS: HYDROcodone/APAP 5 MG/325 MG (LORTAB) TAB PO PRN ×3 (02:48→17:05)
[2018-11-18] MEDS: LIPASE/AMYLASE/PROTEASE (PANCRELIPASE) 5,000 UNITS CAP PO SCH ×3 (05:47→16:58)
[2018-11-18] MEDS: KCL 10 MEQ TAB (MICRO K) PO SCH (05:47)
[2018-11-18 06:00] VITALS: BP 134/67
--- NOTE | 2018-11-18 08:31 | PM&R Progress Note ---
Subjective HPI/CC On Admission Date Seen by Provider: November 18, 2018 Time Seen by Provider: 08:30 CC: Severe back pain with debility from L3 compression fractures s/p kyphoplasty 11/13/18 HPI: This is an 88yoWF clinic patient of Dr Nelson in [place] who is known to al and IRF due to recent admit for debility following new onset hepatic encephalopathy requiring admission to [facility] in [place] and requiring a stay in IRF prior to returning home with family very involved in her care who presents today after DC from [facility] after admitted on 11/09/18 following severe back pain after bending over and suffering an L3 compression fracture. Due to her other severe co-morbidities which include liver cirrhosis end stage along with leukopenia and thrombocytopenia (s/p bone marrow in the past by Hematology without source found) surgery was avoided so she was placed on pain meds and PT ordered but she continued to have such severe back pain she required a kyphoplasty which was performed yesterday without complications. Lactulose is ordered along with Rifaximin to minimize ammonia level to prevent confusion from hepatic encephalopathy. She has chronic upper back pain from remote history of herpes zoster and xrays revealed multiple old compression fractures of the spine. PLOF was independent with use of walker and ADL's were supervised by family members. She will return home with her family at DC from [facility]. Subjective/Events-last exam Had 5 bowel movements yesterday again with the Lactulose and maintained on Rifaximin Pain meds are given on a sparingly basis and that makes her less drowsy and confused Denies any significant problems Participating in therapy Adult diaper is chafing left inner thigh so will monitor closely Definitely a fall risk but will try everything we can to prevent falls with the use of a walker Conferred with RN. Reviewed therapy notes. Review of Systems General: Fatigue Musculoskeletal: back pain Objective Exam Vital Signs Vital Signs Date Time Temp Pulse Resp B/P (MAP) Pulse Ox O2 Delivery O2 Flow Rate FiO2 11/18/18 06:00 98.4 64 18 134/67 (89) 99 Room Air Capillary Refill : General Appearance: No Apparent Distress, WD/WN, Chronically ill, Thin HEENT: PERRL/EOMI, Normal ENT Inspection, Pharynx Normal, Moist Mucous Membranes Neck: Full Range of Motion, Normal Inspection, Non Tender, Supple Respiratory: Chest Non Tender, Lungs Clear, Normal Breath Sounds, No Accessory Muscle Use, No Respiratory Distress Cardiovascular: Regular Rate, Rhythm, No Gallop, No JVD, Systolic Murmur Gastrointestinal: Normal Bowel Sounds, No Organomegaly, No Pulsatile Mass, Non Tender, Soft Back: Normal Inspection, No CVA Tenderness, Decreased Range of Motion, Muscle Spasm, Vertebral Tenderness Extremity: Normal Capillary Refill, Normal Inspection, Normal Range of Motion, Non Tender, No Calf Tenderness, Pedal Edema Neurologic/Psychiatric: Alert, Oriented x3, No Motor/Sensory Deficits (decreased ROM lower legs from back pain), Normal Mood/Affect, snubber II-XII Norm as Tested, Other (subtle poor recall) Skin: Normal Color, Warm/Dry Lymphatic: No Adenopathy Results/Procedures Lab Patient resulted labs reviewed. FIM Transfers Therapy Code Descriptions/Definitions Functional [place] Measure: 0=Not Assessed/NA 4=Minimal Assistance 1=Total Assistance 5=Supervision or Setup 2=Maximal Assistance 6=Modified [place] 3=Moderate Assistance 7=Complete [place] Therapy Quality Codes: 6 Independent with activity with or without an assistive device 5 Patient requires set up or clean up by helper. Patient completes activity by themselves 4 Supervision or touching assist (CGA). [place] provide cues , steadying assist 3 The helper provides less than half the effort to complete the activity 2 The helper provides more than half the effort to complete the activity 1 Dependent. The helper does all the effort to complete an activity 7 Patient refused to complete or attempt activity 9 The patient did not perform the activity before the current illness or injury 88 Not attempted due to Medical conditions or safety concerns Transfers (B, C, W/C) (FIM): 5 Scootin Rollin Supine to/from Sit: 5 Sit to/from Stand: 5 Sit to Lying (QC): 3 Sit to Stand (QC): 4 Chair/Nop-iq-Grrhf Xfer(QC): 4 Car Transfer (QC): 2 Gait Training Does the Patient Walk?: Yes Gait (FIM): 5 Distance (FIM): 3=150 ft Distance: >600 Walk 10 feet (QC): 4 Walk 50 ft with 2 Turns(QC): 4 Walk 150 ft (QC): 4 Walking 10ft/uneven surface-QC: 4 Gait Level of Assist: 5 Gait Persons Needed: 1 Gait Assistive Device: FWW Wheelchair Training Does the Pt Use a Wheelchair?: No Stair Training Stair Training: Handrails/: 2 handrails Stairs (FIM): 1 #of Steps: 8 (fatigue) 1 Step (curb) (QC): 4 Stairs: Pattern: Reciprocal Level of Assist: 4 (CGA to begin, fatigue) Mental Status/Objective Comprehension: 7 Expression: 7 Social Interaction: 7 Problem Solvin Memory: 7 ADL-Treatment Feedin (dentures) Eating (QC): 6 Groomin (standing at sink MOD I for use of RW to maintian balance. safety conerns for back precuations. ) Oral Hygiene (QC): 6 Bathin (VC for back precation while in shower. pt demo good use of AE (LHS) while in shower. ) Bathing Location: L Arm, R Arm, L Upper Leg, R Upper Leg, L Lower Leg (including foot), R Lower Leg (including foot), Chest, Abdomen, Buttocks, Perineal Area Shower/Bathe Self (QC): 4 Upper Extremity Dressin (set up of clothing. pt demo decrease safety/ balance while gathering cothing from closet. pt eduation of opening/ closing closet while using RW. pt demo with CGA fro safety/ balance) Upper Body Dressing (QC): 4 Lower Extremity Dressin (SBA fro safety/ balacne while stanidng to pull up/ down pants. ) Lower Body Dressing (QC): 4 On/Off Footwear (QC): 5 Toiletin (SBA fro safety/ balacne) Toileting Hygiene (QC): 4 Toilet/Commode Transfer: 5 Toilet Transfer (QC): 4 Shower: 5 Assessment/Plan Assessment and Plan Assess & Plan/Chief Complaint Assessment: Severe back pain from L3 compression fracture s/p kyphoplasty POD # 5 h/o hepatic encephalopathy now on Rifaximin and Lactulose CRI stable Pancytopenia Hematology consult reviewed previous bone marrow procedure without answer to source Anemia of renal disease Leukopenia chronic Advanced age GI Bleed in past Fall risk DNR Right flank post herpetic neuralgia Multiple spine compression fractures in the past on scans Plan: Home meds Lactulose QID to attain 4 BM's and will need nurse to train on this requirement in order to return home Intensive therapies to return to independent living Prognosis guarded Reviewed Kyphoplasty note from [facility] Pain management of post herpetic neuralgia and compression fracture Check labs prn DC home at completion of IRF protocols (1) Compression fracture of L3 vertebra (2) Portal vein thrombosis (3) Hepatic encephalopathy (4) Anemia (5) Back pain (6) Neutropenia (7) Post herpetic neuralgia (8) Renal insufficiency (9) Thrombocytopenia (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
[2018-11-18] MEDS: LACTULOSE SYRUP 10GM/15ML (ENULOSE) 30ML UDC PO SCH ×5 (09:19→20:14)
[2018-11-18] MEDS: RIFAXIMIN 550 MG TABLET (XIFAXAN) PO SCH ×2 (09:20→20:11)
[2018-11-18] MEDS: MULTIVIT W/MINERALS TAB (THERAGRAN M) PO SCH ×2 (09:20→20:11)
[2018-11-18] MEDS: meTOproloL SUCCINATE 50 MG (TOPROL XL) TAB PO SCH (09:20)
[2018-11-18] MEDS: CALCIUM CARB + VIT D 600 MG (CALCARB + D) TAB PO SCH ×2 (09:20→20:11)
[2018-11-18] MEDS: amLODIPine 10 MG (NORVASC) TAB PO SCH (09:20)
[2018-11-18] MEDS: BUMETANIDE 1 MG (BUMEX) TAB PO SCH (09:20)
[2018-11-18] MEDS: ALLOPURINOL 100 MG (ZYLOPRIM) TAB PO SCH (09:20)
[2018-11-18] MEDS: PANTOPRAZOLE 40 MG (PROTONIX) TAB PO SCH (09:20)
--- NOTE | 2018-11-18 11:57 | Occupational Ther Daily Note ---
OT Current Status-Daily Note Subjective pt agreed to OT TX session with focus in increasing independence with ADLS, functional transfers, and IADL tasks. Mental Status/Objective Patient Orientation: Normal For Age Therapy Code Descriptions/Definitions Functional [place] Measure: 0=Not Assessed/NA 4=Minimal Assistance 1=Total Assistance 5=Supervision or Setup 2=Maximal Assistance 6=Modified [place] 3=Moderate Assistance 7=Complete [place] ADL-Treatment Therapy Code Descriptions/Definitions Functional [place] Measure: 0=Not Assessed/NA 4=Minimal Assistance 1=Total Assistance 5=Supervision or Setup 2=Maximal Assistance 6=Modified [place] 3=Moderate Assistance 7=Complete [place] Therapy Quality Codes: 6 Independent with activity with or without an assistive device 5 Patient requires set up or clean up by helper. Patient completes activity by themselves 4 Supervision or touching assist (CGA). [place] provide cues , steadying assist 3 The helper provides less than half the effort to complete the activity 2 The helper provides more than half the effort to complete the activity 1 Dependent. The helper does all the effort to complete an activity 7 Patient refused to complete or attempt activity 9 The patient did not perform the activity before the current illness or injury 88 Not attempted due to Medical conditions or safety concerns Upper Body Dressing (QC): 6 (gathered clothing from closet and perorm UB dressing MOD I with safety concerns for back precaution. pt demo ability o louie/ doff brace ) Lower Body Dressing (FIM): 6 Lower Body Dressing (QC): 5 (figure 4 position to edda hallne. noted decrease safety with back pracution when items drop on floor. pt required VC for reminder to use AE ) On/Off Footwear (QC): 5 pt demo ability to gather clothing from closet MOD I using RW and carry clothing to chair/ pt demo ability to louie/ doff back brace MOD I with safety concerns for twisting. Other Treatment pt demo ability to perform functional mobility from room to gift shop approx 400 ft SBA using RW for safety/ balance. pt demo ability to open doors during functional mobility with safety concerns for balance. pt education on proper methods to open different style doors. pt demo ability to ambulated through gayle rene with SBA in prep for leisure activity at home with her garden. pt then ambulated back to room by taking elevated approx 400 ft with SBA for safety/ balance requiring VC for direction. noted pt unable to read signs on burt secondary to decrease Vision (most likely due to macular degeneration. pt sitting in recliner chair post OT Session. call light within reach, all needs met. Education OT Patient Education: Energy conservation, Modified ADL techniques, Progress toward Goal/Update tx plan, Purpose of tx/functional activities, Safety issues, Transfer techniques, Use of adapted equipment Teaching Recipient: Patient Teaching Methods: Demonstration, Discussion Response to Teaching: Verbalize Understanding, Return Demonstration OT Short Term Goals Short Term Goals Transfers (B,C,W/C) (FIM): 4 (CGA) 1=Demonstrate adherence to instructed precautions during ADL tasks. 2=Patient will verbalize/demonstrate understanding of assistive devices/modifications for ADL. 3=Patient will improve strength/tolerance for activity to enable patient to perform ADL's. OT Senior Living Goals [place] Mounter Goals Time Frame: Nov 28, 2018 Eating (FIM): 6 (MET 11/15/18) Eating (QC): 6 (MET 11/15/18) Groomin (MET 11/16/18) Oral Hygiene (QC): 6 (MET 11/16/18) Bathing(FIM): 5 (MET 11/16/18) Shower/Bathe Self (QC): 5 Upper Body Dressing(FIM): 6 (MET 11/18/18) Upper Body Dressing (QC): 6 (MET 11/18/18) Lower Body Dressing(FIM): 6 Lower Body Dressing (QC): 6 On/Off Footwear (QC): 6 Toileting(FIM): 6 Toileting Hygiene (QC): 6 Transfers (B,C,W/C) (FIM): 6 Toilet/Commode Transfer(FIM): 6 Toilet/Commode Transfer (QC): 6 Shower Transfer(FIM): 5 Additional Goals: 1-Demonstrate ADL Tasks, 2-Verbalize Understanding, 3-ImproveStrength/Shaista 1=Demonstrate adherence to instructed precautions during ADL tasks. 2=Patient will verbalize/demonstrate understanding of assistive devices/modifications for ADL. 3=Patient will improve strength/tolerance for activity to enable patient to perform ADL's. OT Education/Plan Problem List/Assessment Assessment: Decreased Activ Tolerance, Decreased Safety Aware, Impaired Funct Balance, Impaired I ADL's, Impaired Self-Care Skills Discharge Recommendations Plan/Recommendations: Continue POC Treatment Plan/Plan of Care Treatment,Training & Education: Yes Patient would benefit from OT for education, treatment and training to promote independence in ADL's, mobility, safety and/or upper extremity function for ADL's. Plan of Care: ADL Retraining, Functional Mobility, Group Exercise/Act as Ind, UE Funct Exercise/Act Treatment Duration: Nov 28, 2018 Frequency: At least 5 of 7 days/Wk (IRF) Estimated Hrs Per Day: 1.5 hours per day Agreement: Yes Rehab Potential: Good Time/GCodes Start Time: 11:00 Stop Time: 12:00 Billed Treatment Time ADL 25 minutes, 2 units FA 35 minutes, 2 units LISETTE MANUEL OT November 18, 2018 11:57
--- NOTE | 2018-11-18 12:31 | Physical Therapy Daily Note ---
PT Daily Note-Current Subjective Pt reports she took a pain pill just a little bit ago but hasn't kicked in yet. Agreeable to PT session Pain Numeric Pain Scale: 5-Moderate Pain Comment: whole upper right side from shingles pain Appearance Pt sitting up in recliner awake and alert upon arrival Pt requesting and assisted with writing down what she would like to order for lunch due to low vision, states she will have someone help her order it after OT session. At end of session, pt sitting up in recliner ready for OT Mental Status Patient Orientation: Person, Place, Time, Eyes Open, Situation back support brace Transfers Therapy Code Descriptions/Definitions Functional [place] Measure: 0=Not Assessed/NA 4=Minimal Assistance 1=Total Assistance 5=Supervision or Setup 2=Maximal Assistance 6=Modified [place] 3=Moderate Assistance 7=Complete [place] Therapy Quality Codes: 6 Independent with activity with or without an assistive device 5 Patient requires set up or clean up by helper. Patient completes activity by themselves 4 Supervision or touching assist (CGA). [place] provide cues , steadying assist 3 The helper provides less than half the effort to complete the activity 2 The helper provides more than half the effort to complete the activity 1 Dependent. The helper does all the effort to complete an activity 7 Patient refused to complete or attempt activity 9 The patient did not perform the activity before the current illness or inju ry 88 Not attempted due to Medical conditions or safety concerns Transfers (B, C, W/C) (FIM): 5 Sit to/from Stand: 5 Pt recalling correct hand placement during transitions 75% of the time. Verb instruction required otherwise, although pt does demo ability to stand without UE support with effort, inst given not to leave hands on walker. Gait Training Does the Patient Walk?: Yes Gait (FIM): 5 Distance (FIM): 3=150 ft Distance: 200' x2 Gait Level of Assist: 5 Gait Persons Needed: 1 Gait Assistive Device: FWW no LOB or unsteadiness during gait with FWW through hallways Stair Training Stair Training: Handrails/: 2 handrails #of Steps: 24 Stairs: Pattern: Reciprocal Level of Assist: 5 1 flight of stairs in stairwell descending and ascending, SBA, no LOB or unsteadiness with use of 2 handrails, good pace, turns whole body slightly when stepping down with LLE Exercises Seated Therapy Exercises: Ankle pumps, Sit to stand, Long arc quads, Hip flexion, Hip abd/add Seated Reps: 20 Standing: Heel/toe raises (on Airex in // bars), Marching (on Airex in // bars), Maze (obstacle course), Retro gait (forward and retro in // bars x4 laps), Sit to Stand (no UE support x7), Side steps (in // bars x5 laps each L and R), Weight shifts (on Airex in // bars) Standing Reps: 20 (attempting without UE support or with unilat UE support) obstacle course 2 laps x2 with ENGLISH LANGUAGE LEARNER TEACHER, unsteadiness at times, step on and off Airex, stepping over x2 bolster rolls, weaving in and out 4 objects, step on and off 6" step. Treatments transfers, safety, don/doff back support brace, balance, gait, stairs, neuro muscular re eduction, activity tolerance, functional mobility Assessment Current Status: Good Progress PT Short Term Goals Short Term Goals Time Frame: Nov 21, 2018 Transfers (B,C,W/C) (FIM): 4 (CGA) Gait (FIM): 4 Gait Distance Comment: 200' Gait Level of Assist: 4 Gait Assistive Device: FWW PT Mcfp Goals Technical Operations Vice President Goals PT Technical Operations Vice President Goals Time Frame: Dec 05, 2018 Transfers (B,C,W/C) (FIM): 5 Sit to Lying (QC): 6 Lying-Sitting on Side/Bed(QC): 6 Sit to Stand (QC): 4 Rollin Roll Left to Right (QC): 6 Chair/Mpu-vb-Clnpt Xfer(QC): 4 Car Transfer (QC): 4 Gait (FIM): 5 Distance: 250' Walk 10 feet (QC): 4 Walk 10ft-Uneven Surface(QC): 4 Walk 50ft with 2 Turns (QC): 4 Walk 150 ft (QC): 4 Gait Level of Assist: 5 Gait Assistive Device: FWW Stairs (FIM): 2 # of Steps: 4 1 Step (curb) (QC): 4 4 Steps (QC): 4 Stairs Level Of Assist: 5 PT Plan Treatment/Plan Treatment Plan: Continue Plan of Care Treatment Plan: Bed Mobility, Education, Functional Activity Sha[place], Functional Strength, Group Therapy, Gait, Safety, Therapeutic Exercise, Transfers Treatment Duration: Dec 05, 2018 Frequency: At least 5 of 7 days/Wk (IRF) Estimated Hrs Per Day: 1.5 hours per day Patient and/or Family Agrees t: Yes Safety Risks/Education Patient Education: Gait Training, Transfer Techniques, Steps, Reviewed Don/Doff Brace, Safety Issues Teaching Recipient: Patient Teaching Methods: Demonstration, Discussion Response to Teaching: Verbalize Understanding, Return Demonstration, Reinforcement Needed Time/GCodes Time In: 1000 Time Out: 1100 Total Billed Treatment Time: 60 Total Billed Treatment 1 visit, GT x2 units, NM x1 unit, EX x1 unit CHARLA MUNOZ CLERICAL OFFICE WORKER November 18, 2018 12:30
--- NOTE | 2018-11-18 14:57 | Therapy Group Daily Note ---
Therapy Daily Group Note Patient Education Topic Exercises Exercises LE Seated Exercise, UE Exercise Session Ratio (pt:therapist): 3:1 Goal of Session: Education on ARU Expectations, UE/LE Strengthing Goal Met for this Session: Yes Pt Benefit of Group: Contributions to Others, Increased Functional Safety, Increased Functional Strength, Improved Cognition, Recognition of Peers, Socialization Other/Notes Pt ambulated to OT/PT group. Group consisted of introductions (name, place living, personal exercises), socialization, ARU description/expectations, pt lead UE/LE seated exercises and education benefits of exercise. Pt introduced self appropriately and actively listened to peers. Pt was able to roll large dice to select amount of reps for chosen exercise then lead group. Pt acknowledge understanding of educational topic by voicing personal exercises. After therapy, pt sitting in recliner with call light/phone in reach. All needs met in room. Start Time: 13:00 Stop Time: 14:05 Total Billed Treatment Time: 65 Total Billed Treatment 1-GRP ELIZABETH GARCÍA November 18, 2018 14:57
[2018-11-18 15:24] VITALS: BP 111/61
--- NOTE | 2018-11-18 19:13 | NUR ---
bedside report received from FAISAL BRITO, assume care of pt
--- NOTE | 2018-11-18 20:12 | NUR ---
pt refused enulose 20 gram this evening states too late & i have had 3 stools already today
--- NOTE | 2018-11-18 21:00 | NUR ---
assessments & interventions completed, see assessments & interventions, sacral cleaned with saline & encourage repositioning to sides victoria area cleaned & moisture barrier cream applied
--- NOTE | 2018-11-19 04:21 | NUR ---
c/o nausea pancrelipase 1 cap given
[2018-11-19 06:06] VITALS: BP 122/56
[2018-11-19] MEDS: KCL 10 MEQ TAB (MICRO K) PO SCH (06:41)
[2018-11-19] MEDS: LIPASE/AMYLASE/PROTEASE (PANCRELIPASE) 5,000 UNITS CAP PO SCH ×3 (06:41→16:30)
--- NOTE | 2018-11-19 07:13 | NUR ---
bedside report given to IONA BRITO
[2018-11-19 08:00] VITALS: BP 117/64
--- NOTE | 2018-11-19 08:45 | NUR ---
CONTINUED NAUSEA AND ORDER OBTAINED AND MEDICATED WITH ZOFRAN.
[2018-11-19] MEDS: ONDANSETRON 4 MG (ZOFRAN) ORAL DISSOLVE TAB PO PRN (08:46)
[2018-11-19] MEDS: ALLOPURINOL 100 MG (ZYLOPRIM) TAB PO SCH (10:21)
[2018-11-19] MEDS: amLODIPine 10 MG (NORVASC) TAB PO SCH (10:21)
[2018-11-19] MEDS: PANTOPRAZOLE 40 MG (PROTONIX) TAB PO SCH (10:21)
[2018-11-19] MEDS: BUMETANIDE 1 MG (BUMEX) TAB PO SCH (10:21)
[2018-11-19] MEDS: CALCIUM CARB + VIT D 600 MG (CALCARB + D) TAB PO SCH ×2 (10:24→20:21)
[2018-11-19] MEDS: meTOproloL SUCCINATE 50 MG (TOPROL XL) TAB PO SCH (10:24)
[2018-11-19] MEDS: MULTIVIT W/MINERALS TAB (THERAGRAN M) PO SCH ×2 (10:24→20:20)
[2018-11-19] MEDS: LACTULOSE SYRUP 10GM/15ML (ENULOSE) 30ML UDC PO SCH ×4 (10:24→20:23)
[2018-11-19] MEDS: RIFAXIMIN 550 MG TABLET (XIFAXAN) PO SCH ×2 (10:24→20:21)
--- NOTE | 2018-11-19 11:00 | NUR ---
FEELING BETTER NOW. HAVING GOOD RESULTS FROM LACTULOSE.
--- NOTE | 2018-11-19 11:38 | PM&R Progress Note ---
Subjective HPI/CC On Admission Date Seen by Provider: Nov 19, 2018 Time Seen by Provider: 11:00 CC: Severe back pain with debility from L3 compression fractures s/p kyphoplasty 11/13/18 HPI: This is an 88yoWF clinic patient of Dr Nelson in [place] who is known to pa and IRF due to recent admit for debility following new onset hepatic encephalopathy requiring admission to [facility] in [place] and requiring a stay in IRF prior to returning home with family very involved in her care who presents today after DC from [facility] after admitted on 11/09/18 following severe back pain after bending over and suffering an L3 compression fracture. Due to her other severe co-morbidities which include liver cirrhosis end stage along with leukopenia and thrombocytopenia (s/p bone marrow in the past by Hematology without source found) surgery was avoided so she was placed on pain meds and PT ordered but she continued to have such severe back pain she required a kyphoplasty which was performed yesterday without complications. Lactulose is ordered along with Rifaximin to minimize ammonia level to prevent confusion from hepatic encephalopathy. She has chronic upper back pain from remote history of herpes zoster and xrays revealed multiple old compression fractures of the spine. PLOF was independent with use of walker and ADL's were supervised by family members. She will return home with her family at DC from [facility]. Subjective/Events-last exam Having 4-5 bowel movements a day with the Lactulose and maintained on Rifaximin Pain meds are given on a sparingly basis and that makes her less drowsy and confused Denies any significant problems except did have some self-limited nausea which resolved with Zofran Participating in therapy Adult diaper is chafing left inner thigh so will monitor closely and that seems to be resolving Definitely a fall risk but will try everything we can to prevent falls with the use of a walker Conferred with RN. Reviewed therapy notes. Somatic complaints are beginning to surface like last admit prior to DC Review of Systems General: Fatigue Gastrointestinal: Nausea Objective Exam Vital Signs Vital Signs Date Time Temp Pulse Resp B/P (MAP) Pulse Ox O2 Delivery O2 Flow Rate FiO2 11/19/18 09:00 Room Air 11/19/18 06:06 99.2 72 16 122/56 (78) 96 Capillary Refill : General Appearance: No Apparent Distress, WD/WN, Chronically ill, Thin HEENT: PERRL/EOMI, Normal ENT Inspection, Pharynx Normal, Moist Mucous Membranes Neck: Full Range of Motion, Normal Inspection, Non Tender, Supple Respiratory: Chest Non Tender, Lungs Clear, Normal Breath Sounds, No Accessory Muscle Use, No Respiratory Distress Cardiovascular: Regular Rate, Rhythm, No Gallop, No JVD, Systolic Murmur Gastrointestinal: Normal Bowel Sounds, No Organomegaly, No Pulsatile Mass, Non Tender, Soft Back: Normal Inspection, No CVA Tenderness, Decreased Range of Motion, Muscle Spasm, Vertebral Tenderness Extremity: Normal Capillary Refill, Normal Inspection, Normal Range of Motion, Non Tender, No Calf Tenderness, Pedal Edema Neurologic/Psychiatric: Alert, Oriented x3, No Motor/Sensory Deficits (decreased ROM lower legs from back pain), Normal 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 FIM Transfers Therapy Code Descriptions/Definitions Functional [place] Measure: 0=Not Assessed/NA 4=Minimal Assistance 1=Total Assistance 5=Supervision or Setup 2=Maximal Assistance 6=Modified [place] 3=Moderate Assistance 7=Complete [place] Therapy Quality Codes: 6 Independent with activity with or without an assistive device 5 Patient requires set up or clean up by helper. Patient completes activity by themselves 4 Supervision or touching assist (CGA). [place] provide cues , steadying assist 3 The helper provides less than half the effort to complete the activity 2 The helper provides more than half the effort to complete the activity 1 Dependent. The helper does all the effort to complete an activity 7 Patient refused to complete or attempt activity 9 The patient did not perform the activity before the current illness or injury 88 Not attempted due to Medical conditions or safety concerns Transfers (B, C, W/C) (FIM): 5 Scootin Rollin Supine to/from Sit: 5 Sit to/from Stand: 5 Sit to Lying (QC): 3 Sit to Stand (QC): 4 Chair/Mdr-im-Avufu Xfer(QC): 4 Car Transfer (QC): 2 Gait Training Does the Patient Walk?: Yes Gait (FIM): 5 Distance (FIM): 3=150 ft Distance: 200' x2 Walk 10 feet (QC): 4 Walk 50 ft with 2 Turns(QC): 4 Walk 150 ft (QC): 4 Walking 10ft/uneven surface-QC: 4 Gait Level of Assist: 5 Gait Persons Needed: 1 Gait Assistive Device: FWW Wheelchair Training Does the Pt Use a Wheelchair?: No Stair Training Stair Training: Handrails/: 2 handrails Stairs (FIM): 1 #of Steps: 24 1 Step (curb) (QC): 4 Stairs: Pattern: Reciprocal Level of Assist: 5 Mental Status/Objective Comprehension: 7 Expression: 7 Social Interaction: 7 Problem Solvin Memory: 7 ADL-Treatment Feedin (dentures) Eating (QC): 6 Groomin (standing at sink MOD I for use of RW to maintian balance. safety conerns for back precuations. ) Oral Hygiene (QC): 6 Bathin (VC for back precation while in shower. pt demo good use of AE (LHS) while in shower. ) Bathing Location: L Arm, R Arm, L Upper Leg, R Upper Leg, L Lower Leg (including foot), R Lower Leg (including foot), Chest, Abdomen, Buttocks, Perineal Area Shower/Bathe Self (QC): 4 Upper Extremity Dressin (set up of clothing. pt demo decrease safety/ balance while gathering cothing from closet. pt eduation of opening/ closing closet while using RW. pt demo with CGA fro safety/ balance) Upper Body Dressing (QC): 6 (gathered clothing from closet and perorm UB dres sing MOD I with safety concerns for back precaution. pt demo ability o louie/ doff brace ) Lower Extremity Dressin Lower Body Dressing (QC): 5 (figure 4 position to rajivtn balacne. noted decrease safety with back pracution when items drop on floor. pt required VC for reminder to use AE ) On/Off Footwear (QC): 5 Toiletin (SBA fro safety/ balacne) Toileting Hygiene (QC): 4 Toilet/Commode Transfer: 5 Toilet Transfer (QC): 4 Shower: 5 Assessment/Plan Assessment and Plan Assess & Plan/Chief Complaint Assessment: Severe back pain from L3 compression fracture s/p kyphoplasty POD # 6 h/o hepatic encephalopathy now on Rifaximin and Lactulose CRI stable Pancytopenia Hematology consult reviewed previous bone marrow procedure without answer to source Anemia of renal disease Leukopenia chronic Advanced age GI Bleed in past Fall risk DNR Right flank post herpetic neuralgia Multiple spine compression fractures in the past on scans Nausea Plan: Home meds Lactulose QID to attain 4 BM's and will need nurse to train on this requirement in order to return home Intensive therapies to return to independent living Prognosis guarded Reviewed [facility] Pain management of post herpetic neuralgia and compression fracture Check labs prn DC home at completion of IRF protocols Zofran Q6hrs prn (1) Compression fracture of L3 vertebra (2) Portal vein thrombosis (3) Hepatic encephalopathy (4) Anemia (5) Back pain (6) Neutropenia (7) Post herpetic neuralgia (8) Renal insufficiency (9) Thrombocytopenia (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
--- NOTE | 2018-11-19 11:49 | Physical Therapy Daily Note ---
PT Daily Note-Current Subjective Pt reports she has been nauseated all morning and pain in greatly increased. Agreeable to PT session. Pain Numeric Pain Scale: 10-Worst Possible Pain Comment: back, nsg is aware Appearance 1st attempt: pt in bed, nsg present, states very nauseated and requesting to be seen later. 2nd attempt, Pt sitting up in recliner upon arrival, awake but very tired and still nauseated but agreeable to PT session. At end of session, pt requesting to and was assisted into bed, call light, phone and bedside table within reach. Mental Status Patient Orientation: Person, Place, Time, Situation back support brace Transfers Therapy Code Descriptions/Definitions Functional [place] Measure: 0=Not Assessed/NA 4=Minimal Assistance 1=Total Assistance 5=Supervision or Setup 2=Maximal Assistance 6=Modified [place] 3=Moderate Assistance 7=Complete [place] Therapy Quality Codes: 6 Independent with activity with or without an assistive device 5 Patient requires set up or clean up by helper. Patient completes activity by themselves 4 Supervision or touching assist (CGA). [place] provide cues , steadying assist 3 The helper provides less than half the effort to complete the activity 2 The helper provides more than half the effort to complete the activity 1 Dependent. The helper does all the effort to complete an activity 7 Patient refused to complete or attempt activity 9 The patient did not perform the activity before the current illness or injury 88 Not attempted due to Medical conditions or safety concerns Transfers (B, C, W/C) (FIM): 5 Scootin (use of bedrail) Rollin (use of bedrail) Supine to/from Sit: 5 (sit to supine, log roll with instruction, use of bedrail) Sit to/from Stand: 5 (instruciton required x2 for hand placement for safety and control of descent and to assist in pushing up to stand instead of keeping hands on walker) Gait Training Does the Patient Walk?: Yes Gait (FIM): 5 Distance (FIM): 3=150 ft Distance: 300 Gait Level of Assist: 5 (SBA) Gait Persons Needed: 1 Gait Assistive Device: FWW slow steady gait, no LOB. fwd flexed posture, increased distance from walker 2* increased back pain, pt able to follow instruction to improve posture and decrease distance from walker but causing increased pain to do this. Treatments transfers, safety, activity tolerance, gait, functional mobility, bed mobility, postured, don/doff back support brace with min A Assessment increased back pain and nausea this session PT Short Term Goals Short Term Goals Time Frame: Nov 21, 2018 Transfers (B,C,W/C) (FIM): 4 (CGA) Gait (FIM): 4 Gait Distance Comment: 200' Gait Level of Assist: 4 Gait Assistive Device: FWW PT Retirement Goals Work Distributor Goals PT Retirement Goals Time Frame: Dec 05, 2018 Transfers (B,C,W/C) (FIM): 5 Sit to Lying (QC): 6 Lying-Sitting on Side/Bed(QC): 6 Sit to Stand (QC): 4 Rollin Roll Left to Right (QC): 6 Chair/Rpm-be-Ydcys Xfer(QC): 4 Car Transfer (QC): 4 Gait (FIM): 5 Distance: 250' Walk 10 feet (QC): 4 Walk 10ft-Uneven Surface(QC): 4 Walk 50ft with 2 Turns (QC): 4 Walk 150 ft (QC): 4 Gait Level of Assist: 5 Gait Assistive Device: FWW Stairs (FIM): 2 # of Steps: 4 1 Step (curb) (QC): 4 4 Steps (QC): 4 Stairs Level Of Assist: 5 PT Plan Treatment/Plan Treatment Plan: Continue Plan of Care Treatment Plan: Bed Mobility, Education, Functional Activity Shaista, Functional Strength, Group Therapy, Gait, Safety, Therapeutic Exercise, Transfers Treatment Duration: Dec 05, 2018 Frequency: At least 5 of 7 days/Wk (IRF) Estimated Hrs Per Day: 1.5 hours per day Patient and/or Family Agrees t: Yes Safety Risks/Education Patient Education: Gait Training, Transfer Techniques, Safety Issues Teaching Recipient: Patient Teaching Methods: Discussion Response to Teaching: Verbalize Understanding Time/GCodes Time In: 1042 Time Out: 1059 Total Billed Treatment Time: 17 Total Billed Treatment 1 visit, GT x 1 unit CHARLA MUNOZ PTA Nov 19, 2018 11:49
[2018-11-19] MEDS ORDERED: LIPASE/AMYLASE/PROTEASE (PANCRELIPASE) 5,000 UNITS CAP PO SCH (15:00)
--- NOTE | 2018-11-19 16:34 | NUR ---
LACTULOSE HELD. 6 BM THUS FAR TODAY.
[2018-11-19 17:09] VITALS: BP 133/60
--- NOTE | 2018-11-19 19:11 | NUR ---
bedside report received from IONA BRITO, assume care of pt
[2018-11-19] MEDS: HYDROcodone/APAP 5 MG/325 MG (LORTAB) TAB PO PRN (20:21)
--- NOTE | 2018-11-19 20:21 | NUR ---
refused Enulose because pt had 7 stools today, c/o back pain level 10/10 on numeric scale, lortab 5 1 tab po given with applesauce
--- NOTE | 2018-11-19 20:28 | NUR ---
assessments & interventions completed, see assessments & interventions
--- NOTE | 2018-11-19 20:35 | NUR ---
resting quietly in bed, pain level 0/10 on flacc scale
--- NOTE | 2018-11-19 20:40 | NUR ---
sacral area cleaned with saline & encouraged positioning on sides.
[2018-11-20] MEDS: HYDROcodone/APAP 5 MG/325 MG (LORTAB) TAB PO PRN ×4 (01:36→22:35)
--- NOTE | 2018-11-20 01:36 | NUR ---
c/o back pain level 8/10 on numeric scale, Lortab 5 1 tab po given
--- NOTE | 2018-11-20 02:08 | NUR ---
resting quietly in bed, pain level 0/10 on flacc scale
[2018-11-20 06:16] VITALS: BP 116/58
[2018-11-20] MEDS: LIPASE/AMYLASE/PROTEASE (PANCRELIPASE) 5,000 UNITS CAP PO SCH ×3 (06:26→17:06)
[2018-11-20] MEDS: KCL 10 MEQ TAB (MICRO K) PO SCH (06:26)
[2018-11-20] MEDS: LACTULOSE SYRUP 10GM/15ML (ENULOSE) 30ML UDC PO SCH ×4 (07:05→20:31)
--- NOTE | 2018-11-20 07:05 | NUR ---
pt states would take a dose of Enulose now
--- NOTE | 2018-11-20 07:13 | NUR ---
bedside report given to IONA BRITO
[2018-11-20] MEDS: meTOproloL SUCCINATE 50 MG (TOPROL XL) TAB PO SCH (09:25)
[2018-11-20] MEDS: RIFAXIMIN 550 MG TABLET (XIFAXAN) PO SCH ×2 (09:25→20:29)
[2018-11-20] MEDS: MULTIVIT W/MINERALS TAB (THERAGRAN M) PO SCH ×2 (09:25→20:29)
[2018-11-20] MEDS: amLODIPine 10 MG (NORVASC) TAB PO SCH (09:25)
[2018-11-20] MEDS: BUMETANIDE 1 MG (BUMEX) TAB PO SCH (09:25)
[2018-11-20] MEDS: ALLOPURINOL 100 MG (ZYLOPRIM) TAB PO SCH (09:25)
[2018-11-20] MEDS: CALCIUM CARB + VIT D 600 MG (CALCARB + D) TAB PO SCH ×2 (09:25→20:29)
[2018-11-20] MEDS: PANTOPRAZOLE 40 MG (PROTONIX) TAB PO SCH (09:25)
--- NOTE | 2018-11-20 10:30 | NUR ---
NO NAUSEA TODAY. ATE BREAKFAST WITHOUT DIFFICULTY. DR. OLIVA INFORMED OF 8 STOOLS YESTERDAY WITH LACTULOSE.
--- NOTE | 2018-11-20 11:19 | PM&R Progress Note ---
Subjective HPI/CC On Admission Date Seen by Provider: Nov 20, 2018 Time Seen by Provider: 11:00 CC: Severe back pain with debility from L3 compression fractures s/p kyphoplasty 11/13/18 HPI: This is an 88yoWF clinic patient of Dr Nelson in [place] who is known to ms and IRF due to recent admit for debility following new onset hepatic encephalopathy requiring admission to [facility] in [place] and requiring a stay in IRF prior to returning home with family very involved in her care who presents today after DC from [facility] after admitted on 11/09/18 following severe back pain after bending over and suffering an L3 compression fracture. Due to her other severe co-morbidities which include liver cirrhosis end stage along with leukopenia and thrombocytopenia (s/p bone marrow in the past by Hematology without source found) surgery was avoided so she was placed on pain meds and PT ordered but she continued to have such severe back pain she required a kyphoplasty which was performed yesterday without complications. Lactulose is ordered along with Rifaximin to minimize ammonia level to prevent confusion from hepatic encephalopathy. She has chronic upper back pain from remote history of herpes zoster and xrays revealed multiple old compression fractures of the spine. PLOF was independent with use of walker and ADL's were supervised by family members. She will return home with her family at DC from [facility]. Subjective/Events-last exam Had 8 bowel movements yesterday with the Lactulose and maintained on Rifaximin so will monitor that closely but she has not had a BM this morning as of yet Pain meds are given on a sparingly basis and that makes her less drowsy and confused and now extremely rare use No more nausea reported Participating in therapy Adult diaper is chafing is resolving Definitely a fall risk but will try everything we can to prevent falls with the use of a walker Conferred with RN. Reviewed therapy notes. Somatic complaints are beginning to surface like last admit prior to DC Supportive care will continue Review of Systems General: Fatigue Objective Exam Vital Signs Vital Signs Date Time Temp Pulse Resp B/P (MAP) Pulse Ox O2 Delivery O2 Flow Rate FiO2 11/20/18 17:06 98.6 72 18 125/58 (80) 98 Room Air Capillary Refill : General Appearance: No Apparent Distress, WD/WN, Chronically ill, Thin HEENT: PERRL/EOMI, Normal ENT Inspection, Pharynx Normal, Moist Mucous Membranes Neck: Full Range of Motion, Normal Inspection, Non Tender, Supple Respiratory: Chest Non Tender, Lungs Clear, Normal Breath Sounds, No Accessory Muscle Use, No Respiratory Distress Cardiovascular: Regular Rate, Rhythm, No Gallop, No JVD, Systolic Murmur Gastrointestinal: Normal Bowel Sounds, No Organomegaly, No Pulsatile Mass, Non Tender, Soft Back: Normal Inspection, No CVA Tenderness, Decreased Range of Motion, Muscle Spasm, Vertebral Tenderness Extremity: Normal Capillary Refill, Normal Inspection, Normal Range of Motion, Non Tender, No Calf Tenderness, Pedal Edema Neurologic/Psychiatric: Alert, Oriented x3, No Motor/Sensory Deficits (decrea sed ROM lower legs from back pain), Normal Mood/Affect, 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 FIM Transfers Therapy Code Descriptions/Definitions Functional [place] Measure: 0=Not Assessed/NA 4=Minimal Assistance 1=Total Assistance 5=Supervision or Setup 2=Maximal Assistance 6=Modified [place] 3=Moderate Assistance 7=Complete [place] Therapy Quality Codes: 6 Independent with activity with or without an assistive device 5 Patient requires set up or clean up by helper. Patient completes activity by themselves 4 Supervision or touching assist (CGA). [place] provide cues , steadying assist 3 The helper provides less than half the effort to complete the activity 2 The helper provides more than half the effort to complete the activity 1 Dependent. The helper does all the effort to complete an activity 7 Patient refused to complete or attempt activity 9 The patient did not perform the activity before the current illness or injury 88 Not attempted due to Medical conditions or safety concerns Transfers (B, C, W/C) (FIM): 5 Scootin (use of bedrail) Rollin (use of bedrail) Supine to/from Sit: 5 (sit to supine, log roll with instruction, use of bedrail) Sit to/from Stand: 5 (instruciton required x2 for hand placement for safety and control of descent and to assist in pushing up to stand instead of keeping hands on walker) Sit to Lying (QC): 3 Sit to Stand (QC): 4 Chair/Ial-xk-Kyjam Xfer(QC): 4 Car Transfer (QC): 2 Gait Training Does the Patient Walk?: Yes Gait (FIM): 5 Distance (FIM): 3=150 ft Distance: 300 Walk 10 feet (QC): 4 Walk 50 ft with 2 Turns(QC): 4 Walk 150 ft (QC): 4 Walking 10ft/uneven surface-QC: 4 Gait Level of Assist: 5 (SBA) Gait Persons Needed: 1 Gait Assistive Device: FWW Wheelchair Training Does the Pt Use a Wheelchair?: No Stair Training Stair Training: Handrails/: 2 handrails Stairs (FIM): 1 #of Steps: 24 1 Step (curb) (QC): 4 Stairs: Pattern: Reciprocal Level of Assist: 5 Mental Status/Objective Comprehension: 7 Expression: 7 Social Interaction: 7 Problem Solvin Memory: 7 ADL-Treatment Feedin (dentures) Eating (QC): 6 Groomin (standing at sink MOD I for use of RW to maintian balance. safety conerns for back precuations. ) Oral Hygiene (QC): 6 Bathin (VC for back precation while in shower. pt demo good use of AE (LHS) while in shower. ) Bathing Location: L Arm, R Arm, L Upper Leg, R Upper Leg, L Lower Leg (including foot), R Lower Leg (including foot), Chest, Abdomen, Buttocks, Perineal Area Shower/Bathe Self (QC): 4 Upper Extremity Dressin (set up of clothing. pt demo decrease safety/ balance while gathering cothing from closet. pt eduation of opening/ closing closet while using RW. pt demo with CGA fro safety/ balance) Upper Body Dressing (QC): 6 (gathered clothing from closet and perorm UB dressing MOD I with safety concerns for back precaution. pt demo ability o louie/ doff brace ) Lower Extremity Dressin Lower Body Dressing (QC): 5 (figure 4 position to maintn balacne. noted decrease safety with back pracution when items drop on floor. pt required VC for reminder to use AE ) On/Off Footwear (QC): 5 Toiletin (SBA fro safety/ balacne) Toileting Hygiene (QC): 4 Toilet/Commode Transfer: 5 Toilet Transfer (QC): 4 Shower: 5 Assessment/Plan Assessment and Plan Assess & Plan/Chief Complaint Assessment: Severe back pain from L3 compression fracture s/p kyphoplasty POD # 7 h/o hepatic encephalopathy now on Rifaximin and Lactulose CRI stable Pancytopenia Hematology consult reviewed previous bone marrow procedure without answer to source Anemia of renal disease Leukopenia chronic Advanced age GI Bleed in past Fall risk DNR Right flank post herpetic neuralgia Multiple spine compression fractures in the past on scans Nausea Plan: Home meds Lactulose QID to attain 4 BM's and will need nurse to train on this requirement in order to return home Intensive therapies to return to independent living Prognosis guarded Reviewed Kyphoplasty note from [facility] Pain management of post herpetic neuralgia and compression fracture Check labs prn DC home at completion of IRF protocols Zofran Q6hrs prn Fall risk noted (1) Compression fracture of L3 vertebra (2) Portal vein thrombosis (3) Hepatic encephalopathy (4) Anemia (5) Back pain (6) Neutropenia (7) Post herpetic neuralgia (8) Renal insufficiency (9) Thrombocytopenia (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
[2018-11-20 17:06] VITALS: BP 125/58
--- NOTE | 2018-11-20 19:00 | NUR ---
6 STOOLS TODAY. INTERMITTENT NEURALGIA PAIN RIGHT ARM.
--- NOTE | 2018-11-20 19:08 | NUR ---
bedside report received from IONA BRITO, assume care of pt
--- NOTE | 2018-11-20 20:29 | NUR ---
refused Enulose had 6 stools today
--- NOTE | 2018-11-20 20:29 | NUR ---
assessments & interventions completed, see assessments & interventions, sacral area cleaned with saline, encouraged repositioning on side
--- NOTE | 2018-11-20 22:35 | NUR ---
c/o arm pain level 8/10 on numeric scale, Lortab 5 1 tab po given
--- NOTE | 2018-11-20 23:15 | NUR ---
resting quietly in bed, pain level 0/10 on flacc scale
[2018-11-21 05:38] LABS: BASOPHILS % (AUTO) 0 % (0-10); EOSINOPHILS # (AUTO) 0.2 10^3/uL (0.0-0.3); EOSINOPHILS % (AUTO) 6 % (0-10); HEMATOCRIT 26 % (35-52); HEMOGLOBIN 8.4 G/DL (11.5-16.0); LYMPHOCYTES # (AUTO) 0.7 X 10^3 (1.0-4.0); LYMPHOCYTES % (AUTO) 27 % (12-44); MEAN CORPUSCULAR HEMOGLOBIN 31 PG (25-34); MEAN CORPUSCULAR HGB CONC 33 G/DL (32-36); MEAN CORPUSCULAR VOLUME 95 FL (80-99); MEAN PLATELET VOLUME 11.2 FL (7.4-10.4); MONOCYTES # (AUTO) 0.2 X 10^3 (0.0-1.0); MONOCYTES % (AUTO) 10 % (0-12); NEUTROPHILS # (AUTO) 1.3 X 10^3 (1.8-7.8); NEUTROPHILS % (AUTO) 56 % (42-75); PLATELET COUNT 53 10^3/uL (130-400); RED CELL DISTRIBUTION WIDTH 16.2 % (10.0-14.5); WHITE BLOOD COUNT 2.4 10^3/uL (4.3-11.0)
[2018-11-21 05:45] VITALS: BP 135/53
[2018-11-21 05:55] LABS: BILIRUBIN,TOTAL 1.1 MG/DL (0.1-1.0); CALCIUM 8.4 MG/DL (8.5-10.1); CREATININE SERUM 2.02 MG/DL (0.60-1.30); POTASSIUM 3.4 MMOL/L (3.6-5.0); TOTAL PROTEIN 4.6 GM/DL (6.4-8.2)
[2018-11-21] MEDS: KCL 10 MEQ TAB (MICRO K) PO SCH (06:22)
[2018-11-21] MEDS: LIPASE/AMYLASE/PROTEASE (PANCRELIPASE) 5,000 UNITS CAP PO SCH ×3 (06:23→17:20)
--- NOTE | 2018-11-21 07:10 | NUR ---
bedside report given to FAISAL BRITO
--- NOTE | 2018-11-21 08:07 | PM&R Progress Note ---
Subjective HPI/CC On Admission Date Seen by Provider: Nov 21, 2018 Time Seen by Provider: 08:15 CC: Severe back pain with debility from L3 compression fractures s/p kyphoplasty 11/13/18 HPI: This is an 88yoWF clinic patient of Dr Nelson in [place] who is known to me and IRF due to recent admit for debility following new onset hepatic encephalopathy requiring admission to [facility] in [place] and requiring a stay in IRF prior to returning home with family very involved in her care who presents today after DC from [facility] after admitted on 11/09/18 following severe back pain after bending over and suffering an L3 compression fracture. Due to her other severe co-morbidities which include liver cirrhosis end stage a long with leukopenia and thrombocytopenia (s/p bone marrow in the past by Hematology without source found) surgery was avoided so she was placed on pain meds and PT ordered but she continued to have such severe back pain she required a kyphoplasty which was performed yesterday without complications. Lactulose is ordered along with Rifaximin to minimize ammonia level to prevent confusion from hepatic encephalopathy. She has chronic upper back pain from remote history of herpes zoster and xrays revealed multiple old compression fractures of the spine. PLOF was independent with use of walker and ADL's were supervised by family members. She will return home with her family at DC from IRF. Subjective/Events-last exam Labs reviewed, creatinine 2.0, the rest of labs were stable Zinc oxide is placed on Magda area after every restroom break Had 7 bowel movements yesterday Lortab is given as needed Back pain is improved Preparing for DC home once strong enough but after rounds I was notified the family and patient have decided to go to skilled care upon DC Conferred with RN. Reviewed therapy notes. Supportive care will continue Review of Systems General: Fatigue Gastrointestinal: Diarrhea Objective Exam Vital Signs Vital Signs Date Time Temp Pulse Resp B/P (MAP) Pulse Ox O2 Delivery O2 Flow Rate FiO2 11/21/18 15:23 96.8 67 14 125/58 (80) 98 Room Air Capillary Refill : General Appearance: No Apparent Distress, WD/WN, Chronically ill, Thin HEENT: PERRL/EOMI, Normal ENT Inspection, Pharynx Normal, Moist Mucous Membranes Neck: Full Range of Motion, Normal Inspection, Non Tender, Supple Respiratory: Chest Non Tender, Lungs Clear, Normal Breath Sounds, No Accessory Muscle Use, No Respiratory Distress Cardiovascular: Regular Rate, Rhythm, No Gallop, No JVD, Systolic Murmur Gastrointestinal: Normal Bowel Sounds, No Organomegaly, No Pulsatile Mass, Non Tender, Soft Back: Normal Inspection, No CVA Tenderness, Decreased Range of Motion, Muscle Spasm, Vertebral Tenderness Extremity: Normal Capillary Refill, Normal Inspection, Normal Range of Motion, Non Tender, No Calf Tenderness, Pedal Edema Neurologic/Psychiatric: Alert, Oriented x3, No Motor/Sensory Deficits (decreased ROM lower legs from back pain), Normal Mood/Affect, unix analyst II-XII Norm a s Tested, Other (subtle poor recall) Skin: Normal Color, Warm/Dry Lymphatic: No Adenopathy Results/Procedures Lab Laboratory Tests 11/21/18 05:14 Patient resulted labs reviewed. FIM Transfers Therapy Code Descriptions/Definitions Functional [place] Measure: 0=Not Assessed/NA 4=Minimal Assistance 1=Total Assistance 5=Supervision or Setup 2=Maximal Assistance 6=Modified [place] 3=Moderate Assistance 7=Complete [place] Therapy Quality Codes: 6 Independent with activity with or without an assistive device 5 Patient requires set up or clean up by helper. Patient completes activity by themselves 4 Supervision or touching assist (CGA). [place] provide cues , steadying assist 3 The helper provides less than half the effort to complete the activity 2 The helper provides more than half the effort to complete the activity 1 Dependent. The helper does all the effort to complete an activity 7 Patient refused to complete or attempt activity 9 The patient did not perform the activity before the current illness or injury 88 Not attempted due to Medical conditions or safety concerns Transfers (B, C, W/C) (FIM): 5 Scootin (use of bedrail) Rollin (use of bedrail) Supine to/from Sit: 5 (sit to supine, log roll with instruction, use of bedrail) Sit to/from Stand: 5 (instruciton required x2 for hand placement for safety and control of descent and to assist in pushing up to stand instead of keeping hands on walker) Sit to Lying (QC): 3 Sit to Stand (QC): 4 Chair/Ygd-jv-Qqqbz Xfer(QC): 4 Car Transfer (QC): 2 Gait Training Does the Patient Walk?: Yes Gait (FIM): 5 Distance (FIM): 3=150 ft Distance: 300 Walk 10 feet (QC): 4 Walk 50 ft with 2 Turns(QC): 4 Walk 150 ft (QC): 4 Walking 10ft/uneven surface-QC: 4 Gait Level of Assist: 5 (SBA) Gait Persons Needed: 1 Gait Assistive Device: FWW Wheelchair Training Does the Pt Use a Wheelchair?: No Stair Training Stair Training: Handrails/: 2 handrails Stairs (FIM): 1 #of Steps: 24 1 Step (curb) (QC): 4 Stairs: Pattern: Reciprocal Level of Assist: 5 Mental Status/Objective Comprehension: 7 Expression: 7 Social Interaction: 7 Problem Solvin Memory: 7 ADL-Treatment Feedin (dentures) Eating (QC): 6 Groomin (standing at sink MOD I for use of RW to maintian balance. safety conerns for back precuations. ) Oral Hygiene (QC): 6 Bathin (VC for back precation while in shower. pt demo good use of AE (LHS) while in shower. ) Bathing Location: L Arm, R Arm, L Upper Leg, R Upper Leg, L Lower Leg (including foot), R Lower Leg (including foot), Chest, Abdomen, Buttocks, Perineal Area Shower/Bathe Self (QC): 4 Upper Extremity Dressin (set up of clothing. pt demo decrease safety/ balance while gathering cothing from closet. pt eduation of opening/ closing closet while using RW. pt demo with CGA fro safety/ balance) Upper Body Dressing (QC): 6 (gathered clothing from closet and perorm UB dres sing MOD I with safety concerns for back precaution. pt demo ability o louie/ doff brace ) Lower Extremity Dressin Lower Body Dressing (QC): 5 (figure 4 position to maintn balacne. noted decrease safety with back pracution when items drop on floor. pt required VC for reminder to use AE ) On/Off Footwear (QC): 5 Toiletin (SBA fro safety/ balacne) Toileting Hygiene (QC): 4 Toilet/Commode Transfer: 5 Toilet Transfer (QC): 4 Shower: 5 Assessment/Plan Assessment and Plan Assess & Plan/Chief Complaint Assessment: Severe back pain from L3 compression fracture s/p kyphoplasty POD # 8 h/o hepatic encephalopathy now on Rifaximin and Lactulose CRI stable Pancytopenia Hematology consult reviewed previous bone marrow procedure without answer to source Anemia of renal disease Leukopenia chronic Advanced age GI Bleed in past Fall risk DNR Right flank post herpetic neuralgia Multiple spine compression fractures in the past on scans Nausea Plan: Home meds Lactulose QID to attain 4 BM's daily Intensive therapies to return to independent living Prognosis guarded [facility] of post herpetic neuralgia and compression fracture Check labs prn DC to [facility] once ready Zofran Q6hrs prn Fall risk noted (1) Compression fracture of L3 vertebra (2) Portal vein thrombosis (3) Hepatic encephalopathy (4) Anemia (5) Back pain (6) Neutropenia (7) Post herpetic neuralgia (8) Renal insufficiency (9) Thrombocytopenia (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
[2018-11-21] MEDS: BUMETANIDE 1 MG (BUMEX) TAB PO SCH (09:09)
[2018-11-21] MEDS: PANTOPRAZOLE 40 MG (PROTONIX) TAB PO SCH (09:09)
[2018-11-21] MEDS: meTOproloL SUCCINATE 50 MG (TOPROL XL) TAB PO SCH (09:09)
[2018-11-21] MEDS: LACTULOSE SYRUP 10GM/15ML (ENULOSE) 30ML UDC PO SCH ×4 (09:09→20:44)
[2018-11-21] MEDS: amLODIPine 10 MG (NORVASC) TAB PO SCH (09:10)
[2018-11-21] MEDS: ALLOPURINOL 100 MG (ZYLOPRIM) TAB PO SCH (09:10)
[2018-11-21] MEDS: MULTIVIT W/MINERALS TAB (THERAGRAN M) PO SCH ×2 (09:10→20:41)
[2018-11-21] MEDS: RIFAXIMIN 550 MG TABLET (XIFAXAN) PO SCH ×2 (09:10→20:41)
[2018-11-21] MEDS: CALCIUM CARB + VIT D 600 MG (CALCARB + D) TAB PO SCH ×2 (09:10→20:41)
--- NOTE | 2018-11-21 09:26 | Occupational Ther Daily Note ---
OT Current Status-Daily Note Subjective pt agreed to OT TX session with focus on increasing independence with ADLs, increase energy conservation , and UE strength for daily activities. Mental Status/Objective Patient Orientation: Normal For Age Therapy Code Descriptions/Definitions Functional [place] Measure: 0=Not Assessed/NA 4=Minimal Assistance 1=Total Assistance 5=Supervision or Setup 2=Maximal Assistance 6=Modified [place] 3=Moderate Assistance 7=Complete [place] ADL-Treatment Therapy Code Descriptions/Definitions Functional [place] Measure: 0=Not Assessed/NA 4=Minimal Assistance 1=Total Assistance 5=Supervision or Setup 2=Maximal Assistance 6=Modified [place] 3=Moderate Assistance 7=Complete [place] Therapy Quality Codes: 6 Independent with activity with or without an assistive device 5 Patient requires set up or clean up by helper. Patient completes activity by themselves 4 Supervision or touching assist (CGA). [place] provide cues , steadying assist 3 The helper provides less than half the effort to complete the activity 2 The helper provides more than half the effort to complete the activity 1 Dependent. The helper does all the effort to complete an activity 7 Patient refused to complete or attempt activity 9 The patient did not perform the activity before the current illness or injury 88 Not attempted due to Medical conditions or safety concerns Eating (FIM): 6 (dentures) Eating (QC): 6 Grooming (FIM): 6 (standing at sink) Oral Hygiene (QC): 6 Upper Body (FIM): 6 (gather clothing from closet, and perform UB dressing. ) Upper Body Dressing (QC): 6 Lower Body Dressing (FIM): 6 (brief, pants, [place] socks, safety concerns for back precautions. pt stated back precautions. ) Lower Body Dressing (QC): 6 On/Off Footwear (QC): 6 Toileting (FIM): 6 Toileting Hygiene (QC): 6 Transfers (B, C, W/C) (FIM): 5 (safty concerns and vc to open bathroom door/ mangement of RW ) Toilet/Commode Transfer (FIM): 5 (safty concerns and vc to open bathroom door/ mangement of RW ) Toilet Transfer (QC): 4 Other Treatment post ADLs pt ambulated to TX gym with RW supervision for safety/ balance. pt perform UBE to increase activity tolerance. pt perform 15 minutes with MIN resistance with no rest breaks. pt then perform pinch strength task while seated to increase hand strength for daily activities. noted increase timing to complete task. pt then demo ability to place 100 pegs onto board wearing 1# wrist weight. noted increase timing to complete task secondary to decrease vision. pt demo ability to use sensation to complete task. pt then ambulated back to room with Supervision using Rw. pt perform donning brace and perform bed mobility MOD I call light within reach, all needs met. . Education OT Patient Education: Energy conservation, Modified ADL techniques, Progress toward Goal/Update tx plan, Purpose of tx/functional activities, Reviewed precautions, Rehab process, Safety issues, Transfer techniques Teaching Recipient: Patient Teaching Methods: Demonstration, Discussion Response to Teaching: Verbalize Understanding, Return Demonstration OT Short Term Goals Short Term Goals Transfers (B,C,W/C) (FIM): 4 (CGA) 1=Demonstrate adherence to instructed precautions during ADL tasks. 2=Patient will verbalize/demonstrate understanding of assistive devices /modifications for ADL. 3=Patient will improve strength/tolerance for activity to enable patient to perform ADL's. OT Subway Guard Goals Alf Goals Time Frame: Nov 28, 2018 Eating (FIM): 6 (MET 11/15/18) Eating (QC): 6 (MET 11/15/18) Groomin (MET 11/16/18) Oral Hygiene (QC): 6 (MET 11/16/18) Bathing(FIM): 5 (MET 11/16/18) Shower/Bathe Self (QC): 5 Upper Body Dressing(FIM): 6 (MET 11/18/18) Upper Body Dressing (QC): 6 (MET 11/18/18) Lower Body Dressing(FIM): 6 (MET 11/21/18) Lower Body Dressing (QC): 6 (MET 11/21/18) On/Off Footwear (QC): 6 (MET 11/21/18) Toileting(FIM): 6 Toileting Hygiene (QC): 6 Transfers (B,C,W/C) (FIM): 6 Toilet/Commode Transfer(FIM): 6 Toilet/Commode Transfer (QC): 6 Shower Transfer(FIM): 5 Additional Goals: 1-Demonstrate ADL Tasks, 2-Verbalize Understanding, 3- ImproveStrength/[place] 1=Demonstrate adherence to instructed precautions during ADL tasks. 2=Patient will verbalize/demonstrate understanding of assistive devices/modifications for ADL. 3=Patient will improve strength/tolerance for activity to enable patient to perform ADL's. OT Education/Plan Problem List/Assessment Assessment: Decreased Activ Tolerance, Decreased Safety Aware, Decreased UE Strength, Impaired Funct Balance, Impaired I ADL's Discharge Recommendations Plan/Recommendations: Continue POC Treatment Plan/Plan of Care Treatment,Training & Education: Yes Patient would benefit from OT for education, treatment and training to promote independence in ADL's, mobility, safety and/or upper extremity function for ADL's. Plan of Care: ADL Retraining, Functional Mobility, Group Exercise/Act as Ind, U E Funct Exercise/Act Treatment Duration: Nov 28, 2018 Frequency: At least 5 of 7 days/Wk (IRF) Estimated Hrs Per Day: 1.5 hours per day Agreement: Yes Rehab Potential: Good Time/GCodes Start Time: 08:00 Stop Time: 09:30 Billed Treatment Time ADL 60 minutes, 4 units FA 30 minutes, 2 units LISETTE MANUEL OT Nov 21, 2018 09:26
[2018-11-21] MEDS: HYDROcodone/APAP 5 MG/325 MG (LORTAB) TAB PO PRN ×3 (09:42→20:42)
--- NOTE | 2018-11-21 10:58 | Physical Therapy Daily Note ---
PT Daily Note-Current Subjective Pt. states she is so frustrated by many things, 1) the ongoing BMs, 2) the persistent pain as result of shingles and 3) her back pain. Pt. states she doesnt see any alternative but to go to a [facility] at [place] where they can help her etc Pain Numeric Pain Scale: 6 Location: Medial Location Body Site: Back Pain Description: Stabbing Comment: with TRFs and some LE movement Mental Status Patient Orientation: Normal For Age Attachments: Other-See Comments (aspen brace) Transfers Therapy Code Descriptions/Definitions Functional [place] Measure: 0=Not Assessed/NA 4=Minimal Assistance 1=Total Assistance 5=Supervision or Setup 2=Maximal Assistance 6=Modified [place] 3=Moderate Assistance 7=Complete [place] Therapy Quality Codes: 6 Independent with activity with or without an assistive device 5 Patient requires set up or clean up by helper. Patient completes activity by themselves 4 Supervision or touching assist (CGA). [place] provide cues , steadying assist 3 The helper provides less than half the effort to complete the activity 2 The helper provides more than half the effort to complete the activity 1 Dependent. The helper does all the effort to complete an activity 7 Patient refused to complete or attempt activity 9 The patient did not perform the activity before the current illness or injury 88 Not attempted due to Medical conditions or safety concerns Transfers (B, C, W/C) (FIM): 5 Scootin Rollin Supine to/from Sit: 5 Sit to/from Stand: 5 Bed to/from Chair: 5 Car Transfer (QC): 5 Gait Training Does the Patient Walk?: Yes Gait (FIM): 5 Distance (FIM): 3=150 ft (150x2.50) Gait Level of Assist: 5 Gait Persons Needed: 1 Gait Assistive Device: FWW flexed posture, head down most of the time, short stride Exercises Supine Ex: Ankle pumps, Quad Set, Rolling, Glut sets, Heel Slides, Short Arc Quads, Scooting, Hip abd/add Supine Reps: 15 Seated Therapy Exercises: Ankle pumps, Sit to stand, Long arc quads, Hip abd/add Seated Reps: 15 NuStep Minutes: 10 NuStep Workload: 1 Treatments toileted indep to SBA x 2, donned and doffed aspen brace x 2 indep Assessment Current Status: Good Progress less pain c/o , increased funct mob PT Short Term Goals Short Term Goals Time Frame: Nov 21, 2018 Transfers (B,C,W/C) (FIM): 4 (CGA) Gait (FIM): 4 Gait Distance Comment: 200' Gait Level of Assist: 4 Gait Assistive Device: FWW PT Fpc Goals Leather Tacker Goals PT Fpc Goals Time Frame: Dec 05, 2018 Transfers (B,C,W/C) (FIM): 5 Sit to Lying (QC): 6 Lying-Sitting on Side/Bed(QC): 6 Sit to Stand (QC): 4 Rollin (use of bedrail) Roll Left to Right (QC): 6 Chair/Vtv-jn-Wwwjq Xfer(QC): 4 Car Transfer (QC): 4 Gait (FIM): 5 Distance: 250' Walk 10 feet (QC): 4 Walk 10ft-Uneven Surface(QC): 4 Walk 50ft with 2 Turns (QC): 4 Walk 150 ft (QC): 4 Gait Level of Assist: 5 Gait Assistive Device: FWW Stairs (FIM): 2 # of Steps: 4 1 Step (curb) (QC): 4 4 Steps (QC): 4 Stairs Level Of Assist: 5 PT Plan Treatment/Plan Treatment Plan: Continue Plan of Care Treatment Plan: Bed Mobility, Education, Functional Activity Shaista, Functional Strength, Group Therapy, Gait, Safety, Therapeutic Exercise, Transfers Treatment Duration: Dec 05, 2018 Frequency: At least 5 of 7 days/Wk (IRF) Estimated Hrs Per Day: 1.5 hours per day Patient and/or Family Agrees t: Yes Safety Risks/Education Patient Education: Gait Training, Transfer Techniques, Correct Positioning, Disease Process, Safety Issues Teaching Recipient: Patient Teaching Methods: Demonstration, Discussion Response to Teaching: Verbalize Understanding, Return Demonstration, Reinforcement Needed Time/GCodes Time In: 1000 Time Out: 1100 Total Billed Treatment Time: 60 Total Billed Treatment 1,GT15m,FA20m,EX25m ROMERO NIÑO SNOW MAKER Nov 21, 2018 10:58
--- NOTE | 2018-11-21 11:35 | NUR ---
BULK STATION AGENT received notification from staff and patient of her desire to admit to a SNF, as she does not feel that she can manage her bowels at home and the maintenance of clean up due to incontinence. Due to history of metabolic encephalopathy and heightened ammonia levels, patient is require to be on a strict bowel regimen; however, all medication efforts have left her with incontinence. Although patient is performing well with therapies, this issue would cause safety concerns while home alone. BULK STATION AGENT also reached out to patient's son, Keven in regards to this request. Keven agrees with this request, as they can check on her frequently, but not as frequent as BM needs. [facility] BULK STATION AGENT will send referral.
--- NOTE | 2018-11-21 13:30 | Physical Therapy Daily Note ---
PT Daily Note-Current Subjective Patient in recliner pre tx, agrees to PT, has 10/10 pain in her back. Nurse notified. Appearance Patient on toilet post tx, instructed to use nurse call when done. Mental Status Patient Orientation: Person, Place, Situation back brace Transfers Therapy Code Descriptions/Definitions Functional [place] Measure: 0=Not Assessed/NA 4=Minimal Assistance 1=Total Assistance 5=Supervision or Setup 2=Maximal Assistance 6=Modified [place] 3=Moderate Assistance 7=Complete [place] Therapy Quality Codes: 6 Independent with activity with or without an assistive device 5 Patient requires set up or clean up by helper. Patient completes activity by themselves 4 Supervision or touching assist (CGA). [place] provide cues , steadying assist 3 The helper provides less than half the effort to complete the activity 2 The helper provides more than half the effort to complete the activity 1 Dependent. The helper does all the effort to complete an activity 7 Patient refused to complete or attempt activity 9 The patient did not perform the activity before the current illness or injury 88 Not attempted due to Medical conditions or safety concerns Transfers (B, C, W/C) (FIM): 5 Sit to/from Stand: 5 Bed to/from Chair: 5 Gait Training Gait (FIM): 5 Distance: 300'x2 Gait Level of Assist: 5 Gait Persons Needed: 1 Gait Assistive Device: FWW Close SBA, no LOB, slow ambulation Exercises Standing: Hamstring curls, Heel/toe raises, Marching, Mini squats Standing Reps: 15 Treatments LE exercise, transfers, ambulation Assessment Current Status: Fair Progress improving endurance and balance PT Short Term Goals Short Term Goals Time Frame: Nov 21, 2018 Transfers (B,C,W/C) (FIM): 4 (CGA) Gait (FIM): 4 Gait Distance Comment: 200' Gait Level of Assist: 4 Gait Assistive Device: FWW PT Assisted Goals Street Openings Inspector Goals PT Street Openings Inspector Goals Time Frame: Dec 05, 2018 Transfers (B,C,W/C) (FIM): 5 Sit to Lying (QC): 6 Lying-Sitting on Side/Bed(QC): 6 Sit to Stand (QC): 4 Rollin Roll Left to Right (QC): 6 Chair/[place]-Luggn Xfer(QC): 4 Car Transfer (QC): 4 Gait (FIM): 5 Distance: 250' Walk 10 feet (QC): 4 Walk 10ft-Uneven Surface(QC): 4 Walk 50ft with 2 Turns (QC): 4 Walk 150 ft (QC): 4 Gait Level of Assist: 5 Gait Assistive Device: FWW Stairs (FIM): 2 # of Steps: 4 1 Step (curb) (QC): 4 4 Steps (QC): 4 Stairs Level Of Assist: 5 PT Plan Problem List Problem List: Activity Tolerance, Functional Strength, Safety, Balance, Gait, Transfer, Bed Mobility, ROM Treatment/Plan Treatment Plan: Continue Plan of Care Treatment Plan: Bed Mobility, Education, Functional Activity Shaista, Functional Strength, Group Therapy, Gait, Safety, Therapeutic Exercise, Transfers Treatment Duration: Dec 05, 2018 Frequency: At least 5 of 7 days/Wk (IRF) Estimated Hrs Per Day: 1.5 hours per day Patient and/or Family Agrees t: Yes Safety Risks/Education Patient Education: Gait Training, Transfer Techniques, Correct Positioning, Safety Issues Teaching Recipient: Patient Teaching Methods: Demonstration, Discussion Response to Teaching: Reinforcement Needed Time/GCodes Time In: 1300 Time Out: 1330 Total Billed Treatment Time: 30 Total Billed Treatment 1 visit GT 20' EX 10' ABBEY TUCKER PT Nov 21, 2018 13:30
[2018-11-21 15:23] VITALS: BP 125/58
--- NOTE | 2018-11-21 19:09 | NUR ---
bedside report received from FAISAL BRITO, assume care of pt
--- NOTE | 2018-11-21 20:42 | NUR ---
c/o back & arm pain level 10/10 on numeric scale, Lortab 5 1 tab po given
--- NOTE | 2018-11-21 20:44 | NUR ---
refused Enulose states had 7 stools today
--- NOTE | 2018-11-21 21:00 | NUR ---
assessments & interventions completed, see assessments & interventions, up to bathroom with 1 person assist, back brace & walker
--- NOTE | 2018-11-21 21:20 | NUR ---
resting quietly in bed, pain level 0/10 on flacc scale
[2018-11-22] MEDS: HYDROcodone/APAP 5 MG/325 MG (LORTAB) TAB PO PRN ×3 (02:15→20:15)
--- NOTE | 2018-11-22 02:15 | NUR ---
c/o back pain level 8/10 on numeric scale, Lortab 5 1 tab po given
--- NOTE | 2018-11-22 02:50 | NUR ---
resting quietly in bed, pain level 0/10 on flacc scale
[2018-11-22 05:37] VITALS: BP 126/53
[2018-11-22] MEDS: KCL 10 MEQ TAB (MICRO K) PO SCH (06:41)
[2018-11-22] MEDS: LIPASE/AMYLASE/PROTEASE (PANCRELIPASE) 5,000 UNITS CAP PO SCH ×3 (06:41→17:31)
--- NOTE | 2018-11-22 07:14 | NUR ---
bedside report given to ERICKSON BRITO
--- NOTE | 2018-11-22 08:29 | Occupational Ther Daily Note ---
OT Current Status-Daily Note Subjective pt agreed to OT TX session with focus on increasing independence with ADLS, energy conservation techniques and IADL tasks. Mental Status/Objective Therapy Code Descriptions/Definitions Functional [place] Measure: 0=Not Assessed/NA 4=Minimal Assistance 1=Total Assistance 5=Supervision or Setup 2=Maximal Assistance 6=Modified [place] 3=Moderate Assistance 7=Complete [place] ADL-Treatment Therapy Code Descriptions/Definitions Functional [place] Measure: 0=Not Assessed/NA 4=Minimal Assistance 1=Total Assistance 5=Supervision or Setup 2=Maximal Assistance 6=Modified [place] 3=Moderate Assistance 7=Complete [place] Therapy Quality Codes: 6 Independent with activity with or without an assistive device 5 Patient requires set up or clean up by helper. Patient completes activity by themselves 4 Supervision or touching assist (CGA). [place] provide cues , steadying assist 3 The helper provides less than half the effort to complete the activity 2 The helper provides more than half the effort to complete the activity 1 Dependent. The helper does all the effort to complete an activity 7 Patient refused to complete or attempt activity 9 The patient did not perform the activity before the current illness or injury 88 Not attempted due to Medical conditions or safety concerns Grooming (FIM): 7 (standing at sink to wash hands, face, and brush teeth. no safety concerns noted. ) Oral Hygiene (QC): 6 Bathing (FIM): 0 (pt REF to complete bathing task this date. stated she already was dressed and did not e3ant o undress self. ) Lower Body Dressing (FIM): 6 (milagro socks ) Lower Body Dressing (QC): 6 On/Off Footwear (QC): 6 Toileting (FIM): 6 (safety concerns for back precaution (twisting) ) Toileting Hygiene (QC): 5 Transfers (B, C, W/C) (FIM): 5 (VC for proper sequencing when opening doors. ) Toilet/Commode Transfer (FIM): 5 Toilet Transfer (QC): 5 Other Treatment post ADLs pt demo ability to ambulated to TC gym and perform 10 minutes on UBE with mod RES. energy conservation handout given to patient and gone over in detail relating to personally life. examples given for : cooking, dressing, shopping, and cleaning. pt verbalized and stated routine using techniques. pt education on completing laundry task and peroper positioning while using RW. pt required MOD VC for placement of RW, noted safety concerns with task. pt education on kitchen mobility with use of RW. pt demo ability to open oven with safety concerns. safety issues addressed but will require additional training for carry through. Education OT Patient Education: Energy conservation, Modified ADL techniques, Progress toward Goal/Update tx plan, Purpose of tx/functional activities, Safety issues, Transfer techniques, Use of adapted equipment Teaching Recipient: Patient Teaching Methods: Demonstration, Discussion Response to Teaching: Verbalize Understanding, Return Demonstration OT Short Term Goals Short Term Goals Transfers (B,C,W/C) (FIM): 4 (CGA) 1=Demonstrate adherence to instructed precautions during ADL tasks. 2=Patient will verbalize/demonstrate understanding of assistive christa jeferson/modifications for ADL. 3=Patient will improve strength/tolerance for activity to enable patient to perform ADL's. OT Residential Goals Blueprint Processor Goals Time Frame: Nov 28, 2018 Eating (FIM): 6 (MET 11/15/18) Eating (QC): 6 (MET 11/15/18) Groomin (MET 11/16/18) Oral Hygiene (QC): 6 (MET 11/16/18) Bathing(FIM): 5 (MET 11/16/18) Shower/Bathe Self (QC): 5 Upper Body Dressing(FIM): 6 (MET 11/18/18) Upper Body Dressing (QC): 6 (MET 11/18/18) Lower Body Dressing(FIM): 6 (MET 11/21/18) Lower Body Dressing (QC): 6 (MET 11/21/18) On/Off Footwear (QC): 6 (MET 11/21/18) Toileting(FIM): 6 Toileting Hygiene (QC): 6 Transfers (B,C,W/C) (FIM): 6 Toilet/Commode Transfer(FIM): 6 Toilet/Commode Transfer (QC): 6 Shower Transfer(FIM): 5 Additional Goals: 1-Demonstrate ADL Tasks, 2-Verbalize Understanding, 3- ImproveStrength/Shaista 1=Demonstrate adherence to instructed precautions during ADL tasks. 2=Patient will verbalize/demonstrate understanding of assistive devices/modifications for ADL. 3=Patient will improve strength/tolerance for activity to enable patient to perform ADL's. OT Education/Plan Problem List/Assessment Assessment: Decreased Activ Tolerance, Decreased Safety Aware, Impaired Funct Balance, Impaired I ADL's Discharge Recommendations Plan/Recommendations: Continue POC Treatment Plan/Plan of Care Treatment,Training & Education: Yes Patient would benefit from OT for education, treatment and training to promote independence in ADL's, mobility, safety and/or upper extremity function for ADL's. Plan of Care: ADL Retraining, Functional Mobility, Group Exercise/Act as Ind, UE Funct Exercise/Act Treatment Duration: Nov 28, 2018 Frequency: At least 5 of 7 days/Wk (IRF) Estimated Hrs Per Day: 1.5 hours per day Agreement: Yes Rehab Potential: Good Time/GCodes Start Time: 07:00 Stop Time: 08:30 Billed Treatment Time ADL 30 minutes, 2 units FA 60 minutes, 4 units LISETTE MANUEL OT Nov 22, 2018 08:29
--- NOTE | 2018-11-22 08:33 | PM&R Progress Note ---
Subjective HPI/CC On Admission Date Seen by Provider: Nov 22, 2018 Time Seen by Provider: 08:45 CC: Severe back pain with debility from L3 compression fractures s/p kyphoplasty 11/13/18 HPI: This is an 88yoWF clinic patient of Dr Nelson in [place] who is known to hi and IRF due to recent admit for debility following new onset hepatic encephalopathy requiring admission to [facility] in [place] and requiring a stay in IRF prior to returning home with family very involved in her care who presents today after DC from [facility] after admitted on 11/09/18 following severe back pain after bending over and suffering an L3 compression fracture. Due to her other severe co-morbidities which include liver cirrhosis end stage along with leukopenia and thrombocytopenia (s/p bone marrow in the past by Hematology without source found) surgery was avoided so she was placed on pain meds and PT ordered but she continued to have such severe back pain she required a kyphoplasty which was performed yesterday without complications. Lactulose is ordered along with Rifaximin to minimize ammonia level to prevent confusion from hepatic encephalopathy. She has chronic upper back pain from remote history of herpes zoster and xrays revealed multiple old compression fractures of the spine. PLOF was independent with use of walker and ADL's were supervised by family members. She will return home with her family at DC from IRF. Subjective/Events-last exam Pt is set to [facility] to [facility] [place] [facility] Had 6 BM yesterday with Rifaximin and Lactulose Denies any pain issues except for left lower quadrant Pt begins having more somatic complaints the longer she is admitted to the in patient rehab unit just as she did last time No falls but high risk Very frail Conferred with RN. Reviewed therapy notes. Supportive care will continue Review of Systems General: Fatigue Musculoskeletal: back pain Objective Exam Vital Signs Vital Signs Date Time Temp Pulse Resp B/P (MAP) Pulse Ox O2 Delivery O2 Flow Rate FiO2 11/22/18 20:36 Room Air 11/22/18 15:31 97.3 68 16 108/60 (76) 99 Capillary Refill : General Appearance: No Apparent Distress, WD/WN, Chronically ill, Thin HEENT: PERRL/EOMI, Normal ENT Inspection, Pharynx Normal, Moist Mucous Membranes Neck: Full Range of Motion, Normal Inspection, Non Tender, Supple Respiratory: Chest Non Tender, Lungs Clear, Normal Breath Sounds, No Accessory Muscle Use, No Respiratory Distress Cardiovascular: Regular Rate, Rhythm, No Gallop, No JVD, Systolic Murmur Gastrointestinal: Normal Bowel Sounds, No Organomegaly, No Pulsatile Mass, Non Tender, Soft Back: Normal Inspection, No CVA Tenderness, Decreased Range of Motion, Muscle Spasm, Vertebral Tenderness Extremity: Normal Capillary Refill, Normal Inspection, Normal Range of Motion, Non Tender, No Calf Tenderness, Pedal Edema Neurologic/Psychiatric: Alert, Oriented x3, No Motor/Sensory Deficits (d ecreased ROM lower legs from back pain), Normal Mood/Affect, group exercise instructor II-XII Norm as Tested, Other (subtle poor recall) Skin: Normal Color, Warm/Dry Lymphatic: No Adenopathy Results/Procedures Lab Patient resulted labs reviewed. FIM Transfers Therapy Code Descriptions/Definitions Functional [place] Measure: 0=Not Assessed/NA 4=Minimal Assistance 1=Total Assistance 5=Supervision or Setup 2=Maximal Assistance 6=Modified [place] 3=Moderate Assistance 7=Complete [place] Therapy Quality Codes: 6 Independent with activity with or without an assistive device 5 Patient requires set up or clean up by helper. Patient completes activity by themselves 4 Supervision or touching assist (CGA). [place] provide cues , steadying assist 3 The helper provides less than half the effort to complete the activity 2 The helper provides more than half the effort to complete the activity 1 Dependent. The helper does all the effort to complete an activity 7 Patient refused to complete or attempt activity 9 The patient did not perform the activity before the current illness or injury 88 Not attempted due to Medical conditions or safety concerns Transfers (B, C, W/C) (FIM): 5 Scootin Rollin Supine to/from Sit: 5 Sit to/from Stand: 5 Sit to Lying (QC): 3 Sit to Stand (QC): 4 Chair/Xfl-wy-Qpiev Xfer(QC): 4 Bed to/from Chair: 5 Car Transfer (QC): 5 Gait Training Does the Patient Walk?: Yes Gait (FIM): 5 Distance (FIM): 3=150 ft (150x2.50) Distance: 300'x2 Walk 10 feet (QC): 4 Walk 50 ft with 2 Turns(QC): 4 Walk 150 ft (QC): 4 Walking 10ft/uneven surface-QC: 4 Gait Level of Assist: 5 Gait Persons Needed: 1 Gait Assistive Device: FWW Wheelchair Training Does the Pt Use a Wheelchair?: No Stair Training Stair Training: Handrails/: 2 handrails Stairs (FIM): 1 #of Steps: 24 1 Step (curb) (QC): 4 Stairs: Pattern: Reciprocal Level of Assist: 5 Mental Status/Objective Comprehension: 7 Expression: 7 Social Interaction: 7 Problem Solvin Memory: 7 ADL-Treatment Feedin (dentures) Eating (QC): 6 Groomin (standing at sink to wash hands, face, and brush teeth. no safety concerns noted. ) Oral Hygiene (QC): 6 Bathin (pt REF to complete bathing task this date. stated she already was dressed and did not e3ant o undress self. ) Bathing Location: L Arm, R Arm, L Upper Leg, R Upper Leg, L Lower Leg (including foot), R Lower Leg (including foot), Chest, Abdomen, Buttocks, Perineal Area Shower/Bathe Self (QC): 4 Upper Extremity Dressin (gather clothing from closet, and perform UB dressing. ) Upper Body Dressing (QC): 6 Lower Extremity Dressin (milagro socks ) Lower Body Dressing (QC): 6 On/Off Footwear (QC): 6 Toiletin Toileting Hygiene (QC): 6 Toilet/Commode Transfer: 5 (safty concerns and vc to open bathroom door/ mangement of RW ) Toilet Transfer (QC): 4 Shower: 5 Assessment/Plan Assessment and Plan Assess & Plan/Chief Complaint Assessment: Severe back pain from L3 compression fracture s/p kyphoplasty POD # 9 h/o hepatic encephalopathy now on Rifaximin and Lactulose CRI stable Pancytopenia Hematology consult reviewed previous bone marrow procedure without answer to source Anemia of renal disease Leukopenia chronic Advanced age GI Bleed in past Fall risk DNR Right flank post herpetic neuralgia Multiple spine compression fractures in the past on scans Nausea Plan: Home meds Lactulose QID to attain 4 BM's daily Intensive therapies to return to independent living Prognosis guarded Reviewed Kyphoplasty note from [facility] Pain management of post herpetic neuralgia and compression fracture Check labs prn DC to NH 11/24/18 Zofran Q6hrs prn Fall risk noted (1) Compression fracture of L3 vertebra (2) Portal vein thrombosis (3) Hepatic encephalopathy (4) Anemia (5) Back pain (6) Neutropenia (7) Post herpetic neuralgia (8) Renal insufficiency (9) Thrombocytopenia (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
[2018-11-22 08:36] VITALS: BP 127/53
[2018-11-22] MEDS: RIFAXIMIN 550 MG TABLET (XIFAXAN) PO SCH ×2 (08:36→20:13)
[2018-11-22] MEDS: BUMETANIDE 1 MG (BUMEX) TAB PO SCH (08:36)
[2018-11-22] MEDS: CALCIUM CARB + VIT D 600 MG (CALCARB + D) TAB PO SCH ×2 (08:36→20:13)
[2018-11-22] MEDS: LACTULOSE SYRUP 10GM/15ML (ENULOSE) 30ML UDC PO SCH ×4 (08:36→20:13)
[2018-11-22] MEDS: amLODIPine 10 MG (NORVASC) TAB PO SCH (08:36)
[2018-11-22] MEDS: meTOproloL SUCCINATE 50 MG (TOPROL XL) TAB PO SCH (08:36)
[2018-11-22] MEDS: MULTIVIT W/MINERALS TAB (THERAGRAN M) PO SCH ×2 (08:36→20:13)
[2018-11-22] MEDS: PANTOPRAZOLE 40 MG (PROTONIX) TAB PO SCH (08:36)
[2018-11-22] MEDS: ALLOPURINOL 100 MG (ZYLOPRIM) TAB PO SCH (08:36)
--- NOTE | 2018-11-22 10:27 | Physical Therapy Daily Note ---
PT Daily Note-Current Subjective Patient in bed pre tx, agrees to PT, has 8/10 pain and states she has already had pain meds. Appearance Patient in recliner post tx with nurse call, phone, tray, family in the room. Mental Status Patient Orientation: Person, Place, Situation back brace Transfers Therapy Code Descriptions/Definitions Functional [place] Measure: 0=Not Assessed/NA 4=Minimal Assistance 1=Total Assistance 5=Supervision or Setup 2=Maximal Assistance 6=Modified [place] 3=Moderate Assistance 7=Complete [place] Therapy Quality Codes: 6 Independent with activity with or without an assistive device 5 Patient requires set up or clean up by helper. Patient completes activity by themselves 4 Supervision or touching assist (CGA). [place] provide cues , steadying a ssist 3 The helper provides less than half the effort to complete the activity 2 The helper provides more than half the effort to complete the activity 1 Dependent. The helper does all the effort to complete an activity 7 Patient refused to complete or attempt activity 9 The patient did not perform the activity before the current illness or injury 88 Not attempted due to Medical conditions or safety concerns Transfers (B, C, W/C) (FIM): 6 Scootin Rollin Supine to/from Sit: 6 Sit to/from Stand: 6 Bed to/from Chair: 6 Gait Training Gait (FIM): 6 Distance: 200'x2 Gait Level of Assist: 6 Gait Assistive Device: FWW steady ambulation but slow Exercises Standing: Hip Abduction, Hamstring curls, Heel/toe raises, Marching, Mini squ ats, Step-ups Standing Reps: 15 LAQ alternating for 5 min with 2# ankle weights NuStep Minutes: 15 NuStep Workload: 3 Treatments bed mobility and transfers, ambulation, LE strengthening Assessment Current Status: Fair Progress improved general mobility PT Short Term Goals Short Term Goals Time Frame: Nov 21, 2018 Transfers (B,C,W/C) (FIM): 4 (CGA) Gait (FIM): 4 Gait Distance Comment: 200' Gait Level of Assist: 4 Gait Assistive Device: FWW PT Theatrical Rigger Goals Theatrical Rigger Goals PT Theatrical Rigger Goals Time Frame: Dec 05, 2018 Transfers (B,C,W/C) (FIM): 5 Sit to Lying (QC): 6 Lying-Sitting on Side/Bed(QC): 6 Sit to Stand (QC): 4 Rollin Roll Left to Right (QC): 6 Chair/Ujz-sm-Tcbht Xfer(QC): 4 Car Transfer (QC): 4 Gait (FIM): 5 Distance: 250' Walk 10 feet (QC): 4 Walk 10ft-Uneven Surface(QC): 4 Walk 50ft with 2 Turns (QC): 4 Walk 150 ft (QC): 4 Gait Level of Assist: 5 Gait Assistive Device: FWW Stairs (FIM): 2 # of Steps: 4 1 Step (curb) (QC): 4 4 Steps (QC): 4 Stairs Level Of Assist: 5 PT Plan Problem List Problem List: Activity Tolerance, Functional Strength, Safety, Balance, Gait, Transfer Treatment/Plan Treatment Plan: Continue Plan of Care Treatment Plan: Bed Mobility, Education, Functional Activity Shaista, Functional Strength, Group Therapy, Gait, Safety, Therapeutic Exercise, Transfers Treatment Duration: Dec 05, 2018 Frequency: At least 5 of 7 days/Wk (IRF) Estimated Hrs Per Day: 1.5 hours per day Patient and/or Family Agrees t: Yes Safety Risks/Education Patient Education: Gait Training, Transfer Techniques, Correct Positioning, Reviewed Don/Doff Brace, Safety Issues Teaching Recipient: Patient Teaching Methods: Demonstration, Discussion Response to Teaching: Reinforcement Needed Time/GCodes Time In: 0930 Time Out: 1030 Total Billed Treatment Time: 60 Total Billed Treatment 1 visit GT 15' FA 15' EX 30' ABBEY TUCKER PT Nov 22, 2018 10:27
--- NOTE | 2018-11-22 10:50 | NUR ---
Pastoral care visit.
--- NOTE | 2018-11-22 12:00 | Wound Care Assessment ---
Wound Care Assessment Date Seen by Provider: Nov 22, 2018 Time Seen by Provider: 11:45 Chief Complaint History of sacral excoriation. HPI The patient is a pleasant 88 year old female with a history of MASD and excoriation of the sacral area during previous hospitalization in August of this year. This has resolved, her motility and bladder/bowel control is better, and her mobility is improving. I have been asked to review her status, in an abundance of caution, and find no evidence of on-going pressure injury. I see no call for extraordinary measures, and would support routine nursing precautions in regards to skin care. 11/22/18 -- Interval note: The sacral area remains clear. Will see patient again on an as needed basis. Cirrhosis of liver. Smoking Status: Never a Smoker Recreational Drug Use: No Alcohol Use: Denies Use Review of Systems Pulmonary: No Dyspnea Cardiovascular: No: Chest Pain Exam Vital Signs Date Time Temp Pulse Resp B/P (MAP) Pulse Ox O2 Delivery O2 Flow Rate FiO2 11/22/18 08:36 77 127/53 (77) 11/22/18 08:00 Room Air 11/22/18 05:37 98.0 18 99 Capillary Refill : General Appearance: no apparent distress HEENT: normal ENT inspection Neck: normal inspection Respiratory: no respiratory distress Back: other (Sacral area clear.) Assessment/Plan/Dx 1. Decreased mobility. 2. History of urinary incontinence. Plan: Standard precautions should be adequate as her mobility improves. Will see again as needed. MIR NEAL MD Nov 22, 2018 12:00
--- NOTE | 2018-11-22 13:55 | Physical Therapy Daily Note ---
PT Daily Note-Current Subjective Patient in recliner pre tx, agrees to PT, has 6/10 pain. Appearance Patient in recliner post tx with nurse call, phone, tray, all needs met. Mental Status Patient Orientation: Person, Place, Situation back brace Transfers Therapy Code Descriptions/Definitions Functional [place] Measure: 0=Not Assessed/NA 4=Minimal Assistance 1=Total Assistance 5=Supervision or Setup 2=Maximal Assistance 6=Modified [place] 3=Moderate Assistance 7=Complete [place] Therapy Quality Codes: 6 Independent with activity with or without an assistive device 5 Patient requires set up or clean up by helper. Patient completes activity by themselves 4 Supervision or touching assist (CGA). [place] provide cues , steadying assist 3 The helper provides less than half the effort to complete the activity 2 The helper provides more than half the effort to complete the activity 1 Dependent. The helper does all the effort to complete an activity 7 Patient refused to complete or attempt activity 9 The patient did not perform the activity before the current illness or injury 88 Not attempted due to Medical conditions or safety concerns Transfers (B, C, W/C) (FIM): 5 Sit to/from Stand: 5 Bed to/from Chair: 5 Gait Training Gait (FIM): 5 Distance: 200', 300' Gait Level of Assist: 5 Gait Persons Needed: 1 Gait Assistive Device: FWW slow but steady ambulation Exercises Seated Therapy Exercises: Ankle pumps, Long arc quads, Hip flexion, Hip abd/add Seated Reps: 15 Treatments LE exercises, ambulation Assessment Current Status: Fair Progress improving endurance PT Short Term Goals Short Term Goals Time Frame: Nov 21, 2018 Transfers (B,C,W/C) (FIM): 4 (CGA) Gait (FIM): 4 Gait Distance Comment: 200' Gait Level of Assist: 4 Gait Assistive Device: FWW PT Branch Controller Goals Care Home Goals PT Branch Controller Goals Time Frame: Dec 05, 2018 Transfers (B,C,W/C) (FIM): 5 Sit to Lying (QC): 6 Lying-Sitting on Side/Bed(QC): 6 Sit to Stand (QC): 4 Rollin Roll Left to Right (QC): 6 Chair/Wok-xl-Tletp Xfer(QC): 4 Car Transfer (QC): 4 Gait (FIM): 5 Distance: 250' Walk 10 feet (QC): 4 Walk 10ft-Uneven Surface(QC): 4 Walk 50ft with 2 Turns (QC): 4 Walk 150 ft (QC): 4 Gait Level of Assist: 5 Gait Assistive Device: FWW Stairs (FIM): 2 # of Steps: 4 1 Step (curb) (QC): 4 4 Steps (QC): 4 Stairs Level Of Assist: 5 PT Plan Problem List Problem List: Activity Tolerance, Functional Strength, Safety, Balance, Gait, Transfer, Bed Mobility, ROM Treatment/Plan Treatment Plan: Continue Plan of Care Treatment Plan: Bed Mobility, Education, Functional Activity Shaista, Functional Strength, Group Therapy, Gait, Safety, Therapeutic Exercise, Transfers Treatment Duration: Dec 05, 2018 Frequency: At least 5 of 7 days/Wk (IRF) Estimated Hrs Per Day: 1.5 hours per day Patient and/or Family Agrees t: Yes Safety Risks/Education Patient Education: Gait Training, Transfer Techniques, Correct Positioning, Reviewed Don/Doff Brace, Safety Issues Teaching Recipient: Patient Teaching Methods: Demonstration, Discussion Response to Teaching: Reinforcement Needed Time/GCodes Time In: 1330 Time Out: 1400 Total Billed Treatment Time: 30 Total Billed Treatment 1 visit EX 10' GT 20' ABBEY TUCKER PT Nov 22, 2018 13:55
[2018-11-22 15:31] VITALS: BP 108/60
[2018-11-23] MEDS: HYDROcodone/APAP 5 MG/325 MG (LORTAB) TAB PO PRN ×4 (03:22→22:25)
[2018-11-23 06:00] VITALS: BP 124/60
[2018-11-23] MEDS: KCL 10 MEQ TAB (MICRO K) PO SCH (06:14)
[2018-11-23] MEDS: LIPASE/AMYLASE/PROTEASE (PANCRELIPASE) 5,000 UNITS CAP PO SCH ×3 (06:15→16:18)
--- NOTE | 2018-11-23 08:17 | PM&R Progress Note ---
Subjective HPI/CC On Admission Date Seen by Provider: Nov 23, 2018 Time Seen by Provider: 08:30 CC: Severe back pain with debility from L3 compression fractures s/p kyphoplasty 11/13/18 HPI: This is an 88yoWF clinic patient of Dr Nelson in [place] who is known to pr and IRF due to recent admit for debility following new onset hepatic encephalopathy requiring admission to [facility] in [place] and requiring a stay in IRF prior to returning home with family very involved in her care who presents today after DC from [facility] after admitted on 11/09/18 following severe back pain after bending over and suffering an L3 compression fracture. Due to her other severe co-morbidities which include liver cirrhosis end stage along with leukopenia and thrombocytopenia (s/p bone marrow in the past by Hematology without source found) surgery was avoided so she was placed on pain meds and PT ordered but she continued to have such severe back pain she required a kyphoplasty which was performed yesterday without complications. Lactulose is ordered along with Rifaximin to minimize ammonia level to prevent confusion from hepatic encephalopathy. She has chronic upper back pain from remote history of herpes zoster and xrays revealed multiple old compression fractures of the spine. PLOF was independent with use of walker and ADL's were supervised by family members. She will return home with her family at DC from [facility]. Subjective/Events-last exam custodial placement on Wednesday Bowels are moving 7 times a day Potassium was 3.4 Overall doing much better but having multiple somatic complaints Conferred with RN. Reviewed therapy notes. Supportive care will continue Review of Systems General: Fatigue Objective Exam Vital Signs Vital Signs Date Time Temp Pulse Resp B/P (MAP) Pulse Ox O2 Delivery O2 Flow Rate FiO2 11/23/18 20:15 Room Air 11/23/18 17:21 98.7 60 18 114/76 (89) 100 Capillary Refill : General Appearance: No Apparent Distress, WD/WN, Chronically ill, Thin HEENT: PERRL/EOMI, Normal ENT Inspection, Pharynx Normal, Moist Mucous Membranes Neck: Full Range of Motion, Normal Inspection, Non Tender, Supple Respiratory: Chest Non Tender, Lungs Clear, Normal Breath Sounds, No Accessory Muscle Use, No Respiratory Distress Cardiovascular: Regular Rate, Rhythm, No Gallop, No JVD, Systolic Murmur Gastrointestinal: Normal Bowel Sounds, No Organomegaly, No Pulsatile Mass, Non Tender, Soft Back: Normal Inspection, No CVA Tenderness, Decreased Range of Motion, Muscle Spasm, Vertebral Tenderness Extremity: Normal Capillary Refill, Normal Inspection, Normal Range of Motion, Non Tender, No Calf Tenderness, Pedal Edema Neurologic/Psychiatric: Alert, Oriented x3, No Motor/Sensory Deficits (decreased ROM lower legs from back pain), Normal Mood/Affect, recording clerk II-XII Norm as Tested, Other (subtle poor recall) Skin: Normal Color, Warm/Dry Lymphatic: No Adenopathy Results/Procedures Lab Patient resulted labs reviewed. FIM Transfers Therapy Code Descriptions/Definitions Functional [place] Measure: 0=Not Assessed/NA 4=Minimal Assistance 1=Total Assistance 5=Supervision or Setup 2=Maximal Assistance 6=Modified [place] 3=Moderate Assistance 7=Complete [place] Therapy Quality Codes: 6 Independent with activity with or without an assistive device 5 Patient requires set up or clean up by helper. Patient completes activity by themselves 4 Supervision or touching assist (CGA). [place] provide cues , steadying assist 3 The helper provides less than half the effort to complete the activity 2 The helper provides more than half the effort to complete the activity 1 Dependent. The helper does all the effort to complete an activity 7 Patient refused to complete or attempt activity 9 The patient did not perform the activity before the current illness or injury 88 Not attempted due to Medical conditions or safety concerns Transfers (B, C, W/C) (FIM): 5 Scootin Rollin Supine to/from Sit: 6 Sit to/from Stand: 5 Sit to Lying (QC): 3 Sit to Stand (QC): 4 Chair/Dov-pb-Vfmbq Xfer(QC): 4 Bed to/from Chair: 5 Car Transfer (QC): 5 Gait Training Does the Patient Walk?: Yes Gait (FIM): 5 Distance (FIM): 3=150 ft (150x2.50) Distance: 200', 300' Walk 10 feet (QC): 4 Walk 50 ft with 2 Turns(QC): 4 Walk 150 ft (QC): 4 Walking 10ft/uneven surface-QC: 4 Gait Level of Assist: 5 Gait Persons Needed: 1 Gait Assistive Device: FWW Wheelchair Training Does the Pt Use a Wheelchair?: No Stair Training Stair Training: Handrails/: 2 handrails Stairs (FIM): 1 #of Steps: 24 1 Step (curb) (QC): 4 Stairs: Pattern: Reciprocal Level of Assist: 5 Mental Status/Objective Comprehension: 7 Expression: 7 Social Interaction: 7 Problem Solvin Memory: 7 ADL-Treatment Feedin (dentures) Eating (QC): 6 Groomin (standing at sink to wash hands, face, and brush teeth. no safety concerns noted. ) Oral Hygiene (QC): 6 Bathin (pt REF to complete bathing task this date. stated she already was dressed and did not e3ant o undress self. ) Bathing Location: L Arm, R Arm, L Upper Leg, R Upper Leg, L Lower Leg (including foot), R Lower Leg (including foot), Chest, Abdomen, Buttocks, Perineal Area Shower/Bathe Self (QC): 4 Upper Extremity Dressin (gather clothing from closet, and perform UB dressing. ) Upper Body Dressing (QC): 6 Lower Extremity Dressin (milagro socks ) Lower Body Dressing (QC): 6 On/Off Footwear (QC): 6 Toiletin (safety concerns for back precaution (twisting) ) Toileting Hygiene (QC): 5 Toilet/Commode Transfer: 5 Toilet Transfer (QC): 5 Shower: 5 Assessment/Plan Assessment and Plan Assess & Plan/Chief Complaint Assessment: Severe back pain from L3 compression fracture s/p kyphoplasty POD # 10 h/o hepatic encephalopathy now on Rifaximin and Lactulose CRI stable Pancytopenia Hematology consult reviewed previous bone marrow procedure without answer to source Anemia of renal disease Leukopenia chronic Advanced age GI Bleed in past Fall risk DNR Right flank post herpetic neuralgia Multiple spine compression fractures in the past on scans Nausea Plan: Home meds Lactulose QID to attain 4 BM's daily Intensive therapies to return to independent living Prognosis guarded [facility] of post herpetic neuralgia and compression fracture Check labs prn DC to [facility] 11/24/18 Zofran Q6hrs prn Fall risk noted (1) Compression fracture of L3 vertebra (2) Portal vein thrombosis (3) Hepatic encephalopathy (4) Anemia (5) Back pain (6) Neutropenia (7) Post herpetic neuralgia (8) Renal insufficiency (9) Thrombocytopenia (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
[2018-11-23] MEDS: CALCIUM CARB + VIT D 600 MG (CALCARB + D) TAB PO SCH ×2 (08:18→20:20)
[2018-11-23] MEDS: LACTULOSE SYRUP 10GM/15ML (ENULOSE) 30ML UDC PO SCH ×4 (08:18→20:14)
[2018-11-23] MEDS: BUMETANIDE 1 MG (BUMEX) TAB PO SCH (08:18)
[2018-11-23] MEDS: meTOproloL SUCCINATE 50 MG (TOPROL XL) TAB PO SCH (08:19)
[2018-11-23] MEDS: MULTIVIT W/MINERALS TAB (THERAGRAN M) PO SCH ×2 (08:19→20:20)
[2018-11-23] MEDS: PANTOPRAZOLE 40 MG (PROTONIX) TAB PO SCH (08:19)
[2018-11-23] MEDS: ALLOPURINOL 100 MG (ZYLOPRIM) TAB PO SCH (08:19)
[2018-11-23] MEDS: RIFAXIMIN 550 MG TABLET (XIFAXAN) PO SCH ×2 (08:19→20:20)
[2018-11-23] MEDS: amLODIPine 10 MG (NORVASC) TAB PO SCH (08:19)
--- NOTE | 2018-11-23 09:00 | NUR ---
IS CONTENT WITH PLAN TO GO TO SENIOR CARE. DR. OLIVA AWARE OF AMMONIA AND POTASSIUM LEVELS. NO NEW ORDERS.
--- NOTE | 2018-11-23 10:00 | NUR ---
OPEN AREA ON SACRUM HAS CLOSED AND AREA ONLY PINK NOW. MEPILEX ON ORDERED.
--- NOTE | 2018-11-23 10:17 | NUR ---
[facility]
--- NOTE | 2018-11-23 10:58 | Physical Therapy Daily Note ---
PT Daily Note-Current Subjective Pt. agrees to Rx but states she wants to take it easy as she had so much discomfort with past Rxs. Pt. states she feels she is getting around well and feels better as a whole Pain Location: No Pain Reported Mental Status Patient Orientation: Person, Place, Time, Situation Attachments: Other-See Comments (rishi jenny) Transfers Therapy Code Descriptions/Definitions Functional [place] Measure: 0=Not Assessed/NA 4=Minimal Assistance 1=Total Assistance 5=Supervision or Setup 2=Maximal Assistance 6=Modified [place] 3=Moderate Assistance 7=Complete [place] Therapy Quality Codes: 6 Independent with activity with or without an assistive device 5 Patient requires set up or clean up by helper. Patient completes activity by themselves 4 Supervision or touching assist (CGA). [place] provide cues , steadying assist 3 The helper provides less than half the effort to complete the activity 2 The helper provides more than half the effort to complete the activity 1 Dependent. The helper does all the effort to complete an activity 7 Patient refused to complete or attempt activity 9 The patient did not perform the activity before the current illness or injury 88 Not attempted due to Medical conditions or safety concerns Transfers (B, C, W/C) (FIM): 5 Scootin Rollin Roll Left to Right (QC): 6 Supine to/from Sit: 5 Sit to/from Stand: 6 Sit to Lying (QC): 6 Sit to Stand (QC): 6 Chair/Ekt-ef-Crgxc Xfer(QC): 6 Bed to/from Chair: 6 Car Transfer (QC): 5 Gait Training Does the Patient Walk?: Yes Gait (FIM): 5 Distance (FIM): 3=150 ft (175x3) Walk 10 feet (QC): 5 Walk 50 ft with 2 Turns(QC): 5 Walk 150 ft (QC): 5 Walking 10ft/uneven surface-QC: 5 Gait Level of Assist: 5 Gait Persons Needed: 1 Gait Assistive Device: FWW pt. nearly up ad jose, pts frailty is an issue Stair Training Stair Training: Handrails/: 2 handrails Stairs (FIM): 5 #of Steps: 4 1 Step (curb) (QC): 5 4 Steps (QC): 5 Stairs: Pattern: Reciprocal Level of Assist: 5 household exception Balance Special Test Comments contraindicated Exercises Supine Ex: Ankle pumps, Quad Set, Rolling, Heel Slides, Hip abd/add Supine Reps: 12 Seated Therapy Exercises: Ankle pumps, Sit to stand, Long arc quads, Hip flexion Seated Reps: 10 Assessment Current Status: Good Progress filippo franco brace indep, has made significant progress, PT Short Term Goals Short Term Goals Time Frame: Nov 21, 2018 Transfers (B,C,W/C) (FIM): 4 (CGA) Gait (FIM): 4 Gait Distance Comment: 200' Gait Level of Assist: 4 Gait Assistive Device: FWW PT Senior Care Goals Shot Grinder Operator Goals PT Shot Grinder Operator Goals Time Frame: Dec 05, 2018 Transfers (B,C,W/C) (FIM): 5 Sit to Lying (QC): 6 Lying-Sitting on Side/Bed(QC): 6 Sit to Stand (QC): 4 Rollin Roll Left to Right (QC): 6 Chair/Rhp-nn-Dyopf Xfer(QC): 4 Car Transfer (QC): 4 Gait (FIM): 5 Distance: 250' Walk 10 feet (QC): 4 Walk 10ft-Uneven Surface(QC): 4 Walk 50ft with 2 Turns (QC): 4 Walk 150 ft (QC): 4 Gait Level of Assist: 5 Gait Assistive Device: FWW Stairs (FIM): 2 # of Steps: 4 1 Step (curb) (QC): 4 4 Steps (QC): 4 Stairs Level Of Assist: 5 PT Plan Treatment/Plan Treatment Plan: Continue Plan of Care Treatment Plan: Bed Mobility, Education, Functional Activity Shaista, Functional Strength, Group Therapy, Gait, Safety, Therapeutic Exercise, Transfers Treatment Duration: Dec 05, 2018 Frequency: At least 5 of 7 days/Wk (IRF) Estimated Hrs Per Day: 1.5 hours per day Patient and/or Family Agrees t: Yes Safety Risks/Education Patient Education: Gait Training, Transfer Techniques, Steps, Correct Positioning, Disease Process, Safety Issues Teaching Recipient: Patient Teaching Methods: Demonstration, Discussion Response to Teaching: Verbalize Understanding, Return Demonstration, Reinf orcement Needed Time/GCodes Time In: 1000 Time Out: 1100 Total Billed Treatment Time: 60 Total Billed Treatment 1,GT15m,EX15m,FA30m G Codes Necessary: No ROMERO NIÑO LABOR RELATIONS OFFICER Nov 23, 2018 10:58
--- NOTE | 2018-11-23 12:54 | Occupational Ther Daily Note ---
OT Current Status-Daily Note Subjective Pt in bed, agrees to treatment. Mental Status/Objective Therapy Code Descriptions/Definitions Functional [place] Measure: 0=Not Assessed/NA 4=Minimal Assistance 1=Total Assistance 5=Supervision or Setup 2=Maximal Assistance 6=Modified [place] 3=Moderate Assistance 7=Complete [place] ADL-Treatment Pt agreeable to shower today. Retrieved clothing from closet with FWW for balance. Gait to restroom with FWW. Transfer to toilet with modified independence using grab bar for safety. Pt able to complete toileting hygiene and clothing management. Transfer to walk in shower with cues for safety. Pt able to bathe all areas, uses long handled sponge for lower legs and feet. Upper body dressing completed with modified independence. Pt able to don brace without assist. Pt completed lower body dressing with modified independence. Stood at sink to complete grooming tasks independently. Pt transferred to chair with modified independence. Sitting in chair with needs met after session. Therapy Code Descriptions/Definitions Functional [place] Measure: 0=Not Assessed/NA 4=Minimal Assistance 1=Total Assistance 5=Supervision or Setup 2=Maximal Assistance 6=Modified [place] 3=Moderate Assistance 7=Complete [place] Therapy Quality Codes: 6 Independent with activity with or without an assistive device 5 Patient requires set up or clean up by helper. Patient completes activity by themselves 4 Supervision or touching assist (CGA). [place] provide cues , steadying assist 3 The helper provides less than half the effort to complete the activity 2 The helper provides more than half the effort to complete the activity 1 Dependent. The helper does all the effort to complete an activity 7 Patient refused to complete or attempt activity 9 The patient did not perform the activity before the current illness or injury 88 Not attempted due to Medical conditions or safety concerns Grooming (FIM): 7 Oral Hygiene (QC): 6 Bathing (FIM): 6 Shower/Bathe Self (QC): 6 Upper Body (FIM): 6 Upper Body Dressing (QC): 6 Lower Body Dressing (FIM): 6 Lower Body Dressing (QC): 6 On/Off Footwear (QC): 6 Toileting (FIM): 6 Toileting Hygiene (QC): 6 Toilet/Commode Transfer (FIM): 6 Toilet Transfer (QC): 6 Shower Transfer(FIM): 5 OT Short Term Goals Short Term Goals Transfers (B,C,W/C) (FIM): 4 (CGA) 1=Demonstrate adherence to instructed precautions during ADL tasks. 2=Patient will verbalize/demonstrate understanding of assistive devices/modifications for ADL. 3=Patient will improve strength/tolerance for activity to enable patient to perform ADL's. OT Senior Living Goals Veterinary Virus Serum Inspector Goals Time Frame: Nov 28, 2018 Eating (FIM): 6 (MET 11/15/18) Eating (QC): 6 (MET 11/15/18) Groomin (MET 11/16/18) Oral Hygiene (QC): 6 (MET 11/16/18) Bathing(FIM): 5 (MET 11/16/18) Shower/Bathe Self (QC): 5 Upper Body Dressing(FIM): 6 (MET 11/18/18) Upper Body Dressing (QC): 6 (MET 11/18/18) Lower Body Dressing(FIM): 6 (MET 11/21/18) Lower Body Dressing (QC): 6 (MET 11/21/18) On/Off Footwear (QC): 6 (MET 11/21/18) Toileting(FIM): 6 Toileting Hygiene (QC): 6 Transfers (B,C,W/C) (FIM): 6 Toilet/Commode Transfer(FIM): 6 Toilet/Commode Transfer (QC): 6 Shower Transfer(FIM): 5 Additional Goals: 1-Demonstrate ADL Tasks, 2-Verbalize Understanding, 3- ImproveStrength/Shaista 1=Demonstrate adherence to instructed precautions during ADL tasks. 2=Patient will verbalize/demonstrate understanding of assistive devices/modifications for ADL. 3=Patient will improve strength/tolerance for activity to enable patient to perform ADL's. OT Education/Plan Discharge Recommendations Plan/Recommendations: Continue POC Treatment Plan/Plan of Care Patient would benefit from OT for education, treatment and training to promote independence in ADL's, mobility, safety and/or upper extremity function for ADL's. Plan of Care: ADL Retraining, Functional Mobility, Group Exercise/Act as Ind, UE Funct Exercise/Act Treatment Duration: Nov 28, 2018 Frequency: At least 5 of 7 days/Wk (IRF) Estimated Hrs Per Day: 1.5 hours per day Agreement: Yes Rehab Potential: Good Time/GCodes Start Time: 08:00 Stop Time: 09:00 Total Time Billed (hr/min): 60 Billed Treatment Time 1 visit, ADLx4(60minutes) STACI GUADALUPE OT Nov 23, 2018 12:54
--- NOTE | 2018-11-23 14:41 | Therapy Group Daily Note ---
Therapy Daily Group Note Patient Education Topic Home Safety Exercises LE Seated Exercise, UE Exercise Session Ratio (pt:therapist): 3:1 Goal of Session: Home Safety Strategies, UE/LE Strengthing Goal Met for this Session: Yes Pt Benefit of Group: Contributions to Others, F/U Use of Strategies @Home, Increased Functional Safety, Increased Functional Strength, Improved Cognition, Recognition of Peers, Socialization Other/Notes Pt ambulated with FWW to OT/PT group. Group consisted of introductions (name, place born, unsafe home situations), socialization, seated UE/LE exercises, home safety education and home safety category activity. Pt introduced self appropriately and actively listened to peers. Pt verbalized understanding by name strategies for unsafe situations and how to prevent unsafe situations in the home. Pt able to assist others with coming up with ideas and strategies for home safety. Completed UE/LE seated exercises to increase strength and activity tolerance for daily functional tasks. After therapy, pt sitting EOB with call light/phone in reach. All needs met in room. Start Time: 13:00 Stop Time: 14:15 Total Billed Treatment Time: 75 Total Billed Treatment 1-GRP ELIZABETH GARCÍA Nov 23, 2018 14:41
--- NOTE | 2018-11-23 15:19 | NUR ---
PLANT SPRAYER met with patient to review team conference summary and a follow-up to SNF on-site assessment. Patient is satisfied with facility and eager to discharge to [facility]. Following completion of on-site evaluation by JOSEFINA and Admission Coordinator, facility has agreed to accept patient for admission on Wednesday. Patient and family informed of discharge date, patient said intends to provide transport to facility at 12 p.m. on Wednesday. PLANT SPRAYER will complete a [facility] assessment prior to discharge.
--- NOTE | 2018-11-23 15:26 | NUR ---
Assumed care of patient. Report rec'd from DARYL Marks.
[2018-11-23 17:21] VITALS: BP 114/76
[2018-11-24] MEDS: HYDROcodone/APAP 5 MG/325 MG (LORTAB) TAB PO PRN ×2 (02:29→14:39)
[2018-11-24 04:28] VITALS: BP 130/62
[2018-11-24] MEDS: LIPASE/AMYLASE/PROTEASE (PANCRELIPASE) 5,000 UNITS CAP PO SCH ×3 (05:27→17:12)
[2018-11-24] MEDS: KCL 10 MEQ TAB (MICRO K) PO SCH (05:28)
[2018-11-24 08:00] VITALS: BP 106/56
--- NOTE | 2018-11-24 08:31 | Occupational Ther Daily Note ---
OT Current Status-Daily Note Subjective Pt alert, lying in bed. Pt agrees to therapy. No c/o pain at this time. Nrsg in room. Mental Status/Objective Patient Orientation: Person, Place, Time, Situation Therapy Code Descriptions/Definitions Functional [place] Measure: 0=Not Assessed/NA 4=Minimal Assistance 1=Total Assistance 5=Supervision or Setup 2=Maximal Assistance 6=Modified [place] 3=Moderate Assistance 7=Complete [place] ADL-Treatment Pt agreeable to shower today. Retrieved clothing from closet using counter for stability then FWW to transport to bathroom. Gait to restroom with FWW. Transfer to toilet with modified independence using grab bar for safety. Pt able to complete toileting hygiene and clothing management. Transfer to walk in shower mod I using grabbar, FWW and shower bench. Pt able to bathe all areas, uses long handled sponge for lower legs and feet. Upper body dressing completed with modified independence. Pt able to don brace without assist. Pt completed lower body dressing with modified independence. Stood at sink to complete grooming tasks independently. Pt transferred to chair with modified independence. Therapy Code Descriptions/Definitions Functional [place] Measure: 0=Not Assessed/NA 4=Minimal Assistance 1=Total Assistance 5=Supervision or Setup 2=Maximal Assistance 6=Modified [place] 3=Moderate Assistance 7=Complete [place] Therapy Quality Codes: 6 Independent with activity with or without an assistive device 5 Patient requires set up or clean up by helper. Patient completes activity by themselves 4 Supervision or touching assist (CGA). [place] provide cues , steadying assist 3 The helper provides less than half the effort to complete the activity 2 The helper provides more than half the effort to complete the activity 1 Dependent. The helper does all the effort to complete an activity 7 Patient refused to complete or attempt activity 9 The patient did not perform the activity before the current illness or injury 88 Not attempted due to Medical conditions or safety concerns Eating (FIM): 6 (Pt demonstrates the ability to complete.) Eating (QC): 6 Grooming (FIM): 6 Oral Hygiene (QC): 6 Bathing (FIM): 6 Bathing Location: L Arm, R Arm, L Upper Leg, R Upper Leg, L Lower Leg (including foot), R Lower Leg (including foot), Chest, Abdomen, Buttocks, Perineal Area Shower/Bathe Self (QC): 6 Upper Body (FIM): 6 Upper Body Dressing (QC): 6 Lower Body Dressing (FIM): 6 Lower Body Dressing (QC): 6 On/Off Footwear (QC): 6 Toileting (FIM): 6 Toileting Hygiene (QC): 6 Transfers (B, C, W/C) (FIM): 6 Toilet/Commode Transfer (FIM): 6 Toilet Transfer (QC): 6 Shower Transfer(FIM): 6 Other Treatment Pt ambulated to therapy gym to complete UE arm bike for 12 min at 25 puentes resistance to increase strength and activity tolerance for daily functional tasks. After therapy, pt sitting in recliner with call light/phone in reach. All needs met in room. OT Short Term Goals Short Term Goals Transfers (B,C,W/C) (FIM): 4 (CGA) 1=Demonstrate adherence to instructed precautions during ADL tasks. 2=Patient will verbalize/demonstrate understanding of assistive devices/modifications for ADL. 3=Patient will improve strength/tolerance for activity to enable patient to perform ADL's. OT Fdc Goals Fdc Goals Time Frame: Nov 28, 2018 Eating (FIM): 6 (MET 11/15/18) Eating (QC): 6 (MET 11/15/18) Groomin (MET 11/16/18) Oral Hygiene (QC): 6 (MET 11/16/18) Bathing(FIM): 5 (MET 11/16/18) Shower/Bathe Self (QC): 5 (met-11/24/18) Upper Body Dressing(FIM): 6 (MET 11/18/18) Upper Body Dressing (QC): 6 (MET 11/18/18) Lower Body Dressing(FIM): 6 (MET 11/21/18) Lower Body Dressing (QC): 6 (MET 11/21/18) On/Off Footwear (QC): 6 (MET 11/21/18) Toileting(FIM): 6 (met-11/24/18) Toileting Hygiene (QC): 6 (met-11/24/18) Transfers (B,C,W/C) (FIM): 6 (met-11/24/18) Toilet/Commode Transfer(FIM): 6 (met-11/24/18) Toilet/Commode Transfer (QC): 6 (met-11/24/18) Shower Transfer(FIM): 5 (met-11/24/18) Additional Goals: 1-Demonstrate ADL Tasks, 2-Verbalize Understanding, 3- ImproveStrength/Shaista 1=Demonstrate adherence to instructed precautions during ADL tasks. 2=Patient will verbalize/demonstrate understanding of assistive devices/modifications for ADL. 3=Patient will improve strength/tolerance for activity to enable patient to perform ADL's. OT Education/Plan Problem List/Assessment Assessment: Impaired Self-Care Skills Discharge Recommendations Plan/Recommendations: Continue POC Treatment Plan/Plan of Care Patient would benefit from OT for education, treatment and training to promote independence in ADL's, mobility, safety and/or upper extremity function for ADL's. Plan of Care: ADL Retraining, Functional Mobility, Group Exercise/Act as Ind, UE Funct Exercise/Act Treatment Duration: Nov 28, 2018 Frequency: At least 5 of 7 days/Wk (IRF) Estimated Hrs Per Day: 1.5 hours per day Agreement: Yes Rehab Potential: Good Time/GCodes Start Time: 08:00 Stop Time: 09:00 Total Time Billed (hr/min): 60 Billed Treatment Time 1 visit-ADL 3 (48 min) EX 1 (12 min) ELIZABETH GARCÍA Nov 24, 2018 08:31
[2018-11-24] MEDS: CALCIUM CARB + VIT D 600 MG (CALCARB + D) TAB PO SCH ×2 (09:44→20:25)
[2018-11-24] MEDS: MULTIVIT W/MINERALS TAB (THERAGRAN M) PO SCH ×2 (09:44→20:25)
[2018-11-24] MEDS: RIFAXIMIN 550 MG TABLET (XIFAXAN) PO SCH ×2 (09:44→20:25)
[2018-11-24] MEDS: amLODIPine 10 MG (NORVASC) TAB PO SCH (09:44)
[2018-11-24] MEDS: PANTOPRAZOLE 40 MG (PROTONIX) TAB PO SCH (09:44)
[2018-11-24] MEDS: meTOproloL SUCCINATE 50 MG (TOPROL XL) TAB PO SCH (09:44)
[2018-11-24] MEDS: ALLOPURINOL 100 MG (ZYLOPRIM) TAB PO SCH (09:45)
[2018-11-24] MEDS: BUMETANIDE 1 MG (BUMEX) TAB PO SCH (09:45)
[2018-11-24] MEDS: LACTULOSE SYRUP 10GM/15ML (ENULOSE) 30ML UDC PO SCH ×4 (09:45→20:21)
--- NOTE | 2018-11-24 10:03 | Physical Therapy Daily Note ---
PT Daily Note-Current Subjective Agrees to PT. Initially, she felt nauseated but it passed with some sips of sprite. Pain Numeric Pain Scale: 0-No Pain Mental Status Patient Orientation: Person, Place, Time, Situation Transfers Therapy Code Descriptions/Definitions Functional [place] Measure: 0=Not Assessed/NA 4=Minimal Assistance 1=Total Assistance 5=Supervision or Setup 2=Maximal Assistance 6=Modified [place] 3=Moderate Assistance 7=Complete [place] Therapy Quality Codes: 6 Independent with activity with or without an assistive device 5 Patient requires set up or clean up by helper. Patient completes activity by themselves 4 Supervision or touching assist (CGA). [place] provide cues , steadying assist 3 The helper provides less than half the effort to complete the activity 2 The helper provides more than half the effort to complete the activity 1 Dependent. The helper does all the effort to complete an activity 7 Patient refused to complete or attempt activity 9 The patient did not perform the activity before the current illness or injury 88 Not attempted due to Medical conditions or safety concerns Transfers (B, C, W/C) (FIM): 7 Roll Left to Right (QC): 6 Supine to/from Sit: 7 Sit to/from Stand: 7 Sit to Lying (QC): 6 Sit to Stand (QC): 6 Chair/Uws-rg-Cyzcq Xfer(QC): 6 Car Transfer (QC): 6 Pt does not require assist with transfers and is safe to complete without assist. Gait Training Does the Patient Walk?: Yes Gait (FIM): 6 Distance (FIM): 3=150 ft Distance: 200 ft x 3 reps Walk 10 feet (QC): 6 Walk 50 ft with 2 Turns(QC): 6 Walk 150 ft (QC): 6 Walking 10ft/uneven surface-QC: 6 Gait Assistive Device: FWW safe steady gait without assist Wheelchair Training Does the Pt Use a Wheelchair?: No Stair Training Stair Training: Handrails/: 2 handrails Stairs (FIM): 5 (household exception) #of Steps: 4 1 Step (curb) (QC): 6 4 Steps (QC): 6 12 Steps (QC): 88 Stairs: Pattern: Reciprocal Balance Picking up an Object (QC): 88 (due to recent back surgery did not attempt) Exercises NuStep Minutes: 15 NuStep Workload: 4 (functional strengthening and activity tolerance) Treatments Functional gait, multiple transfers, safety education, nu step. Review of planned DC Assessment Current Status: Excellent Progress Pt has made excellent progress. Meeting PT Goals. PT Short Term Goals Short Term Goals Time Frame: Nov 21, 2018 Transfers (B,C,W/C) (FIM): 4 (CGA) Gait (FIM): 4 Gait Distance Comment: 200' Gait Level of Assist: 4 Gait Assistive Device: FWW PT Director Of Occupational Therapy Goals Director Of Occupational Therapy Goals PT Mcfp Goals Time Frame: Dec 05, 2018 Transfers (B,C,W/C) (FIM): 5 (exceeded) Sit to Lying (QC): 6 (met) Lying-Sitting on Side/Bed(QC): 6 (met) Sit to Stand (QC): 4 (met) Rollin (met) Roll Left to Right (QC): 6 (met) Chair/Yvi-it-Hzorv Xfer(QC): 4 (met) Car Transfer (QC): 4 (met) Gait (FIM): 5 (met) Distance: 250' Walk 10 feet (QC): 4 (met) Walk 10ft-Uneven Surface(QC): 4 (met) Walk 50ft with 2 Turns (QC): 4 (met) Walk 150 ft (QC): 4 (met) Gait Level of Assist: 5 Gait Assistive Device: FWW Stairs (FIM): 2 (met) # of Steps: 4 1 Step (curb) (QC): 4 (met) 4 Steps (QC): 4 (met) Stairs Level Of Assist: 5 (NT) all goals met or exceeded PT Plan Problem List Problem List: Activity Tolerance, Functional Strength Treatment/Plan Treatment Plan: Continue Plan of Care Treatment Plan: Bed Mobility, Education, Functional Activity Shaista, Functional Strength, Group Therapy, Gait, Safety, Therapeutic Exercise, Transfers Treatment Duration: Dec 05, 2018 Frequency: At least 5 of 7 days/Wk (IRF) Estimated Hrs Per Day: 1.5 hours per day Patient and/or Family Agrees t: Yes Safety Risks/Education Patient Education: Safety Issues Teaching Recipient: Patient Teaching Methods: Discussion Response to Teaching: Verbalize Understanding Discharge Recommendations Plan DC tomorrow Time/GCodes Time In: 900 Time Out: 1000 Total Billed Treatment Time: 60 Total Billed Treatment visit FA 45 EX 15 ELIZABETH CROW PT Nov 24, 2018 10:03
--- NOTE | 2018-11-24 10:54 | PM&R Progress Note ---
Subjective HPI/CC On Admission Date Seen by Provider: Nov 24, 2018 Time Seen by Provider: 08:30 CC: Severe back pain with debility from L3 compression fractures s/p kyphoplasty 11/13/18 HPI: This is an 88yoWF clinic patient of Dr Nelson in [place] who is known to ut and IRF due to recent admit for debility following new onset hepatic encephalopathy requiring admission to [facility] in [place] and requiring a stay in IRF prior to returning home with family very involved in her care who presents today after DC from [facility] after admitted on 11/09/18 following severe back pain after bending over and suffering an L3 compression fracture. Due to her other severe co-morbidities which include liver cirrhosis end stage along with leukopenia and thrombocytopenia (s/p bone marrow in the past by Hematology without source found) surgery was avoided so she was placed on pain meds and PT ordered but she continued to have such severe back pain she required a kyphoplasty which was performed yesterday without complications. Lactulose is ordered along with Rifaximin to minimize ammonia level to prevent confusion from hepatic encephalopathy. She has chronic upper back pain from remote history of herpes zoster and xrays revealed multiple old compression fractures of the spine. PLOF was independent with use of walker and ADL's were supervised by family members. She will return home with her family at DC from [facility]. Subjective/Events-last exam halfway placement on Wednesday and she is agreeable Bowels are moving 7 times a day with Lactulose and Rifaxamin Potassium was 3.4 and creatinine precludes additional supplement Overall doing much better but having multiple somatic complaints Conferred with RN. Reviewed therapy notes. Supportive care will continue Review of Systems General: Fatigue Musculoskeletal: back pain Objective Exam Vital Signs Vital Signs Date Time Temp Pulse Resp B/P (MAP) Pulse Ox O2 Delivery O2 Flow Rate FiO2 11/24/18 15:42 97.2 73 16 134/63 (86) 97 Room Air Capillary Refill : General Appearance: No Apparent Distress, WD/WN, Chronically ill, Thin HEENT: PERRL/EOMI, Normal ENT Inspection, Pharynx Normal, Moist Mucous Membranes Neck: Full Range of Motion, Normal Inspection, Non Tender, Supple Respiratory: Chest Non Tender, Lungs Clear, Normal Breath Sounds, No Accessory Muscle Use, No Respiratory Distress Cardiovascular: Regular Rate, Rhythm, No Gallop, No JVD, Systolic Murmur Gastrointestinal: Normal Bowel Sounds, No Organomegaly, No Pulsatile Mass, Non Tender, Soft Back: Normal Inspection, No CVA Tenderness, Decreased Range of Motion, Muscle Spasm, Vertebral Tenderness Extremity: Normal Capillary Refill, Normal Inspection, Normal Range of Motion, Non Tender, No Calf Tenderness, Pedal Edema Neurologic/Psychiatric: Alert, Oriented x3, No Motor/Sensory Deficits (decreased ROM lower legs from back pain), Normal Mood/Affect, ac/dc rewinder II-XII Norm as Tested, Other (subtle poor recall) Skin: Normal Color, Warm/Dry Lymphatic: No Adenopathy Results/Procedures Lab Patient resulted labs reviewed. FIM Transfers Therapy Code Descriptions/Definitions Functional [place] Measure: 0=Not Assessed/NA 4=Minimal Assistance 1=Total Assistance 5=Supervision or Setup 2=Maximal Assistance 6=Modified [place] 3=Moderate Assistance 7=Complete [place] Therapy Quality Codes: 6 Independent with activity with or without an assistive device 5 Patient requires set up or clean up by helper. Patient completes activity by themselves 4 Supervision or touching assist (CGA). [place] provide cues , steadying assist 3 The helper provides less than half the effort to complete the activity 2 The helper provides more than half the effort to complete the activity 1 Dependent. The helper does all the effort to complete an activity 7 Patient refused to complete or attempt activity 9 The patient did not perform the activity before the current illness or injury 88 Not attempted due to Medical conditions or safety concerns Transfers (B, C, W/C) (FIM): 7 Scootin Rollin (met) Roll Left to Right (QC): 6 Supine to/from Sit: 7 Sit to/from Stand: 7 Sit to Lying (QC): 6 Sit to Stand (QC): 6 Chair/Npw-er-Wcalz Xfer(QC): 6 Bed to/from Chair: 6 Car Transfer (QC): 6 Gait Training Does the Patient Walk?: Yes Gait (FIM): 6 Distance (FIM): 3=150 ft Distance: 200 ft x 3 reps Walk 10 feet (QC): 6 Walk 50 ft with 2 Turns(QC): 6 Walk 150 ft (QC): 6 Walking 10ft/uneven surface-QC: 6 Gait Level of Assist: 5 Gait Persons Needed: 1 Gait Assistive Device: FWW Wheelchair Training Does the Pt Use a Wheelchair?: No Stair Training Stair Training: Handrails/: 2 handrails Stairs (FIM): 5 (household exception) #of Steps: 4 1 Step (curb) (QC): 6 4 Steps (QC): 6 12 Steps (QC): 88 Stairs: Pattern: Reciprocal Level of Assist: 5 Balance Picking up an Object (QC): 88 (due to recent back surgery did not attempt) Mental Status/Objective Comprehension: 7 Expression: 7 Social Interaction: 7 Problem Solvin Memory: 7 ADL-Treatment Feedin (dentures) Eating (QC): 6 Groomin Oral Hygiene (QC): 6 Bathin Bathing Location: L Arm, R Arm, L Upper Leg, R Upper Leg, L Lower Leg (including foot), R Lower Leg (including foot), Chest, Abdomen, Buttocks, Perineal Area Shower/Bathe Self (QC): 6 Upper Extremity Dressin Upper Body Dressing (QC): 6 Lower Extremity Dressin Lower Body Dressing (QC): 6 On/Off Footwear (QC): 6 Toiletin Toileting Hygiene (QC): 6 Toilet/Commode Transfer: 6 Toilet Transfer (QC): 6 Shower: 5 Assessment/Plan Assessment and Plan Assess & Plan/Chief Complaint Assessment: Severe back pain from L3 compression fracture s/p kyphoplasty POD # 11 h/o hepatic encephalopathy now on Rifaximin and Lactulose CRI stable Pancytopenia Hematology consult reviewed previous bone marrow procedure without answer to source Anemia of renal disease Leukopenia chronic Advanced age GI Bleed in past Fall risk DNR Right flank post herpetic neuralgia Multiple spine compression fractures in the past on scans Nausea Plan: Home meds Lactulose QID to attain 4 BM's daily Intensive therapies to return to independent living Prognosis guarded Reviewed Kyphoplasty note from [facility] Pain management of post herpetic neuralgia and compression fracture Check labs prn DC to [facility] 11/25/18 Zofran Q6hrs prn Fall risk noted (1) Compression fracture of L3 vertebra (2) Portal vein thrombosis (3) Hepatic encephalopathy (4) Anemia (5) Back pain (6) Neutropenia (7) Post herpetic neuralgia (8) Renal insufficiency (9) Thrombocytopenia (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
[2018-11-24] MEDS: ONDANSETRON 4 MG (ZOFRAN) ORAL DISSOLVE TAB PO PRN (14:40)
--- NOTE | 2018-11-24 15:12 | Therapy Group Daily Note ---
Therapy Daily Group Note Patient Education Topic Other List Below (memory tips and suggestions) Exercises Sit to/from Stand (focus on hand placement and sequencing with a freeman bag toss to challenge balance) Session Ratio (pt:therapist): 3:1 Goal of Session: Education on ARU Expectations, Memory Strategies Educate and inform patient of memory strategy techniques for taking home medications, keeping appointments and remembering where a car is parked. Goal Met for this Session: Yes Pt Benefit of Group: Contributions to Others, Socialization Pt interacted with the group and was social as indicated. Other/Notes Pt participated in group introductions and recall of favorite summer activities. Her favorite summer activity is mowing her yard. She then actively engaged in providing ideas and suggestions and how to remember to take her medications and when to take them. She participated in sit to stand training with cues for correct sequencing to stand up and tossed a freeman bag to challenge her balance in standing. Group concluded with a game of "memory" with matching pictures requiring her to participate and actively participate. Pt was able to make one match. Pt was engaged and seemed to enjoy group. Pt returned to room after group and sat up in her chair with needs met. Start Time: 13:00 Stop Time: 14:15 Total Billed Treatment Time: 75 Total Billed Treatment visit GRP 75 ELIZABETH CROW PT Nov 24, 2018 15:12
[2018-11-24 15:42] VITALS: BP 134/63
[2018-11-24] MEDS ORDERED: RIFA550T PO (16:23)
[2018-11-24] MEDS ORDERED: HYDR-3812 PO (16:23)
[2018-11-24] MEDS ORDERED: LACT20SO2 PO (16:23)
--- NOTE | 2018-11-24 16:25 | Discharge Inst-Skilled Nursing ---
Discharge Inst-Skilled NF Patient Instructions Patient Problems: End stage cirrhosis Heaptic encephalopathy CRI Pancytpenia Compression fractures Goal: Return to independent ADL's Consult/Follow Up/Orders Follow Up Appt.: Dr eNlson in 1 week Skilled NF Admit to: [facility] (SNF) I certify that SNF services are required to be given on an inpatient basis because of the above named patient's need for residential care on a continuing basis for the conditions(s) for which he/she was receiving inpatient hospital services prior to his/her transfer to the SNF. Intermediate Facility Order: Nursing Services, Aquatics Instructor-Evaluate & Treat, Physical Therapy-Evaluate & Treat Oxygen Delivery Method: Room Air Discharge Diet: No Restrictions Daily Activity as Tolerated: Yes New & Resume Previous Orders Radha Campoverde Nov 24, 2018 16:24 Pneu Vac Indicated: Yes RADHA CAMPOVERDE DO Nov 24, 2018 16:25
[2018-11-25] MEDS: HYDROcodone/APAP 5 MG/325 MG (LORTAB) TAB PO PRN ×2 (00:55→09:08)
[2018-11-25] MEDS: KCL 10 MEQ TAB (MICRO K) PO SCH (05:54)
[2018-11-25] MEDS: LIPASE/AMYLASE/PROTEASE (PANCRELIPASE) 5,000 UNITS CAP PO SCH (05:54)
[2018-11-25 06:18] VITALS: BP 131/61
[2018-11-25] MEDS: amLODIPine 10 MG (NORVASC) TAB PO SCH (09:03)
[2018-11-25] MEDS: PANTOPRAZOLE 40 MG (PROTONIX) TAB PO SCH (09:03)
[2018-11-25] MEDS: meTOproloL SUCCINATE 50 MG (TOPROL XL) TAB PO SCH (09:03)
[2018-11-25] MEDS: ALLOPURINOL 100 MG (ZYLOPRIM) TAB PO SCH (09:03)
[2018-11-25] MEDS: MULTIVIT W/MINERALS TAB (THERAGRAN M) PO SCH (09:04)
[2018-11-25] MEDS: RIFAXIMIN 550 MG TABLET (XIFAXAN) PO SCH (09:04)
[2018-11-25] MEDS: CALCIUM CARB + VIT D 600 MG (CALCARB + D) TAB PO SCH (09:04)
[2018-11-25] MEDS: BUMETANIDE 1 MG (BUMEX) TAB PO SCH (09:04)
[2018-11-25] MEDS: LACTULOSE SYRUP 10GM/15ML (ENULOSE) 30ML UDC PO SCH (09:04)
--- NOTE | 2018-11-25 09:09 | Discharge Summary ---
Diagnosis/Chief Complaint Date of Admission November 14, 2018 at 12:52 Date of Discharge Discharge Date: Nov 25, 2018 Discharge Diagnosis Assess & Plan/Chief Complaint Assessment: Severe back pain from L3 compression fracture s/p kyphoplasty POD # 11 h/o hepatic encephalopathy now on Rifaximin and Lactulose CRI stable Pancytopenia Hematology consult reviewed previous bone marrow procedure without answer to source Anemia of renal disease Leukopenia chronic Advanced age GI Bleed in past Fall risk DNR Right flank post herpetic neuralgia Multiple spine compression fractures in the past on scans Nausea Plan: Home meds Lactulose QID to attain 4 BM's daily Intensive therapies to return to independent living Prognosis guarded Reviewed Kyphoplasty note from [facility] Pain management of post herpetic neuralgia and compression fracture Check labs prn DC to NH 11/25/18 Zofran Q6hrs prn Fall risk noted (1) Compression fracture of L3 vertebra (2) Portal vein thrombosis (3) Hepatic encephalopathy (4) Anemia (5) Back pain (6) Neutropenia (7) Post herpetic neuralgia (8) Renal insufficiency (9) Thrombocytopenia (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 (11) DNR (do not resuscitate) (12) Frailty (13) B12 deficiency (14) Advanced age (15) History of GI bleed (16) Increased ammonia level (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 (18) S/P kyphoplasty Discharge Summary Discharge Physical Examination Allergies: Coded Allergies: Penicillins (Verified Allergy, Unknown, Diarrhea, 09/14/18) Sulfa (Sulfonamide Antibiotics) (Verified Allergy, Unknown, Diarrhea, 09/14/18) lactose (Verified Allergy, Unknown, 09/20/18) loose stools tobramycin (Verified Allergy, Unknown, Facial swelling, 09/14/18) Vitals & I&Os Vital Signs Date Time Temp Pulse Resp B/P (MAP) Pulse Ox O2 Delivery O2 Flow Rate FiO2 11/25/18 14:22 74 18 131/61 98 Room Air 11/25/18 06:18 99.6 General Appearance: Alert, Oriented X3, Cooperative HEENT: Atraumatic, PERRLA Respiratory: Clear to Auscultation, Normal Air Movement Cardiovascular: Regular Rate, Normal S1, Normal S2 Neuro: Normal Gait, Normal Speech, Strength at 5/5 X4 Ext Psych/Mental Status: Mental Status NL, Mood NL Hospital Course Was the Problem List Reviewed?: Yes Hospital course: Patient had an uneventful 12 day hospital course in inpatient rehabilitation unit. Patient was maintained on lactulose and rifaximin due to severe liver cirrhosis endstage status to prevent hepatic encephalopathy signs and symptoms. Chronic renal insufficiency remained stable throughout the entire hospital course. She participated in all therapies as required. No falls occurred during the hospital course. Due to the fact of multiple compression fractures in the past and multiple falls the family decided that returning to live independently alone was not an option so they all agreed along with the patient for skilled care at discharge. She had returned to her prior level of functioning at time of discharge but due to the fact of advanced age at 88 and advanced comorbidities including end-stage renal disease requiring close monitoring of compliance with lactulose and rifaximin she was discharged to [facility] for skilled care. Labs (last 24 hrs) Laboratory Tests 11/15/18 07:44: White Blood Count 2.6L, Red Blood Count 3.22L, Hemoglobin 9.9L, Hematocrit 30L, Mean Corpuscular Volume 94, Mean Corpuscular Hemoglobin 31, Mean Corpuscular Hemoglobin Concent 33, Red Cell Distribution Width 16.1H, Platelet Count 46L, Mean Platelet Volume 9.7, Sodium Level 139, Potassium Level 4.0, Chloride Level 104, Carbon Dioxide Level 25, Anion Gap 10, Blood Urea Nitrogen 31H, Creatinine 2.27H, Estimat Glomerular Filtration Rate 20, BUN/Creatinine Ratio 14, Glucose Level 115H, Calcium Level 9.1, Corrected Calcium 9.4, Total Bilirubin 1.4H, Aspa rtate Amino Transf (AST/SGOT) 20, Alanine Aminotransferase (ALT/SGPT) 14, Alkaline Phosphatase 147H, Ammonia 51H, Total Protein 5.6L, Albumin 3.6 11/21/18 05:14: White Blood Count 2.4L, Red Blood Count 2.71L, Hemoglobin 8.4L, Hematocrit 26L, Mean Corpuscular Volume 95, Mean Corpuscular Hemoglobin 31, Mean Corpuscular Hemoglobin Concent 33, Red Cell Distribution Width 16.2H, Platelet Count 53L, Mean Platelet Volume 11.2H, Sodium Level 139, Potassium Level 3.4L, Chloride Level 110H, Carbon Dioxide Level 19L, Anion Gap 10, Blood Urea Nitrogen 28H, Creatinine 2.02H, Estimat Glomerular Filtration Rate 23, BUN/Creatinine Ratio 14, Glucose Level 97, Calcium Level 8.4L, Corrected Calcium 9.2, Total Bilirubin 1.1H, Aspartate Amino Transf (AST/SGOT) 26, Alanine Aminotransferase (ALT/SGPT) 20, Alkaline Phosphatase 144H, Ammonia 111H, Total Protein 4.6L, Albumin 3.0L, Neutrophils (%) (Auto) 56, Lymphocytes (%) (Auto) 27, Monocytes (%) (Auto) 10, Eosinophils (%) (Auto) 6, Basophils (%) (Auto) 0, Neutrophils # (Auto) 1.3L, Lymphocytes # (Auto) 0.7L, Monocytes # (Auto) 0.2, Eosinophils # (Auto) 0.2, Basophils # (Auto) 0.0 Pending Labs Laboratory Tests 11/15/18 07:44: White Blood Count 2.6, Red Blood Count 3.22, Hemoglobin 9.9, Hematocrit 30, Mean Corpuscular Volume 94, Mean Corpuscular Hemoglobin 31, Mean Corpuscular Hemoglobin Concent 33, Red Cell Distribution Width 16.1, Platelet Count 46, Mean Platelet Volume 9.7, Sodium Level 139, Potassium Level 4.0, Chloride Level 104, Carbon Dioxide Level 25, Anion Gap 10, Blood Urea Nitrogen 31, Creatinine 2.27, Estimat Glomerular Filtration Rate 20, BUN/Creatinine Ratio 14, Glucose Level 115, Calcium Level 9.1, Corrected Calcium 9.4, Total Bilirubin 1.4, Aspartate Amino Transf (AST/SGOT) 20, Alanine Aminotransferase (ALT/SGPT) 14, Alkaline Phosphatase 147, Ammonia 51, Total Protein 5.6, Albumin 3.6 11/21/18 05:14: White Blood Count 2.4, Red Blood Count 2.71, Hemoglobin 8.4, Hematocrit 26, Mean Corpuscular Volume 95, Mean Corpuscular Hemoglobin 31, Mean Corpuscular Hemoglobin Concent 33, Red Cell Distribution Width 16.2, Platelet Count 53, Mean Platelet Volume 11.2, Sodium Level 139, Potassium Level 3.4, Chloride Level 110, Carbon Dioxide Level 19, Anion Gap 10, Blood Urea Nitrogen 28, Creatinine 2.02, Estimat Glomerular Filtration Rate 23, BUN/Creatinine Ratio 14, Glucose Level 97, Calcium Level 8.4, Corrected Calcium 9.2, Total Bilirubin 1.1, Aspartate Amino Transf (AST/SGOT) 26, Alanine Aminotransferase (ALT/SGPT) 20, Alkaline Phosphatase 144, Ammonia 111, Total Protein 4.6, Albumin 3.0, Neutrophils (%) (Auto) 56, Lymphocytes (%) (Auto) 27, Monocytes (%) (Auto) 10, Eosinophils (%) (Auto) 6, Basophils (%) (Auto) 0, Neutrophils # (Auto) 1.3, Lymphocytes # (Auto) 0.7, Monocytes # (Auto) 0.2, Eosinophils # (Auto) 0.2, Basophils # (Auto) 0.0 Discharge Home Medications: Active Scripts Active Lactulose 20 Gm/30 Ml Solution 20 Gm PO QID 60 Days Xifaxan (Rifaximin) 550 Mg Tablet 550 Mg PO BID Hydrocodone-Acetamin 5-325 mg (Hydrocodone/Acetaminophen) 1 Each Tablet 1 Tab PO Q4H PRN Reported Bumetanide 0.5 Mg Tablet 1 Mg PO DAILY TAKES 2 (0.5MG) TABLETS Potassium Chloride 10 Meq Capsule.er 10 Meq PO DAILY Pantoprazole Sodium 40 Mg Tablet.dr 40 Mg PO DAILY Preservision Areds Softgel (Vit A/C/E/Zinc/Co) 1 Cap Capsule 1 Cap PO BID Metoprolol Succinate 50 Mg Tab.er.24h 50 Mg PO DAILY Creon Dr 36,000 Units Capsule (Lipase/Protease/Amylase) 1 Each Capsule.dr 1 Cap PO WITH SNACKS Creon Dr 36,000 Units Capsule (Lipase/Protease/Amylase) 1 Each Capsule.dr 2 Cap PO AC Calcium 600 + Vit D 400 Tablet (Calcium Carbonate/Vitamin D3) 1 Each Tablet 1 Tab PO BID Amlodipine Besylate 10 Mg Tablet 10 Mg PO DAILY Allopurinol 100 Mg Tablet 100 Mg PO DAILY Instructions to patient/family Please see electronic discharge instructions given to patient. 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
--- NOTE | 2018-11-25 09:48 | NUR ---
PRINCIPAL STATISTICAL SCIENTIST met with patient to complete [facility] Assessment, IMM and patient choice letter for [facility]. Patient expresses no concerns regarding discharge plans today. PRINCIPAL STATISTICAL SCIENTIST faxed [facility] and discharge orders to facility prior to discharge. PRINCIPAL STATISTICAL SCIENTIST also faxed [facility] to [facility]. Patient's son, Keven is to provide transport to facility at 12p Please see discharge summary for further information
--- NOTE | 2018-11-25 11:09 | Therapy Team Discharge Summary ---
Therapy Discharge Summary Discharge Recommendations Date of Discharge Therapy D/C Recommendations: Home w/ Family Support, Occupational Therapy Home Care Physical Therapy Patient came to rehab following a kyphoplasty. Upon evaluation patient performed bed mobility with SBA, supine <-> sit with min assist, sit <-> stand with CGA, transfers with CGA, car transfer mod assist, ambulated 150' with a rolling walker with CGA (including 50' with at least 2 turns of 90 degrees and 10' over an uneven surface), and went up and down 1 step using a rolling walker with CGA. Patient has been performing bed mobility and transfer training, balance and endurance training, functional strengthening, stair training, gait training, and education. Patient has made good progress and has met all of her assisted goals except for distance of ambulation. Now, patient performs bed mobility and transfers with independence, car transfer mod I, ambulates 200' with a rolling walker with mod I (including 50' with at least 2 turns of 90 degrees and 10' over an uneven surface), and can go up and down 4 steps using 2 handrails with mod I. Patient is discharging from this facility today and will be discharged from PT at this time. Occupational Therapy Impaired Self-Care Skills PT Fdc Goals Instant Printer Operator Goals PT Instant Printer Operator Goals Time Frame: Dec 05, 2018 Transfers (B,C,W/C) (FIM): 5 (exceeded) Roll Left to Right (QC): 6 (met) Sit to Lying (QC): 6 (met) Lying-Sitting on Side/Bed(QC): 6 (met) Sit to Stand (QC): 4 (met) Chair/Atw-si-Gjeey Xfer(QC): 4 (met) Car Transfer (QC): 4 (met) Gait (FIM): 5 (met) Distance: 250' Walk 10 feet (QC): 4 (met) Walk 10ft-Uneven Surface(QC): 4 (met) Walk 50ft with 2 Turns (QC): 4 (met) Walk 150 ft (QC): 4 (met) Gait Level of Assist: 5 Gait Assistive Device: FWW Stairs (FIM): 2 (met) # of Steps: 4 1 Step (curb) (QC): 4 (met) 4 Steps (QC): 4 (met) Stairs Level Of Assist: 5 (NT) OT Instant Printer Operator Goals Instant Printer Operator Goals Time Frame: Nov 28, 2018 Eating (FIM): 6 (MET 11/15/18) Eating (QC): 6 (MET 11/15/18) Oral Hygiene (QC): 6 (MET 11/16/18) Grooming(FIM): 6 (MET 11/16/18) Bathing(FIM): 5 (MET 11/16/18) Shower/Bathe Self (QC): 5 (met-11/24/18) Upper Body Dressing(FIM): 6 (MET 11/18/18) Upper Body Dressing (QC): 6 (MET 11/18/18) Lower Body Dressing(FIM): 6 (MET 11/21/18) Lower Body Dressing (QC): 6 (MET 11/21/18) On/Off Footwear (QC): 6 (MET 11/21/18) Toileting(FIM): 6 (met-11/24/18) Toileting Hygiene (QC): 6 (met-11/24/18) Transfers (B,C,W/C) (FIM): 6 (met-11/24/18) Toilet/Commode Transfer(FIM): 6 (met-11/24/18) Toilet/Commode Transfer (QC): 6 (met-11/24/18) Shower Transfer(FIM): 5 (met-11/24/18) Additional Goals: 1-Demonstrate ADL Tasks, 2-Verbalize Understanding, 3- ImproveStrength/Shaista 1=Demonstrate adherence to instructed precautions during ADL tasks. 2=Patient will verbalize/demonstrate understanding of assistive devices/modifications for ADL. 3=Patient will improve strength/tolerance for activity to enable patient to perform ADL's. ABBEY TUCKER PT Nov 25, 2018 11:09
[2018-11-25 14:22] VITALS: BP 131/61
--- NOTE | 2018-11-25 14:57 | Therapy Team Discharge Summary ---
Therapy Discharge Summary Discharge Recommendations Date of Discharge Nov 25, 2018 at 12:15 Therapy D/C Recommendations: Home w/ Family Support, Occupational Therapy Home Care Occupational Therapy Pt admitted to ARU following kyphoplasty. On admission pt required CGA for toileting and grooming, min assist for toilet transfer, and mod assist with UE dressing. Skilled OT intervention focused on ADL training, transfers, stre ngthening, and safety. Pt made good progress with therapy and by discharge is completing ADLs and transfers with modified independence. Pt met all OT LTG. PT discharged to SNF for continued care. D/C ARU OT. 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 Goals Time Frame: Dec 05, 2018 Transfers (B,C,W/C) (FIM): 5 (exceeded) Roll Left to Right (QC): 6 (met) Sit to Lying (QC): 6 (met) Lying-Sitting on Side/Bed(QC): 6 (met) Sit to Stand (QC): 4 (met) Chair/Num-rk-Ddnda Xfer(QC): 4 (met) Car Transfer (QC): 4 (met) Gait (FIM): 5 (met) Distance: 250' Walk 10 feet (QC): 4 (met) Walk 10ft-Uneven Surface(QC): 4 (met) Walk 50ft with 2 Turns (QC): 4 (met) Walk 150 ft (QC): 4 (met) Gait Level of Assist: 5 Gait Assistive Device: FWW Stairs (FIM): 2 (met) # of Steps: 4 1 Step (curb) (QC): 4 (met) 4 Steps (QC): 4 (met) Stairs Level Of Assist: 5 (NT) OT Snf Goals Snf Goals Time Frame: Nov 28, 2018 Eating (FIM): 6 (MET 11/15/18) Eating (QC): 6 (MET 11/15/18) Oral Hygiene (QC): 6 (MET 11/16/18) Grooming(FIM): 6 (MET 11/16/18) Bathing(FIM): 5 (MET 11/16/18) Shower/Bathe Self (QC): 5 (met-11/24/18) Upper Body Dressing(FIM): 6 (MET 11/18/18) Upper Body Dressing (QC): 6 (MET 11/18/18) Lower Body Dressing(FIM): 6 (MET 11/21/18) Lower Body Dressing (QC): 6 (MET 11/21/18) On/Off Footwear (QC): 6 (MET 11/21/18) Toileting(FIM): 6 (met-11/24/18) Toileting Hygiene (QC): 6 (met-11/24/18) Transfers (B,C,W/C) (FIM): 6 (met-11/24/18) Toilet/Commode Transfer(FIM): 6 (met-11/24/18) Toilet/Commode Transfer (QC): 6 (met-11/24/18) Shower Transfer(FIM): 5 (met-11/24/18) Additional Goals: 1-Demonstrate ADL Tasks, 2-Verbalize Understanding, 3- ImproveStrength/Shaista 1=Demonstrate adherence to instructed precautions during ADL tasks. 2=Patient will verbalize/demonstrate understanding of assistive devices/modifications for ADL. 3=Patient will improve strength/tolerance for activity to enable patient to perform ADL's. STACI GUADALUPE OT Nov 25, 2018 14:57
== END 2018-11-25 12:15 | DRG 559 ==
PROVIDERS: ADMIT Internal Medicine; ATTEND Internal Medicine
DX: M48.56XD Collapsed vertebra, not elsewhere classified, lumbar region, subsequent encounter for fracture with routine healing (principal); Z98.890 Other specified postprocedural states; K74.60 Unspecified cirrhosis of liver; D61.818 Other pancytopenia; B02.29 Other postherpetic nervous system involvement; N18.6 End stage renal disease; I81 Portal vein thrombosis; R18.8 Other ascites; Z66 Do not resuscitate; D63.1 Anemia in chronic kidney disease; R11.0 Nausea; R54 Age-related physical debility; E53.8 Deficiency of other specified B group vitamins; M19.91 Primary osteoarthritis, unspecified site; Z91.81 History of falling
CPT/HCPCS: 36415; 80053; 82140; 85025; 85027